=== PATIENT | female | born 1965 | race Caucasian/White ===

== ENCOUNTER 2018-02-01 21:09 | Emergency (ER) | payer MEDICAID, SELFPAY ==
[2018-02-01 21:10] VITALS: BP 123/77; PULSE 100; RESP 20; TEMP 36.6; O2SAT 97; BMI 29.5
--- NOTE | 2018-02-01 23:21 | RAD_ITS ---
STUDY: X-RAY CHEST REASON FOR EXAM: Female, 52 years old. Congestion. Dyspnea TECHNIQUE: Frontal and lateral views of the chest. COMPARISON: None. FINDINGS: The lungs are clear and expanded. There is no demonstrated pleural abnormality. Normal size heart. Normal mediastinum and madonna. Normal visualized pulmonary arteries. Normal visualized aortic arch and descending thoracic aorta. Normal visualized thoracic spine. There is degenerative osteoarthritis of the bilateral shoulders. There is no demonstrated abnormality of the visualized soft tissue structures of the upper abdomen. RAD/Chest PA and Lateral IMPRESSION: Degenerative changes, as described above. No demonstrated acute cardiopulmonary process. Electronically Signed: Charlie Casarez MD at 0:11 EDT Tel , Service support ,
[2018-02-02] MEDS: Ketorolac 30 MG/ML Syringe IM (00:05)
[2018-02-02 00:06] VITALS: BP 143/82; PULSE 95; RESP 17; O2SAT 100
--- NOTE | 2018-02-02 00:10 | ED.DCSUM_ITS ---
- ER Visit Summary Date of Service: 02/02/18 Chief Complaint: Upper respiratory infection History of Present Illness: The patient is a 52 F presenting for evaluation secondary to upper respiratory complaints. Patient states that she has an underlying history of rheumatoid arthritis. Patient reports over the course the last 4 days she has had a gradual onset of sore throat cough and earache. Patient states that she has been having some subjective sweats associated with this. She reports that the cough is nonproductive. She denies any nausea vomiting diarrhea or shortness of breath associated with this. Patient reports that the illness has caused her rheumatoid arthritis to flare and she has some generalized myalgias associated with this. Review of systems otherwise negative. Physical Examination: Vital signs notable for heart rate of 100 with normal pulse ox. Well-nourished female no acute distress. Head normocephalic. PRL. Right ear is normal, left TM is retracted with no evidence of otitis media. Nose is normal to inspection. Throat shows mild erythema with no exudates tonsillar swelling or posterior fullness. Neck was supple no lymphadenopathy. Heart was minimally tachycardic and regular. Lung sounds showed evidence of poor air movement but no respiratory distress or retractions or abnormal sounds. Abdomen was soft nontender. There is +1 bilaterally symmetric lower extremity edema. Patient has diffuse joint swelling consistent with rheumatoid arthritis. Remainder physical otherwise unremarkable. Test Results: PA and lateral chest x-ray was found to be unremarkable. Emergency Department Course and Treatment: Patient presented for evaluation secondary to upper respiratory complaints. She was mildly tachycardic so I did check the patient for the possibility of pneumonia PA lateral chest x-ray was found to be negative by my personal and radiologic interpretation. Patient was given Toradol in the emergency department. At this point I do believe that she likely has a respiratory infection, but does not require antibiotics. However given the fact that is also causing a flare of her rheumatoid I believe that a short burst of prednisone will likely help both her respiratory illness as well as her rheumatoid arthritis. She will be given a short burst, and she will follow-up with her primary care doctor Disposition: Discharge Impression: 1. Upper respiratory infection 2. Rheumatoid arthritis flare This note was generated with [employer] software. It may contain incorrect words, spelling, and punctuation that were not noted in review of the chart prior to signing ED Disposition - Plan for ED Patient: Disposition: Home or Assisted Living Chief Complaint: General Illness Diagnosis: URI (upper respiratory infection) Instructions: ED Upper Resp Infec No Abx Tx Prescriptions: Prednisone [Deltasone] 60 mg PO DAILY #15 tab Referrals: Cat Vasquez MD [Primary Care Provider] - 1 Week
[2018-02-02 00:20] VITALS: BP 143/82; PULSE 94; RESP 19; O2SAT 98
[2018-02-02] MEDS: predniSONE 20 MG Tablet 60 MG PO (00:22)
== END 2018-02-02 00:27 | disposition home or self-care (01) ==
PROVIDERS: Emergency Provider Emergency Medicine; Family Provider Internal Medicine; PCP Internal Medicine
DX: J06.9 Acute upper respiratory infection, unspecified (principal); M06.9 Rheumatoid arthritis, unspecified; Z79.899 Other long term (current) drug therapy; Z72.0 Tobacco use; H92.09 Otalgia, unspecified ear
CPT/HCPCS: 71046; 96372; 99282

== ENCOUNTER 2019-11-11 18:45 | Observation (INO) | payer MEDICAID, SELFPAY ==
[2019-11-11] VITALS (9 sets, daily range): BP systolic 103–137; BP diastolic 61–95; PULSE 98–129; RESP 16–20; TEMP 36.9; O2SAT 94–97; BMI 38.0; BMI 37.9
--- NOTE | 2019-11-11 19:07 | EKG12_ITS ---
Test Reason : SOB Blood Pressure : / mmHG Vent. Rate : 108 BPM Atrial Rate : 108 BPM P-R Int : 136 ms QRS Dur : 080 ms QT Int : 344 ms P-R-T Axes : 073 028 059 degrees QTc Int : 460 ms Sinus tachycardia Otherwise normal ECG Confirmed by CHRISTY DIETZ, RICHAR ([id number]), web editor INES COX ([id number]) on 11/14/2019 9:05:13 AM Referred By: Conchis Porter Confirmed By:RICHAR HARRISON MD
[2019-11-11] MEDS: predniSONE 20 MG Tablet 40 MG PO (19:37)
--- NOTE | 2019-11-11 19:38 | RAD_ITS ---
STUDY: X-RAY CHEST REASON FOR EXAM: Female, 54 years old. Cough and shortness of breath TECHNIQUE: Single AP portable view of the chest. COMPARISON: 02/01/2018. FINDINGS: The lungs are clear and expanded. There is no demonstrated pleural abnormality. Normal size heart. Normal mediastinum and madonna. Normal visualized pulmonary arteries. Normal visualized aortic arch and descending thoracic aorta. Normal visualized thoracic spine. Normal visualized ribs, clavicles, and shoulders. There is no demonstrated abnormality of the visualized soft tissue structures of the upper abdomen. RAD/Chest 1 View (Portable) IMPRESSION: Normal x-ray examination of the chest. Electronically Signed: Roman Tellez MD at 20:00 EDT , Service support ,
[2019-11-11 20:21] LABS: Absolute Neutrophil Count 5.2 X10^3/uL (2.0-7.7); Eosinophil# 0.39 X10^3/uL; Eosinophils% 3.9 % (0-5); Hematocrit 41.6 % (37-47); Hemoglobin 13.2 g/dL (12.0-15.0); Lymphocyte % 31.4 % (19-41); Mean Corp Hgb Conc 31.7 g/dL (32-36); Mean Corpuscular Hgb 28.5 pg (27.0-32.0); Mean Corpuscular Volume 89.8 fL (81-99); Mean Platelet Vol. 10.8 fl (6.2-12.0); Monocyte# 1.07 X10^3/uL; Monocyte% 10.8 % (0-10); NRBC Flagged by Analyzer 0 % (0-5); Neutrophil # 5.18 X10^3/uL (2.7-7.7); Neutrophil % 52.5 % (47-70); Platelet Count 398 K/mm3 (150-450); RBC Distribution Width CV 16.9 % (11.6-14.6); RBC Distribution Width SD 55.4 fl (35.1-43.9); Red Blood Count 4.63 M/mm3 (4.2-5.4); White Blood Count 9.9 K/mm3 (4.4-11.0)
[2019-11-11 20:34] LABS: Anion Gap 5 (5-15); BUN 15 mg/dL (7-18); Calcium,Total 8.6 mg/dL (8.5-10.1); Chloride 105 mmol/L (98-107); Creatinine, Serum 0.65 mg/dL (0.55-1.02); EST Glomerular Filtration Rate 101 mL/min (>60); Est Glom Filt Rate - Afr Amer 122 mL/min (>60); Glucose 111 mg/dL (74-106); Potassium 3.4 mmol/L (3.5-5.1); Sodium Level 138 mmol/L (136-145)
[2019-11-11] MEDS: 0.9% Normal Saline 1,000 ML 150 ML IV (20:38)
[2019-11-11 20:54] LABS: D-Dimer Quantitative (DVT/PE) 7.66 FEU/ug/m (0.27-0.49)
[2019-11-11 21:00] LABS: Probe Check PASS; Specimen Processing Control PASS
--- NOTE | 2019-11-11 21:45 | ED.DCSUM_ITS ---
- ER Visit Summary Date of Service: 11/11/19 Chief Complaint: [Shortness of breath] History of Present Illness: The patient is a 54 F [presents to the emergency department complaint of cough and shortness of breath for last 10 days. Patient states that she has been wheezing at night and has been coughing up yellow mucus. She complains of body aches. Patient states that she chronically has some body aches because she has history of rheumatoid arthritis. Patient tells me that she was tested for COVID in August and was negative. She denies any fevers. She denies recent travel or surgery. Patient has history of prior DVT 6 years ago but is currently not anticoagulated. She denies any chest pain.] Physical Examination: [HEENT-PERRLA, EOMI. Cranial nerves II through XII grossly intact. TMs clear. Mucous membranes moist. No adenopathy. Cardiovascular-regular and tachycardic on arrival. Her heart rate was 129. No murmurs auscultated. Lungs-aeration bilaterally. Patient has some faint expiratory wheezes bilaterally. No excessive muscle use or retractions. Abdomen-normoactive bowel sounds, soft, nontender, no rebound or rigidity, no peritoneal signs. Extremities-intact ?4, normal range of motion, normal pulses, atraumatic] Test Results: [EKG obtained on arrival showed a sinus tachycardia with a ventricular rate of 108 bpm with no acute segment changes. CBC with differential showed a white count of 9.9, hemoglobin 13, hematocrit 42, platelets 398. Chemistries unremarkable. D-dimer was elevated at 7.66. COVID- 19 test was negative. Troponin was less than 0.015. Chest x-ray showed nothing acute.] Emergency Department Course and Treatment: [On arrival patient was given albuterol MDI. We were only able to establish a small 24-gauge IV in her hand. We are unable to perform CTA of the chest through this. Multiple attempts were made at IV access unsuccessfully.] Received a dose of Lovenox 1 mg/kg subcu. Treatment Plan: [Admit] Disposition: [Admit] Impression: [Dyspnea-rule out PE URI] This note was generated with [employer] dictation software. It may contain incorrect words, spelling, and punctuation that were not noted in review of the chart prior to signing ED Disposition - Plan for ED Patient: Referrals: Cat Vasquez MD [Primary Care Provider] -
--- NOTE | 2019-11-11 21:53 | HP.PCM_ITS ---
Problem List (1) Acute bronchitis Status: Acute Qualifiers: Bronchitis organism: unspecified organism Qualified Code(s): J20.9 - Acute bronchitis, unspecified (2) Elevated d-dimer Status: Acute (3) Anxiety and depression Status: Chronic (4) GERD (gastroesophageal reflux disease) Status: Chronic Qualifiers: Esophagitis presence: esophagitis presence not specified Qualified Code(s): K21.9 - Gastro-esophageal reflux disease without esophagitis (5) Perimenopause Status: Chronic (6) Nicotine dependence Status: Chronic Qualifiers: Nicotine product type: cigarettes Substance use status: unspecified nicotine-induced disorder Qualified Code(s): F17.219 - Nicotine dependence, cigarettes, with unspecified nicotine-induced disorders (7) History of rheumatoid arthritis Status: Chronic (8) Constipation Status: Chronic Qualifiers: Constipation type: unspecified constipation type Qualified Code(s): K59.00 - Constipation, unspecified History of Present Illness Date of Admission: 11/11/19 Chief Complaint: Dyspnea The patient is a 54 y/o F w/ PMHx: Hx remote DVT, Anxiety and Depression, Obesity, Tobacco use, GERD, Rheumatoid arthritis who presents to the [facility] ED on 11/11/19 with history of dyspnea, worse with exertion with mildly productive cough with congestion and occasional headaches with no fever, chills, nausea, emesis, abdominal pain, chest pain, diarrhea, alteration to sense of taste or smell x 2 weeks with negative 08/2019 COVID testing, unchanged myalgia/arthralgia but not improving prompting eventual ED presentation. Patient reports that she has been wheezing and was initially noted to be wheezing in the ED however upon repeat evaluation no wheezing identified. Work-up in the ED included T 98.4, heart rate 129, BP 137/90, respiratory rate 16, 97% on room air, CBC with WBC 9.9, hemoglobin 13.2, platelets 398 without any evidence of left shift, d-dimer 7.66, BMP with potassium 3.4, glucose 111, negative COVID testing, chest x-ray with no acute cardiopulmonary findings, EKG with sinus tachycardia with no acute evidence of ischemia, troponin less than 0.015. Significant efforts in the ED to place IV access to obtain CTPA; however, unable and patient declined central line in addition to the fact that specific central line needed for the imaging. Discussed with radiology and nursing staff and planned PICC line which was confirmed amenable for CTPA which will be performed in AM. Past Medical History Past Medical History (Chronic Problems): Chronic Problems Anxiety and depression (Chronic) GERD (gastroesophageal reflux disease) (Chronic) Perimenopause (Chronic) Nicotine dependence (Chronic) History of rheumatoid arthritis (Chronic) Constipation (Chronic) History of immunosuppression therapy (Chronic) Allergies meloxicam Adverse Reaction (Verified 11/11/19 18:46) Upset Stomach Home Medications: Ambulatory Orders Medication Instructions Recorded Ibuprofen [Ibu] 1 tab PO TID PRN 02/01/18 Cholecalciferol (Vitamin D3) 2,500 unit PO DAILY 11/11/19 [Vitamin D3] Duloxetine Hcl [Cymbalta] 30 mg PO DAILY 11/11/19 Ferrous Sulfate 325 mg PO DAILY 11/11/19 Omeprazole [Prilosec] 20 mg PO DAILY 11/11/19 traZODone [Desyrel] 100 mg PO QHS 11/11/19 Surgical History: - - Left knee arthroscopic surgery. 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 Lives: Alone Smoking Status: Current every day smoker - Patient with ongoing three-quarter pack per day cigarette tobacco usage. Tobacco Use: Cigarettes Alcohol: None Drugs: None - *Family History Maternal History Items: Cancer - Mother with a history of breast and stomach cancer., Diabetes, Heart Disease - Her mother has had a 3 vessel CABG., - - There is a family history of rheumatoid arthritis in her maternal aunts. Paternal History Items: - - Father with osteoporosis and unclear type of bowel disease. Sibling History Items: No pertinent history Offspring History Items: - - Thyroid disease Review of Systems Constitutional: Reports: Malaise, Weakness, Fatigue. Denies: Chills, Fever, Weight Change HEENT: Reports: Head Aches, Nasal Congestion, Post Nasal Drip, Sinus Congestion, Sinus Drainage Cardiovascular: Denies: Chest Pain, Chest Pressure, Chest Tightness, Light Headedness, Orthopnea, Palpitations, Syncope Respiratory: Reports: Cough, Shortness of Breath, Shortness of breath at rest, Shortness of breath upon exertion, Sputum production, Wheezing. Denies: Hemoptysis, Pleuritic Pain Gastrointestinal: Denies: Abdominal Pain, Nausea, Vomiting Genitourinary: Denies: Dysuria Musculoskeletal: Reports: Back Pain, Joint Pain, Muscle pain. Denies: Joint Tenderness Skin: Denies: Rash, Wounds Neurological: Denies: Numbness, Tingling, Focal weakness Psychiatric: Reports: Anxiety, Depression. Denies: Homicidal Ideations, Suicidal Ideations Hematologic/ Lymphatic: Denies: Easy Bruising, Easy Bleeding VTE Information - Inpt Only VTE Present on Admission: No - Possible, elevated d-dimer, awaiting CTPA VTE Mechan Device Prophylaxis: SCD's VTE Pharm Prophylaxis ordered?: Yes Patient Problems: Active and Suspected Problems Acute bronchitis (Acute) Elevated d-dimer (Acute) Subjective: Patient seated upright in ED bed, fatigued appearing, occasional mildly productive cough, congested. Objective: Physical Examination: General: awake, alert, oriented x 3 and cooperative, seated upright in the ED bed in no apparent distress, fatigued, tearful is recent serial attempts for IV access unsuccessful. Skin: normal color, turgor, no icterus, cyanosis. HEENT: AT/NC, EOMI, PERRLA, some discomfort with palpation of the facial sinus regions, congested appearance, OP erythema with postnasal drip evident, dry MM, no carotid bruits or JVD noted. Lungs: Diminished breath sounds, greater bases, moderate effort, occasional expiratory wheeze, not severe, no obvious rales or rhonchi. Heart: Regular rate and rhythm; no gallop, rub audible. Abdomen: soft, obese, NTTP, ND, normal BS, no HSM. Extremities: no cyanosis, clubbing, or edema. Neurological: patient awake, alert, oriented as noted; cognitive function intact; pupils equally reactive to light and accomodation; cranial nerves II-XII grossly normal, moving all 4 extremities, no focal deficits, strength moderately decreased in Ankit to acute presentation. Psychiatric: affect appears fatigued, tearful given recent serial IV attempts, no acute evidence of depressive or anxiety feelings. - Physical Exam Vitals/I&O's: Vital Signs Temp Pulse Resp BP Pulse Ox 98.4 F 105 H 18 131/86 H 94 11/11/19 18:47 11/11/19 21:04 11/11/19 21:04 11/11/19 21:04 11/11/19 21:04 Oxygen Delivery Method Room Air Weight: 201 lb 8.04 oz Body Mass Index (BMI) 38.0 Laboratory Results 11/11/19 19:30: COVID-19 (KARIN) Negative 11/11/19 20:12: WBC 9.9, RBC 4.63, Hgb 13.2, Hct 41.6, MCV 89.8, MCH 28.5, MCHC 31.7 L, RDW Std Deviation 55.4 H, RDW Coeff of Abhay 16.9 H, Plt Count 398, MPV 10.8, Immature Gran % (Auto) 0.400, Neut % (Auto) 52.5, Lymph % (Auto) 31.4, M tasha % (Auto) 10.8 H, Eos % (Auto) 3.9, Baso % (Auto) 1.0, Absolute Neuts (auto) 5.2, Absolute Lymphs (auto) 3.10, Nucleated RBC % 0 11/11/19 20:12: D-Dimer Quant (PE/DVT) 7.66 H* 11/11/19 20:12: Sodium 138, Potassium 3.4 L, Chloride 105, Carbon Dioxide 28.0, Anion Gap 5, BUN 15, Creatinine 0.65, Estim Creat Clear Calc 76.40, Est GFR ( RD) Af Amer 122, Est GFR (MDRD) Non-Af 101, BUN/Creatinine Ratio 23.0 H, Glucose 111 H, Calcium 8.6 Current Medications Sodium Chloride () 1,000 mls @ 150 mls/hr IV .[id number] ONE Stop: 11/12/19 01:46 Last Admin: 11/11/19 20:38 Dose: 150 mls/hr Documented by: Assessment/Plan All Active Problems Acute bronchitis (Acute) Elevated d-dimer (Acute) Ileus (Acute) Dehydration with hyponatremia (Acute) Nausea and vomiting in adult (Acute) Abdominal pain (Acute) The patient is a 54 y/o F w/ PMHx: Hx remote DVT, Anxiety and Depression, Obesity, Tobacco use, GERD, Rheumatoid arthritis who presents to the [facility] ED on 11/11/19 with history of dyspnea, worse with exertion with mildly productive cough with congestion and occasional headaches with no fever, chills, nausea, emesis, abdominal pain, chest pain, diarrhea, alteration to sense of taste or smell x 2 weeks with negative 08/2019 COVID testing, unchanged myalgia/arthralgia but not improving prompting eventual ED presentation. 1. Dyspnea with mildly productive cough, unclear specific etiology, possibly Acute bronchitis with possible underlying COPD, undiagnosed with prolonged tobacco use history however elevated d-dimer of unclear etiology, possible pulmonary emboli: We will admit to the PCU, COVID negative again, will obtain respiratory viral panel, request sputum Cx, maintain on telemetry monitoring, will cycle cardiac enzymes, repeat EKGs, obtain echocardiogram to be cautious, given ongoing wheezing noted in the ED upon initial presentation we will continue Solu-Medrol, ATC DuoNebs, PRN albuterol, defer any antibiotic therapy as no WC elevation or left shift nor any fever noted, PRN cough agents, continue therapeutic Lovenox pending CTPA following PICC line placement in a.m., PRN oral/IV pain regimen, PRN antiemetic therapy. Upon discharge patient will need formal pulmonary function testing. 2. Hypokalemia: Admission K+ 3.4, supplementation given, repeat level in AM. 3. Anxiety and depression: We will continue patient home Lexapro regimen. 4. Rheumatoid arthritis: Given usage of IV Solu-Medrol will temporarily hold patient oral home prednisone therapy. 5. GERD: We will maintain on famotidine. 6. Tobacco Abuse: Encouraged cessation, inpatient consultation per RT, NR if desired. 7. DVT prophylaxis: SCDs, therapeutic Lovenox. OBSV E&M: [id number] Initial observation care L3
[2019-11-11] MEDS: Enoxaparin 100 MG/ML Syringe 90 MG SC (22:38)
--- NOTE | 2019-11-11 22:57 | ECHOD_ITS ---
Reason For Study: Arrhythmia Procedure This was a 2D Doppler, Color Flow transthoracic echocardiogram. Exam performed portable in patient room. Left Ventricle Normal LV size. Left ventricular systolic function is normal. The estimated ejection fraction is 60 %. Stage 1 diastolic dysfunction. No regional wall motion abnormalities noted. Right Ventricle Normal RV size. Normal systolic function. Atria Normal left atrium. Normal right atrium. Mitral Valve Normal mitral valve. Tricuspid Valve Normal tricuspid valve. Unable to estimate RV systolic pressure due to insufficient tricuspid regurgitant envelope. Aortic Valve Normal aortic valve. Trisinus/trileaflet aortic valve. Pulmonic Valve Normal pulmonic valve. Great Vessels Normal aortic root. The pulmonary artery is normal size. Normal inferior vena cava. Pericardium/Pleural No pericardial effusion. MMode/2D Measurements & Calculations LVIDd: 4.0 cm IVSd: 1.1 cm Ao root diam: 3.1 cm LVIDs: 2.4 cm LVPWd: 0.91 cm LA dimension: 3.5 cm RVDd: 3.2 cm FS: 40.5 % LAV(MOD-bp): 38.2 ml LA A4 area: 14.4 cm2 RA A4 area: 14.0 cm2 LAV(MOD-bp) Indexed: 20.2 ml/m2 LAV(MOD-sp2): 38.6 ml LAV(MOD-sp4): 37.4 ml Time Measurements MV dec time: 0.18 sec Doppler Measurements & Calculations MV E max graham: 100.8 cm/sec Lat Peak E' Graham: 11.5 cm/sec Med Peak E' Graham: 11.2 cm/sec MV A max graham: 137.5 cm/sec E/E' lat: 8.8 E/E' med: 9.0 MV E/A: 0.73 Ao V2 max: 165.6 cm/sec LV V1 max: 137.5 cm/sec PA V2 max: 107.9 cm/sec Ao max P.0 mmHg LV V1 max P.6 mmHg Interpretation Summary Normal LV size. Left ventricular systolic function is normal. The estimated ejection fraction is 60 %. Stage 1 diastolic dysfunction. Structurally normal valves. Ordering Physician: Conchis Porter Referring Physician: Conchis Porter Performed By: Sotero Gamino RCS
--- NOTE | 2019-11-11 22:57 | EKG12_ITS ---
Test Reason : DYSPNEA Blood Pressure : / mmHG Vent. Rate : 098 BPM Atrial Rate : 098 BPM P-R Int : 154 ms QRS Dur : 076 ms QT Int : 358 ms P-R-T Axes : 068 009 039 degrees QTc Int : 457 ms Normal sinus rhythm Normal ECG Confirmed by BRODIE DIETZ, АННА ([id number]), manuscript editor INES COX ([id number]) on 11/14/2019 8:54:24 AM Referred By: Conchis Porter Confirmed By:АННА CALLOWAY MD
[2019-11-11 23:27] LABS: Partial Thromboplast Time 33.6 Seconds (24.1-36.2)
[2019-11-11] MEDS: 0.9% Normal Saline 1,000 ML 100 ML IV (23:33)
[2019-11-11] MEDS: Aspirin 81 MG TAB.CHEW 324 MG PO (23:47)
[2019-11-12] VITALS (11 sets, daily range): BP systolic 123–153; BP diastolic 63–90; PULSE 74–116; RESP 15–20; TEMP 36.7–36.9; O2SAT 94–95
[2019-11-12] MEDS: Ipratropium/Albuterol Sulfate 3 ML AMPUL.NEB INHALATION ×4 (00:14→19:35)
[2019-11-12 02:36] LABS: Absolute Lymphocyte Count 0.91 X10^3/uL (0.83-4.51); Absolute Neutrophil Count 6.3 X10^3/uL (2.0-7.7); Basophil# 0.04 X10^3/uL; Basophil% 0.5 % (0-1); Eosinophil# 0.01 X10^3/uL; Eosinophils% 0.1 % (0-5); Hematocrit 38.4 % (37-47); Hemoglobin 12.1 g/dL (12.0-15.0); Lymphocyte # 0.91 X10^3/ul (4.0); Lymphocyte % 12.4 % (19-41); Mean Corp Hgb Conc 31.5 g/dL (32-36); Mean Corpuscular Hgb 28.1 pg (27.0-32.0); Mean Corpuscular Volume 89.1 fL (81-99); Mean Platelet Vol. 11.3 fl (6.2-12.0); Monocyte# 0.07 X10^3/uL; NRBC Flagged by Analyzer 0 % (0-5); Neutrophil # 6.29 X10^3/uL (2.7-7.7); Neutrophil % 85.6 % (47-70); Platelet Count 342 K/mm3 (150-450); RBC Distribution Width CV 16.4 % (11.6-14.6); Red Blood Count 4.31 M/mm3 (4.2-5.4); White Blood Count 7.4 K/mm3 (4.4-11.0)
[2019-11-12 03:30] LABS: ALB/GLOB Ratio 0.5 RATIO (0.9-2.4); AST(SGOT) 13 U/L (15-37); Alanine Aminotransfer ALT/SGPT 29 U/L (13-56); Albumin, Serum 2.3 g/dL (3.2-5.0); Alkaline Phosphatase 73 U/L (45-117); Anion Gap 5 (5-15); BUN 14 mg/dL (7-18); BUN/Creat Ratio 18.8 RATIO (10-20); Calcium,Total 8.2 mg/dL (8.5-10.1); Chloride 109 mmol/L (98-107); Cholesterol 115 mg/dL (200); Creatinine, Serum 0.74 mg/dL (0.55-1.02); EST Glomerular Filtration Rate 87 mL/min (>60); Est Glom Filt Rate - Afr Amer 105 mL/min (>60); Estimated Creatinine Clearance 67.11 ml/min; Globulin 4.3 g/dL (2.2-4.2); Glucose 178 mg/dL (74-106); High Density Lipoprotein 33 mg/dL; Protein, Total 6.6 g/dL (6.4-8.2); Sodium Level 138 mmol/L (136-145); Triglycerides 58 mg/dL; Very Low Density Lipoprotein 12 mg/dL (5-40)
[2019-11-12] MEDS: guaiFENesin 10 ML UDC (200MG/10ML) 20 ML PO (04:33)
[2019-11-12] MEDS: Mag Hydrox/Al Hydrox/Simeth 30 ML UDC PO (04:40)
[2019-11-12] MEDS: Enoxaparin 100 MG/ML Syringe 90 MG SC (05:40)
--- NOTE | 2019-11-12 08:00 | CT_ITS ---
STUDY: CTA CHEST REASON FOR EXAM: Female, 54 years old. PT STATED COUGH, SHORT OF BREATH X 10 DAYS, POSITIVE INFLUENZA, HX DVT RADIATION DOSAGE (If Supplied By Facility): CTDIvol = ( 12.02 ) mGy, DLP = ( 521.27 ) mGycm TECHNIQUE: The examination was performed with the intravenous administration of 100ML ISOVUE 370. Post-processing of the angiographic images was performed, with multiplanar reformation and 3D reconstruction. Individualized dose optimization techniques were used for this CT. COMPARISON: Previous plain films FINDINGS: Normal enhancement of the main pulmonary artery and right and left pulmonary arteries. Normal enhancement of the bilateral peripheral pulmonary arteries. There is no demonstrated pulmonary embolism. Normal thoracic aorta and visualized great vessels. There is no demonstrated aortic dissection. Normal heart and pericardium. Normal mediastinum. Normal hilar regions. Normal visualized trachea and bronchi. The lungs are well expanded. Normal pulmonary parenchyma. Normal pleura. Normal chest wall structures. There are degenerative changes of thoracic spine. Normal visualized upper abdomen. CT/CTA Chest W/WO Contrast IMPRESSION: No demonstrated PE, or thoracic aortic aneurysm or dissection No superimposed acute pulmonary process Degenerative bony changes Electronically Signed: Irving Cavanaugh MD at 11:54 EDT , Service support ,
[2019-11-12] MEDS: Acetaminophen 325 MG Tablet 650 MG PO (09:23)
[2019-11-12] MEDS: Ferrous Sulfate 325 MG Tablet PO (09:23)
[2019-11-12] MEDS: Famotidine 20 MG Tablet PO ×2 (09:23→21:10)
[2019-11-12] MEDS: Pantoprazole Sodium 20 MG Tablet PO (09:23)
[2019-11-12] MEDS: oxyCODONE 5 MG Tablet PO ×3 (09:23→20:28)
[2019-11-12] MEDS: 0.9% Normal Saline 1,000 ML 100 ML IV (09:24)
[2019-11-12] MEDS: Aspirin 81 MG TAB.CHEW PO (09:38)
[2019-11-12] MEDS: DULoxetine Hcl 30 MG Capsule PO (12:44)
--- NOTE | 2019-11-12 13:17 | NURSING ---
Copious amount of red drainage noted. Drsg changed. 2x2 guaze with tegaderm applied.
--- NOTE | 2019-11-12 14:08 | PN_ITS ---
<Dory Mauricio - Last Filed: 11/12/19 14:14> Patient Problems: Active and Suspected Problems Acute bronchitis (Acute) Elevated d-dimer (Acute) Subjective: Patient seen and examined. Reports intermittent coughing spells where she becomes shortness of breath. Overall shortness of breath improved. Denies fever, chills. - Physical Exam Vitals/I&O's: Vital Signs Temp Pulse Resp BP Pulse Ox 98.1 F 97 16 144/90 H 94 11/12/19 09:30 11/12/19 09:30 11/12/19 09:30 11/12/19 09:30 11/12/19 09:30 Oxygen Flow Rate (L/min) 2 Oxygen Delivery Method Room Air Weight: 200 lb 13.458 oz Body Mass Index (BMI) 37.9 Intake and Output for Last 24 Hours 11/10/19 11/11/19 11/12/19 23:59 23:59 23:59 Intake Total 663.33 / 663.33 1631.67 / 1631.67 Balance 663.33 / 663.33 1631.67 / 1631.67 General: Alert, Oriented x3, Cooperative HEENT: Atraumatic, PERRLA, EOMI, Normocephalic Neck: Supple, No JVD, Negative Carotid Bruits Lungs: Clear to auscultation, Diminished Cardiovascular: Regular rate, No murmurs Abdomen: Bowel Sounds Present, Soft, Non Tender, Non-Distended Extremities: No clubbing, No cyanosis, No edema, Capillary Refill Less than 3 Seconds Skin: No rashes, No breakdown Musculoskeletal: No Tenderness to Palpation of Joints or Extremities Neurological: Cranial nerves II-XII grossly intact, Neuro grossly intact Psych/Mental Status: Normal Affect, Appropriate Microbiology Past 72 Hours 11/12/19 00:25 Sputum, Expectorated/Coughed Gram Stain - Final 11/11/19 00:10 Mucosa - Nose Respiratory Panel (PCR) - Final Influenzae B Laboratory Results 11/11/19 19:30: COVID-19 (KARIN) Negative 11/11/19 20:12: WBC 9.9, RBC 4.63, Hgb 13.2, Hct 41.6, MCV 89.8, MCH 28.5, MCHC 31.7 L, RDW Std Deviation 55.4 H, RDW Coeff of Abhay 16.9 H, Plt Count 398, MPV 10.8, Immature Gran % (Auto) 0.400, Neut % (Auto) 52.5, Lymph % (Auto) 31.4, Archer % (Auto) 10.8 H, Eos % (Auto) 3.9, Baso % (Auto) 1.0, Absolute Neuts (auto) 5.2, Absolute Lymphs (auto) 3.10, Nucleated RBC % 0 11/11/19 20:12: D-Dimer Quant (PE/DVT) 7.66 H* 11/11/19 20:12: Sodium 138, Potassium 3.4 L, Chloride 105, Carbon Dioxide 28.0, Anion Gap 5, BUN 15, Creatinine 0.65, Estim Creat Clear Calc 76.40, Est GFR (MDRD) Af Amer 122, Est GFR (MDRD) Non-Af 101, BUN/Creatinine Ratio 23.0 H, Glucose 111 H, Calcium 8.6 11/11/19 20:12: Troponin I < 0.015 11/11/19 20:12: PT 13.0, INR 1.0, APTT 33.6 11/11/19 23:58: Troponin I < 0.015 11/12/19 02:26: WBC 7.4, RBC 4.31, Hgb 12.1, Hct 38.4, MCV 89.1, MCH 28.1, MCHC 31.5 L, RDW Std Deviation 54.0 H, RDW Coeff of Abhay 16.4 H, Plt Count 342, MPV 11.3, Immature Gran % (Auto) 0.400, Neut % (Auto) 85.6 H, Lymph % (Auto) 12.4 L, Archer % (Auto) 1.0, Eos % (Auto) 0.1, Baso % (Auto) 0.5, Absolute Neuts (auto) 6.3, Absolute Lymphs (auto) 0.91, Nucleated RBC % 0 11/12/19 02:26: Sodium 138, Potassium 4.0, Chloride 109 H, Carbon Dioxide 24.0, Anion Gap 5, BUN 14, Creatinine 0.74, Estim Creat Clear Calc 67.11, Est GFR (MDRD) Af Amer 105, Est GFR (MDRD) Non-Af 87, BUN/Creatinine Ratio 18.8, Glucose 178 H, Calcium 8.2 L, Total Bilirubin 0.10 L, AST 13 L, ALT 29, Alkaline Tony sphatase 73, Total Protein 6.6, Albumin 2.3 L, Globulin 4.3 H, Albumin/Globulin Ratio 0.5 L, Triglycerides 58, Cholesterol 115, LDL Cholesterol 70, VLDL Cholesterol 12, HDL Cholesterol 33 L 11/12/19 02:26: Troponin I < 0.015 Current Medications Acetaminophen (Tylenol) 650 mg PO Q6H PRN PRN PRN Reason: Pain Score 1-10/Temp > 100.7 F Last Admin: 11/12/19 09:23 Dose: 650 mg Documented by: Al Hydroxide/Mg Hydroxide (Mylanta Ii) 30 ml PO Q6H PRN PRN PRN Reason: Gastric Burning Last Admin: 11/12/19 04:40 Dose: 30 ml Documented by: Albuterol Sulfate (Ventolin Aerosols) 2.5 mg INHALATION Q2H PRN PRN PRN Reason: Dyspnea, wheezing Albuterol/Ipratropium (Duoneb) 3 ml INHALATION Q4HWA.RT [facility] Last Admin: 11/12/19 10:50 Dose: Not Given Documented by: Aspirin (Aspirin, Baby) 81 mg PO DAILY@0800 [facility] Last Admin: 11/12/19 09:38 Dose: 81 mg Documented by: Dextrose (D50w Syringe) 0 gm IV X1 PRN; Protocol PRN Reason: Hypoglycemia Duloxetine HCl (Cymbalta) 30 mg PO DAILY [facility] Last Admin: 11/12/19 12:44 Dose: 30 mg Documented by: Famotidine (Pepcid) 20 mg PO BID [facility] Last Admin: 11/12/19 09:23 Dose: 20 mg Documented by: Ferrous Sulfate (Ferrous Sulfate) 325 mg PO DAILYCM [facility] Last Admin: 11/12/19 09:23 Dose: 325 mg Documented by: Glucagon () 1 mg IM .X1 PRN PRN Reason: Hypoglycemia Guaifenesin (Robitussin) 20 ml PO Q4H PRN PRN PRN Reason: COUGH Last Admin: 11/12/19 04:33 Dose: 20 ml Documented by: Hydralazine HCl (Apresoline Iv) 10 mg IV Q4H PRN PRN PRN Reason: SBP > 160 Sodium Chloride () 1,000 mls @ 100 mls/hr IV .Q10H [facility] Last Infusion: 11/12/19 12:46 Dose: 100 mls/hr Documented by: Sodium Chloride () 250 mls @ 15 mls/hr IV .[id number] PRN PRN Reason: Saline Flush Sodium Chloride () 250 mls @ 15 mls/hr IV .[id number] PRN PRN Reason: Additional IVPB Infusion Magnesium Hydroxide (Milk Of Magnesia) 30 ml PO DAILY PRN PRN PRN Reason: Constipation Methylprednisolone (Solu-Medrol) 40 mg IV Q8 [facility] Last Admin: 11/12/19 05:40 Dose: 40 mg Documented by: Morphine Sulfate () 2 mg IV Q3H PRN PRN PRN Reason: Pain Score 6-10/10 Nicotine (Nicoderm Cq (Pbkc)) 14 mg TRANSDERM. DAILY [facility] Last Admin: 11/12/19 09:24 Dose: 14 mg Documented by: Nitroglycerin (Nitrostat) 0.4 mg SUBLINGUAL Q5M PRN PRN Reason: CARDIAC/CHEST PAIN Ondansetron HCl (Zofran) 4 mg IV Q8H PRN PRN PRN Reason: NAUSEA/VOMITING Oxycodone HCl (Oxyir) 5 mg PO Q4H PRN PRN PRN Reason: Pain Score 4-5/10 Last Admin: 11/12/19 09:23 Dose: 5 mg Documented by: Pantoprazole Sodium (Protonix) 20 mg PO DAILY [facility] Last Admin: 11/12/19 09:23 Dose: 20 mg Documented by: Prochlorperazine Edisylate (Compazine Iv) 5 mg IV Q4H PRN PRN PRN Reason: Breakthrough Nausea/Vomiting Psyllium Hydrophilic Mucilloid (Metamucil) 1 packet PO DAILY PRN PRN PRN Reason: Constipation Senna/Docusate Sodium (Senokot-S, Charo-Colace) 2 tablet PO BID PRN PRN PRN Reason: Constipation Sodium Chloride () 10 - 40 ml IV UD PRN PRN Reason: SALINE FLUSH Throat Lozenges (Cepacol Sore Throat Lozenge) 1 lozenge MUCOUS MEM Q2H PRN PRN PRN Reason: SORE THROAT Trazodone HCl (Desyrel) 100 mg PO QHS [facility] Medical Necessity - Tobacco Use Smoking Status: Current every day smoker Tobacco Use: Cigarettes Assessment/Plan All Active Problems Acute bronchitis (Acute) Elevated d-dimer (Acute) Ileus (Acute) Dehydration with hyponatremia (Acute) Nausea and vomiting in adult (Acute) Abdominal pain (Acute) 1. Acute bronchitis secondary to acute influenza B-suspect underlying COPD. COVID negative. Respiratory panel positive for influenza B. Sputum culture pending. Continue IV Solu-Medrol. Albuterol and DuoNeb aerosols. Oxygen stable on room air. Walking pulse ox prior to discharge. PRN regimen for cough. Incentive spirometer. Recommend outpatient follow-up with pulmonary medicine for pulmonary function testing given long-term smoking history. CTA negative for PE. Echocardiogram demonstrates an EF of 60%, stage I diastolic dysfunction. 2. Hypokalemia-replace per protocol. Resolved. 3. Rheumatoid arthritis-on prednisone. 4. GERD-continue PPI. 5. Tobacco dependence-encouraged cessation. Nicotine replacement patch. 6. Anxiety/depression-continue duloxetine, trazodone regimen. DVT prophylaxis-Lovenox sc This patient was seen by ALEJANDRO Cisneros under the supervision of Dr. Coppola. <Jemima Coppola - Last Filed: 11/12/19 14:23> - Physical Exam Vitals/I&O's: Vital Signs Temp Pulse Resp BP Pulse Ox 98.1 F 97 16 144/90 H 94 11/12/19 09:30 11/12/19 09:30 11/12/19 09:30 11/12/19 09:30 11/12/19 09:30 Oxygen Flow Rate (L/min) 2 Oxygen Delivery Method Room Air Weight: 91.1 kg Body Mass Index (BMI) 37.9 Intake and Output for Last 24 Hours 11/10/19 11/11/19 11/12/19 23:59 23:59 23:59 Intake Total 663.33 / 663.33 1631.67 / 1631.67 Balance 663.33 / 663.33 1631.67 / 1631.67 Microbiology Past 72 Hours 11/12/19 00:25 Sputum, Expectorated/Coughed Gram Stain - Final 11/11/19 00:10 Mucosa - Nose Respiratory Panel (PCR) - Final Influenzae B Laboratory Results 11/11/19 19:30: COVID-19 (KARIN) Negative 11/11/19 20:12: WBC 9.9, RBC 4.63, Hgb 13.2, Hct 41.6, MCV 89.8, MCH 28.5, MCHC 31.7 L, RDW Std Deviation 55.4 H, RDW Coeff of Abhay 16.9 H, Plt Count 398, MPV 10.8, Immature Gran % (Auto) 0.400, Neut % (Auto) 52.5, Lymph % (Auto) 31.4, Archer % (Auto) 10.8 H, Eos % (Auto) 3.9, Baso % (Auto) 1.0, Absolute Neuts (auto) 5.2, Absolute Lymphs (auto) 3.10, Nucleated RBC % 0 11/11/19 20:12: D-Dimer Quant (PE/DVT) 7.66 H* 11/11/19 20:12: Sodium 138, Potassium 3.4 L, Chloride 105, Carbon Dioxide 28.0, Anion Gap 5, BUN 15, Creatinine 0.65, Estim Creat Clear Calc 76.40, Est GFR (MDRD) Af Amer 122, Est GFR (MDRD) Non-Af 101, BUN/Creatinine Ratio 23.0 H, Glucose 111 H, Calcium 8.6 11/11/19 20:12: Troponin I < 0.015 11/11/19 20:12: PT 13.0, INR 1.0, APTT 33.6 11/11/19 23:58: Troponin I < 0.015 11/12/19 02:26: WBC 7.4, RBC 4.31, Hgb 12.1, Hct 38.4, MCV 89.1, MCH 28.1, MCHC 31.5 L, RDW Std Deviation 54.0 H, RDW Coeff of Abhay 16.4 H, Plt Count 342, MPV 11.3, Immature Gran % (Auto) 0.400, Neut % (Auto) 85.6 H, Lymph % (Auto) 12.4 L, Archer % (Auto) 1.0, Eos % (Auto) 0.1, Baso % (Auto) 0.5, Absolute Neuts (auto) 6.3, Absolute Lymphs (auto) 0.91, Nucleated RBC % 0 11/12/19 02:26: Sodium 138, Potassium 4.0, Chloride 109 H, Carbon Dioxide 24.0, Anion Gap 5, BUN 14, Creatinine 0.74, Estim Creat Clear Calc 67.11, Est GFR (MDRD) Af Amer 105, Est GFR (MDRD) Non-Af 87, BUN/Creatinine Ratio 18.8, Glucose 178 H, Calcium 8.2 L, Total Bilirubin 0.10 L, AST 13 L, ALT 29, Alkaline Phosphatase 73, Total Protein 6.6, Albumin 2.3 L, Globulin 4.3 H, Albumin/Globulin Ratio 0.5 L, Triglycerides 58, Cholesterol 115, LDL Cholesterol 70, VLDL Cholesterol 12, HDL Cholesterol 33 L 11/12/19 02:26: Troponin I < 0.015 Current Medications Acetaminophen (Tylenol) 650 mg PO Q6H PRN PRN PRN Reason: Pain Score 1-10/Temp > 100.7 F Last Admin: 11/12/19 09:23 Dose: 650 mg Documented by: Al Hydroxide/Mg Hydroxide (Mylanta Ii) 30 ml PO Q6H PRN PRN PRN Reason: Gastric Burning Last Admin: 11/12/19 04:40 Dose: 30 ml Documented by: Albuterol Sulfate (Ventolin Aerosols) 2.5 mg INHALATION Q2H PRN PRN PRN Reason: Dyspnea, wheezing Albuterol/Ipratropium (Duoneb) 3 ml INHALATION Q4HWA.RT [facility] Last Admin: 11/12/19 10:50 Dose: Not Given Documented by: Aspirin (Aspirin, Baby) 81 mg PO DAILY@0800 [facility] Last Admin: 11/12/19 09:38 Dose: 81 mg Documented by: Benzonatate (Tessalon Perle) 100 mg PO TID PRN PRN PRN Reason: COUGH Dextrose (D50w Syringe) 0 gm IV X1 PRN; Protocol PRN Reason: Hypoglycemia Duloxetine HCl (Cymbalta) 30 mg PO DAILY [facility] Last Admin: 11/12/19 12:44 Dose: 30 mg Documented by: Famotidine (Pepcid) 20 mg PO BID [facility] Last Admin: 11/12/19 09:23 Dose: 20 mg Documented by: Ferrous Sulfate (Ferrous Sulfate) 325 mg PO DAILYCM [facility] Last Admin: 11/12/19 09:23 Dose: 325 mg Documented by: Glucagon () 1 mg IM .X1 PRN PRN Reason: Hypoglycemia Guaifenesin (Robitussin) 20 ml PO Q4H PRN PRN PRN Reason: COUGH Last Admin: 11/12/19 04:33 Dose: 20 ml Documented by: Hydralazine HCl (Apresoline Iv) 10 mg IV Q4H PRN PRN PRN Reason: SBP > 160 Sodium Chloride () 1,000 mls @ 100 mls/hr IV .Q10H [facility] Last Infusion: 11/12/19 12:46 Dose: 100 mls/hr Documented by: Sodium Chloride () 250 mls @ 15 mls/hr IV .[id number] PRN PRN Reason: Saline Flush Sodium Chloride () 250 mls @ 15 mls/hr IV .[id number] PRN PRN Reason: Additional IVPB Infusion Magnesium Hydroxide (Milk Of Magnesia) 30 ml PO DAILY PRN PRN PRN Reason: Constipation Methylprednisolone (Solu-Medrol) 40 mg IV Q8 [facility] Last Admin: 11/12/19 05:40 Dose: 40 mg Documented by: Morphine Sulfate () 2 mg IV Q3H PRN PRN PRN Reason: Pain Score 6-10/10 Nicotine (Nicoderm Cq (Pbkc)) 14 mg TRANSDERM. DAILY [facility] Last Admin: 11/12/19 09:24 Dose: 14 mg Documented by: Nitroglycerin (Nitrostat) 0.4 mg SUBLINGUAL Q5M PRN PRN Reason: CARDIAC/CHEST PAIN Ondansetron HCl (Zofran) 4 mg IV Q8H PRN PRN PRN Reason: NAUSEA/VOMITING Oxycodone HCl (Oxyir) 5 mg PO Q4H PRN PRN PRN Reason: Pain Score 4-5/10 Last Admin: 11/12/19 09:23 Dose: 5 mg Documented by: Pantoprazole Sodium (Protonix) 20 mg PO DAILY [facility] Last Admin: 11/12/19 09:23 Dose: 20 mg Documented by: Prochlorperazine Edisylate (Compazine Iv) 5 mg IV Q4H PRN PRN PRN Reason: Breakthrough Nausea/Vomiting Psyllium Hydrophilic Mucilloid (Metamucil) 1 packet PO DAILY PRN PRN PRN Reason: Constipation Senna/Docusate Sodium (Senokot-S, Charo-Colace) 2 tablet PO BID PRN PRN PRN Reason: Constipation Sodium Chloride () 10 - 40 ml IV UD PRN PRN Reason: SALINE FLUSH Throat Lozenges (Cepacol Sore Throat Lozenge) 1 lozenge MUCOUS MEM Q2H PRN PRN PRN Reason: SORE THROAT Trazodone HCl (Desyrel) 100 mg PO QHS [facility] Assessment/Plan This patient was seen in conjunction with Dory Mauricio LAMINATOR. I have independently interviewed and examined the patient and reviewed pertinent historical, laboratory, and other data. Please refer to her note for patient's presentation, findings, and recommendations. Patient was seen and examined. She complains of feeling achy all over. Denied any fever or chills. She is on room air. COVID-19 testing is negative. Respiratory panel is positive for acute influenza B. She had a midline placed today. CTA is negative for acute PE. Vitals were reviewed -stable Physical Exam: Gen: Looks in some discomfort, not pale, not jaundiced, alert oriented x3 CVS:HS I +II, regular, no murmurs RESP: Diminished at lung bases, no wheezes heard GI: BS present and normal, nontender, no palpable organs EXT:No edema Labs reviewed: ASSESSMENT: 1. Acute bronchitis second to acute influenza B 2. Hypokalemia 3. Rheumatoid arthritis 4. GERD 5. Nicotine dependence 6. Anxiety/depression Meds reviewed Plan: We will discontinue Lovenox Continue with scheduled breathing treatments, IV Solu-Medrol OBSV E&M: [id number] Subsequent observation care L3
[2019-11-12] MEDS: Benzonatate 100 MG Capsule PO ×2 (14:55→20:28)
[2019-11-12] MEDS: traZODone 100 MG Tablet PO (21:08)
[2019-11-12] MEDS: 0.9% Saline Lock 10 ML Syringe IV (21:11)
[2019-11-13] VITALS (11 sets, daily range): BP systolic 120–151; BP diastolic 63–84; PULSE 66–98; RESP 15–20; TEMP 36.4–36.8; O2SAT 92–95
[2019-11-13] MEDS: guaiFENesin 10 ML UDC (200MG/10ML) 20 ML PO (00:18)
[2019-11-13] MEDS: oxyCODONE 5 MG Tablet PO ×5 (00:22→22:11)
[2019-11-13] MEDS: 0.9% Saline Lock 10 ML Syringe IV ×2 (05:15→14:39)
[2019-11-13 05:46] LABS: Anion Gap 2 (5-15); BUN 13 mg/dL (7-18); BUN/Creat Ratio 22.3 RATIO (10-20); Calcium,Total 8.7 mg/dL (8.5-10.1); Chloride 107 mmol/L (98-107); Creatinine, Serum 0.58 mg/dL (0.55-1.02); EST Glomerular Filtration Rate 115 mL/min (>60); Est Glom Filt Rate - Afr Amer 140 mL/min (>60); Estimated Creatinine Clearance 85.62 ml/min; Glucose 150 mg/dL (74-106); Potassium 4.7 mmol/L (3.5-5.1); Sodium Level 140 mmol/L (136-145)
[2019-11-13] MEDS: Ipratropium/Albuterol Sulfate 3 ML AMPUL.NEB INHALATION ×3 (06:48→19:09)
[2019-11-13] MEDS: DULoxetine Hcl 30 MG Capsule PO (10:57)
[2019-11-13] MEDS: Ferrous Sulfate 325 MG Tablet PO (10:57)
[2019-11-13] MEDS: Aspirin 81 MG TAB.CHEW PO (10:57)
[2019-11-13] MEDS: Famotidine 20 MG Tablet PO ×2 (10:58→21:23)
[2019-11-13] MEDS: guaiFENesin 1,200 MG Tablet 1200 MG PO ×2 (10:58→21:23)
[2019-11-13] MEDS: Pantoprazole Sodium 20 MG Tablet PO (10:58)
[2019-11-13] MEDS: Acetaminophen 325 MG Tablet 650 MG PO (10:59)
--- NOTE | 2019-11-13 11:28 | PCM.PROGNOTE ---
<Dory Mauricio - Last Filed: 11/13/19 11:32> Patient Problems: Active and Suspected Problems Acute bronchitis (Acute) Elevated d-dimer (Acute) Subjective: Patient seen and examined. Reports continued coughing spells with associated shortness of breath. Patient states cough is nonproductive however she feels like she has something in her chest that she needs to get out. Patient reports overnight she became diaphoretic and had to change her bedding 3 times. No fever was noted per temperature however patient felt she was febrile during that time. - Physical Exam Vitals/I&O's: Vital Signs Temp Pulse Resp BP Pulse Ox 98.2 F 93 15 151/77 H 95 11/13/19 10:34 11/13/19 10:34 11/13/19 10:34 11/13/19 10:34 11/13/19 10:34 Oxygen Flow Rate (L/min) 2 Oxygen Delivery Method Room Air Weight: 200 lb 13.458 oz Body Mass Index (BMI) 37.9 Intake and Output for Last 24 Hours 11/11/19 11/12/19 11/13/19 23:59 23:59 23:59 Intake Total 663.33 / 663.33 2258.34 / 2258.34 Balance 663.33 / 663.33 2258.34 / 2258.34 General: Alert, Oriented x3, Cooperative HEENT: Atraumatic, PERRLA, EOMI, Normocephalic Oral: Dry Mucosa Neck: Supple, No JVD, Negative Carotid Bruits Lungs: Clear to auscultation, No rales Cardiovascular: Regular rate, No murmurs Abdomen: Bowel Sounds Present, Soft, Non Tender, Non-Distended Extremities: No clubbing, No cyanosis, No edema, Capillary Refill Less than 3 Seconds Skin: No rashes, No breakdown Musculoskeletal: No Tenderness to Palpation of Joints or Extremities Neurological: Cranial nerves II-XII grossly intact, Neuro grossly intact Psych/Mental Status: Normal Affect, Appropriate Microbiology Past 72 Hours 11/12/19 00:25 Sputum, Expectorated/Coughed Gram Stain - Final 11/12/19 00:25 Sputum, Expectorated/Coughed Respiratory Culture - Preliminary Appears to be normal respiratory luke. Further studies to follow. 11/11/19 00:10 Mucosa - Nose Respiratory Panel (PCR) - Final Influenzae B Laboratory Results 11/13/19 05:15: Sodium 140, Potassium 4.7, Chloride 107, Carbon Dioxide 31.0, Anion Gap 2 L, BUN 13, Creatinine 0.58, Estim Creat Clear Calc 85.62, Est GFR (MDRD) Af Amer 140, Est GFR (MDRD) Non-Af 115, BUN/Creatinine Ratio 22.3 H, Glucose 150 H, Calcium 8.7 Current Medications Acetaminophen (Tylenol) 650 mg PO Q6H PRN PRN PRN Reason: Pain Score 1-10/Temp > 100.7 F Last Admin: 11/13/19 10:59 Dose: 650 mg Documented by: Al Hydroxide/Mg Hydroxide (Mylanta Ii) 30 ml PO Q6H PRN PRN PRN Reason: Gastric Burning Last Admin: 11/12/19 04:40 Dose: 30 ml Documented by: Albuterol Sulfate (Ventolin Aerosols) 2.5 mg INHALATION Q2H PRN PRN PRN Reason: Dyspnea, wheezing Albuterol/Ipratropium (Duoneb) 3 ml INHALATION Q4HWA.RT [facility] Last Admin: 11/13/19 11:06 Dose: 3 ml Documented by: Aspirin (Aspirin, Baby) 81 mg PO DAILY@0800 [facility] Last Admin: 11/13/19 10:57 Dose: 81 mg Documented by: Benzonatate (Tessalon Perle) 100 mg PO TID PRN PRN PRN Reason: COUGH Last Admin: 11/12/19 20:28 Dose: 100 mg Documented by: Dextrose (D50w Syringe) 0 gm IV X1 PRN; Protocol PRN Reason: Hypoglycemia Duloxetine HCl (Cymbalta) 30 mg PO DAILY [facility] Last Admin: 11/13/19 10:57 Dose: 30 mg Documented by: Famotidine (Pepcid) 20 mg PO BID [facility] Last Admin: 11/13/19 10:58 Dose: 20 mg Documented by: [facility]ous S[facility] ([facility] S[facility]ate) [facility] Last Admin: 11/13/19 10:57 Dose: 325 mg Documented by: Glucagon () 1 mg IM .X1 PRN PRN Reason: Hypoglycemia Guaifenesin (Mucinex) 1,200 mg PO BID [facility] Last Admin: 11/13/19 10:58 Dose: 1,200 mg Documented by: Hydralazine HCl (Apresoline Iv) 10 mg IV Q4H PRN PRN PRN Reason: SBP > 160 Sodium Chloride () 250 mls @ 15 mls/hr IV .[id number] PRN PRN Reason: Saline Flush Sodium Chloride () 250 mls @ 15 mls/hr IV .[id number] PRN PRN Reason: Additional IVPB Infusion Magnesium Hydroxide (Milk Of Magnesia) 30 ml PO DAILY PRN PRN PRN Reason: Constipation Methylprednisolone (Solu-Medrol) 40 mg IV Q8 [facility] Last Admin: 11/13/19 05:14 Dose: 40 mg Documented by: Nicotine (Nicoderm Cq (Pbkc)) 14 mg TRANSDERM. DAILY [facility] Last Admin: 11/13/19 10:58 Dose: 14 mg Documented by: Nitroglycerin (Nitrostat) 0.4 mg SUBLINGUAL Q5M PRN PRN Reason: CARDIAC/CHEST PAIN Ondansetron HCl (Zofran) 4 mg IV Q8H PRN PRN PRN Reason: NAUSEA/VOMITING Oxycodone HCl (Oxyir) 5 mg PO Q4H PRN PRN PRN Reason: Pain Score 4-5/10 Last Admin: 11/13/19 05:25 Dose: 5 mg Documented by: Pantoprazole Sodium (Protonix) 20 mg PO DAILY [facility] Last Admin: 11/13/19 10:58 Dose: 20 mg Documented by: Psyllium Hydrophilic Mucilloid (Metamucil) 1 packet PO DAILY PRN PRN PRN Reason: Constipation Senna/Docusate Sodium (Senokot-S, Charo-Colace) 2 tablet PO BID PRN PRN PRN Reason: Constipation Sodium Chloride () 10 - 40 ml IV UD PRN PRN Reason: SALINE FLUSH Last Admin: 11/13/19 05:15 Dose: 30 ml Documented by: Throat Lozenges (Cepacol Sore Throat Lozenge) 1 lozenge MUCOUS MEM Q2H PRN PRN PRN Reason: SORE THROAT Trazodone HCl (Desyrel) 100 mg PO QHS [facility] Last Admin: 11/12/19 21:08 Dose: 100 mg Documented by: Medical Necessity - Tobacco Use Smoking Status: Current every day smoker Tobacco Use: Cigarettes Assessment/Plan All Active Problems Acute bronchitis (Acute) Elevated d-dimer (Acute) Ileus (Acute) Dehydration with hyponatremia (Acute) Nausea and vomiting in adult (Acute) Abdominal pain (Acute) 1. Acute bronchitis secondary to acute influenza B-suspect underlying COPD. COVID negative. Respiratory panel positive for influenza B. Sputum culture shows normal respiratory luke. Continue IV Solu-Medrol. Albuterol and DuoNeb aerosols. Oxygen stable on room air. Walking pulse ox prior to discharge. PRN regimen for cough. Incentive spirometer. Recommend outpatient follow-up with pulmonary medicine for pulmonary function testing given long-term smoking history. CTA negative for PE. Echocardiogram demonstrates an EF of 60%, stage I diastolic dysfunction. 2. Hypokalemia-replace per protocol. Resolved. 3. Rheumatoid arthritis-on prednisone. 4. GERD-continue PPI. 5. Tobacco dependence-encouraged cessation. Nicotine replacement patch. 6. Anxiety/depression-continue duloxetine, trazodone regimen. DVT prophylaxis-Lovenox sc This patient was seen by ALEJANDRO Cisneros under the supervision of Dr. Coppola. <Jemima Coppola - Last Filed: 11/13/19 14:37> - Physical Exam Vitals/I&O's: Vital Signs Temp Pulse Resp BP Pulse Ox 98.2 F 98 15 151/77 H 95 11/13/19 10:34 11/13/19 11:55 11/13/19 10:34 11/13/19 10:34 11/13/19 10:34 Oxygen Flow Rate (L/min) 2 Oxygen Delivery Method Room Air Weight: 91.1 kg Body Mass Index (BMI) 37.9 Intake and Output for Last 24 Hours 11/11/19 11/12/19 11/13/19 23:59 23:59 23:59 Intake Total 663.33 / 663.33 2258.34 / 2258.34 Balance 663.33 / 663.33 2258.34 / 2258.34 Microbiology Past 72 Hours 11/12/19 00:25 Sputum, Expectorated/Coughed Gram Stain - Final 11/12/19 00:25 Sputum, Expectorated/Coughed Respiratory Culture - Preliminary Appears to be normal respiratory luke. Further studies to follow. 11/11/19 00:10 Mucosa - Nose Respiratory Panel (PCR) - Final Influenzae B Laboratory Results 11/13/19 05:15: Sodium 140, Potassium 4.7, Chloride 107, Carbon Dioxide 31.0, Anion Gap 2 L, BUN 13, Creatinine 0.58, Estim Creat Clear Calc 85.62, Est GFR (MDRD) Af Amer 140, Est GFR (MDRD) Non-Af 115, BUN/Creatinine Ratio 22.3 H, Glucose 150 H, Calcium 8.7 Current Medications Acetaminophen (Tylenol) 650 mg PO Q6H PRN PRN PRN Reason: Pain Score 1-10/Temp > 100.7 F Last Admin: 11/13/19 10:59 Dose: 650 mg Documented by: Al Hydroxide/Mg Hydroxide (Mylanta Ii) 30 ml PO Q6H PRN PRN PRN Reason: Gastric Burning Last Admin: 11/12/19 04:40 Dose: 30 ml Documented by: Albuterol Sulfate (Ventolin Aerosols) 2.5 mg INHALATION Q2H PRN PRN PRN Reason: Dyspnea, wheezing Albuterol/Ipratropium (Duoneb) 3 ml INHALATION Q4HWA.RT [facility] Last Admin: 11/13/19 11:06 Dose: 3 ml Documented by: Aspirin (Aspirin, Baby) 81 mg PO DAILY@0800 [facility] Last Admin: 11/13/19 10:57 Dose: 81 mg Documented by: Benzonatate (Tessalon Perle) 100 mg PO TID PRN PRN PRN Reason: COUGH Last Admin: 11/12/19 20:28 Dose: 100 mg Documented by: Dextrose (D50w Syringe) 0 gm IV X1 PRN; Protocol PRN Reason: Hypoglycemia Duloxetine HCl (Cymbalta) 30 mg PO DAILY [facility] Last Admin: 11/13/19 10:57 Dose: 30 mg Documented by: Enoxaparin Sodium (Lovenox) 40 mg SC DAILY [facility] Famotidine (Pepcid) 20 mg PO BID [facility] Last Admin: 11/13/19 10:58 Dose: 20 mg Documented by: Ferrous Sulfate (Ferrous Sulfate) [facility] Last Admin: 11/13/19 10:57 Dose: 325 mg Documented by: Glucagon () 1 mg IM .X1 PRN PRN Reason: Hypoglycemia Guaifenesin (Mucinex) 1,200 mg PO BID [facility] Last Admin: 11/13/19 10:58 Dose: 1,200 mg Documented by: Hydralazine HCl (Apresoline Iv) 10 mg IV Q4H PRN PRN PRN Reason: SBP > 160 Sodium Chloride () 250 mls @ 15 mls/hr IV .[id number] PRN PRN Reason: Saline Flush Sodium Chloride () 250 mls @ 15 mls/hr IV .[id number] PRN PRN Reason: Additional IVPB Infusion Magnesium Hydroxide (Milk Of Magnesia) 30 ml PO DAILY PRN PRN PRN Reason: Constipation Methylprednisolone (Solu-Medrol) 40 mg IV Q8 [facility] Last Admin: 11/13/19 05:14 Dose: 40 mg Documented by: Nicotine (Nicoderm Cq (Pbkc)) 14 mg TRANSDERM. DAILY [facility] Last Admin: 11/13/19 10:58 Dose: 14 mg Documented by: Nitroglycerin (Nitrostat) 0.4 mg SUBLINGUAL Q5M PRN PRN Reason: CARDIAC/CHEST PAIN Ondansetron HCl (Zofran) 4 mg IV Q8H PRN PRN PRN Reason: NAUSEA/VOMITING Oxycodone HCl (Oxyir) 5 mg PO Q4H PRN PRN PRN Reason: Pain Score 4-5/10 Last Admin: 11/13/19 05:25 Dose: 5 mg Documented by: Pantoprazole Sodium (Protonix) 20 mg PO DAILY [facility] Last Admin: 11/13/19 10:58 Dose: 20 mg Documented by: Psyllium Hydrophilic Mucilloid (Metamucil) 1 packet PO DAILY PRN PRN PRN Reason: Constipation Senna/Docusate Sodium (Senokot-S, Charo-Colace) 2 tablet PO BID PRN PRN PRN Reason: Constipation Sodium Chloride () 10 - 40 ml IV UD PRN PRN Reason: SALINE FLUSH Last Admin: 11/13/19 05:15 Dose: 30 ml Documented by: Throat Lozenges (Cepacol Sore Throat Lozenge) 1 lozenge MUCOUS MEM Q2H PRN PRN PRN Reason: SORE THROAT Trazodone HCl (Desyrel) 100 mg PO QHS [facility] Last Admin: 11/12/19 21:08 Dose: 100 mg Documented by: Assessment/Plan This patient was seen in conjunction with Dory Mauricio NP. I have independently interviewed and examined the patient and reviewed pertinent historical, laboratory, and other data. Please refer to her note for patient's presentation, findings, and recommendations. Patient was seen and examined. She complains of very fatigued. Had episodes of night sweats yesterday without fever. Denies any chest pain or dizziness Vitals were reviewed -stable Physical Exam: Gen: Looks in some discomfort, ill-looking, not pale, not jaundiced, alert oriented x3 CVS:HS I +II, regular, no murmurs RESP: Diminished at lung bases, no wheezes heard GI: BS present and normal, nontender, no palpable organs EXT:No edema Labs reviewed: ASSESSMENT: 1. Acute bronchitis second to acute influenza B 2. Hypokalemia, resolved 3. Rheumatoid arthritis 4. GERD 5. Nicotine dependence 6. Anxiety/depression Meds reviewed Plan: Continue with scheduled breathing treatments, IV Solu-Medrol Possible discharge home on a short prednisone dose tomorrow Inpatient E&M: [id number] Subs Hosp L2
[2019-11-13] MEDS: Ondansetron 4 MG/2 ML Vial IV (17:55)
[2019-11-13] MEDS: Benzonatate 100 MG Capsule PO (19:30)
[2019-11-13] MEDS: traZODone 100 MG Tablet PO (21:23)
[2019-11-14] VITALS (7 sets, daily range): BP systolic 151–159; BP diastolic 70–95; PULSE 78–95; RESP 16–18; TEMP 36.8; O2SAT 90–96
[2019-11-14] MEDS: oxyCODONE 5 MG Tablet PO ×2 (06:03→10:42)
[2019-11-14] MEDS: Ipratropium/Albuterol Sulfate 3 ML AMPUL.NEB INHALATION (06:57)
[2019-11-14] MEDS: guaiFENesin 1,200 MG Tablet 1200 MG PO (09:44)
[2019-11-14] MEDS: Ferrous Sulfate 325 MG Tablet PO (09:44)
[2019-11-14] MEDS: Famotidine 20 MG Tablet PO (09:44)
[2019-11-14] MEDS: Aspirin 81 MG TAB.CHEW PO (09:45)
[2019-11-14] MEDS: Pantoprazole Sodium 20 MG Tablet PO (09:46)
[2019-11-14] MEDS: DULoxetine Hcl 30 MG Capsule PO (09:55)
--- NOTE | 2019-11-14 10:25 | PCM.DC ---
- Discharge Diagnoses Current Active Problems: Current Active and Chronic Problems Acute bronchitis (Acute) Influenza B You will use the following diet at home:: No restrictions Discharge Activity: Return to Normal Activity Call your doctor if you observe: Shortness of breath, Dizziness, Fainting spells, Chest pain Allergies/Adverse Reactions: Allergies meloxicam Adverse Reaction (Verified 11/11/19 18:46) Upset Stomach Medications to take at Discharge Ibuprofen [Ibu] 1 tab PO TID PRN 02/01/18 Cholecalciferol (Vitamin D3) [Vitamin D3] 2,500 unit PO DAILY 11/11/19 Duloxetine Hcl [Cymbalta] 30 mg PO DAILY 11/11/19 Ferrous Sulfate 325 mg PO DAILY 11/11/19 Omeprazole [Prilosec] 20 mg PO DAILY 11/11/19 traZODone [Desyrel] 100 mg PO QHS 11/11/19 Albuterol Inhaler [Ventolin Hfa] 1 - 2 puff INHALATION Q4H PRN PRN #1 inhaler 11/14/19 Benzonatate [Tessalon Perle] 100 mg PO TID PRN PRN #20 cap 11/14/19 Guaifenesin [Mucinex] 1,200 mg PO BID #14 tab 11/14/19 Prednisone See Taper PO DAILY #30 tab 11/14/19 The following prescriptions were given: Guaifenesin [Mucinex] 1,200 mg PO BID #14 tab Transmission Status: Sent to [facility] ([place]) IT #30 Prednisone See Taper PO DAILY #30 tab Transmission Status: Pending to [facility] ([place] Benzonatate [Tessalon Perle] 100 mg PO TID PRN PRN #20 cap PRN Reason: COUGH Transmission Status: Pending to [facility] ([place] Albuterol Inhaler [Ventolin Hfa] 1 - 2 puff INHALATION Q4H PRN PRN #1 inhaler PRN Reason: Shortness Of Breath Transmission Status: Pending to [facility] ([place]30 Primary Care Physician: Cat Vasquez MD [Primary Care Provider] - Please follow up with your Primary Care Physician in: 1 Week Test Results: Test results from this visit will be discussed in further detail at your follow-up appointment, if applicable. Please Follow Up With: Baron Abdalla MD - Pulmonary medicine When: 1 Week Proposed Discharge Date: 11/14/19
--- NOTE | 2019-11-14 10:29 | PCM.DC.SUM ---
<Dory Mauricio - Last Filed: 11/14/19 10:38> Discharge Date and Diagnosis Date of Admission: 11/11/19 Date of Discharge: 11/14/19 - Primary Discharge Diagnosis Acute Problems: Active Problems 1. Acute bronchitis secondary to acute influenza B 2. Hypokalemia 3. Rheumatoid arthritis 4. GERD 5. Tobacco dependence 6. Anxiety/depression - Secondary Discharge Diagnosis Chronic Problems: Chronic Problems Anxiety and depression (Chronic) GERD (gastroesophageal reflux disease) (Chronic) Perimenopause (Chronic) Nicotine dependence (Chronic) History of rheumatoid arthritis (Chronic) Constipation (Chronic) History of immunosuppression therapy (Chronic) Hospital Course and Treatment Imaging Results: Diagnostic Data Chest X-Ray 11/11/19 19:38 IMPRESSION: Normal x-ray examination of the chest. Electronically Signed: Roman Tellez MD at 20:00 EDT , Service support , Chest CTA 11/12/19 08:00 IMPRESSION: No demonstrated PE, or thoracic aortic aneurysm or dissection No superimposed acute pulmonary process Degenerative bony changes Electronically Signed: Irving Cavanaugh MD at 11:54 EDT , Service support , Operations: None Procedures: 2-D Echocardiogram Summary of Care Provided: The patient is a 54 year old F admitted 11/11/2019 due to dyspnea. 1. Acute bronchitis secondary to acute influenza B-suspect underlying COPD. COVID negative. Respiratory panel positive for influenza B. Sputum culture shows normal respiratory luke. IV Solu-Medrol during admission. Oxygen stable on room air. Walking pulse ox completed and patient did not require supplemental oxygen with ambulation. Incentive spirometer. Recommend outpatient follow-up with pulmonary medicine for pulmonary function testing given long-term smoking history. CTA negative for PE. Echocardiogram demonstrates an EF of 60%, stage I diastolic dysfunction. Referred to Dr. Abdalla for pulmonary follow-up. Discharged on prednisone taper, as needed albuterol inhaler. 2. Hypokalemia-replace per protocol. Resolved. 3. Rheumatoid arthritis-on prednisone. Resume home prednisone regimen following completion of prednisone taper. 4. GERD-continue PPI. 5. Tobacco dependence-encouraged cessation. 6. Anxiety/depression-continue duloxetine, trazodone regimen. General: Alert, Oriented x3, Cooperative HEENT: Atraumatic, PERRLA, EOMI, Normocephalic Oral: Dry Mucosa Neck: Supple, No JVD, Negative Carotid Bruits Lungs: Clear to auscultation, No rales Cardiovascular: Regular rate, No murmurs Abdomen: Bowel Sounds Present, Soft, Non Tender, Non-Distended Extremities: No clubbing, No cyanosis, No edema, Capillary Refill Less than 3 Seconds Skin: No rashes, No breakdown Musculoskeletal: No Tenderness to Palpation of Joints or Extremities Neurological: Cranial nerves II-XII grossly intact, Neuro grossly intact Psych/Mental Status: Normal Affect, Appropriate Patient seen and examined prior to discharge. Physical assessment as noted above. Patient is stable for discharge with follow up recommendations as noted above. This patient was seen by ALEJANDRO Cisneros under the supervision of Dr. Coppola. - Physical Exam Vitals/I&O's: Vital Signs Temp Pulse Resp BP Pulse Ox 98.3 F 95 16 151/95 H 94 11/14/19 09:21 11/14/19 09:21 11/14/19 09:21 11/14/19 09:21 11/14/19 09:51 Oxygen Flow Rate (L/min) 2 Oxygen Delivery Method Room Air Weight: 200 lb 13.458 oz Body Mass Index (BMI) 37.9 Intake and Output for Last 24 Hours 11/12/19 11/13/19 11/14/19 23:59 23:59 23:59 Intake Total 2258.34 / 2258.34 480 / 780 650 / 650 Balance 2258.34 / 2258.34 480 / 780 650 / 650 Microbiology Past 72 Hours 11/12/19 00:25 Sputum, Expectorated/Coughed Gram Stain - Final 11/12/19 00:25 Sputum, Expectorated/Coughed Respiratory Culture - Preliminary Streptococcus pneumoniae 11/11/19 00:10 Mucosa - Nose Respiratory Panel (PCR) - Final Influenzae B Current Medications Acetaminophen (Tylenol) 650 mg PO Q6H PRN PRN PRN Reason: Pain Score 1-10/Temp > 100.7 F Last Admin: 11/13/19 10:59 Dose: 650 mg Documented by: Al Hydroxide/Mg Hydroxide (Mylanta Ii) 30 ml PO Q6H PRN PRN PRN Reason: Gastric Burning Last Admin: 11/12/19 04:40 Dose: 30 ml Documented by: Albuterol Sulfate (Ventolin Aerosols) 2.5 mg INHALATION Q2H PRN PRN PRN Reason: Dyspnea, wheezing Albuterol/Ipratropium (Duoneb) 3 ml INHALATION Q4HWA.RT [facility] Last Admin: 11/14/19 06:57 Dose: 3 ml Documented by: Aspirin (Aspirin, Baby) 81 mg PO DAILY@0800 [facility] Last Admin: 11/14/19 09:45 Dose: 81 mg Documented by: Benzonatate (Tessalon Perle) 100 mg PO TID PRN PRN PRN Reason: COUGH Last Admin: 11/13/19 19:30 Dose: 100 mg Documented by: Dextrose (D50w Syringe) 0 gm IV X1 PRN; Protocol PRN Reason: Hypoglycemia Duloxetine HCl (Cymbalta) 30 mg PO DAILY [facility] Last Admin: 11/14/19 09:55 Dose: 30 mg Documented by: Enoxaparin Sodium (Lovenox) 40 mg SC DAILY [facility] Last Admin: 11/14/19 09:34 Dose: Not Given Documented by: Famotidine (Pepcid) 20 mg PO BID [facility] Last Admin: 11/14/19 09:44 Dose: 20 mg Documented by: [facility]ous Sulf[facility] Sulfate) [facility] Last Admin: 11/14/19 09:44 Dose: 325 mg Documented by: Glucagon () 1 mg IM .X1 PRN PRN Reason: Hypoglycemia Guaifenesin (Mucinex) 1,200 mg PO BID [facility] Last Admin: 11/14/19 09:44 Dose: 1,200 mg Documented by: Hydralazine HCl (Apresoline Iv) 10 mg IV Q4H PRN PRN PRN Reason: SBP > 160 Sodium Chloride () 250 mls @ 15 mls/hr IV .[id number] PRN PRN Reason: Saline Flush Sodium Chloride () 250 mls @ 15 mls/hr IV .[id number] PRN PRN Reason: Additional IVPB Infusion Magnesium Hydroxide (Milk Of Magnesia) 30 ml PO DAILY PRN PRN PRN Reason: Constipation Methylprednisolone (Solu-Medrol) 40 mg IV Q8 [facility] Last Admin: 11/14/19 06:06 Dose: 40 mg Documented by: Nicotine (Nicoderm Cq (Pbkc)) 14 mg TRANSDERM. DAILY [facility] Last Admin: 11/14/19 09:45 Dose: 14 mg Documented by: Nitroglycerin (Nitrostat) 0.4 mg SUBLINGUAL Q5M PRN PRN Reason: CARDIAC/CHEST PAIN Ondansetron HCl (Zofran) 4 mg IV Q8H PRN PRN PRN Reason: NAUSEA/VOMITING Last Admin: 11/13/19 17:55 Dose: 4 mg Documented by: Oxycodone HCl (Oxyir) 5 mg PO Q4H PRN PRN PRN Reason: Pain Score 4-5/10 Last Admin: 11/14/19 06:03 Dose: 5 mg Documented by: Pantoprazole Sodium (Protonix) 20 mg PO DAILY [facility] Last Admin: 11/14/19 09:46 Dose: 20 mg Documented by: Psyllium Hydrophilic Mucilloid (Metamucil) 1 packet PO DAILY PRN PRN PRN Reason: Constipation Senna/Docusate Sodium (Senokot-S, Charo-Colace) 2 tablet PO BID PRN PRN PRN Reason: Constipation Sodium Chloride () 10 - 40 ml IV UD PRN PRN Reason: SALINE FLUSH Last Admin: 11/13/19 14:39 Dose: 10 ml Documented by: Throat Lozenges (Cepacol Sore Throat Lozenge) 1 lozenge MUCOUS MEM Q2H PRN PRN PRN Reason: SORE THROAT Trazodone HCl (Desyrel) 100 mg PO QHS [facility] Last Admin: 11/13/19 21:23 Dose: 100 mg Documented by: Discharge Diet: No Restrictions Discharge Activity: Return to Normal Activity Call your doctor if you observe: Shortness of breath, Dizziness, Fainting spells, Chest pain Home Medications: Medications to take at Discharge Ibuprofen [Ibu] 800 mg PO TID PRN 02/01/18 Cholecalciferol (Vitamin D3) [Vitamin D3] 2,500 unit PO DAILY 11/11/19 Duloxetine Hcl [Cymbalta] 30 mg PO DAILY 11/11/19 Ferrous Sulfate 325 mg PO DAILY 11/11/19 Omeprazole [Prilosec] 20 mg PO DAILY 11/11/19 traZODone [Desyrel] 100 mg PO QHS 11/11/19 Albuterol Inhaler [Ventolin Hfa] 1 - 2 puff INHALATION Q4H PRN PRN #1 inhaler 11/14/19 Benzonatate [Tessalon Perle] 100 mg PO TID PRN PRN #20 cap 11/14/19 Guaifenesin [Mucinex] 1,200 mg PO BID #14 tab 11/14/19 Prednisone See Taper PO DAILY #30 tab 11/14/19 Following Prescrptions Were Given to Patient: Guaifenesin [Mucinex] 1,200 mg PO BID #14 tab Transmission Status: Received by [facility] Prednisone See Taper PO DAILY #30 tab Transmission Status: Received by [facility] Benzonatate [Tessalon Perle] 100 mg PO TID PRN PRN #20 cap PRN Reason: COUGH Transmission Status: Received by [facility] Albuterol Inhaler [Ventolin Hfa] 1 - 2 puff INHALATION Q4H PRN PRN #1 inhaler PRN Reason: Shortness Of Breath Transmission Status: Received by [facility] Primary Care Physician: Cat Vasquez MD [Primary Care Provider] - Please follow up with your Primary Care Physician in: 1 Week Please Follow Up With: Baron Abdalla MD - Pulmonary medicine When: 1 Week Disposition: Home Minutes spent on discharge:: 35 Patient Condition:: Stable Medical Necessity - Tobacco Use Smoking Status: Current every day smoker Tobacco Use: Cigarettes Meaningful Use Info Meaningful Use Diagnoses (Choose all that apply): None applicable <Paintsil,Channing - Last Filed: 11/14/19 14:19> Discharge Date and Diagnosis - Secondary Discharge Diagnosis Chronic Problems: Chronic Problems Anxiety and depression (Chronic) GERD (gastroesophageal reflux disease) (Chronic) Perimenopause (Chronic) Nicotine dependence (Chronic) History of rheumatoid arthritis (Chronic) Constipation (Chronic) History of immunosuppression therapy (Chronic) Hospital Course and Treatment Summary of Care Provided: This patient was seen in conjunction with Dory Mauricio NP. I have independently interviewed and examined the patient and reviewed pertinent historical, laboratory, and other data. Please refer to her note for patient's presentation, findings, and recommendations. 54-year-old female with past medical history of anxiety/depression, obesity, nicotine dependence, rheumatoid arthritis, GERD who presented with shortness of breath with mild productive cough, congestion. Dyspnea was described as worse with exertion. Denied any fever or chills or chest pain abdominal pain. Patient had COVID-19 testing that was negative. Patient also had a d-dimer that was elevated at 7.66. Her potassium was low at 3.4 that was replaced. Patient underwent PICC placement as she could not get IV contrast through her IV access to rule out pulmonary embolism. A PICC line was successfully placed and CT of the chest was negative for acute PE. Patient's work-up also showed acute influenza B. Patient was kept on IV Solu-Medrol, gentle IV fluids and breathing treatment. She continued to improve and was not discharged on 11/13/19 glucose she complains of extreme fatigue and myalgias. Patient was kept overnight. On the day of discharge, patient was seen and examined. She appeared reluctant to be discharged stating persistent fatigue. Her oxygen saturation have been Stable. She is not on oxygen. She was ambulated; did not qualify for home oxygen. No fevers seen here. Vitals have been stable. I reassured her to continue with rest at home. Patient was very tearful that she does not have enough support. She declined PT and OT evaluation for discharge to [facility] facility. Discuss further with social work, recommended home health care or community care network assistance. This was discussed in detail the patient, refused any of those. Physical Exam: Gen: Looks in some discomfort, ill-looking, not pale, not jaundiced, alert oriented x3 CVS:HS I +II, regular, no murmurs RESP: Diminished at lung bases, no wheezes heard GI: BS present and normal, nontender, no palpable organs EXT:No edema - Physical Exam Vitals/I&O's: Vital Signs Temp Pulse Resp BP Pulse Ox 98.3 F 95 16 151/95 H 94 11/14/19 09:21 11/14/19 09:21 11/14/19 09:21 11/14/19 09:11/14/19 09:51 Oxygen Flow Rate (L/min) 2 Oxygen Delivery Method Room Air Weight: 91.1 kg Body Mass Index (BMI) 37.9 Intake and Output for Last 24 Hours 11/12/19 11/13/19 11/14/19 23:59 23:59 23:59 Intake Total 2258.34 / 2258.34 480 / 780 890 / 890 Output Total 300 / 300 Balance 2258.34 / 2258.34 480 / 780 590 / 590 Microbiology Past 72 Hours 11/12/19 00:25 Sputum, Expectorated/Coughed Gram Stain - Final 11/12/19 00:25 Sputum, Expectorated/Coughed Respiratory Culture - Preliminary Streptococcus pneumoniae 11/11/19 00:10 Mucosa - Nose Respiratory Panel (PCR) - Final Influenzae B Current Medications Acetaminophen (Tylenol) 650 mg PO Q6H PRN PRN PRN Reason: Pain Score 1-10/Temp > 100.7 F Last Admin: 11/14/19 10:42 Dose: 650 mg Documented by: Al Hydroxide/Mg Hydroxide (Mylanta Ii) 30 ml PO Q6H PRN PRN PRN Reason: Gastric Burning Last Admin: 11/12/19 04:40 Dose: 30 ml Documented by: Albuterol Sulfate (Ventolin Aerosols) 2.5 mg INHALATION Q2H PRN PRN PRN Reason: Dyspnea, wheezing Albuterol/Ipratropium (Duoneb) 3 ml INHALATION Q4HWA.RT [facility] Last Admin: 11/14/19 11:25 Dose: Not Given Documented by: Aspirin (Aspirin, Baby) 81 mg PO DAILY@0800 [facility] Last Admin: 11/14/19 09:45 Dose: 81 mg Documented by: Benzonatate (Tessalon Perle) 100 mg PO TID PRN PRN PRN Reason: COUGH Last Admin: 11/13/19 19:30 Dose: 100 mg Documented by: Dextrose (D50w Syringe) 0 gm IV X1 PRN; Protocol PRN Reason: Hypoglycemia Duloxetine HCl (Cymbalta) 30 mg PO DAILY [facility] Last Admin: 11/14/19 09:55 Dose: 30 mg Documented by: Enoxaparin Sodium (Lovenox) 40 mg SC DAILY [facility] Last Admin: 11/14/19 09:34 Dose: Not Given Documented by: Famotidine (Pepcid) 20 mg PO BID [facility] Last Admin: 11/14/19 09:44 Dose: 20 mg Documented by: Ferrous Sulfate (Ferrous Sulfate) 325 mg PO DAILYCM [facility] Last Admin: 11/14/19 09:44 Dose: 325 mg Documented by: Glucagon () 1 mg IM .X1 PRN PRN Reason: Hypoglycemia Guaifenesin (Mucinex) 1,200 mg PO BID [facility] Last Admin: 11/14/19 09:44 Dose: 1,200 mg Documented by: Hydralazine HCl (Apresoline Iv) 10 mg IV Q4H PRN PRN PRN Reason: SBP > 160 Sodium Chloride () 250 mls @ 15 mls/hr IV .[id number] PRN PRN Reason: Saline Flush Sodium Chloride () 250 mls @ 15 mls/hr IV .[id number] PRN PRN Reason: Additional IVPB Infusion Magnesium Hydroxide (Milk Of Magnesia) 30 ml PO DAILY PRN PRN PRN Reason: Constipation Methylprednisolone (Solu-Medrol) 40 mg IV Q8 [facility] Last Admin: 11/14/19 06:06 Dose: 40 mg Documented by: Nicotine (Nicoderm Cq (Pbkc)) 14 mg TRANSDERM. DAILY [facility] Last Admin: 11/14/19 09:45 Dose: 14 mg Documented by: Nitroglycerin (Nitrostat) 0.4 mg SUBLINGUAL Q5M PRN PRN Reason: CARDIAC/CHEST PAIN Ondansetron HCl (Zofran) 4 mg IV Q8H PRN PRN PRN Reason: NAUSEA/VOMITING Last Admin: 11/13/19 17:55 Dose: 4 mg Documented by: Oxycodone HCl (Oxyir) 5 mg PO Q4H PRN PRN PRN Reason: Pain Score 4-5/10 Last Admin: 11/14/19 10:42 Dose: 5 mg Documented by: Pantoprazole Sodium (Protonix) 20 mg PO DAILY [facility] Last Admin: 11/14/19 09:46 Dose: 20 mg Documented by: Psyllium Hydrophilic Mucilloid (Metamucil) 1 packet PO DAILY PRN PRN PRN Reason: Constipation Senna/Docusate Sodium (Senokot-S, Charo-Colace) 2 tablet PO BID PRN PRN PRN Reason: Constipation Sodium Chloride () 10 - 40 ml IV UD PRN PRN Reason: SALINE FLUSH Last Admin: 11/13/19 14:39 Dose: 10 ml Documented by: Throat Lozenges (Cepacol Sore Throat Lozenge) 1 lozenge MUCOUS MEM Q2H PRN PRN PRN Reason: SORE THROAT Trazodone HCl (Desyrel) 100 mg PO QHS [facility] Last Admin: 11/13/19 21:23 Dose: 100 mg Documented by: OBSV E&M: [id number] Observation care discharge
[2019-11-14] MEDS: Acetaminophen 325 MG Tablet 650 MG PO (10:42)
--- NOTE | 2019-11-14 11:04 | PHA.DC.MC ---
Pharmacy Service has performed discharge medication reconciliation and counseling for this patient. 1. ALBUTEROL INHALER 1-2 PUFF Q4H PRN SOB 2. BENZONATATE 100MG PO TID PRN COUGH 3. GUAIFENESIN 1200MG PO BID X 7 DAYS 4. PREDNISONE 40MG PO DAILY X 3 DAYS, 30MG PO DAILY X 3 DAYS, 20MG PO DAILY X 3 DAYS, THEN 10MG PO DAILY X 3 DAYS The patient's discharge medication list was reviewed for discrepancies and discrepancies were resolved. Home Medications Ibuprofen [Ibu] 800 mg PO TID PRN 02/01/18 Cholecalciferol (Vitamin D3) [Vitamin D3] 2,500 unit PO DAILY 11/11/19 Duloxetine Hcl [Cymbalta] 30 mg PO DAILY 11/11/19 Ferrous Sulfate 325 mg PO DAILY 11/11/19 Omeprazole [Prilosec] 20 mg PO DAILY 11/11/19 traZODone [Desyrel] 100 mg PO QHS 11/11/19 Albuterol Inhaler [Ventolin Hfa] 1 - 2 puff INHALATION Q4H PRN PRN #1 inhaler 11/14/19 Benzonatate [Tessalon Perle] 100 mg PO TID PRN PRN #20 cap 11/14/19 Guaifenesin [Mucinex] 1,200 mg PO BID #14 tab 11/14/19 Prednisone See Taper PO DAILY #30 tab 11/14/19 The patient was counseled on the following discharge medications and changes in medications for homegoing were reviewed. The Reason for Use, instructions for use, and potential side effects were reviewed for all new medications. The patient's questions regarding all of their medications were answered. The patient was able to verbally demonstrate an understanding of their discharge medications. Patient was counseled via telephone due to isolation.
--- NOTE | 2019-11-14 11:44 | CASEMGMT ---
SW spoke with patient as physician said she is tearful about going home. SW spoke with patient, introduced self and role at [facility]. SW explained physician wanted SW to check on her to see if there was anything SW could do. She said she feels like she is being pushed out because of her insurance. SW assured her that if the physician did not feel she was medically ready to go she would keep her regardless of her insurance. SW offered home health and patient declined. She was tearful. She said she is just tired, weak, and not feeling well so she is emotional. She said she will be fine. SW notified physician. Dee CHIU MSW
== END 2019-11-14 10:26 | disposition home or self-care (01) ==
LOC: ED 19:56 → PCU 22:59
PROVIDERS: Nurse Practitioner Family; Admitting Provider Family Medicine; Emergency Provider Emergency Medicine; PCP Internal Medicine; Referring Provider Family Medicine; Visit Provider Internal Medicine
DX: J10.1 Influenza due to other identified influenza virus with other respiratory manifestations (principal); J20.9 Acute bronchitis, unspecified; E87.6 Hypokalemia; M06.9 Rheumatoid arthritis, unspecified; F41.9 Anxiety disorder, unspecified; F32.9 Major depressive disorder, single episode, unspecified; E66.9 Obesity, unspecified; R00.0 Tachycardia, unspecified; F17.210 Nicotine dependence, cigarettes, uncomplicated; K21.9 Gastro-esophageal reflux disease without esophagitis; Z86.718 Personal history of other venous thrombosis and embolism; Z79.899 Other long term (current) drug therapy; Z68.38 Body mass index [BMI] 38.0-38.9, adult
CPT/HCPCS: 36415; 36569; 71045; 71275; 80048; 80053; 80061; 84484; 85025; 85379; 85610; 85730; 87070; 87077; 87186; 87205; 87633; 87635; 93005; 93306; 94640; 96361; 96372; 96374; 96375; 96376; 97802; 99218; 99251; 99285; 99406; G2023; J7030; Q9957; Q9967; A4216; G0378; G0463; J2405; U0003

== ENCOUNTER 2019-11-28 15:23 | Emergency (ER) | payer MEDICAID, SELFPAY ==
[2019-11-11 22:58] VITALS: BMI 37.9
[2019-11-28 15:25] VITALS: BP 152/92; PULSE 112; RESP 18; TEMP 35.9; O2SAT 95; BMI 41.7
[2019-11-28 15:28] VITALS: BP 152/92; PULSE 112; RESP 18; TEMP 35.9; O2SAT 93
--- NOTE | 2019-11-28 15:52 | VDLE_ITS ---
Reason For Study: Swelling RIGHT GSV is normal. CFV is compressible, spontaneous, phasic, competent and demonstrates normal augmentation. FV was visualized with color only, ot unable to tolerate compression. Normal venous flow noted. Nonvascularized structure noted in the right poplitesl fossa measuring approximently 2.47 x 1.36 cm. POP V is compressible, spontaneous, phasic, competent and demonstrates normal augmentation. T/P Trunk is compressible. PTV is compressible. RT PerV is compressible. Procedure Exam performed portable in ED. Calf veins only visualized at distal calf due to edema and body habitus. A preliminary report was called and/or faxed to [facility]. Interpretation Summary There is no evidence of right lower extremity deep vein thrombosis. Right great saphenous vein appears patent and compressible segmentally. Technically limited study as noted in description secondary to patient's inability to tolerate compression Right popliteal space 2.47 x 1.36 cm cystic structure consistent with a Powell's cyst. Clinical correlation would be appropriate. Ordering Physician: Ezekiel Engel Referring Physician: Cat Vasquez Performed By: Luana Malcolm RVT
[2019-11-28 17:04] LABS: Absolute Lymphocyte Count 1.48 X10^3/uL (0.83-4.51); Absolute Neutrophil Count 10.3 X10^3/uL (2.0-7.7); Basophil# 0.06 X10^3/uL; Basophil% 0.5 % (0-1); Eosinophil# 0.09 X10^3/uL; Eosinophils% 0.7 % (0-5); Hematocrit 38.9 % (37-47); Hemoglobin 12.1 g/dL (12.0-15.0); Lymphocyte # 1.48 X10^3/ul (4.0); Lymphocyte % 11.9 % (19-41); Mean Corp Hgb Conc 31.1 g/dL (32-36); Mean Corpuscular Hgb 27.8 pg (27.0-32.0); Mean Corpuscular Volume 89.4 fL (81-99); Mean Platelet Vol. 10.4 fl (6.2-12.0); Monocyte# 0.45 X10^3/uL; Monocyte% 3.6 % (0-10); NRBC Flagged by Analyzer 0 % (0-5); Neutrophil # 10.26 X10^3/uL (2.7-7.7); Neutrophil % 82.5 % (47-70); Platelet Count 252 K/mm3 (150-450); RBC Distribution Width CV 18.1 % (11.6-14.6); RBC Distribution Width SD 57.6 fl (35.1-43.9); Red Blood Count 4.35 M/mm3 (4.2-5.4); White Blood Count 12.4 K/mm3 (4.4-11.0)
[2019-11-28 17:11] LABS: Anion Gap 3 (5-15); BUN 22 mg/dL (7-18); Calcium,Total 8.4 mg/dL (8.5-10.1); Chloride 108 mmol/L (98-107); Creatinine, Serum 0.56 mg/dL (0.55-1.02); EST Glomerular Filtration Rate 120 mL/min (>60); Est Glom Filt Rate - Afr Amer 145 mL/min (>60); Estimated Creatinine Clearance 88.68 ml/min; Glucose 116 mg/dL (74-106); Potassium 4.2 mmol/L (3.5-5.1); Sodium Level 140 mmol/L (136-145)
[2019-11-28 17:24] VITALS: BP 150/81; PULSE 87; RESP 20; O2SAT 95
[2019-11-28 17:38] LABS: D-Dimer Quantitative (DVT/PE) 4.26 FEU/ug/m (0.27-0.49)
[2019-11-28] MEDS: HYDROcodone Bitartrate/Apap 5/325 Tablet PO (17:58)
[2019-11-28 19:00] LABS: Bedside Glucose 117 mg/dL (70-110)
--- NOTE | 2019-11-28 19:37 | ED.VIS.GEN ---
History of Present Illness Chief Complaint: Edema Informant: Patient Onset: Days Context: Sudden Onset Timing: Continuous Quality: Swelling right and left lower extremity Location: Greater on the right Current Severity: Moderate Maximum Severity: Severe Worsened by: Nothing Relieved by: Nothing Associated Symptoms: Shortness of breath Narrative: Patient is a 54-year-old morbidly obese white female presents because of swelling right lower extremity. She has history of DVT to that extremity. She denies fever, chills night sweats. She does report shortness of breath. She denies cough. Denies runny nose, congestion, postnasal drainage. Denies change in smell or taste. She denies sore throat. She denies chest discomfort of any type including pleuritic. She denies nausea, vomiting diarrhea. She denies dysuria, frequency, urgency or hematuria. She denies paresthesia, anesthesia medics. She denies problems with balance. She denies fall or trauma. At the time of discharge she informed me that she had similar presentation and was admitted. She at that time had a CTA which was negative. Prior similar symptoms: Yes Recent Illness/Hospitalization: Yes - Past Medical History (1) Anxiety and depression Status: Chronic (2) GERD (gastroesophageal reflux disease) Status: Chronic (3) History of immunosuppression therapy Status: Chronic (4) History of rheumatoid arthritis Status: Chronic (5) Nicotine dependence Status: Chronic (6) Perimenopause Status: Chronic Past Medical History - Allergies and Home Meds Allergies/Adverse Reactions: Allergies meloxicam Adverse Reaction (Verified 11/11/19 18:46) Upset Stomach Primary Care Physician: Cat Vasquez MD [Primary Care Provider] - Prior records reviewed: Yes Surgical History: - - Left knee arthroscopic surgery. Lives: Alone Smoking Status: Current every day smoker Alcohol: None Drugs: None - Family History Maternal Family History: Reports: Cancer - Mother with a history of breast and stomach cancer., Diabetes, Heart Disease - Her mother has had a 3 vessel CABG., - - There is a family history of rheumatoid arthritis in her maternal aunts. Paternal Family History: Reports: - - Father with osteoporosis and unclear type of bowel disease. Sibling Family History: Reports: No pertinent history Offspring Family History: Reports: - - Thyroid disease Review of Systems General: Denies: Chills, Fever, Malaise Eyes: Denies: Visual changes - bilaterally, Blurred Vision - bilaterally ENT: Denies: Bilateral ear pain, Rhinorrhea, Sore throat Cardiovascular: Denies: Chest pain, Palpitations Respiratory: Denies: Dyspnea, Cough, Dyspnea on exertion Gastrointestinal: Denies: Abdominal pain, Nausea, Vomiting, Diarrhea, Melena, Hematochezia Genitourinary: Denies: Dysuria, Hematuria, Frequency Musculoskeletal: Reports: Swelling, Extremity Pain. Denies: Myalgias, Arthralgias, Neck pain, Back pain, -, - Skin: Denies: Rash, Abrasions, Wounds Neurological: Denies: Headache, Weakness, Parasthesia, Numbness Psych: Reports: Depression Hematologic: Denies: Easy bruising, Easy bleeding Allergy: Denies: Uticaria, Swelling of the mouth Physical Exam Vital Signs/Narrative: Vital Signs Pulse Resp BP Pulse Ox 11/28/19 17:24 87 20 H 150/81 H 95 Inital Vital Signs reviewed: Yes General: Well nourished, Well developed, Obese, No Acute Distress Head: Normocephalic, Atraumatic Eyes: Perrl, EOMI ENT: Moist mucous membranes, No rhinorrhea Neck: Supple, Nontender Cardiovascular: Regular rate, Regular rhythm, No murmurs Respiratory: No distress, CTA bilaterally, Chest nontender Abdomen: Soft, Nontender, Nondistended, Normal bowel sounds Back: Nontender, Normal Inspection Extremities: Tenderness, Edema, - - The right lower extremity is greater in size than the left. There is tenderness along the distribution of the deep venous system. There is no popliteal angle lymphadenopathy. Skin: Normal color, No rash Neurological: Alert, Oriented x3, Cranial nerves II-XII grossly intact, Normal Strength, Normal Sensation Psychological: Normal affect, Normal Mood Diagnostic/Tx/Re-eval 11/28/19 17:40 CTA Chest W/WO Contrast [CT] Stat Laboratory Results 11/28/19 11/28/19 11/28/19 16:50 16:50 16:50 WBC 12.4 H RBC 4.35 Hgb 12.1 Hct 38.9 MCV 89.4 MCH 27.8 MCHC 31.1 L RDW Std Deviation 57.6 H RDW Coeff of Abhay 18.1 H Plt Count 252 MPV 10.4 Immature Gran % (Auto) 0.800 Neut % (Auto) 82.5 H Lymph % (Auto) 11.9 L [place] % (Auto) 3.6 Eos % (Auto) 0.7 Baso % (Auto) 0.5 Absolute Neuts (auto) 10.3 H Absolute Lymphs (auto) 1.48 Nucleated RBC % 0 D-Dimer Quant (PE/DVT) 4.26 H* Sodium 140 Potassium 4.2 Chloride 108 H Carbon Dioxide 29.0 Anion Gap 3 L BUN 22 H Creatinine 0.56 Estim Creat Clear Calc 88.68 Est GFR (MDRD) Af Amer 145 Est GFR (MDRD) Non-Af 120 BUN/Creatinine Ratio 39.0 H Glucose 116 H Calcium 8.4 L POC Glucose 11/28/19 18:55 WBC RBC Hgb Hct MCV MCH MCHC RDW Std Deviation RDW Coeff of Abhay Plt Count MPV Immature Gran % (Auto) Neut % (Auto) Lymph % (Auto) [place] % (Auto) Eos % (Auto) Baso % (Auto) Absolute Neuts (auto) Absolute Lymphs (auto) Nucleated RBC % D-Dimer Quant (PE/DVT) Sodium Potassium Chloride Carbon Dioxide Anion Gap BUN Creatinine Estim Creat Clear Calc Est GFR (MDRD) Af Amer Est GFR (MDRD) Non-Af BUN/Creatinine Ratio Glucose Calcium POC Glucose 117 H - Medical Decision Making Appropriate blood work was obtained as well as d-dimer. Differential diagnosis includes dependent lymphedema, DVT and need to consider possibility of pulmonary medicine she is tachycardic and complaint of shortness of breath. Nurses were unable to establish anything greater than 22-gauge peripheral line. When I discussed risk benefits of central line she informed that she was admitted last week and had a PICC line placed. In light of this review prior records and she had a CTA for similar presentation and there was no evidence of pulmonary embolus. Based on patient's history suspect the swelling is due to lymphedema. Therefore will cancel CTA of the chest to evaluate for pulmonary embolus. ED Disposition - Plan for ED Patient: Disposition: Home or Assisted Living Diagnosis: Lymphedema in adult patient, Sinus tachycardia by electrocardiogram, Chronic dyspnea Instructions: ED Peripheral Edema, Bilateral, ED Lymphedema Referrals: Cat Vasquez MD [Primary Care Provider] - 3-5 Days
== END 2019-11-28 20:11 | disposition home or self-care (01) ==
PROVIDERS: Emergency Provider Emergency Medicine; PCP Internal Medicine
DX: I89.0 Lymphedema, not elsewhere classified (principal); R00.0 Tachycardia, unspecified; R06.00 Dyspnea, unspecified; F17.200 Nicotine dependence, unspecified, uncomplicated; E66.01 Morbid (severe) obesity due to excess calories; K21.9 Gastro-esophageal reflux disease without esophagitis; F32.9 Major depressive disorder, single episode, unspecified; M06.9 Rheumatoid arthritis, unspecified; Z86.718 Personal history of other venous thrombosis and embolism
CPT/HCPCS: 80048; 82962; 85025; 85379; 93971; 99284; A4216

== ENCOUNTER → 2019-12-12 | Outpatient (CLI) | payer MEDICAID, SELFPAY ==
[2019-11-28 15:25] VITALS: BMI 41.7
[2019-12-12 17:25] LABS: Absolute Neutrophil Count 5.7 X10^3/uL (2.0-7.7); Basophil# 0.06 X10^3/uL; Basophil% 0.6 % (0-1); Eosinophil# 0.68 X10^3/uL; Eosinophils% 7.2 % (0-5); Hematocrit 40.7 % (37-47); Hemoglobin 12.6 g/dL (12.0-15.0); Lymphocyte % 22.2 % (19-41); Mean Corpuscular Hgb 28.1 pg (27.0-32.0); Mean Corpuscular Volume 90.8 fL (81-99); Mean Platelet Vol. 10.4 fl (6.2-12.0); Monocyte# 0.88 X10^3/uL; Monocyte% 9.3 % (0-10); NRBC Flagged by Analyzer 0 % (0-5); Neutrophil # 5.73 X10^3/uL (2.7-7.7); Neutrophil % 60.4 % (47-70); Platelet Count 328 K/mm3 (150-450); RBC Distribution Width CV 17.1 % (11.6-14.6); RBC Distribution Width SD 56.9 fl (35.1-43.9); Red Blood Count 4.48 M/mm3 (4.2-5.4); White Blood Count 9.5 K/mm3 (4.4-11.0)
[2019-12-12 17:47] LABS: ALB/GLOB Ratio 0.7 RATIO (0.9-2.4); AST(SGOT) 41 U/L (15-37); Alanine Aminotransfer ALT/SGPT 51 U/L (13-56); Alkaline Phosphatase 119 U/L (45-117); Anion Gap 6 (5-15); BUN 7 mg/dL (7-18); BUN/Creat Ratio 10.3 RATIO (10-20); Chloride 107 mmol/L (98-107); Creatinine, Serum 0.68 mg/dL (0.55-1.02); EST Glomerular Filtration Rate 97 mL/min (>60); Est Glom Filt Rate - Afr Amer 117 mL/min (>60); Globulin 4.4 g/dL (2.2-4.2); Glucose 90 mg/dL (74-106); Potassium 3.7 mmol/L (3.5-5.1); Protein, Total 7.4 g/dL (6.4-8.2); Sodium Level 140 mmol/L (136-145); Thyroid Stim Hormone (TSH) 1.92 uIU/mL (0.358-3.74)
[2019-12-12 18:09] LABS: BNP,B-Type NATRIURETIC PEPTIDE 10.5 pg/mL (0-100)
== END | disposition home or self-care (01) ==
PROVIDERS: PCP Internal Medicine; Referring Provider Nurse Practitioner; Visit Provider Nurse Practitioner
DX: R60.0 Localized edema (principal); R06.02 Shortness of breath
CPT/HCPCS: 80053; 83880; 84443; 85025

== ENCOUNTER 2020-09-11 10:31 | Observation (INO) | payer MEDICAID, SELFPAY ==
[2020-09-11 10:31] VITALS: BP 133/82; PULSE 102; RESP 18; TEMP 36.6; O2SAT 95; BMI 33.5
[2020-09-11 10:33] VITALS: BP 133/82; PULSE 98; RESP 18; TEMP 36.6; O2SAT 94
--- NOTE | 2020-09-11 10:46 | EX.ED.SAOD ---
HPI History of Present Illness Chief Complaint: Substance Abuse Narrative Narrative: Patient uses heroin daily, she got addicted to pain medications due to her arthritis, she progressed to IV heroin although recently over the past year or 2 she has only been nasally ingesting heroin. She last used yesterday she is presenting with nausea anxiety and a feeling ill. She is requesting detox but she also wants to go to rehab [facility] Medical History (Updated 09/11/20 @ 12:[address] Errol Mcgarry MD) Acute rheumatoid arthritis Home Medications ibuprofen [IBU] 800 mg PO TID PRN 02/01/18 [History Last Taken 11/11/19 08:00] cholecalciferol (vitamin D3) 2,500 unit PO DAILY 11/11/19 [History Last Taken 11/10/19 08:00] duloxetine 30 mg PO DAILY 11/11/19 [History Last Taken 11/11/19 08:00] omeprazole 20 mg PO DAILY 11/11/19 [History Last Taken 11/09/19] trazodone 100 mg PO QHS 11/11/19 [History Last Taken 11/07/19] Allergy/AdvReac Type Severity Reaction Status Date / Time meloxicam AdvReac Upset Verified 09/11/20 10:31 Stomach Social History Smoking Status: Current every day smoker ROS ROS ED ROS Narrative Past medical history: Reviewed Medications: Reviewed Social history: As in HPI, she is unemployed secondary to her chronic pain. Review of systems: All systems negative except as indicated General: No fever, she does feel ill Eyes: No visual changes ENT: No upper airway congestion, normal voice Neck: No neck pain Cardiovascular: No chest pain Respiratory: No shortness of breath or cough Gastrointestinal: No abdominal pain. She has nausea vomiting and loose stools Genitourinary: No dysuria Musculoskeletal: Denies myalgias no difficulty with ambulation Skin: No rash Neurological: No memory loss, confusion or any focal weakness Psych: Positive for anxiety EXAM Physical Exam Narrative Exam Narrative: Physical exam General: Patient appears anxious, she is tearful. Head: Normocephalic, Atraumatic Eyes: Conjunctiva not pale ENT: Moist mucous membranes Neck: Supple, Nontender, No lymphadenopathy Cardiovascular: Regular rhythm, slightly tachycardic initially right around 100. Respiratory: No distress, CTA bilaterally Abdomen: Soft, Nontender, Nondistended Back: Nontender, Normal Inspection. Negative for: CVA tenderness Extremities: Nontender, No edema. I do not appreciate any piloerection Skin: Normal color, No rash Neurological: Alert, Normal Strength, Normal Sensation Psychological: Normal affect Const Vital Signs: 09/11/20 10:31 09/11/20 10:33 Temperature 97.8 F 97.8 F Temperature Source Temporal Temporal Pulse Rate 102 H 98 Respiratory Rate 18 18 Blood Pressure 133/82 H 133/82 H Blood Pressure Mean 99 99 Pulse Ox 95 94 Oxygen Delivery Method Room Air Room Air MDM MDM MDM Narrative Medical decision making narrative: Patient received antiemetics and clonidine. I will admit her for detox. Lab Data Labs: Laboratory Results - last 24 hr 09/11/20 09/11/20 09/11/20 11:10 11:30 11:30 WBC 10.0 RBC 4.81 Hgb 13.1 Hct 41.0 MCV 85.2 MCH 27.2 MCHC 32.0 RDW Std Deviation 49.3 H RDW Coeff of Abhay 15.9 H Plt Count 339 MPV 10.6 Immature Gran % (Auto) 0.300 Neut % (Auto) 55.7 Lymph % (Auto) 28.3 Hardin % (Auto) 9.2 Eos % (Auto) 5.5 H Baso % (Auto) 1.0 Absolute Neuts (auto) 5.6 Absolute Lymphs (auto) 2.84 Nucleated RBC % 0 Sodium 140 Potassium 3.6 Chloride 106 Carbon Dioxide 26.0 Anion Gap 8 BUN 15 Creatinine 0.68 Estim Creat Clear Calc 76.54 Est GFR (MDRD) Af Amer 116 Est GFR (MDRD) Non-Af 95 BUN/Creatinine Ratio 21.9 H Glucose 96 Calcium 8.8 Total Bilirubin 0.30 AST 14 L ALT 17 Alkaline Phosphatase 96 Total Protein 7.5 Albumin 3.1 L Globulin 4.4 H Albumin/Globulin Ratio 0.7 L Urine Opiates Screen NEGATIVE Urine Methadone Screen NEGATIVE Ur Barbiturates Screen NEGATIVE Ur Phencyclidine Scrn NEGATIVE Ur Amphetamines Screen NEGATIVE U Methamphetamin-MDMA NEGATIVE U Benzodiazepines Scrn NEGATIVE Urine Cocaine Screen NEGATIVE U Cannabinoids Screen NEGATIVE Ur Drug Screen Comment Ethyl Alcohol 09/11/20 11:30 WBC RBC Hgb Hct MCV MCH MCHC RDW Std Deviation RDW Coeff of Abhay Plt Count MPV Immature Gran % (Auto) Neut % (Auto) Lymph % (Auto) [place] % (Auto) Eos % (Auto) Baso % (Auto) Absolute Neuts (auto) Absolute Lymphs (auto) Nucleated RBC % Sodium Potassium Chloride Carbon Dioxide Anion Gap BUN Creatinine Estim Creat Clear Calc Est GFR (MDRD) Af Amer Est GFR (MDRD) Non-Af BUN/Creatinine Ratio Glucose Calcium Total Bilirubin AST ALT Alkaline Phosphatase Total Protein Albumin Globulin Albumin/Globulin Ratio Urine Opiates Screen Urine Methadone Screen Ur Barbiturates Screen Ur Phencyclidine Scrn Ur Amphetamines Screen U Methamphetamin-MDMA U Benzodiazepines Scrn Urine Cocaine Screen U Cannabinoids Screen Ur Drug Screen Comment Ethyl Alcohol 7.0 Discharge Plan Triage Chief Complaint: Substance Abuse ED Provider: Errol Mcgarry Dx/Rx/DC Orders Clinical Impression: Opiate addiction Prescriptions: No Action ibuprofen [IBU] 800 MG tablet 800 mg PO TID PRN (Reason: Pain) RF: 0 trazodone 100 MG tablet 100 mg PO QHS RF: 0 omeprazole 20 MG capsule 20 mg PO DAILY RF: 0 duloxetine 30 MG capsule 30 mg PO DAILY RF: 0 cholecalciferol (vitamin D3) 2,000 UNIT capsule 2,500 unit PO DAILY RF: 0 Primary Care Provider: Cat Vasquez Referrals: Cat Vasquez MD [Primary Care Provider] - Disposition Disposition: Acute Care [facility]
--- NOTE | 2020-09-11 11:15 | CM.ED ---
SOCIAL WORK Referral Source: Self-referral Reason for Consult: Substance Abuse-requesting detox from heroin Met with patient in room. Introduced role and reason for referral. Patient has completed RAMP agreement with nursing. Education provided on RAMP. Patient tearful. Patient states has been snorting heroin. Last use was yesterday. Emotional support and encouragement provided. Patient denies any questions or concerns at this time. Will update [facility] upon admission. Plan: Admit to RAMP Fawad Saravia MSW, FIELD ARTILLERY OFFICER
[2020-09-11 11:35] LABS: Amphetamine Urine VISTA NEGATIVE (<1000 ng/mL); Barbiturate Urine VISTA NEGATIVE (< 200 ng/mL); Benzodiazepine Urine VISTA NEGATIVE (< 200 ng/mL); Cocaine Urine VISTA NEGATIVE (< 300 ng/mL); Ecstacy Urine VISTA NEGATIVE (< 500 ng/mL); Methadone Urine VISTA NEGATIVE (< 300 ng/mL); PCP Urine VISTA NEGATIVE (< 25 ng/mL); THC Urine VISTA NEGATIVE (< 50 ng/mL); Vista UDS pH Range 5
[2020-09-11 11:44] LABS: Absolute Lymphocyte Count 2.84 X10^3/uL (0.83-4.51); Absolute Neutrophil Count 5.6 X10^3/uL (2.0-7.7); Eosinophil# 0.55 X10^3/uL; Eosinophils% 5.5 % (0-5); Hemoglobin 13.1 g/dL (12.0-15.0); Lymphocyte # 2.84 X10^3/ul (0.83-4.51); Lymphocyte % 28.3 % (19-41); Mean Corpuscular Hgb 27.2 pg (27.0-32.0); Mean Corpuscular Volume 85.2 fL (81-99); Mean Platelet Vol. 10.6 fl (6.2-12.0); Monocyte# 0.92 X10^3/uL; Monocyte% 9.2 % (0-10); NRBC Flagged by Analyzer 0 % (0-5); Neutrophil % 55.7 % (47-70); Platelet Count 339 K/mm3 (150-450); RBC Distribution Width CV 15.9 % (11.6-14.6); RBC Distribution Width SD 49.3 fl (35.1-43.9); Red Blood Count 4.81 M/mm3 (4.2-5.4)
[2020-09-11 11:55] LABS: ALB/GLOB Ratio 0.7 RATIO (0.9-2.4); AST(SGOT) 14 U/L (15-37); Alanine Aminotransfer ALT/SGPT 17 U/L (13-56); Albumin, Serum 3.1 g/dL (3.2-5.0); Alkaline Phosphatase 96 U/L (45-117); Anion Gap 8 (5-15); BUN 15 mg/dL (7-18); BUN/Creat Ratio 21.9 RATIO (10-20); Calcium,Total 8.8 mg/dL (8.5-10.1); Chloride 106 mmol/L (98-107); Creatinine, Serum 0.68 mg/dL (0.55-1.02); EST Glomerular Filtration Rate 95 mL/min (>60); Est Glom Filt Rate - Afr Amer 116 mL/min (>60); Estimated Creatinine Clearance 76.54 ml/min; Globulin 4.4 g/dL (2.2-4.2); Glucose 96 mg/dL (74-106); Potassium 3.6 mmol/L (3.5-5.1); Protein, Total 7.5 g/dL (6.4-8.2); Sodium Level 140 mmol/L (136-145)
[2020-09-11] MEDS: proMETHazine 25 MG Tablet 12.5 MG PO (11:56)
[2020-09-11] MEDS: cloNIDine HCl 0.2 MG Patch TD (11:59)
--- NOTE | 2020-09-11 12:50 | NURSING ---
[facility] OPIATE ADDICTION
[2020-09-11 13:02] VITALS: BP 130/78; PULSE 98; RESP 18; TEMP 36.6; O2SAT 96
--- NOTE | 2020-09-11 13:02 | CM.ED ---
SOCIAL WORK Call to [facility] Treatment Navigator, Vj to update on patient's admission to [facility]. Vj to be in tomorrow to complete assessment. Fawad Saravia, EXTRUDER OPERATOR, SAMPLE CUTTER
[2020-09-11 13:05] VITALS: BP 132/102; PULSE 75; RESP 16; TEMP 36.7; O2SAT 97
[2020-09-11 13:32] VITALS: BMI 35.3
--- NOTE | 2020-09-11 14:34 | NURSING ---
During Assessment, this nurse noticed a patch on her Rt shoulder. It was Clonidine 0.2mg pt stated it was given in ED for restlessness. This nurse asked Dr. Lozada if it should be taken off or stay on. Dr. Lozada wants this nurse to take patch off.
[2020-09-11] MEDS: DULoxetine Hcl 30 MG Capsule PO (14:53)
[2020-09-11] MEDS: Methocarbamol 750 MG Tablet 1500 MG PO ×2 (14:54→21:12)
[2020-09-11] MEDS: Pantoprazole Sodium 20 MG Tablet PO (14:54)
[2020-09-11] MEDS: Dicyclomine 10 MG Capsule 20 MG PO ×2 (14:54→21:11)
[2020-09-11] MEDS: hydrOXYzine PAM 25 MG Capsule 50 MG PO ×2 (14:55→21:11)
--- NOTE | 2020-09-11 14:55 | NURSING ---
Clodidine patch is off per orders.
[2020-09-11] MEDS: Buprenorphine HCl 2 MG TAB.SUBL SL ×2 (14:56→22:37)
[2020-09-11 17:25] VITALS: BP 136/72; PULSE 86; RESP 18; TEMP 36.7; O2SAT 96
[2020-09-11] MEDS: cloNIDine HCl 0.1 MG Tablet PO (17:27)
[2020-09-11] MEDS: Ibuprofen 400 MG Tablet 800 MG PO (17:28)
--- NOTE | 2020-09-11 17:43 | HP.PCM.HOS_ITS ---
[facility] - General General Date of Admission: 09/11/20 Chief Complaint: Requesting services for detox from opiates HPI Narrative JANEY RODRIGUEZ, is a 54 F who presents to the emergency room at [facility] requesting services for detox from opiates, patient snorts heroin and is done so for the past several years, she denies recently injecting any narcotics-she states she hasn't done any injections for years. Patient denies other drug abuse such as amphetamines or alcohol. Patient is having symptoms of tremor and restlessness, she also complains of chills and nausea. Her last use of heroin was yesterday. [facility] Medical History (Updated 09/11/20 @ 14:02 by Jaylin Looney) Acute rheumatoid arthritis Anxiety Chronic pain Depression DVT (deep venous thrombosis) Hepatitis Restless legs Rheumatoid arthritis Smoker Substance abuse Home Medications ibuprofen [IBU] 800 mg PO TID PRN 02/01/18 [History Last Taken 11/11/19 08:00] cholecalciferol (vitamin D3) 2,500 unit PO DAILY 11/11/19 [History Last Taken 11/10/19 08:00] duloxetine 30 mg PO DAILY 11/11/19 [History Last Taken 11/11/19 08:00] omeprazole 20 mg PO DAILY 11/11/19 [History Last Taken 11/09/19] trazodone 100 mg PO QHS 11/11/19 [History Last Taken 11/07/19] Allergy/AdvReac Type Severity Reaction Status Date / Time meloxicam AdvReac Upset Verified 09/11/20 13:49 Stomach Family History (Updated 09/11/20 @ 17:[address] Robin Lozada DO) Mother Diabetes Cancer Mother No problems noted. Father Hypertension other (Father: Hypertension; Mother: Diabetes, cancer of the stomach) no surgical history Social History (Updated 09/11/20 @ 18:[address] Robin Lozada DO) household members: family Smoking Status: Current every day smoker details: Nondrinker substance use type: heroin ROS Constitutional Constitutional: Denies anorexia, change in weight, fever(s), night sweats or weakness Eyes Eyes: Denies blurry vision, change in vision, discharge from eye(s) or eye pain Cardiovascular Cardiovascular: Denies chest pain, claudication, edema or palpitations Respiratory/Chest Respiratory/Chest: Denies cough, hemoptysis, shortness of breath at rest or shortness of breath with exertion Gastrointestinal Gastrointestinal: Denies abdominal pain, constipation, diarrhea, hematemesis, hematochezia, melena, nausea or vomiting Genitourinary Genitourinary: Denies dysuria, hematuria, urinary frequency, urinary hesitancy, urinary incontinence or urinary urgency Musculoskeletal Musculoskeletal: Denies back pain, joint pain, joint stiffness, joint swelling, myalgias or neck pain Neurologic Neurologic: Reports tremor(s); Denies abnormal gait, abnormal speech, dizziness, focal weakness, headache(s), loss of vision, numbness, other visual disturbances, paresthesias, syncope or tingling Psychiatric Psychiatric: Reports depression, irritability and other; Denies anxiety, cognitive impairment, homicidal ideation, mood swings or suicidal ideation Endocrine Endocrinology: Denies change in body appearance, cold intolerance, excessive sweating, heat intolerance, polydipsia or polyuria Hematologic/Lymphatic Hematologic/Lymphatic: Denies anemia, easy bleeding, easy bruising or lymphadenopathy Allergic/Immunologic Allergic/Immunologic: Denies rhinitis, hives, urticaria, eczemia or asthma Vital Signs Vital Signs Vital Signs: 09/11/20 10:31 09/11/20 10:33 09/11/20 13:02 Temperature 97.8 F 97.8 F 98 F Temperature Source Temporal Temporal Temporal Pulse Rate 102 H 98 98 Respiratory Rate 18 18 18 Respiratory Effort Respiratory Depth Respiratory Pattern Blood Pressure 133/82 H 133/82 H 130/78 H Blood Pressure [BP] Blood Pressure Mean 99 99 95 Blood Pressure Mean [BP] Blood Pressure Source Blood Pressure Source [BP] Blood Pressure Position Blood Pressure Position [BP] Blood Pressure Location Blood Pressure Location [BP] Pulse Ox 95 94 96 Oxygen Delivery Method Room Air Room Air Room Air 09/11/20 13:05 09/11/20 13:15 09/11/20 17:25 Temperature 98.0 F 98.0 F Temperature Source Oral Oral Pulse Rate 75 86 Respiratory Rate 16 18 Respiratory Effort Normal Respiratory Depth Normal Respiratory Pattern Normal Blood Pressure 136/72 H Blood Pressure [BP] 132/102 H Blood Pressure Mean 93 Blood Pressure Mean [BP] 112 Blood Pressure Source Monitor Blood Pressure Source [BP] Monitor Blood Pressure Position Right Lateral Blood Pressure Position [BP] Semi-Fowlers Blood Pressure Location Left Arm Blood Pressure Location [BP] Right Arm Pulse Ox 97 96 Oxygen Delivery Method Room Air Room Air Room Air Physical Exam Const alert, oriented x3 and well nourished Constitutional Narrative: Is mildly nervous at the time of my examination General Appearance: cooperative HEENT normocephalic, head/scalp atraumatic, hearing grossly normal bilaterally and moist oral mucous membranes Eyes PERRL, EOMs intact bilaterally and conjunctivae normal Neck no lymphadenopathy, supple, no JVD and no carotid bruits Resp normal respiratory effort, no retractions, no use of accessory muscles and clear to auscultation bilaterally Cardio regular rate, regular rhythm, S1 normal heart sound, S2 normal heart sound, no murmurs and no rub GI normal to inspection, nondistended, normoactive bowel sounds, soft to palpation, non-tender and non-distended Extremity normal to inspection, full ROM and no clubbing, cyanosis or edema Skin no rashes or lesions noted, no wounds, skin turgor normal, no jaundice, no petechiae and no mottling Neuro oriented x3, CN's II-XII intact bilaterally and no focal motor deficits Sensorium / Orientation: awake and alert Motor Exam: strength 5/5 throughout Psych Psych Narrative: Patient exhibits some mild anxiety, restlessness Lab / Micro Data Result Diagrams: 09/11/20 11:30 09/11/20 11:30 Labs: Laboratory Results - last 24 hr 09/11/20 09/11/20 09/11/20 11:10 11:30 11:30 WBC 10.0 RBC 4.81 Hgb 13.1 Hct 41.0 MCV 85.2 MCH 27.2 MCHC 32.0 RDW Std Deviation 49.3 H RDW Coeff of Abhay 15.9 H Plt Count 339 MPV 10.6 Immature Gran % (Auto) 0.300 Neut % (Auto) 55.7 Lymph % (Auto) 28.3 [place]enson % (Auto) 9.2 Eos % (Auto) 5.5 H Baso % (Auto) 1.0 Absolute Neuts (auto) 5.6 Absolute Lymphs (auto) 2.84 Nucleated RBC % 0 Sodium 140 Potassium 3.6 Chloride 106 Carbon Dioxide 26.0 Anion Gap 8 BUN 15 Creatinine 0.68 Estim Creat Clear Calc 76.54 Est GFR (MDRD) Af Amer 116 Est GFR (MDRD) Non-Af 95 BUN/Creatinine Ratio 21.9 H Glucose 96 Calcium 8.8 Total Bilirubin 0.30 AST 14 L ALT 17 Alkaline Phosphatase 96 Total Protein 7.5 Albumin 3.1 L Globulin 4.4 H Albumin/Globulin Ratio 0.7 L Urine Opiates Screen NEGATIVE Urine Methadone Screen NEGATIVE Ur Barbiturates Screen NEGATIVE Ur Phencyclidine Scrn NEGATIVE Ur Amphetamines Screen NEGATIVE U Methamphetamin-MDMA NEGATIVE U Benzodiazepines Scrn NEGATIVE Urine Cocaine Screen NEGATIVE U Cannabinoids Screen NEGATIVE Ur Drug Screen Comment Ethyl Alcohol 09/11/20 11:30 WBC RBC Hgb Hct MCV MCH MCHC RDW Std Deviation RDW Coeff of Abhay Plt Count MPV Immature Gran % (Auto) Neut % (Auto) Lymph % (Auto) [place] % (Auto) Eos % (Auto) Baso % (Auto) Absolute Neuts (auto) Absolute Lymphs (auto) Nucleated RBC % Sodium Potassium Chloride Carbon Dioxide Anion Gap BUN Creatinine Estim Creat Clear Calc Est GFR (MDRD) Af Amer Est GFR (MDRD) Non-Af BUN/Creatinine Ratio Glucose Calcium Total Bilirubin AST ALT Alkaline Phosphatase Total Protein Albumin Globulin Albumin/Globulin Ratio Urine Opiates Screen Urine Methadone Screen Ur Barbiturates Screen Ur Phencyclidine Scrn Ur Amphetamines Screen U Methamphetamin-MDMA U Benzodiazepines Scrn Urine Cocaine Screen U Cannabinoids Screen Ur Drug Screen Comment Ethyl Alcohol 7.0 Assessment & Plan Assessment/Plan (1) Opiate addiction: PLAN: 1. Acute heroin withdrawal-patient will be admitted to [facility] 3 using the opiate detox order set #2 chronic heroin addiction-patient will be seen by 180 to arrange follow-up treatment #3 chronic depression #4 rheumatoid arthritis Visit Charges Inpatient E&M: 27088 Init Hosp L3
[2020-09-11 20:13] VITALS: BP 155/78; PULSE 95; RESP 18; TEMP 36.7; O2SAT 94
[2020-09-11] MEDS: Acetaminophen 325 MG Tablet 650 MG PO (20:23)
[2020-09-11] MEDS: traZODone 100 MG Tablet PO (21:12)
[2020-09-12 01:27] VITALS: BP 121/82; PULSE 61; RESP 18; TEMP 36.4; O2SAT 94
[2020-09-12] MEDS: cloNIDine HCl 0.1 MG Tablet PO ×3 (01:31→22:14)
[2020-09-12 05:50] VITALS: BP 143/78; PULSE 61; RESP 18; TEMP 36.6; O2SAT 97
[2020-09-12] MEDS: Buprenorphine HCl 2 MG TAB.SUBL SL ×3 (06:13→22:14)
[2020-09-12] MEDS: Cholecalciferol (VIT D3) 25 MCG TABLET (1,000 UNITS) 75 MCG PO (11:02)
[2020-09-12] MEDS: DULoxetine Hcl 30 MG Capsule PO (11:03)
[2020-09-12] MEDS: Pantoprazole Sodium 20 MG Tablet PO (11:03)
--- NOTE | 2020-09-12 11:05 | PCM.PN.HOSP ---
Subjective Subjective Patient was seen and examined today, she has very little symptoms of opiate withdrawal at this time. Objective Data Objective Data Vital Signs: Vital Signs Temp Pulse Resp BP Pulse Ox 97.8 F 61 18 143/78 H 97 09/12/20 05:50 09/12/20 05:50 09/12/20 05:50 09/12/20 05:50 09/12/20 05:50 Oxygen Delivery Method Room Air Weight: 87.657 kg Body Mass Index (BMI) 35.3 Intake & Output: Intake and Output for Last 24 Hours 09/10/20 09/11/20 09/12/20 23:59 23:59 23:59 Intake Total 240 / 240 500 / 500 Balance 240 / 240 500 / 500 Lab / Micro Data Result Diagrams: 09/11/20 11:30 09/11/20 11:30 Labs: Laboratory Results - last 24 hr 09/11/20 09/11/20 09/11/20 11:10 11:30 11:30 WBC 10.0 RBC 4.81 Hgb 13.1 Hct 41.0 MCV 85.2 MCH 27.2 MCHC 32.0 RDW Std Deviation 49.3 H RDW Coeff of Abhay 15.9 H Plt Count 339 MPV 10.6 Immature Gran % (Auto) 0.300 Neut % (Auto) 55.7 Lymph % (Auto) 28.3 [place] % (Auto) 9.2 Eos % (Auto) 5.5 H Baso % (Auto) 1.0 Absolute Neuts (auto) 5.6 Absolute Lymphs (auto) 2.84 Nucleated RBC % 0 Sodium 140 Potassium 3.6 Chloride 106 Carbon Dioxide 26.0 Anion Gap 8 BUN 15 Creatinine 0.68 Estim Creat Clear Calc 76.54 Est GFR (MDRD) Af Amer 116 Est GFR (MDRD) Non-Af 95 BUN/Creatinine Ratio 21.9 H Glucose 96 Calcium 8.8 Total Bilirubin 0.30 AST 14 L ALT 17 Alkaline Phosphatase 96 Total Protein 7.5 Albumin 3.1 L Globulin 4.4 H Albumin/Globulin Ratio 0.7 L Urine Opiates Screen NEGATIVE Urine Methadone Screen NEGATIVE Ur Barbiturates Screen NEGATIVE Ur Phencyclidine Scrn NEGATIVE Ur Amphetamines Screen NEGATIVE U Methamphetamin-MDMA NEGATIVE U Benzodiazepines Scrn NEGATIVE Urine Cocaine Screen NEGATIVE U Cannabinoids Screen NEGATIVE Ur Drug Screen Comment Ethyl Alcohol 09/11/20 11:30 WBC RBC Hgb Hct MCV MCH MCHC RDW Std Deviation RDW Coeff of Abhay Plt Count MPV Immature Gran % (Auto) Neut % (Auto) Lymph % (Auto) [place] % (Auto) Eos % (Auto) Baso % (Auto) Absolute Neuts (auto) Absolute Lymphs (auto) Nucleated RBC % Sodium Potassium Chloride Carbon Dioxide Anion Gap BUN Creatinine Estim Creat Clear Calc Est GFR (MDRD) Af Amer Est GFR (MDRD) Non-Af BUN/Creatinine Ratio Glucose Calcium Total Bilirubin AST ALT Alkaline Phosphatase Total Protein Albumin Globulin Albumin/Globulin Ratio Urine Opiates Screen Urine Methadone Screen Ur Barbiturates Screen Ur Phencyclidine Scrn Ur Amphetamines Screen U Methamphetamin-MDMA U Benzodiazepines Scrn Urine Cocaine Screen U Cannabinoids Screen Ur Drug Screen Comment Ethyl Alcohol 7.0 Physical Exam Const alert, oriented x3, no apparent distress and healthy appearing General Appearance: cooperative, well kempt and well developed Orientation / Consciousness: awake, oriented to person, oriented to place and oriented to time HEENT normocephalic and moist oral mucous membranes Eyes PERRL, EOMs intact bilaterally and conjunctivae normal Neck nuchal rigidity, supple, no JVD, thyroid normal and no carotid bruits General: trachea midline Resp normal respiratory effort and clear to auscultation bilaterally Auscultation: Negative for rales, rhonchi or wheezes Cardio regular rate, regular rhythm, no murmurs, no rub and no gallops GI normal to inspection, nondistended, normoactive bowel sounds, soft to palpation, non-tender and non-distended Extremity no clubbing, cyanosis or edema Skin no rashes or lesions noted General Skin Exam: no breakdown Neuro oriented x3, CN's II-XII intact bilaterally, no focal motor deficits and no sensory deficits noted Sensorium / Orientation: awake and alert Speech: speech normal Psych thought process normal and affect normal Assessment & Plan Assessment/Plan (1) Opiate addiction: PLAN: 1. Acute heroin withdrawal-continue present medications #2 chronic heroin addiction-patient will be seen by [facility] to arrange follow-up treatment #3 chronic depression #4 rheumatoid arthritis
[2020-09-12 11:06] VITALS: BP 128/62; PULSE 73; RESP 18; TEMP 36.6; O2SAT 97
[2020-09-12] MEDS: hydrOXYzine PAM 25 MG Capsule 50 MG PO ×2 (11:11→17:28)
[2020-09-12] MEDS: Methocarbamol 750 MG Tablet 1500 MG PO ×2 (11:12→17:27)
[2020-09-12] MEDS: Ibuprofen 400 MG Tablet 800 MG PO (11:12)
[2020-09-12] MEDS: Dicyclomine 10 MG Capsule 20 MG PO ×2 (11:12→17:28)
[2020-09-12 14:53] VITALS: BP 112/55; PULSE 66; RESP 18; TEMP 36.7; O2SAT 96
[2020-09-12] MEDS: Acetaminophen 325 MG Tablet 650 MG PO (17:28)
[2020-09-12 19:56] VITALS: BP 92/55; PULSE 71; RESP 18; TEMP 36.6; O2SAT 94
[2020-09-12 22:11] VITALS: BP 105/53; PULSE 64
[2020-09-12] MEDS: traZODone 100 MG Tablet PO (22:14)
[2020-09-13] MEDS: Ibuprofen 400 MG Tablet 800 MG PO ×2 (01:11→11:22)
[2020-09-13 02:17] VITALS: BP 92/51; PULSE 67; RESP 18; TEMP 36.6; O2SAT 94
[2020-09-13] MEDS: hydrOXYzine PAM 25 MG Capsule 50 MG PO ×3 (02:27→19:35)
[2020-09-13] MEDS: Buprenorphine HCl 2 MG TAB.SUBL SL ×2 (06:19→14:56)
[2020-09-13 09:00] VITALS: BP 98/61; PULSE 80; RESP 16; TEMP 36.7; O2SAT 95
[2020-09-13] MEDS: DULoxetine Hcl 30 MG Capsule PO (10:15)
[2020-09-13] MEDS: Pantoprazole Sodium 20 MG Tablet PO (10:15)
[2020-09-13] MEDS: Cholecalciferol (VIT D3) 25 MCG TABLET (1,000 UNITS) 75 MCG PO (10:16)
[2020-09-13] MEDS: cloNIDine HCl 0.1 MG Tablet PO ×2 (11:17→21:05)
--- NOTE | 2020-09-13 12:17 | PN.HOSP_ITS ---
Subjective Subjective Patient was seen and examined today, she complains she is having trouble sleeping, she does not complain of increased nervousness or tremor. Objective Data Objective Data Vital Signs: Vital Signs Temp Pulse Resp BP Pulse Ox 98.0 F 80 16 98/61 95 09/13/20 09:00 09/13/20 09:00 09/13/20 09:00 09/13/20 09:00 09/13/20 09:00 Oxygen Delivery Method Room Air Weight: 87.657 kg Body Mass Index (BMI) 35.3 Intake & Output: Intake and Output for Last 24 Hours 09/11/20 09/12/20 09/13/20 23:59 23:59 23:59 Intake Total 240 / 240 1000 / 1000 800 / 800 Balance 240 / 240 1000 / 1000 800 / 800 Lab / Micro Data Result Diagrams: 09/11/20 11:30 09/11/20 11:30 Physical Exam Const alert, oriented x3, no apparent distress and healthy appearing General Appearance: cooperative, well kempt and well developed Orientation / Consciousness: awake, oriented to person, oriented to place and oriented to time HEENT normocephalic and moist oral mucous membranes Eyes PERRL, EOMs intact bilaterally and conjunctivae normal Neck nuchal rigidity, supple, no JVD, thyroid normal and no carotid bruits General: trachea midline Resp normal respiratory effort and clear to auscultation bilaterally Auscultation: Negative for rales, rhonchi or wheezes Cardio regular rate, regular rhythm, no murmurs, no rub and no gallops GI normal to inspection, nondistended, normoactive bowel sounds, soft to palpation, non-tender and non-distended Extremity no clubbing, cyanosis or edema Skin no rashes or lesions noted General Skin Exam: no breakdown Neuro oriented x3, CN's II-XII intact bilaterally, no focal motor deficits and no sensory deficits noted Sensorium / Orientation: awake and alert Speech: speech normal Psych thought process normal and affect normal Assessment & Plan Assessment/Plan (1) Opiate addiction: PLAN: 1. Acute heroin withdrawal-continue present medications #2 chronic heroin addiction-patient was seen by [facility] yesterday regarding follow- up detox services #3 chronic depression #4 rheumatoid arthritis
[2020-09-13] MEDS: Acetaminophen 325 MG Tablet 650 MG PO (14:57)
[2020-09-13] MEDS: Methocarbamol 750 MG Tablet 1500 MG PO ×2 (14:57→21:05)
[2020-09-13 15:00] VITALS: BP 120/71; PULSE 72; RESP 18; TEMP 36.7; O2SAT 95
[2020-09-13 21:00] VITALS: BP 125/86; PULSE 88; RESP 16; TEMP 36.6; O2SAT 95
[2020-09-13] MEDS: traZODone 100 MG Tablet PO (21:05)
[2020-09-14] MEDS: Buprenorphine HCl 2 MG TAB.SUBL SL ×2 (02:53→12:46)
[2020-09-14 02:55] VITALS: BP 128/73; PULSE 70; RESP 16; TEMP 36.6; O2SAT 98
[2020-09-14] MEDS: Cholecalciferol (VIT D3) 25 MCG TABLET (1,000 UNITS) 75 MCG PO (07:52)
[2020-09-14] MEDS: Pantoprazole Sodium 20 MG Tablet PO (07:52)
[2020-09-14] MEDS: DULoxetine Hcl 30 MG Capsule PO (07:53)
[2020-09-14] MEDS: cloNIDine HCl 0.1 MG Tablet PO (07:53)
[2020-09-14] MEDS: Ibuprofen 400 MG Tablet 800 MG PO (07:53)
[2020-09-14 08:00] VITALS: BP 134/82; PULSE 81; RESP 18; TEMP 36.9; O2SAT 93
--- NOTE | 2020-09-14 09:00 | PCM.DC ---
Discharge Instructions Diet Discharge Diet: No restrictions Activity Discharge Activity: Return to Normal Activity Weight Bearing Status: Full weight bearing Follow Up Care Test Results: Test results from this visit will be discussed in further detail at your follow-up appointment, if applicable. Discharge Plan Admission Admit Date/Time: 09/11/20 12:40 Primary Reason for Your Visit: opiate detox Attending Provider: Robin Lozada Primary Care Provider: Cat Vasquez Instructions Additional Instructions / Restrictions: Follow-up with [facility] on 09/15/2020 Discharge Orders/Prescriptions Prescriptions: New hydroxyzine pamoate 25 mg Capsule 50 mg PO Q6H PRN PRN (Reason: mild anxiety) Qty: 16 RF: 0 Continued ibuprofen [IBU] 800 MG tablet 800 mg PO TID PRN (Reason: Pain) RF: 0 trazodone 100 MG tablet 100 mg PO QHS RF: 0 omeprazole 20 MG capsule 20 mg PO DAILY RF: 0 duloxetine 30 MG capsule 30 mg PO DAILY RF: 0 cholecalciferol (vitamin D3) 2,000 UNIT capsule 2,500 unit PO DAILY RF: 0 Referrals / Follow Up: Cat Vasquez MD [Primary Care Provider] - Within 2 Weeks Disposition Disposition (needs filled in before D/C Order can be placed): Home, self care
[2020-09-14 12:00] VITALS: BP 125/72; PULSE 79; RESP 18; TEMP 36.7; O2SAT 95
--- NOTE | 2020-09-14 15:35 | PCM.DC.SUM ---
Providers Date of Admission: 09/11/20 Date of Discharge: 09/14/20 Primary Care Physician: Dr. Cat Vasquez MD Reason For Visit: OPIATE DETOX Diagnosis Discharge Diagnosis (1) Opiate addiction: Status: Acute Code(s): F11.20 - Opioid dependence, uncomplicated Plan: 1. Acute opioid withdrawal #2 chronic opioid addiction (heroin) #3 rheumatoid arthritis #4 chronic depression Medications at Discharge Home Medications ibuprofen [IBU] 800 mg PO TID PRN 02/01/18 cholecalciferol (vitamin D3) 2,500 unit PO DAILY 11/11/19 duloxetine 30 mg PO DAILY 11/11/19 omeprazole 20 mg PO DAILY 11/11/19 trazodone 100 mg PO QHS 11/11/19 hydroxyzine pamoate 50 mg PO Q6H PRN PRN #16 cap 09/14/20 Hospital Course Operations None Procedures None Summary of Care Provided Minutes Spent on Discharge: 32 Hospital Course: This 54-year-old white female was seen in the emergency room at [facility] [place] requesting services for detox from heroin. Labs obtained in the emergency room included a CBC which was unremarkable, chemistry profile was unremarkable, tox screen was negative. Patient was admitted to [place] [id number], orders were entered using the detox order set for opiate withdrawal, patient had no major complications during her hospitalization, she was seen in consultation by addiction social science research assistant and she agreed to follow-up as an outpatient with [facility]. On 09/14/2020, patient was seen and examined: On examination she appeared in good health and spirits, she does not appear to be in any distress. Vital signs as documented. Skin warm and dry and without overt rashes. Neck without JVD, thyroid appears normal, trachea is midline, neck is supple. Lungs clear, normal air movement was noted. Heart exam notable for regular rhythm, normal sounds and absence of murmurs, rubs or gallops. Abdomen unremarkable and without evidence of organomegaly, masses, or abdominal aortic enlargement, bowel sounds are present in all 4 quadrants, no abdominal tenderness was noted. Extremities nonedematous, no cyanosis was noted, no clubbing was noted. Neuro: Cranial nerves II through XII are grossly intact, no focal motor deficits were noted, sensation to light touch and pinprick is intact, motor exam 5/5 throughout. Psych: Patient is alert and oriented x3, she does not appear anxious or depressed, she does not appear agitated. On 09/14/2020, patient appears stable for discharge home. ABG / Lab / Microbiology Data Result Diagrams: 09/11/20 11:30 09/11/20 11:30 D/C Instructions Discharge Diet: No restrictions Discharge Activity: Return to Normal Activity Weight Bearing Status: Full weight bearing Meaningful Use Info Meaningful Use Diagnoses (Choose all that apply): None applicable Discharge Plan Admission Admit Date/Time: 09/11/20 12:40 Primary Reason for Your Visit: opiate detox Attending Provider: Robin Lozada Primary Care Provider: Cat Vasquez Instructions Additional Instructions / Restrictions: Follow-up with [facility] on 09/15/2020 Discharge Orders/Prescriptions Prescriptions: New hydroxyzine pamoate 25 mg Capsule 50 mg PO Q6H PRN PRN (Reason: mild anxiety) Qty: 16 RF: 0 Continued ibuprofen [IBU] 800 MG tablet 800 mg PO TID PRN (Reason: Pain) RF: 0 trazodone 100 MG tablet 100 mg PO QHS RF: 0 omeprazole 20 MG capsule 20 mg PO DAILY RF: 0 duloxetine 30 MG capsule 30 mg PO DAILY RF: 0 cholecalciferol (vitamin D3) 2,000 UNIT capsule 2,500 unit PO DAILY RF: 0 Referrals / Follow Up: Cat Vasquez MD [Primary Care Provider] - Within 2 Weeks Disposition Disposition (needs filled in before D/C Order can be placed): Home, self care Visit Charges Inpatient E&M: 99679 Disch Hosp
== END 2020-09-14 13:35 | disposition home or self-care (01) ==
LOC: ED 12:37 → MS3 09-12 05:34
PROVIDERS: Admitting Provider Internal Medicine; Emergency Provider Emergency Medicine; PCP Internal Medicine; Visit Provider Internal Medicine
DX: F11.23 Opioid dependence with withdrawal (principal); M06.9 Rheumatoid arthritis, unspecified; F32.9 Major depressive disorder, single episode, unspecified; Z79.899 Other long term (current) drug therapy; F17.200 Nicotine dependence, unspecified, uncomplicated; G89.29 Other chronic pain; F41.9 Anxiety disorder, unspecified; G25.81 Restless legs syndrome; Z86.718 Personal history of other venous thrombosis and embolism; Z86.19 Personal history of other infectious and parasitic diseases
CPT/HCPCS: 80053; 80307; 82077; 85025; 99283; H0012

== ENCOUNTER 2020-10-07 08:55 | Observation (INO) | payer MEDICAID, SELFPAY ==
[2020-10-07] VITALS (9 sets, daily range): BP systolic 105–158; BP diastolic 58–99; PULSE 74–117; RESP 16; TEMP 36.1–37.1; O2SAT 93–99; BMI 32.9; BMI 34.0
--- NOTE | 2020-10-07 09:16 | EDS_ITS ---
HPI History of Present Illness Chief Complaint: Substance Abuse Informant: patient Onset/Context/Timing Onset: Yesterday Context: Gradual Onset Timing: Continuous Associated Symptoms Associated Symptoms: Positive for vomiting* and tremor; Negative for diarrhea*, fever*, rash*, seizure, palpatations, change in mental status, suicidal ideation and homicidal ideation Narrative Narrative: Patient is presents requesting detox from heroin. Patient states she uses approximately 1 g/day. Patient states her last use was yesterday. Patient admits to some nausea and vomiting this morning. Patient admits to some tremors in her lower extremities today as well. Patient denies any fevers but admits to some subjective chills and sweats. Patient admits to a cough but denies any sputum production. Patient denies any diarrhea. Patient states she has been trying to get into [facility] and she called them today. Patient states she was told to come to the emergency department and be admitted for detox. Patient states that she will then follow-up with [facility] after she has detox. [facility] Medical History Acute rheumatoid arthritis Anxiety Chronic pain Depression DVT (deep venous thrombosis) Hepatitis Restless legs Rheumatoid arthritis Smoker Substance abuse Home Medications ibuprofen [IBU] 800 mg PO TID PRN 02/01/18 [History Last Taken 11/11/19 08:00] cholecalciferol (vitamin D3) 2,500 unit PO DAILY 11/11/19 [History Last Taken 11/10/19 08:00] duloxetine 30 mg PO DAILY 11/11/19 [History Last Taken 11/11/19 08:00] omeprazole 20 mg PO DAILY 11/11/19 [History Last Taken 11/09/19] trazodone 100 mg PO QHS 11/11/19 [History Last Taken 11/07/19] hydroxyzine pamoate 50 mg PO Q6H PRN PRN #16 cap 09/14/20 [Rx Last Taken Unknown] Allergy/AdvReac Type Severity Reaction Status Date / Time meloxicam AdvReac Upset Verified 10/07/20 08:58 Stomach Family History (Updated 09/11/20 @ 17:[address] Robin Lozada DO) Mother Diabetes Cancer Mother No problems noted. Father Hypertension no surgical history Social History household members: family Smoking Status: Current every day smoker tobacco type: cigarettes details: Nondrinker substance use type: heroin ROS ROS ED Constitutional Constitutional ED: Reports chills, subjective and sweats; Denies fever(s) Eyes Eyes: Denies blurry vision or change in vision ENT ENT ED: Denies rhinorrhea or sore throat Cardiovascular Cardiovascular: Denies chest pain or palpitations Respiratory/Chest Respiratory/Chest: Reports cough; Denies dyspnea or sputum Gastrointestinal Gastrointestinal: Reports nausea and vomiting Genitourinary Genitourinary ED: Denies dysuria or hematuria Musculoskeletal Musculoskeletal: Denies back pain or neck pain Integumentary Denies abscess or rash Neurologic Neurologic: Denies headache(s) or weakness Allergic/Immunologic Allergic/Immunologic ED: Denies mouth swelling or urticaria EXAM Physical Exam Const Vital Signs: 10/07/20 08:56 Temperature 98.0 F Temperature Source Oral Pulse Rate 117 H Respiratory Rate 16 Blood Pressure 145/92 H Blood Pressure Mean 109 Pulse Ox 95 Oxygen Delivery Method Room Air Positive well nourished, well developed and obese General Appearance ED: well developed Nutritional Appearance: obese HEENT Reports moist mucous membranes Neck supple and no JVD Resp normal respiratory effort and clear to auscultation bilaterally Cardio regular rate, regular rhythm and no murmurs GI normal to inspection, nondistended, normoactive bowel sounds, soft to palpation, non-tender and non-distended Palpation: soft Extremity normal to inspection General Extremety ED: Negative for edema or tenderness General Extremity: Negative for edema Neuro oriented x3, CN's II-XII intact bilaterally and no sensory deficits noted Sensorium / Orientation: alert Motor Exam: strength 5/5 throughout Psych mental status grossly normal Skin no rashes or lesions noted MDM MDM MDM Narrative Medical decision making narrative: CBC and comprehensive metabolic profile were obtained and were essentially within normal limits. Serum alcohol level was normal. Urine tox screen was ordered and is pending. Case was discussed with the hospitalist. She will admit the patient to her service. Patient understands and is agreeable with the plan. All questions were answered. Lab Data Attestation: I reviewed the patient's lab results. Labs: Laboratory Results - last 24 hr 10/07/20 10/07/20 10/07/20 09:30 09:30 09:30 WBC 9.1 RBC 4.62 Hgb 12.7 Hct 39.6 MCV 85.7 MCH 27.5 MCHC 32.1 RDW Std Deviation 50.2 H RDW Coeff of Abhay 16.2 H Plt Count 297 MPV 10.3 Immature Gran % (Auto) 0.300 Neut % (Auto) 61.2 Lymph % (Auto) 24.6 [place] % (Auto) 7.6 Eos % (Auto) 5.4 H Baso % (Auto) 0.9 Absolute Neuts (auto) 5.5 Absolute Lymphs (auto) 2.23 Nucleated RBC % 0 Sodium 142 Potassium 3.4 L Chloride 109 H Carbon Dioxide 25.0 Anion Gap 8 BUN 20 H Creatinine 0.70 Estim Creat Clear Calc 74.35 Est GFR (MDRD) Af Amer 112 Est GFR (MDRD) Non-Af 92 BUN/Creatinine Ratio 28.4 H Glucose 98 Calcium 8.4 L Total Bilirubin 0.20 AST 16 ALT 23 Alkaline Phosphatase 102 Total Protein 6.8 Albumin 2.9 L Globulin 3.9 Albumin/Globulin Ratio 0.7 L Ethyl Alcohol < 3.0 Treatment and Re-Evaluation Vital Sign Attestation:: Vital signs were reviewed prior to admission. They are stable. Discharge Plan Dx/Rx/DC Orders Clinical Impression: Opiate withdrawal Disposition Disposition: Acute Care Hospital [facility]
[2020-10-07 09:36] LABS: Absolute Lymphocyte Count 2.23 X10^3/uL (0.83-4.51); Absolute Neutrophil Count 5.5 X10^3/uL (2.0-7.7); Basophil# 0.08 X10^3/uL; Basophil% 0.9 % (0-1); Eosinophil# 0.49 X10^3/uL; Eosinophils% 5.4 % (0-5); Hematocrit 39.6 % (37-47); Hemoglobin 12.7 g/dL (12.0-15.0); Lymphocyte # 2.23 X10^3/ul (0.83-4.51); Lymphocyte % 24.6 % (19-41); Mean Corp Hgb Conc 32.1 g/dL (32-36); Mean Corpuscular Hgb 27.5 pg (27.0-32.0); Mean Corpuscular Volume 85.7 fL (81-99); Mean Platelet Vol. 10.3 fl (6.2-12.0); Monocyte# 0.69 X10^3/uL; Monocyte% 7.6 % (0-10); NRBC Flagged by Analyzer 0 % (0-5); Neutrophil # 5.53 X10^3/uL (2.7-7.7); Neutrophil % 61.2 % (47-70); Platelet Count 297 K/mm3 (150-450); RBC Distribution Width CV 16.2 % (11.6-14.6); RBC Distribution Width SD 50.2 fl (35.1-43.9); Red Blood Count 4.62 M/mm3 (4.2-5.4); White Blood Count 9.1 K/mm3 (4.4-11.0)
[2020-10-07 09:51] LABS: ALB/GLOB Ratio 0.7 RATIO (0.9-2.4); AST(SGOT) 16 U/L (15-37); Alanine Aminotransfer ALT/SGPT 23 U/L (13-56); Albumin, Serum 2.9 g/dL (3.2-5.0); Alkaline Phosphatase 102 U/L (45-117); Anion Gap 8 (5-15); BUN 20 mg/dL (7-18); BUN/Creat Ratio 28.4 RATIO (10-20); Calcium,Total 8.4 mg/dL (8.5-10.1); Chloride 109 mmol/L (98-107); EST Glomerular Filtration Rate 92 mL/min (>60); Est Glom Filt Rate - Afr Amer 112 mL/min (>60); Estimated Creatinine Clearance 74.35 ml/min; Globulin 3.9 g/dL (2.2-4.2); Glucose 98 mg/dL (74-106); Potassium 3.4 mmol/L (3.5-5.1); Protein, Total 6.8 g/dL (6.4-8.2); Sodium Level 142 mmol/L (136-145)
[2020-10-07 10:09] LABS: Alcohol, Blood (Medical)-Serum < 3.0 mg/dL
--- NOTE | 2020-10-07 10:13 | PCM.HP.STD ---
HPI - General HPI Narrative JANEY RODRIGUEZ, is a 54 F with a PMH as outlined who was admitted via the ED on 10/07/2020 for heroin detox. She uses one gram of heroin daily, and says she last used yesterday. She complained of nausea adn vomiting on the morning of admission, with associated subjective chills and sweats. She had been trying to get into [facility], but says she was told to come to the ED for detox. In the ED, vitals showed temperature of 98 Fahrenheit with pulse rate of 117 respiratory rate of 16 as well as BP of 145/92. She was saturating well on room air. CBC and BMP were essentially unremarkable and urine tox was pending at time of admission. She has been admitted to manage for acute heroin withdrawal. [facility] Medical History Acute rheumatoid arthritis Anxiety Chronic pain Depression DVT (deep venous thrombosis) Hepatitis Restless legs Rheumatoid arthritis Smoker Substance abuse Home Medications ibuprofen [IBU] 800 mg PO TID PRN 02/01/18 [History Last Taken 11/11/19 08:00] cholecalciferol (vitamin D3) 2,500 unit PO DAILY 11/11/19 [History Last Taken 11/10/19 08:00] duloxetine 30 mg PO DAILY 11/11/19 [History Last Taken 11/11/19 08:00] omeprazole 20 mg PO DAILY 11/11/19 [History Last Taken 11/09/19] trazodone 100 mg PO QHS 11/11/19 [History Last Taken 11/07/19] hydroxyzine pamoate 50 mg PO Q6H PRN PRN #16 cap 09/14/20 [Rx Last Taken Unknown] Allergy/AdvReac Type Severity Reaction Status Date / Time meloxicam AdvReac Upset Verified 10/07/20 08:58 Stomach Family History (Updated 09/11/20 @ 17:[address] Robin Lozada DO) Mother Diabetes Cancer Mother No problems noted. Father Hypertension Social History household members: family Smoking Status: Current every day smoker tobacco type: cigarettes details: Nondrinker substance use type: heroin ROS Constitutional Constitutional: Reports chills and malaise; Denies anorexia, fatigue, fever(s), night sweats or weakness Eyes Eyes: Denies blurry vision or discharge from eye(s) ENT HEENT: Denies dysphagia, headache(s), loss taste/smell or nasal discharge Cardiovascular Cardiovascular: Denies chest pain, edema, orthopnea, palpitations or paroxysmal nocturnal dyspnea Respiratory/Chest Respiratory/Chest: Denies cough, shortness of breath at rest or shortness of breath with exertion Gastrointestinal Gastrointestinal: Denies abdominal pain, diarrhea, nausea or vomiting Genitourinary Genitourinary: Denies dysuria, urinary frequency or urinary hesitancy Musculoskeletal Musculoskeletal: Denies back pain, extremity pain, joint pain or joint swelling Neurologic Neurologic: Denies dizziness or focal weakness Psychiatric Psychiatric: Denies anxiety or depression Endocrine Endocrinology: Denies change in body appearance Vital Signs Vital Signs Vital Signs: 10/07/20 08:56 Temperature 98.0 F Temperature Source Oral Pulse Rate 117 H Respiratory Rate 16 Blood Pressure 145/92 H Blood Pressure Mean 109 Pulse Ox 95 Oxygen Delivery Method Room Air Weight Weight: 180 lb Body Mass Index (BMI) 32.9 Physical Exam Const alert, oriented x3 and no apparent distress General Appearance: cooperative HEENT normocephalic and head/scalp atraumatic Eyes PERRL and EOMs intact bilaterally Neck supple and no JVD Lymph Lymphatic: no lymphadenopathy noted Resp normal respiratory effort, normal air movement and clear to auscultation bilaterally Cardio regular rate, regular rhythm, S1 normal heart sound, S2 normal heart sound and no murmurs GI normal to inspection, nondistended, normoactive bowel sounds, soft to palpation and non-tender Extremity normal capillary refill and no clubbing, cyanosis or edema Skin General Skin Exam: turgor normal Lesions: no lesions Rashes: no rashes Neuro CN's II-XII intact bilaterally and deep tendon reflexes 2+ bilaterally Motor Exam: strength 5/5 throughout Psych affect normal Results Lab / Micro Data Result Diagrams: 10/07/20 09:30 10/07/20 09:30 Labs: Laboratory Results - last 24 hr 10/07/20 10/07/20 10/07/20 09:30 09:30 09:30 WBC 9.1 RBC 4.62 Hgb 12.7 Hct 39.6 MCV 85.7 MCH 27.5 MCHC 32.1 RDW Std Deviation 50.2 H RDW Coeff of Abhay 16.2 H Plt Count 297 MPV 10.3 Immature Gran % (Auto) 0.300 Neut % (Auto) 61.2 Lymph % (Auto) 24.6 [place] % (Auto) 7.6 Eos % (Auto) 5.4 H Baso % (Auto) 0.9 Absolute Neuts (auto) 5.5 Absolute Lymphs (auto) 2.23 Nucleated RBC % 0 Sodium 142 Potassium 3.4 L Chloride 109 H Carbon Dioxide 25.0 Anion Gap 8 BUN 20 H Creatinine 0.70 Estim Creat Clear Calc 74.35 Est GFR (MDRD) Af Amer 112 Est GFR (MDRD) Non-Af 92 BUN/Creatinine Ratio 28.4 H Glucose 98 Calcium 8.4 L Total Bilirubin 0.20 AST 16 ALT 23 Alkaline Phosphatase 102 Total Protein 6.8 Albumin 2.9 L Globulin 3.9 Albumin/Globulin Ratio 0.7 L Ethyl Alcohol < 3.0 Assessment & Plan Assessment/Plan (1) Opiate withdrawal: PLAN: #Acute opioid withdrawal admit to med surg start on opiate withdrawal protocol with buprenorphine monitor CINA score adjunctive meds for symptomatic relief as per opiate withdrawal protocol #GERD: On PPI #Depression and anxiety: On duloxetine and trazodone DVT prophylaxis: Low risk. Encouraged to ambulate. Charges/Coding Visit Charges Inpatient E&M: 52395 Init Hosp L3
--- NOTE | 2020-10-07 10:14 | NURSING ---
DR NUR FOR DR ALBARRAN
--- NOTE | 2020-10-07 10:26 | NURSING ---
MED SURG [facility] ACUTE OPIATE WITHDRAWAL
--- NOTE | 2020-10-07 10:50 | CM.ED ---
SOCIAL WORK Referral Source: Self-referral Reason for Consult: Substance Abuse-requesting detox Met with patient in room. Introduced role and reason for referral. Patient stating last use of heroin was yesterday. Patient states has been in contact with [facility]. Call to [facility] Treatment Navigator to update on admission. Plan: Admit to [facility], [facility]
[2020-10-07] MEDS: Buprenorphine HCl 2 MG TAB.SUBL SL ×2 (13:22→20:40)
[2020-10-07] MEDS: hydrOXYzine PAM 25 MG Capsule 50 MG PO (14:26)
[2020-10-07] MEDS: Gabapentin 300 MG Capsule PO ×2 (14:26→22:23)
[2020-10-07] MEDS: cloNIDine HCl 0.1 MG Tablet PO (16:04)
[2020-10-07 20:44] LABS: Bacteria 0 SEEN /hpf (None Seen); Red Blood Cells-Urine 0 SEEN /hpf (0-5)
[2020-10-07 20:54] LABS: Color, Urine Yellow (Yellow); Glucose, Dipstick Normal (Normal); Ketone-Dipstick 5 mg/dl (Negative); Leukocyte Esterase-Dipstick 500 /ul (Negative); Nitrite-Dipstick Negative (Negative); Occult Blood-Urine Negative /ul (Negative); Protein-Dipstick 30 mg/dl (Negative); Urine Bilirubin Dipstick Negative (Negative); Urine Clarity Clear (Clear); Urine Urobilinogen Normal (Normal)
[2020-10-07 21:07] LABS: Amphetamine Urine VISTA NEGATIVE (<1000 ng/mL); Barbiturate Urine VISTA NEGATIVE (< 200 ng/mL); Benzodiazepine Urine VISTA NEGATIVE (< 200 ng/mL); Cocaine Urine VISTA NEGATIVE (< 300 ng/mL); Ecstacy Urine VISTA POSITIVE (< 500 ng/mL); Methadone Urine VISTA NEGATIVE (< 300 ng/mL); PCP Urine VISTA NEGATIVE (< 25 ng/mL); THC Urine VISTA NEGATIVE (< 50 ng/mL); Vista UDS pH Range 6
[2020-10-07 21:14] LABS: Mucous, Urine 2+ /hpf (<or=2+); Squamous Epithelial Cells - UA 0-5 SEEN /hpf (5-10); White Blood Cells 5-10 SEEN /hpf (0-5)
[2020-10-07] MEDS: traZODone 100 MG Tablet PO (21:32)
[2020-10-07] MEDS: Methocarbamol 750 MG Tablet 1500 MG PO (21:59)
[2020-10-07] MEDS: Ondansetron 8 MG Tablet PO (22:23)
--- NOTE | 2020-10-07 22:37 | NURSING ---
Due to pt history of seizures, attempted to put seizure pads on pt's bed. Pt adamantly refused stating she does not need those that she has not had any furthur seizures. Informed charge nurse of refusal.
[2020-10-08] VITALS (11 sets, daily range): BP systolic 103–131; BP diastolic 60–75; PULSE 69–85; RESP 16–18; TEMP 36.3–36.9; O2SAT 94–98
[2020-10-08] MEDS: hydrOXYzine PAM 25 MG Capsule 50 MG PO ×4 (00:40→23:18)
[2020-10-08] MEDS: cloNIDine HCl 0.1 MG Tablet PO ×3 (00:40→17:01)
[2020-10-08] MEDS: Mag Hydrox/Al Hydrox/Simeth 30 ML UDC PO (02:18)
[2020-10-08] MEDS: Buprenorphine HCl 2 MG TAB.SUBL SL ×3 (04:49→20:25)
--- NOTE | 2020-10-08 07:57 | PN.HOSP_ITS ---
Subjective Subjective Patient seen and examined. She has no complaints this morning. REview of systems otherwise negative. SHe has remained hemodynamically stable. Objective Data Objective Data Vital Signs: Vital Signs Temp Pulse Resp BP Pulse Ox 98.0 F 76 16 115/71 94 10/08/20 04:48 10/08/20 07:00 10/08/20 04:48 10/08/20 04:48 10/08/20 04:48 Oxygen Delivery Method Room Air Weight: 185 lb 13.595 oz Body Mass Index (BMI) 34.0 Intake & Output: Intake and Output for Last 24 Hours 10/06/20 10/07/20 10/08/20 23:59 23:59 23:59 Intake Total 350 / 650 600 / 600 Balance 350 / 650 600 / 600 Lab / Micro Data Result Diagrams: 10/07/20 09:30 10/07/20 09:30 Labs: Laboratory Results - last 24 hr 10/07/20 10/07/20 10/07/20 09:30 09:30 09:30 WBC 9.1 RBC 4.62 Hgb 12.7 Hct 39.6 MCV 85.7 MCH 27.5 MCHC 32.1 RDW Std Deviation 50.2 H RDW Coeff of Abhay 16.2 H Plt Count 297 MPV 10.3 Immature Gran % (Auto) 0.300 Neut % (Auto) 61.2 Lymph % (Auto) 24.6 [place] % (Auto) 7.6 Eos % (Auto) 5.4 H Baso % (Auto) 0.9 Absolute Neuts (auto) 5.5 Absolute Lymphs (auto) 2.23 Nucleated RBC % 0 Sodium 142 Potassium 3.4 L Chloride 109 H Carbon Dioxide 25.0 Anion Gap 8 BUN 20 H Creatinine 0.70 Estim Creat Clear Calc 74.35 Est GFR (MDRD) Af Amer 112 Est GFR (MDRD) Non-Af 92 BUN/Creatinine Ratio 28.4 H Glucose 98 Calcium 8.4 L Total Bilirubin 0.20 AST 16 ALT 23 Alkaline Phosphatase 102 Total Protein 6.8 Albumin 2.9 L Globulin 3.9 Albumin/Globulin Ratio 0.7 L Urine Color Urine Clarity Urine pH Ur Specific [place] Urine Protein Urine Glucose (UA) Urine Ketones Urine Occult Blood Urine Nitrite Urine Bilirubin Urine Urobilinogen Ur Leukocyte Esterase Urine RBC Urine WBC Ur Squamous Epith Cells Urine Bacteria Urine Mucus Urine Opiates Screen Urine Methadone Screen Ur Barbiturates Screen Ur Phencyclidine Scrn Ur Amphetamines Screen U Methamphetamin-MDMA U Benzodiazepines Scrn Urine Cocaine Screen U Cannabinoids Screen Ur Drug Screen Comment Ethyl Alcohol < 3.0 10/07/20 10/07/20 20:35 20:35 WBC RBC Hgb Hct MCV MCH MCHC RDW Std Deviation RDW Coeff of Abhay Plt Count MPV Immature Gran % (Auto) Neut % (Auto) Lymph % (Auto) [place] % (Auto) Eos % (Auto) Baso % (Auto) Absolute Neuts (auto) Absolute Lymphs (auto) Nucleated RBC % Sodium Potassium Chloride Carbon Dioxide Anion Gap BUN Creatinine Estim Creat Clear Calc Est GFR (MDRD) Af Amer Est GFR (MDRD) Non-Af BUN/Creatinine Ratio Glucose Calcium Total Bilirubin AST ALT Alkaline Phosphatase Total Protein Albumin Globulin Albumin/Globulin Ratio Urine Color Yellow Urine Clarity Clear Urine pH 6.0 Ur Specific [place] 1.020 Urine Protein 30 H Urine Glucose (UA) Normal Urine Ketones 5 H Urine Occult Blood Negative Urine Nitrite Negative Urine Bilirubin Negative Urine Urobilinogen Normal Ur Leukocyte Esterase 500 H Urine RBC 0 SEEN Urine WBC 5-10 SEEN Ur Squamous Epith Cells 0-5 SEEN Urine Bacteria 0 SEEN Urine Mucus 2+ Urine Opiates Screen NEGATIVE Urine Methadone Screen NEGATIVE Ur Barbiturates Screen NEGATIVE Ur Phencyclidine Scrn NEGATIVE Ur Amphetamines Screen NEGATIVE U Methamphetamin-MDMA POSITIVE H U Benzodiazepines Scrn NEGATIVE Urine Cocaine Screen NEGATIVE U Cannabinoids Screen NEGATIVE Ur Drug Screen Comment Ethyl Alcohol Physical Exam Const alert, oriented x3 and no apparent distress General Appearance: cooperative Exam Limitations: no limitations HEENT normocephalic and head/scalp atraumatic Head and Scalp: normocephalic Eyes PERRL and EOMs intact bilaterally Neck supple and no JVD Lymph Lymphatic: no lymphadenopathy noted Resp normal respiratory effort, normal air movement and clear to auscultation bilaterally Cardio regular rate, regular rhythm, S1 normal heart sound, S2 normal heart sound and no murmurs GI normal to inspection, nondistended, normoactive bowel sounds, soft to palpation and non-tender Extremity normal capillary refill and no clubbing, cyanosis or edema Peripheral Pulses: Yes pulses 2+ throughout Skin no rashes or lesions noted General Skin Exam: turgor normal Lesions: no lesions Rashes: no rashes Neuro oriented x3, CN's II-XII intact bilaterally and deep tendon reflexes 2+ bilaterally Sensorium / Orientation: awake and alert Motor Exam: strength 5/5 throughout Psych affect normal Assessment & Plan Assessment/Plan (1) Opiate withdrawal: PLAN: #Acute opioid withdrawal * on opioid withdrawal protocol with buprenorphine * monitor CINA score * adjunctive meds for symptomatic relief as per opiate withdrawal protocol * #GERD: On PPI #Depression and anxiety: On duloxetine and trazodone DVT prophylaxis: Low risk. Encouraged to ambulate. Charges/Coding Visit Charges Inpatient E&M: 51223 Subs Hosp L2
[2020-10-08] MEDS: Cholecalciferol (VIT D3) 25 MCG TABLET (1,000 UNITS) 62.5 MCG PO (08:58)
[2020-10-08] MEDS: Pantoprazole Sodium 20 MG Tablet PO (08:58)
[2020-10-08] MEDS: Methocarbamol 750 MG Tablet 1500 MG PO ×2 (08:59→17:01)
[2020-10-08] MEDS: DULoxetine Hcl 30 MG Capsule PO (08:59)
--- NOTE | 2020-10-08 10:37 | ADDICTION ---
This service writer met with PT to conduct ASAM, MSE, DUDIT assessments and to plan for d/c. PT A+Ox4 and participated appropriately. All assessments completed, placed in PT's chart and faxed to [facility]. PT plans to f/u with [facility] for assessment and was given walk-in assessment times. PT amiable to d/c plan.
[2020-10-08] MEDS: Ibuprofen 400 MG Tablet 800 MG PO (12:27)
[2020-10-08] MEDS: Dicyclomine 10 MG Capsule 20 MG PO ×2 (12:27→20:25)
[2020-10-08] MEDS: traZODone 100 MG Tablet PO (21:29)
[2020-10-08] MEDS: Gabapentin 300 MG Capsule PO (23:18)
[2020-10-09] VITALS (9 sets, daily range): BP systolic 109–122; BP diastolic 56–72; PULSE 68–76; RESP 16–20; TEMP 36.4–36.8; O2SAT 95–96
[2020-10-09] MEDS: Buprenorphine HCl 2 MG TAB.SUBL SL ×3 (04:20→23:38)
--- NOTE | 2020-10-09 07:27 | PN.HOSP_ITS ---
Subjective Subjective Patient seen and examined. She has no complaints today. REivew of systems otherwise negative. SHe has remained hemodynamically stable. Objective Data Objective Data Vital Signs: Vital Signs Temp Pulse Resp BP Pulse Ox 97.5 F L 71 16 122/56 H 96 10/09/20 03:27 10/09/20 06:36 10/09/20 03:27 10/09/20 03:27 10/09/20 03:27 Oxygen Delivery Method Room Air Weight: 185 lb 13.595 oz Body Mass Index (BMI) 34.0 Intake & Output: Intake and Output for Last 24 Hours 10/07/20 10/08/20 10/09/20 23:59 23:59 23:59 Intake Total 350 / 650 2300 / 2300 300 / 300 Balance 350 / 650 2300 / 2300 300 / 300 Lab / Micro Data Result Diagrams: 10/07/20 09:30 10/07/20 09:30 Physical Exam Const alert, oriented x3 and no apparent distress General Appearance: cooperative Exam Limitations: no limitations HEENT normocephalic and head/scalp atraumatic Head and Scalp: normocephalic Eyes PERRL and EOMs intact bilaterally Neck supple and no JVD Lymph Lymphatic: no lymphadenopathy noted Resp normal respiratory effort, normal air movement and clear to auscultation bilaterally Cardio regular rate, regular rhythm, S1 normal heart sound, S2 normal heart sound and no murmurs GI normal to inspection, nondistended, normoactive bowel sounds, soft to palpation and non-tender Extremity normal capillary refill and no clubbing, cyanosis or edema Peripheral Pulses: Yes pulses 2+ throughout Skin no rashes or lesions noted General Skin Exam: turgor normal Lesions: no lesions Rashes: no rashes Neuro oriented x3, CN's II-XII intact bilaterally and deep tendon reflexes 2+ bilaterally Sensorium / Orientation: awake and alert Motor Exam: strength 5/5 throughout Psych affect normal Assessment & Plan Assessment/Plan (1) Opiate withdrawal: PLAN: #Acute opioid withdrawal * on opioid withdrawal protocol with buprenorphine * monitor CINA score * adjunctive meds for symptomatic relief as per opiate withdrawal protocol * #GERD: On PPI #Depression and anxiety: On duloxetine and trazodone DVT prophylaxis: Low risk. Encouraged to ambulate. Charges/Coding Visit Charges Inpatient E&M: 15640 Subs Hosp L2
[2020-10-09] MEDS: Gabapentin 300 MG Capsule PO (07:30)
[2020-10-09] MEDS: hydrOXYzine PAM 25 MG Capsule 50 MG PO ×2 (07:37→21:55)
[2020-10-09] MEDS: DULoxetine Hcl 30 MG Capsule PO (08:47)
[2020-10-09] MEDS: Pantoprazole Sodium 20 MG Tablet PO (08:47)
[2020-10-09] MEDS: Cholecalciferol (VIT D3) 25 MCG TABLET (1,000 UNITS) 62.5 MCG PO (08:47)
[2020-10-09] MEDS: Ibuprofen 400 MG Tablet 800 MG PO ×2 (08:48→15:38)
[2020-10-09] MEDS: Senna Tablet 1 TABLET PO ×2 (11:21→22:01)
[2020-10-09] MEDS: Methocarbamol 750 MG Tablet 1500 MG PO ×2 (15:38→21:55)
[2020-10-09] MEDS: cloNIDine HCl 0.1 MG Tablet PO ×2 (15:38→23:38)
[2020-10-09] MEDS: traZODone 100 MG Tablet PO (21:55)
[2020-10-10 01:59] VITALS: PULSE 65
[2020-10-10 02:48] VITALS: BP 115/63; PULSE 65; RESP 18; TEMP 36.3; O2SAT 96
[2020-10-10] MEDS: Gabapentin 300 MG Capsule PO ×2 (02:52→11:19)
[2020-10-10 06:00] VITALS: PULSE 69
[2020-10-10 08:07] VITALS: BP 134/71; PULSE 74; RESP 18; TEMP 36.6; O2SAT 95
[2020-10-10] MEDS: DULoxetine Hcl 30 MG Capsule PO (08:19)
[2020-10-10] MEDS: Cholecalciferol (VIT D3) 25 MCG TABLET (1,000 UNITS) 62.5 MCG PO (08:20)
[2020-10-10] MEDS: Pantoprazole Sodium 20 MG Tablet PO (08:20)
--- NOTE | 2020-10-10 10:19 | PCM.DC.SUM ---
Providers Date of Admission: 10/07/20 Primary Care Physician: Dr. Cat Vasquez MD Reason For Visit: ACUTE OPOID WITHDRAWAL Diagnosis Discharge Diagnosis (1) Opiate withdrawal: Status: Acute Code(s): F11.23 - Opioid dependence with withdrawal Medications at Discharge Home Medications ibuprofen [IBU] 800 mg PO TID PRN 02/01/18 cholecalciferol (vitamin D3) 2,500 unit PO DAILY 11/11/19 duloxetine 30 mg PO DAILY 11/11/19 omeprazole 20 mg PO DAILY 11/11/19 trazodone 100 mg PO QHS 11/11/19 hydroxyzine pamoate 50 mg PO Q6H PRN PRN #16 cap 09/14/20 Hospital Course Operations None Procedures None Summary of Care Provided Minutes Spent on Discharge: 40 Hospital Course: Patient is a 54-year-old female with a past medical history as outlined was admitted via the ED on 10/07/2020 for acute opiate withdrawal. Patient uses 1 g of heroin daily exercise usually started. He complained of nausea and vomiting as well as subjective chills and sweats. Patient had been trying to get into [facility] but was told that she needed to come to the ED for detox. She was admitted and managed for acute opiate withdrawal. She was started on buprenorphine withdrawal protocol. She tolerated a 3-day detox process and remained stable. She was discharged home on 10/10/2020 is to follow-up with [facility] facility on outpatient basis. Patient seen and examined prior to discharge. She felt well and had no complaints. Review of systems otherwise negative. Labs and vitals reviewed. Home medication regimen reconciled. Physical Exam Const alert, oriented x3 and no apparent distress General Appearance: cooperative, comfortable and well kempt Exam Limitations: no limitations HEENT normocephalic and head/scalp atraumatic Eyes PERRL and EOMs intact bilaterally Neck no lymphadenopathy, supple and no JVD Lymph Lymphatic: no lymphadenopathy noted Resp normal respiratory effort, normal air movement, no retractions, no use of accessory muscles and clear to auscultation bilaterally Cardio regular rate, regular rhythm, S1 normal heart sound, S2 normal heart sound and no murmurs GI normal to inspection, nondistended, normoactive bowel sounds, soft to palpation and non-tender Extremity normal to inspection, full ROM, normal capillary refill and no clubbing, cyanosis or edema Skin no rashes or lesions noted General Skin Exam: turgor normal Lesions: no lesions Rashes: no rashes Neuro oriented x3, CN's II-XII intact bilaterally and deep tendon reflexes 2+ bilaterally Sensorium / Orientation: awake and alert Motor Exam: strength 5/5 throughout Psych affect normal Weight / BMI Weight Weight: 185 lb 13.595 oz Body Mass Index (BMI) 34.0 ABG / Lab / Microbiology Data Result Diagrams: 10/07/20 09:30 10/07/20 09:30 D/C Instructions Discharge Diet: No restrictions Discharge Activity: Return to Normal Activity Weight Bearing Status: Weight bearing as tolerated Call your doctor if you observe: Fever of 101 or Higher, Shortness of breath, Swelling in the ankles and Chest pain Meaningful Use Info Meaningful Use Diagnoses (Choose all that apply): None applicable Discharge Plan Admission Admit Date/Time: 10/07/20 10:23 Primary Reason for Your Visit: acute opioid withdrawal Attending Provider: Yamileth Shook Primary Care Provider: Cat Vasquez Instructions Patient Instructions: ED Opiate Abuse, ED Opioid Withdrawal, ED Pain Management: Chronic, ED Abuse Drug Narcotic Sedative Rx Additional Instructions / Restrictions: follow up with [facility] as scheduled on outpatient basis. Discharge Orders/Prescriptions Prescriptions: Continued ibuprofen [IBU] 800 MG tablet 800 mg PO TID PRN (Reason: Pain) RF: 0 trazodone 100 MG tablet 100 mg PO QHS RF: 0 omeprazole 20 MG capsule 20 mg PO DAILY RF: 0 duloxetine 30 MG capsule 30 mg PO DAILY RF: 0 cholecalciferol (vitamin D3) 2,000 UNIT capsule 2,500 unit PO DAILY RF: 0 hydroxyzine pamoate 25 mg Capsule 50 mg PO Q6H PRN PRN (Reason: mild anxiety) Qty: 16 RF: 0 Referrals / Follow Up: Cat Vasquez MD [Primary Care Provider] - Within 2 Weeks Disposition Disposition (needs filled in before D/C Order can be placed): Home, self care Charges/Coding Visit Charges Inpatient E&M: 46764 Disch Hosp
[2020-10-10 10:51] VITALS: BP 124/75; PULSE 84; RESP 18; TEMP 36.7; O2SAT 97
[2020-10-10 11:01] VITALS: PULSE 83
[2020-10-10] MEDS: Ibuprofen 400 MG Tablet 800 MG PO (11:14)
--- NOTE | 2020-10-10 11:15 | PHA.DC.MR ---
Pharmacy Service has performed discharge medication reconciliation for this patient. No new medications issued at time of discharge. Medications reviewed are from preciously reported home medications. Home Medications ibuprofen [IBU] 800 mg PO TID PRN 02/01/18 cholecalciferol (vitamin D3) 2,500 unit PO DAILY 11/11/19 duloxetine 30 mg PO DAILY 11/11/19 omeprazole 20 mg PO DAILY 11/11/19 trazodone 100 mg PO QHS 11/11/19 hydroxyzine pamoate 50 mg PO Q6H PRN PRN #16 cap 09/14/20 The patient's discharge medication list was reviewed for discrepancies and discrepancies were resolved.
== END 2020-10-10 11:57 | disposition home or self-care (01) | DRG 773 ==
LOC: ED 10:28 → PCU 10-08 07:45
PROVIDERS: Admitting Provider Student in an Organized Health Care Education/Training Program; Emergency Provider Emergency Medicine; PCP Internal Medicine; Visit Provider Student in an Organized Health Care Education/Training Program
DX: F11.23 Opioid dependence with withdrawal (principal); M06.9 Rheumatoid arthritis, unspecified; G89.29 Other chronic pain; K21.9 Gastro-esophageal reflux disease without esophagitis; F32.9 Major depressive disorder, single episode, unspecified; F41.9 Anxiety disorder, unspecified; F17.210 Nicotine dependence, cigarettes, uncomplicated; E66.9 Obesity, unspecified; Z68.34 Body mass index [BMI] 34.0-34.9, adult; Z79.899 Other long term (current) drug therapy; Z86.718 Personal history of other venous thrombosis and embolism
CPT/HCPCS: 80053; 80307; 81001; 82077; 85025; 99284; 99406; H0012

== ENCOUNTER 2021-05-09 13:00 | Inpatient (IN) | payer MEDICARE, SELFPAY ==
[2021-05-09 13:01] VITALS: BP 179/106; PULSE 115; RESP 16; TEMP 37.2; O2SAT 95; BMI 34.1
[2021-05-09 13:51] LABS: Absolute Lymphocyte Count 2.57 X10^3/uL (0.83-4.51); Absolute Neutrophil Count 6.9 X10^3/uL (2.0-7.7); Basophil% 0.9 % (0-1); Eosinophil# 0.35 X10^3/uL; Eosinophils% 3.3 % (0-5); Hematocrit 42.7 % (37-47); Hemoglobin 14.3 g/dL (12.0-15.0); Lymphocyte # 2.57 X10^3/ul (0.83-4.51); Lymphocyte % 24.3 % (19-41); Mean Corp Hgb Conc 33.5 g/dL (32-36); Mean Corpuscular Hgb 26.7 pg (27.0-32.0); Mean Corpuscular Volume 79.7 fL (81-99); Mean Platelet Vol. 10.5 fl (6.2-12.0); Monocyte# 0.64 X10^3/uL; NRBC Flagged by Analyzer 0 % (0-5); Neutrophil # 6.89 X10^3/uL (2.7-7.7); Neutrophil % 65.2 % (47-70); Platelet Count 383 K/mm3 (150-450); RBC Distribution Width CV 15.2 % (11.6-14.6); RBC Distribution Width SD 43.8 fl (35.1-43.9); Red Blood Count 5.36 M/mm3 (4.2-5.4); White Blood Count 10.6 K/mm3 (4.4-11.0)
[2021-05-09 14:00] LABS: Anion Gap 5 (5-15); BUN 18 mg/dL (7-18); Calcium,Total 9.5 mg/dL (8.5-10.1); Chloride 108 mmol/L (98-107); Creatinine, Serum 0.69 mg/dL (0.55-1.02); EST Glomerular Filtration Rate 94 mL/min (>60); Est Glom Filt Rate - Afr Amer 114 mL/min (>60); Estimated Creatinine Clearance 67.73 ml/min; Glucose 105 mg/dL (74-106); Potassium 3.8 mmol/L (3.5-5.1); Sodium Level 137 mmol/L (136-145)
[2021-05-09 14:05] LABS: Internal QC Validated? YES +Cl - CLEAR BKGD; Pregnancy, Serum, hCG Quali. NEGATIVE Negative
[2021-05-09 14:07] LABS: Amphetamine Urine VISTA NEGATIVE (<1000 ng/mL); Barbiturate Urine VISTA NEGATIVE (< 200 ng/mL); Benzodiazepine Urine VISTA NEGATIVE (< 200 ng/mL); Cocaine Urine VISTA NEGATIVE (< 300 ng/mL); Ecstacy Urine VISTA NEGATIVE (< 500 ng/mL); Methadone Urine VISTA NEGATIVE (< 300 ng/mL); PCP Urine VISTA NEGATIVE (< 25 ng/mL); THC Urine VISTA NEGATIVE (< 50 ng/mL); Vista UDS pH Range 5
[2021-05-09 14:08] LABS: Alcohol, Blood (Medical)-Serum < 3.0 mg/dL
[2021-05-09] MEDS: Dicyclomine 10 MG Capsule 20 MG PO (14:48)
[2021-05-09 14:54] VITALS: BP 121/96; PULSE 107; RESP 14; O2SAT 97
[2021-05-09] MEDS: Ondansetron 8 MG Tablet 4 MG PO (14:56)
[2021-05-09 15:24] VITALS: BP 121/96; PULSE 107; RESP 14; TEMP 37.2; O2SAT 97
--- NOTE | 2021-05-09 15:24 | EX.ED.SAOD ---
HPI History of Present Illness Chief Complaint: Substance Abuse Narrative Narrative: 55-year-old female presenting for heroin detox. She states she that she used to be addicted to pain pills and when she could not get them anymore she started doing heroin. She states that she does about a half a gram to a gram per day. She admits to snorting this. Patient denies IV drug use. Patient states she does not do any other drugs. She does not drink alcohol. Patient states her last use was yesterday. She has had some mild abdominal cramping and some nausea. PFSH PFSH Medical History Acute rheumatoid arthritis Anxiety Chronic pain Depression DVT (deep venous thrombosis) Hepatitis Restless legs Rheumatoid arthritis Smoker Substance abuse Home Medications ibuprofen [IBU] 800 mg PO TID PRN 02/01/18 [History Last Taken 11/11/19 08:00] cholecalciferol (vitamin D3) 2,500 unit PO DAILY 11/11/19 [History Last Taken 11/10/19 08:00] duloxetine 30 mg PO DAILY 11/11/19 [History Last Taken 11/11/19 08:00] omeprazole 20 mg PO DAILY 11/11/19 [History Last Taken 11/09/19] trazodone 100 mg PO QHS 11/11/19 [History Last Taken 11/07/19] hydroxyzine pamoate 50 mg PO Q6H PRN PRN #16 cap 09/14/20 [Rx Last Taken Unknown] Allergy/AdvReac Type Severity Reaction Status Date / Time meloxicam AdvReac Upset Verified 05/09/21 13:01 Stomach Family History Mother Diabetes Cancer Mother No problems noted. Father Hypertension Social History household members: family Smoking Status: Current every day smoker tobacco type: cigarettes details: Nondrinker substance use type: heroin ROS ROS ED Constitutional Constitutional ED: Denies chills, fever(s) or sweats Eyes Eyes: Denies blurry vision or diplopia ENT ENT ED: Denies rhinorrhea or sore throat Cardiovascular Cardiovascular: Denies chest pain or palpitations Respiratory/Chest Respiratory/Chest: Denies cough or dyspnea Gastrointestinal Gastrointestinal: Reports abdominal pain and nausea; Denies constipation, diarrhea or vomiting Genitourinary Genitourinary ED: Denies dysuria or urinary frequency Musculoskeletal Musculoskeletal: Reports myalgias; Denies arthralgias or neck pain Integumentary Denies abscess or rash Neurologic Neurologic: Denies headache(s), paresthesias or weakness EXAM Physical Exam Const Vital Signs: 05/09/21 13:01 05/09/21 14:54 Temperature 98.9 F Temperature Source Temporal Pulse Rate 115 H 107 H Respiratory Rate 16 14 Blood Pressure 179/106 H 121/96 H Blood Pressure Mean 130 104 Pulse Ox 95 97 Oxygen Delivery Method Room Air Room Air General Appearance ED: NAD; Negative for pallor HEENT Reports moist mucous membranes atraumatic Eyes PERRL and EOMs intact bilaterally Resp normal respiratory effort and clear to auscultation bilaterally Cardio regular rhythm Rate: tachycardic GI soft to palpation and non-tender Neuro oriented x3 and CN's II-XII intact bilaterally Sensorium / Orientation: alert Psych mental status grossly normal and thought process normal Skin General Skin Exam: Negative for jaundice or pallor MDM MDM MDM Narrative Medical decision making narrative: Patient presenting for heroin detox. She admits last use yesterday and she is having some mild symptoms. She is given Zofran and Bentyl. Blood work is obtained which is unremarkable. EtOH negative. Urine drug screen positive for opioids. hCG negative. Patient will be discussed with hospitalist for admission for detox. Impression: 1. Opioid detox Lab Data Labs: Laboratory Results - last 24 hr 05/09/21 05/09/21 05/09/21 13:40 13:40 13:40 WBC 10.6 RBC 5.36 Hgb 14.3 Hct 42.7 MCV 79.7 L MCH 26.7 L MCHC 33.5 RDW Std Deviation 43.8 RDW Coeff of Abhay 15.2 H Plt Count 383 MPV 10.5 Immature Gran % (Auto) 0.300 Neut % (Auto) 65.2 Lymph % (Auto) 24.3 [place] % (Auto) 6.0 Eos % (Auto) 3.3 Baso % (Auto) 0.9 Absolute Neuts (auto) 6.9 Absolute Lymphs (auto) 2.57 Nucleated RBC % 0 Sodium 137 Potassium 3.8 Chloride 108 H Carbon Dioxide 24.0 Anion Gap 5 BUN 18 Creatinine 0.69 Estim Creat Clear Calc 67.73 Est GFR (MDRD) Af Amer 114 Est GFR (MDRD) Non-Af 94 BUN/Creatinine Ratio 26.0 H Glucose 105 Calcium 9.5 Serum , Qual Urine Opiates Screen Urine Methadone Screen Ur Barbiturates Screen Ur Phencyclidine Scrn Ur Amphetamines Screen U Methamphetamin-MDMA U Benzodiazepines Scrn Urine Cocaine Screen U Cannabinoids Screen Ur Drug Screen Comment Ethyl Alcohol < 3.0 05/09/21 05/09/21 13:40 13:40 WBC RBC Hgb Hct MCV MCH MCHC RDW Std Deviation RDW Coeff of Abhay Plt Count MPV Immature Gran % (Auto) Neut % (Auto) Lymph % (Auto) [place] % (Auto) Eos % (Auto) Baso % (Auto) Absolute Neuts (auto) Absolute Lymphs (auto) Nucleated RBC % Sodium Potassium Chloride Carbon Dioxide Anion Gap BUN Creatinine Estim Creat Clear Calc Est GFR (MDRD) Af Amer Est GFR (MDRD) Non-Af BUN/Creatinine Ratio Glucose Calcium Serum , Qual NEGATIVE Urine Opiates Screen POSITIVE H Urine Methadone Screen NEGATIVE Ur Barbiturates Screen NEGATIVE Ur Phencyclidine Scrn NEGATIVE Ur Amphetamines Screen NEGATIVE U Methamphetamin-MDMA NEGATIVE U Benzodiazepines Scrn NEGATIVE Urine Cocaine Screen NEGATIVE U Cannabinoids Screen NEGATIVE Ur Drug Screen Comment Ethyl Alcohol Discharge Plan Triage Chief Complaint: Substance Abuse ED Provider: Ronnie Martinez Dx/Rx/DC Orders Prescriptions: No Action ibuprofen [IBU] 800 MG tablet 800 mg PO TID PRN (Reason: Pain) RF: 0 trazodone 100 MG tablet 100 mg PO QHS RF: 0 omeprazole 20 MG capsule 20 mg PO DAILY RF: 0 duloxetine 30 MG capsule 30 mg PO DAILY RF: 0 cholecalciferol (vitamin D3) 2,000 UNIT capsule 2,500 unit PO DAILY RF: 0 hydroxyzine pamoate 25 mg Capsule 50 mg PO Q6H PRN PRN (Reason: mild anxiety) Qty: 16 RF: 0 Primary Care Provider: Cat Vasquez
[2021-05-09 16:40] VITALS: BMI 33.5
[2021-05-09 16:45] VITALS: BP 119/84; PULSE 84; RESP 16; TEMP 36.8; O2SAT 99
[2021-05-09] MEDS: cloNIDine HCl 0.1 MG Tablet PO (16:56)
[2021-05-09] MEDS: Methocarbamol 750 MG Tablet 1500 MG PO (16:56)
[2021-05-09] MEDS: Buprenorphine HCl 2 MG TAB.SUBL SL (17:25)
--- NOTE | 2021-05-09 17:45 | HP.PCM.HOS_ITS ---
HPI - General General Date of Admission: 05/09/21 HPI Narrative JANEY RODRIGUEZ, is a 55 F who presents for heroin detox. She has had a significant addiction for at least 2 years and does take heroin/fentanyl daily via snorting. She used to shoot up but she does not use any IV drugs at this time. Denies methamphetamine use. She smokes about 1 pack/day but does not drink any alcohol. Patient states that her last opiate use was yesterday and she is feeling mild abdominal cramping with very restless legs. She denies headache. She states that her issues with drug abuse began after she was prescribed long-term opiates for rheumatoid arthritis. Patient has not been in detox recently. Last was seen here for detox at [facility] in September 2020 however she went immediately back to drug use when she was discharged. She regrets not following up with the outpatient program. [facility] Medical History Acute rheumatoid arthritis Anxiety Chronic pain Depression DVT (deep venous thrombosis) Hepatitis Restless legs Rheumatoid arthritis Smoker Substance abuse Home Medications ibuprofen [IBU] 800 mg PO TID PRN 02/01/18 [History Last Taken 11/11/19 08:00] duloxetine 30 mg PO DAILY 11/11/19 [History Last Taken 05/08/21] omeprazole 20 mg PO DAILY 11/11/19 [History Last Taken 05/08/21] trazodone 100 mg PO QHS 11/11/19 [History Last Taken 05/08/21] Allergy/AdvReac Type Severity Reaction Status Date / Time meloxicam AdvReac Upset Verified 05/09/21 13:01 Stomach Family History Mother Diabetes Cancer Mother No problems noted. Father Hypertension Social History household members: family Smoking Status: Current every day smoker tobacco type: cigarettes details: Nondrinker substance use type: heroin ROS ROS Narrative No fevers chills chest pain, does feel chest palpitations and abdominal pain due to her withdrawals. No vomiting no constipation, positive diarrhea No headaches or syncope, no trouble seeing hearing swallowing Rest of review of system 10 point is negative Vital Signs Vital Signs Vital Signs: 05/09/21 13:01 05/09/21 14:54 05/09/21 15:24 Temperature 98.9 F 98.9 F Temperature Source Temporal Temporal Pulse Rate 115 H 107 H 107 H Respiratory Rate 16 14 14 Respiratory Effort Respiratory Depth Respiratory Pattern Blood Pressure 179/106 H 121/96 H 121/96 H Blood Pressure Mean 130 104 104 Blood Pressure Source Blood Pressure Position Blood Pressure Location Pulse Ox 95 97 97 Oxygen Delivery Method Room Air Room Air Room Air 05/09/21 16:45 05/09/21 16:47 Temperature 98.2 F Temperature Source Oral Pulse Rate 84 Respiratory Rate 16 Respiratory Effort Normal Respiratory Depth Normal Respiratory Pattern Normal Blood Pressure 119/84 H Blood Pressure Mean 95 Blood Pressure Source Monitor Blood Pressure Position Semi-Fowlers Blood Pressure Location Left Arm Pulse Ox 99 Oxygen Delivery Method Room Air Room Air Weight Weight: 183 lb Body Mass Index (BMI) 33.5 Physical Exam Const alert and well nourished HEENT normocephalic and head/scalp atraumatic Neck no lymphadenopathy Resp normal respiratory effort Cardio regular rate, regular rhythm, S1 normal heart sound and S2 normal heart sound GI normal to inspection, nondistended, normoactive bowel sounds GI Narrative: tender to mid abd palpation Extremity no clubbing, cyanosis or edema Skin no rashes or lesions noted Neuro Sensorium / Orientation: alert Psych Psych Narrative: She is tearful. Mood & Affect: depressed Results Lab / Micro Data Result Diagrams: 05/09/21 13:40 05/09/21 13:40 Labs: Laboratory Results - last 24 hr 05/09/21 13:40: WBC 10.6, RBC 5.36, Hgb 14.3, Hct 42.7, MCV 79.7 L, MCH 26.7 L, MCHC 33.5, RDW Std Deviation 43.8, RDW Coeff of Abhay 15.2 H, Plt Count 383, MPV 10.5, Immature Gran % (Auto) 0.300, Neut % (Auto) 65.2, Lymph % (Auto) 24.3, [place] % (Auto) 6.0, Eos % (Auto) 3.3, Baso % (Auto) 0.9, Absolute Neuts (auto) 6.9, Absolute Lymphs (auto) 2.57, Nucleated RBC % 0 05/09/21 13:40: Sodium 137, Potassium 3.8, Chloride 108 H, Carbon Dioxide 24.0, Anion Gap 5, BUN 18, Creatinine 0.69, Estim Creat Clear Calc 67.73, Est GFR (MDRD) Af Amer 114, Est GFR (MDRD) Non-Af 94, BUN/Creatinine Ratio 26.0 H, Glucose 105, Calcium 9.5 05/09/21 13:40: Ethyl Alcohol < 3.0 05/09/21 13:40: Urine Opiates Screen POSITIVE H, Urine Methadone Screen NEGATI VE, Ur Barbiturates Screen NEGATIVE, Ur Phencyclidine Scrn NEGATIVE, Ur Amphetamines Screen NEGATIVE, U Methamphetamin-MDMA NEGATIVE, U Benzodiazepines Scrn NEGATIVE, Urine Cocaine Screen NEGATIVE, U Cannabinoids Screen NEGATIVE, Ur Drug Screen Comment 05/09/21 13:40: Serum , Qual NEGATIVE Assessment & Plan Assessment/Plan (1) Nicotine dependence: QUALIFIERS: Nicotine product type: cigarettes Substance use status: unspecified nicotine-induced disorder Qualified Code(s): F17.219 - Nicotine dependence, cigarettes, with unspecified nicotine-induced disorders (2) Opiate withdrawal: (3) Abdominal pain: PLAN: Opioid dependence and withdrawal Urine toxicology was positive for opiates. Vitals reassuring. Patient be started on Subutex and other adjunctive medications: dicyclomine as needed; Vistaril as needed; methocarbamol as needed; clonidine as needed; Imodium as needed; trazodone as needed and Zofran as needed. Monitor COWS and CINA score abdominal pains should improve with withdrawal treatment regular diet case management Tobacco abuse Smokes about 1 pack per day. Dvt prophylaxis with Lovenox Full code Clinton Mahajan MD Charges/Coding Visit Charges Inpatient E&M: 32287 Init Hosp L2
--- NOTE | 2021-05-09 17:45 | CM.ED ---
SW Note [place] called Overhead Cleaner Maintainer, Mona, and advised of patient admission to [place]. Provided Mona with and patients drug history. Mona will be in on 05/10/21 to see patient. Plan: [facility] program [place]
[2021-05-09 20:00] VITALS: BP 111/70; PULSE 95; RESP 18; TEMP 36.8; O2SAT 95
[2021-05-09] MEDS: traZODone 100 MG Tablet PO (20:22)
[2021-05-10] MEDS: Dicyclomine 10 MG Capsule 20 MG PO ×3 (00:38→14:57)
[2021-05-10] MEDS: hydrOXYzine PAM 25 MG Capsule 50 MG PO ×3 (00:38→14:57)
[2021-05-10 01:09] VITALS: BP 123/75; PULSE 82; RESP 16; TEMP 36.6; O2SAT 95
[2021-05-10] MEDS: cloNIDine HCl 0.1 MG Tablet PO ×2 (01:10→20:56)
[2021-05-10] MEDS: Buprenorphine HCl 2 MG TAB.SUBL SL ×3 (01:10→17:41)
[2021-05-10] MEDS: Methocarbamol 750 MG Tablet 1500 MG PO ×2 (06:46→14:57)
--- NOTE | 2021-05-10 07:29 | PCM.PN.HOSP ---
Subjective Subjective Patient is a 55-year-old lady with history of opioid dependence admitted with acute opioid withdrawal Objective Data Objective Data Vital Signs: Vital Signs Temp Pulse Resp BP Pulse Ox 97.8 F 82 16 123/75 H 95 05/10/21 01:09 05/10/21 01:09 05/10/21 01:09 05/10/21 01:09 05/10/21 01:09 Oxygen Delivery Method Room Air Weight: 83 kg Body Mass Index (BMI) 33.5 Intake & Output: Intake and Output for Last 24 Hours 05/08/21 05/09/21 05/10/21 23:59 23:59 23:59 Intake Total 100 / 100 Balance 100 / 100 Lab / Micro Data Result Diagrams: 05/09/21 13:40 05/09/21 13:40 Labs: Laboratory Results - last 24 hr 05/09/21 13:40: WBC 10.6, RBC 5.36, Hgb 14.3, Hct 42.7, MCV 79.7 L, MCH 26.7 L, MCHC 33.5, RDW Std Deviation 43.8, RDW Coeff of Abhay 15.2 H, Plt Count 383, MPV 10.5, Immature Gran % (Auto) 0.300, Neut % (Auto) 65.2, Lymph % (Auto) 24.3, Appling % (Auto) 6.0, Eos % (Auto) 3.3, Baso % (Auto) 0.9, Absolute Neuts (auto) 6.9, Absolute Lymphs (auto) 2.57, Nucleated RBC % 0 05/09/21 13:40: Sodium 137, Potassium 3.8, Chloride 108 H, Carbon Dioxide 24.0, Anion Gap 5, BUN 18, Creatinine 0.69, Estim Creat Clear Calc 67.73, Est GFR (MDRD) Af Amer 114, Est GFR (MDRD) Non-Af 94, BUN/Creatinine Ratio 26.0 H, Glucose 105, Calcium 9.5 05/09/21 13:40: Ethyl Alcohol < 3.0 05/09/21 13:40: Urine Opiates Screen POSITIVE H, Urine Methadone Screen NEGATIVE, Ur Barbiturates Screen NEGATIVE, Ur Phencyclidine Scrn NEGATIVE, Ur Amphetamines Screen NEGATIVE, U Methamphetamin-MDMA NEGATIVE, U Benzodiazepines Scrn NEGATIVE, Urine Cocaine Screen NEGATIVE, U Cannabinoids Screen NEGATIVE, Ur Drug Screen Comment 05/09/21 13:40: Serum , Qual NEGATIVE Physical Exam Narrative GENERAL: cooperative HEENT: Atraumatic; EYES; Anicteric, Normal Conjunctiva NECK; supple, normal thyroid, RESPIRATORY: Diminished to auscultation CARDIOVASCULAR: Regular S1 S2, GI: soft, normoactive bowel sounds, : No Renal angle tenderness; EXTREMITIES: No edema, no clubbing, MUSCULOSKELETAL: no muscle waisting NEURO: Awake; no lateralizing signs. SKIN: No Rash PSYCH; Flat affect Assessment & Plan Assessment/Plan (1) Opiate withdrawal: PLAN: 1. Acute opiate withdrawal ? Patient has been admitted to the regular nursing floor currently undergoing medical stabilization using Subutex taper 2. Tobacco dependence - Counseled on cessation, offered nicotine patch for tobacco cravings 3. GERD ? On PPI did continue 4. Depression with anxiety ? Patient is on duloxetine did continue 5. Rheumatoid arthritis ? Per history 6. DVT prophylaxis low risk ? Did encourage early ambulation Charges/Coding Visit Charges Inpatient E&M: 82838 Subs Hosp L2
[2021-05-10 08:50] VITALS: BP 98/64; PULSE 76; RESP 16; TEMP 36.8; O2SAT 97
--- NOTE | 2021-05-10 08:50 | PCS.PANDOC ---
PANDEMIC DOCUMENTATION INITIATED: Date: 12/08/2020 Time: 190
[2021-05-10] MEDS: Ibuprofen 600 MG Tablet PO ×2 (11:39→20:56)
[2021-05-10 11:45] VITALS: BP 122/75; PULSE 89; RESP 16; TEMP 36.6; O2SAT 97
[2021-05-10 15:04] VITALS: BP 118/79; PULSE 86; RESP 16; TEMP 36.8; O2SAT 97
[2021-05-10 20:53] VITALS: BP 108/65; PULSE 83; RESP 16; TEMP 36.8; O2SAT 96
[2021-05-10] MEDS: traZODone 100 MG Tablet PO (20:56)
[2021-05-11] MEDS: Ondansetron 8 MG Tablet PO (01:08)
[2021-05-11] MEDS: Mag Hydrox/Al Hydrox/Simeth 30 ML UDC PO (01:11)
[2021-05-11] MEDS: Methocarbamol 750 MG Tablet 1500 MG PO ×2 (02:18→09:33)
[2021-05-11] MEDS: Buprenorphine HCl 2 MG TAB.SUBL SL ×3 (02:18→17:53)
[2021-05-11 05:00] VITALS: BP 108/67; PULSE 85; RESP 16; TEMP 36.8; O2SAT 95
[2021-05-11] MEDS: hydrOXYzine PAM 25 MG Capsule 50 MG PO ×3 (05:03→17:52)
[2021-05-11] MEDS: cloNIDine HCl 0.1 MG Tablet PO ×2 (05:03→16:39)
[2021-05-11] MEDS: Ibuprofen 600 MG Tablet PO ×2 (08:12→20:31)
[2021-05-11] MEDS: Dicyclomine 10 MG Capsule 20 MG PO ×2 (08:12→18:31)
[2021-05-11 08:14] VITALS: BP 91/63; PULSE 94; RESP 16; TEMP 36.7; O2SAT 96
--- NOTE | 2021-05-11 10:06 | PCM.PN.HOSP ---
Documented by User: ALEJANDRO oRjas 05/11/21 10:15 Subjective Subjective Patient seen and examined. Patient states that she has continued to have abdominal cramping, restlessness, anxiety. Patient states that she has been receiving as needed's per nursing. Objective Data Objective Data Vital Signs: Vital Signs Temp Pulse Resp BP Pulse Ox 98.1 F 94 16 91/63 96 05/11/21 08:14 05/11/21 08:14 05/11/21 08:14 05/11/21 08:14 05/11/21 08:14 Oxygen Delivery Method Room Air Weight: 182 lb 15.739 oz Body Mass Index (BMI) 33.5 Intake & Output: Intake and Output for Last 24 Hours 05/09/21 05/10/21 05/11/21 23:59 23:59 23:59 Intake Total 100 / 100 450 / 450 Balance 100 / 100 450 / 450 Lab / Micro Data Result Diagrams: 05/09/21 13:40 05/09/21 13:40 Physical Exam Const alert, oriented x3 and no apparent distress HEENT head/scalp atraumatic Head and Scalp: normocephalic Eyes conjunctivae normal and no scleral icterus Neck full ROM and supple General: trachea midline Resp normal respiratory effort, normal air movement and clear to auscultation bilaterally Effort and Inspection: able to speak in complete sentences and symmetric chest movement Cardio regular rate, regular rhythm, S1 normal heart sound and S2 normal heart sound GI normal to inspection, nondistended, normoactive bowel sounds, soft to palpation and non-tender Extremity normal to inspection, full ROM and no clubbing, cyanosis or edema Peripheral Pulses: Yes pulses 2+ throughout Skin no rashes or lesions noted, no wounds and skin turgor normal Neuro moves all extremities, no focal motor deficits and no sensory deficits noted Sensorium / Orientation: awake and alert Speech: speech normal Psych mental status grossly normal and cooperative Mood & Affect: anxious Assessment & Plan Assessment/Plan (1) Opiate withdrawal: (2) History of immunosuppression therapy: (3) History of rheumatoid arthritis: PLAN: 1. Opiate withdrawal -Continue buprenorphine taper along with as needed medications for symptom management -Managed medically consulted for coordination with 184 follow-up services upon discharge. 2. Tobacco dependence -Inpatient smoking cessation ordered -Nicotine patch provided 3. Anxiety and depression -Continue duloxetine and trazodone DVT prophylaxis-encourage ambulation This patient was seen by Blank Peters NP-C under the supervision of Dr. Moura. 8 minutes spent in clinical coordination of patient's plan of care. Documented by User: Dr. Jemima Moura MD 05/11/21 16:59 Objective Data Lab / Micro Data Result Diagrams: 05/09/21 13:40 05/09/21 13:40 Charges/Coding Addendum Addendum: This patient was seen in conjunction with Peter Peters NP. I have independently interviewed and examined the patient and reviewed pertinent historical, laboratory, and other data. I have reviewed her note and concur with her documentation 55-year-old female with past medical history of polysubstance use, who regularly uses heroin comes in for medical stabilization against opioids withdrawal. Patient was seen and examined today. She complains of abdominal cramping and right upper quadrant pain. This pain seems to radiate across her abdomen and is worse with meals. Denies any fever or chills. Temp Pulse Resp BP Pulse Ox 98.1 F 94 16 91/63 96 Physical Exam: Gen: Comfortable, not pale, not jaundiced CVS:HS I +II, regular, no murmurs RESP: Diminished at lung bases GI: BS present and normal, soft, mild tenderness in the right upper quadrant, Grewal sign negative, no palpable organs EXT:No edema Labs: WBC count is 10.6, hemoglobin 14.2, platelet 383, sodium 137, potassium 3.8, BUN 18, creatinine 0.69 ASSESSMENT: 1. Acute right upper quadrant pain, possible acute cholelithiasis 2. Acute opioid withdrawal 3. Nicotine dependence 4. Anxiety/depression Plan: USG of gallbladder Continue on Subutex withdrawal protocol Nicotine replacement Time spent coordinating patient's care, discussing with subspecialty and nursin minutes Visit Charges Inpatient E&M: 80559 Subs Hosp L2
[2021-05-11] MEDS: Pantoprazole Sodium 40 MG Tablet PO ×2 (11:28→20:32)
[2021-05-11] MEDS: Polyethylene Glycol 3350 17 GM PACKET PO (11:28)
[2021-05-11] MEDS: Senna Tablet 2 TABLET PO (11:28)
--- NOTE | 2021-05-11 11:37 | US_ITS ---
STUDY: ABDOMINAL ULTRASOUND - RIGHT UPPER QUADRANT REASON FOR VISIT: Female, 55 years old right upper quadrant pain TECHNIQUE: Ultrasound evaluation of the right upper quadrant was performed with real-time and static quiros-scale imaging. TECHNICAL QUALITY: Adequate. COMPARISON: None. FINDINGS: Liver: The liver measures 16.7 cm. There is mildly increased echogenicity of the liver. The bile ducts are within normal limits. There is hepatic color flow. The direction of portal flow is hepatopetal. There is no demonstrated mass lesion. Gallbladder: Wall echo shadow complex. The gallbladder wall measures 13 mm. There is a positive sonographic Grewal''s sign. There is slight pericholecystic fluid. There are multiple echogenic structures within the gallbladder, consistent with multiple gallstones. Common Bile Duct (C.B.D.): The common bile duct measures 2.7 mm. Pancreas: There is no demonstrated pancreatic mass or cyst. Right Kidney: Normal size of the right kidney. There is no demonstrated renal mass or cyst. There is no right hydronephrosis. US/Gallbladder IMPRESSION: Wall echo shadow complex with gallstone filled gallbladder, gallbladder wall thickening, pericholecystic fluid and positive sonographic Grewal''s sign suspicious for acute cholecystitis. Electronically Signed: Conner Hicks MD (Brooks) at 16:10 EST , Service support ,
[2021-05-11 16:34] VITALS: BP 106/68; PULSE 83; RESP 16; TEMP 36.7; O2SAT 96
[2021-05-11 20:10] VITALS: PULSE 95; RESP 18; O2SAT 95
[2021-05-11] MEDS: traZODone 100 MG Tablet PO (20:37)
[2021-05-12] MEDS: Dicyclomine 10 MG Capsule 20 MG PO ×4 (00:33→20:17)
[2021-05-12] MEDS: cloNIDine HCl 0.1 MG Tablet PO ×3 (00:33→21:01)
[2021-05-12 02:54] VITALS: PULSE 94; RESP 16; O2SAT 93
[2021-05-12] MEDS: Buprenorphine HCl 2 MG TAB.SUBL SL (06:07)
[2021-05-12] MEDS: Pantoprazole Sodium 40 MG Tablet PO ×2 (08:36→20:17)
[2021-05-12 10:00] VITALS: BP 101/61; PULSE 99; RESP 16; TEMP 36.6; O2SAT 96
[2021-05-12] MEDS: hydrOXYzine PAM 25 MG Capsule 50 MG PO (10:41)
[2021-05-12] MEDS: Methocarbamol 750 MG Tablet 1500 MG PO ×2 (10:41→20:17)
--- NOTE | 2021-05-12 12:56 | PN.HOSP_ITS ---
Documented by User: ALEJANDRO Rojas 05/12/21 13:01 Subjective Subjective Patient seen and examined. Patient sitting in bed no distress noted. Sorter/Assay Tech from 180 at bedside for evaluation. Patient continues to complain of right upper quadrant pain. Patient informed of ultrasound findings of mild cholelithiasis. Objective Data Objective Data Vital Signs: Vital Signs Temp Pulse Resp BP Pulse Ox 97.8 F 99 16 101/61 96 05/12/21 10:00 05/12/21 10:00 05/12/21 10:00 05/12/21 10:00 05/12/21 10:00 Oxygen Delivery Method Room Air Weight: 182 lb 15.739 oz Body Mass Index (BMI) 33.5 Intake & Output: Intake and Output for Last 24 Hours 05/10/21 05/11/21 05/12/21 23:59 23:59 23:59 Intake Total 450 / 450 180 / 180 Balance 450 / 450 180 / 180 Lab / Micro Data Result Diagrams: 05/09/21 13:40 05/09/21 13:40 Radiography Diagnostic Testing: Radiology Impression Gallbladder Ultrasound 05/11/21 11:37 IMPRESSION: Wall echo shadow complex with gallstone filled gallbladder, gallbladder wall thickening, pericholecystic fluid and positive sonographic Grewal''s sign suspicious for acute cholecystitis. Electronically Signed: Conner Hicks MD ([place]) at 16:10 EST , Service support , Physical Exam Const alert, oriented x3, no apparent distress and well nourished HEENT normocephalic and head/scalp atraumatic Eyes conjunctivae normal and no scleral icterus Neck full ROM, no lymphadenopathy and supple General: trachea midline Resp normal respiratory effort, normal air movement and clear to auscultation bilaterally Effort and Inspection: able to speak in complete sentences and symmetric chest movement Cardio regular rate, regular rhythm, S1 normal heart sound and S2 normal heart sound GI normal to inspection, nondistended, normoactive bowel sounds, soft to palpation and non-tender Extremity normal to inspection, full ROM and no clubbing, cyanosis or edema Skin no rashes or lesions noted, no wounds and skin turgor normal Neuro moves all extremities, no focal motor deficits and no sensory deficits noted Sensorium / Orientation: awake and alert Speech: speech normal Psych mental status grossly normal and cooperative Mood & Affect: depressed and anxious Assessment & Plan Assessment/Plan (1) Opiate withdrawal: (2) History of immunosuppression therapy: (3) History of rheumatoid arthritis: PLAN: 1. Opiate withdrawal -Continue buprenorphine taper along with as needed medications for symptom management as patient continues to be symptomatic -Managed medically consulted for coordination with 180 for follow-up services upon discharge. 2. Tobacco dependence -Inpatient smoking cessation ordered -Nicotine patch provided 3. Anxiety and depression -Continue duloxetine and trazodone 4. Right upper quadrant pain -Gallbladder ultrasound demonstrates mild cholelithiasis -Patient initiated on ursodiol DVT prophylaxis-encourage ambulation This patient was seen by Blank Peters NP-C under the supervision of Dr. Moura. 9 minutes spent in clinical coordination of patient's plan of care. Documented by User: Dr. Jemima Moura MD 05/12/21 13:37 Objective Data Lab / Micro Data Result Diagrams: 05/09/21 13:40 05/09/21 13:40 Charges/Coding Addendum Addendum: This patient was seen in conjunction with Peter Peters NP. I have independently interviewed and examined the patient and reviewed pertinent historical, laboratory, and other data. I have reviewed her note and concur with her documentation Temp Pulse Resp BP Pulse Ox 97.8 F 99 16 101/61 96 Physical Exam: Gen: Comfortable, not pale, not jaundiced CVS:HS I +II, regular, no murmurs RESP: Diminished at lung bases GI: BS present and normal, soft, mild tenderness in the right upper quadrant, no palpable organs EXT:No edema ASSESSMENT: 1. Acute cholecystitis 2. Acute opioid withdrawal 3. Nicotine dependence 4. Anxiety/depression Plan: General surgery consult Continue on Subutex withdrawal protocol Nicotine replacement Time spent coordinating patient's care, discussing with subspecialty and nursin minutes Visit Charges Inpatient E&M: 49025 Subs Hosp L2
--- NOTE | 2021-05-12 13:27 | PCM.DC ---
Discharge Instructions Diet Discharge Diet: Low fat / Low cholesterol Activity Discharge Activity: Return to Normal Activity Dressing / Incision Call your doctor if you observe: Fever of 101 or Higher and Inability to have a bowel movement Follow Up Care Test Results: Test results from this visit will be discussed in further detail at your follow-up appointment, if applicable. Discharge Plan Admission Admit Date/Time: 05/09/21 15:14 Attending Provider: Jemima Moura Primary Care Provider: Cat Vasquez Discharge Orders/Prescriptions Prescriptions: No Action ibuprofen [IBU] 800 MG tablet 800 mg PO TID PRN (Reason: Pain) RF: 0 trazodone 100 MG tablet 100 mg PO QHS RF: 0 omeprazole 20 MG capsule 20 mg PO DAILY RF: 0 duloxetine 30 MG capsule 30 mg PO DAILY RF: 0 Referrals / Follow Up: Cat Vasquez MD [Primary Care Provider] -
[2021-05-12 14:00] VITALS: RESP 16
[2021-05-12 14:56] LABS: Absolute Lymphocyte Count 1.69 X10^3/uL (0.83-4.51); Absolute Neutrophil Count 4.7 X10^3/uL (2.0-7.7); Basophil# 0.07 X10^3/uL; Basophil% 0.9 % (0-1); Eosinophil# 0.37 X10^3/uL; Eosinophils% 4.9 % (0-5); Hematocrit 37.5 % (37-47); Lymphocyte # 1.69 X10^3/ul (0.83-4.51); Lymphocyte % 22.5 % (19-41); Mean Corpuscular Hgb 26.7 pg (27.0-32.0); Mean Corpuscular Volume 83.5 fL (81-99); Mean Platelet Vol. 11.4 fl (6.2-12.0); Monocyte# 0.69 X10^3/uL; Monocyte% 9.2 % (0-10); NRBC Flagged by Analyzer 0 % (0-5); Neutrophil # 4.68 X10^3/uL (2.7-7.7); Neutrophil % 62.2 % (47-70); Platelet Count 257 K/mm3 (150-450); RBC Distribution Width CV 15.4 % (11.6-14.6); RBC Distribution Width SD 46.2 fl (35.1-43.9); Red Blood Count 4.49 M/mm3 (4.2-5.4); White Blood Count 7.5 K/mm3 (4.4-11.0)
[2021-05-12 15:12] LABS: ALB/GLOB Ratio 0.6 RATIO (0.9-2.4); AST(SGOT) 118 U/L (15-37); Alanine Aminotransfer ALT/SGPT 97 U/L (13-56); Albumin, Serum 2.6 g/dL (3.2-5.0); Alkaline Phosphatase 125 U/L (45-117); Anion Gap 4 (5-15); BUN 17 mg/dL (7-18); BUN/Creat Ratio 25.8 RATIO (10-20); Calcium,Total 8.6 mg/dL (8.5-10.1); Chloride 108 mmol/L (98-107); Creatinine, Serum 0.66 mg/dL (0.55-1.02); EST Glomerular Filtration Rate 99 mL/min (>60); Est Glom Filt Rate - Afr Amer 120 mL/min (>60); Estimated Creatinine Clearance 77.96 ml/min; Globulin 4.1 g/dL (2.2-4.2); Glucose 96 mg/dL (74-106); Potassium 4.6 mmol/L (3.5-5.1); Protein, Total 6.7 g/dL (6.4-8.2); Sodium Level 138 mmol/L (136-145)
--- NOTE | 2021-05-12 16:12 | EX.PCM.CON.S ---
Assessment & Plan Assessment/Plan (1) Cholecystitis with cholelithiasis: QUALIFIERS: Cholelithiasis location: gallbladder Cholecystitis acuity: unspecified acuity PLAN: Patient with history of abdominal pain and nausea that is acutely worse. This could represent an acute exacerbation of chronic cholecystitis. Patient has a number of sonographic abnormalities to suggest some chronicity to her problem, but laboratories are concerning for possible choledocholithiasis as well. Based on the patient's exam and these findings, I have recommended proceeding for laparoscopic cholecystectomy with intraoperative cholangiogram. Patient accepts this recommendation and we will plan to proceed to the operating room tomorrow. Patient should be held n.p.o. past midnight with IV fluids starting at that time. Antibiotics have already been initiated by the patient's primary team. I have discussed with the patient that our postoperative expectation would be to proceed without narcotic pain medication so as not to provide a stumbling block and her recovery pathway from this heroin withdrawal. Patient is accepting of this plan. HPI Consult Data Date of Consult: 05/12/21 HPI Narrative HPI Narrative: JANEY RODRIGUEZ, is a 55 F who presented to [facility] on 05/09/2021 with symptoms of heroin withdrawal. She is a longtime opiate user and has had prior admissions to our facility for this issue. She states during her time here, she is experienced severe right upper quadrant pain?particularly after eating. This has been a longstanding issue that has become acutely worse. She states the pain complaints go back at least 3 years. She experiences intermittent nausea, but the pain becomes so severe that it will doubled her over. When the pain began this time, she thought it was related to her heroin withdrawal and associated nausea/vomiting. However, patient's provider team ordered a right upper quadrant ultrasound that demonstrated gallbladder wall thickening, pericholecystic fluid, and the cardiovascular disease specialist noted a positive sonographic Grewal sign. Surgery was consulted following these results. On my arrival to the room, patient confirms the above history and states that her pain is persistent in the right upper quadrant. She also confirms a history of hepatitis C (acquired through drug use) that has not yet undergone treatment. She states she is trying to get her life back on track, first getting clean from the drugs, and then plans to seek treatment for her hepatitis. [facility] Medical History Acute rheumatoid arthritis Anxiety Chronic pain Depression DVT (deep venous thrombosis) Hepatitis Restless legs Rheumatoid arthritis Smoker Substance abuse Home Medications ibuprofen [IBU] 800 mg PO TID PRN 02/01/18 [History Last Taken 11/11/19 08:00] duloxetine 30 mg PO DAILY 11/11/19 [History Last Taken 05/08/21] omeprazole 20 mg PO DAILY 11/11/19 [History Last Taken 05/08/21] trazodone 100 mg PO QHS 11/11/19 [History Last Taken 05/08/21] Allergy/AdvReac Type Severity Reaction Status Date / Time meloxicam AdvReac Upset Verified 05/09/21 13:01 Stomach Family History Mother Diabetes Cancer Mother No problems noted. Father Hypertension Social History household members: family Smoking Status: Current every day smoker tobacco type: cigarettes details: Nondrinker substance use type: heroin Physical Exam Const alert and oriented x3 Constitutional Narrative: Mild distress from abdominal discomfort General Appearance: cooperative Resp normal respiratory effort GI GI Narrative: Obese, no scars, nondistended, soft, tender to palpation in the right upper quadrant with positive Grewal sign Lab / Micro Data Result Diagrams: 05/12/21 14:50 05/12/21 14:50 Labs: Laboratory Results - last 24 hr 05/12/21 14:50: Sodium 138, Potassium 4.6, Chloride 108 H, Carbon Dioxide 26.0, Anion Gap 4 L, BUN 17, Creatinine 0.66, Estim Creat Clear Calc 77.96, Est GFR (MDRD) Af Amer 120, Est GFR (MDRD) Non-Af 99, BUN/Creatinine Ratio 25.8 H, Glucose 96, Calcium 8.6, Total Bilirubin 0.60, AST 118 H, ALT 97 H, Alkaline Phosphatase 125 H, Total Protein 6.7, Albumin 2.6 L, Globulin 4.1, Albumin/Globulin Ratio 0.6 L 05/12/21 14:50: WBC 7.5, RBC 4.49, Hgb 12.0, Hct 37.5, MCV 83.5, MCH 26.7 L, MCHC 32.0, RDW Std Deviation 46.2 H, RDW Coeff of Abhay 15.4 H, Plt Count 257, MPV 11.4, Immature Gran % (Auto) 0.300, Neut % (Auto) 62.2, Lymph % (Auto) 22.5, Catron % (Auto) 9.2, Eos % (Auto) 4.9, Baso % (Auto) 0.9, Absolute Neuts (auto) 4.7, Absolute Lymphs (auto) 1.69, Nucleated RBC % 0 Charges/Coding Visit Charges Inpatient E&M: 37946 Init Hosp L2
[2021-05-12] MEDS: Lactated Ringers 1,000 ML 100 ML IV (17:33)
[2021-05-12] MEDS: Ursodiol 250 MG Tablet PO (17:36)
[2021-05-12 17:41] VITALS: BP 115/84; PULSE 93; RESP 16; TEMP 36.6; O2SAT 97
[2021-05-12 20:01] VITALS: BP 120/60; PULSE 84; RESP 18; TEMP 36.9; O2SAT 98
[2021-05-12] MEDS: Ibuprofen 600 MG Tablet PO (20:17)
[2021-05-12] MEDS: traZODone 100 MG Tablet PO (20:17)
[2021-05-13] VITALS (11 sets, daily range): BP systolic 129–179; BP diastolic 56–92; PULSE 79–89; RESP 16–18; TEMP 36.3–37.1; O2SAT 96–100; BMI 33.5
--- NOTE | 2021-05-13 | GALL_PTH ---
PATIENT: JANEY RODRIGUEZ LOC: MS3 U#:[id number] AGE/SX: 55/F ROOM: ID317 RE05/09/[address]: Dr. Jemima Moura MD : 1965 BED: 1 DIS: 05/15/2021 SPEC #: [id number] RECD: 05/13/21 15:54 STATUS: BRIANNA REVinicio #: [id number] LOU: 05/13/21 00:[address]: Rodrigo Rae DEPT: SURGICAL PATHOLOGY RECD BY: Markus Busby ENTERED: 05/14/21 12:20 SP TYPE: GALLBLADDE OTHR DR: MD Dr. Cat Wolf MD Dr. Michael Bortz, MD Dr. Ryan Burkholder, MD Tissues: Gallbladder, NOS Procedures: Surgery Specimen Level III Comments: @ Ordering doctor for SUIII edited from to @ by KIRTI at 05/14/21 1543 @ Submitting doctor edited from to @ by RGOOD at 05/14/21 1543 HEADER OPERATION: Laparoscopic cholecystectomy with IOC PRE-OP DIAGNOSIS: Cholecystitis with cholelithiasis TISSUE SUBMITTED: Gallbladder MICROSCOPIC DIAGNOSIS Gallbladder, cholecystectomy: Chronic cholecystitis and cholelithiasis. A minute benign pericystic lymph node. BRIGITTE:hernesto 05/15/2021 MICROSCOPIC DESCRIPTION Slides are reviewed. GROSS DESCRIPTION Received is one container labeled with the patient's name and designated gallbladder. The specimen consists of a gallbladder measuring 7.5 cm in length and up to 3 cm in diameter. The external surface is pink-tucker, smooth and glistening for the most part. Focally it is granular, hemorrhagic and contains cautery artifact. The gallbladder contains green-yellow mucoid bile and multiple multifaceted greenish-brown stones measuring in aggregate 3.5 x 3 x 0.8 cm and 0.2 to 0.7 cm in greatest dimension. The mucosa is bile-stained and without any mass lesions. The gallbladder wall measures up to 0.7 cm in thickness. Increased amount of subserosal fat is noted. Also present close to the cystic duct is a small, tucker nodule, suggestive of lymph node, measuring 0.3 cm in greatest dimension. [employer] sections from the gallbladder and the cystic duct and including entire nodule are submitted in one cassette. / BRIGITTE:hernesto 05/14/2021 TC:3 CPT: 29238
[2021-05-13] MEDS: hydrOXYzine PAM 25 MG Capsule 50 MG PO ×3 (00:14→19:44)
[2021-05-13] MEDS: Dicyclomine 10 MG Capsule 20 MG PO ×2 (03:13→21:31)
[2021-05-13] MEDS: Lactated Ringers 1,000 ML 100 ML IV (03:13)
[2021-05-13] MEDS: Methocarbamol 750 MG Tablet 1500 MG PO ×2 (03:14→19:44)
--- NOTE | 2021-05-13 06:00 | EKG12_ITS ---
Test Reason : PRE-OP Blood Pressure : / mmHG Vent. Rate : 071 BPM Atrial Rate : 071 BPM P-R Int : 178 ms QRS Dur : 072 ms QT Int : 418 ms P-R-T Axes : 048 026 034 degrees QTc Int : 454 ms Normal sinus rhythm Normal ECG When compared with ECG of 12-NOV-2019 00:01, No significant change was found Confirmed by CHRISTY DIETZ, RICHAR ([id number]), department editor INES COX ([id number]) on 05/13/2021 1:31:18 PM Referred By: CARLA Confirmed By:RICHAR HARRISON MD
[2021-05-13] MEDS: cloNIDine HCl 0.1 MG Tablet PO ×2 (06:11→17:42)
--- NOTE | 2021-05-13 07:58 | PN.SURG_ITS ---
Subjective Subjective Patient seen and examined during AM rounds. She reports ongoing right upper quadrant discomfort. She has some apprehension undergoing surgery, but would like to find and into her discomfort. Objective Data Objective Data Vital Signs: Vital Signs Temp Pulse Resp BP Pulse Ox 98.3 F 79 18 136/69 H 97 05/13/21 03:08 05/13/21 03:08 05/13/21 03:08 05/13/21 03:08 05/13/21 03:08 Oxygen Delivery Method Room Air Weight: 182 lb 15.739 oz Body Mass Index (BMI) 33.5 Intake & Output: Intake and Output for Last 24 Hours 05/11/21 05/12/21 05/13/21 23:59 23:59 23:59 Intake Total 792 / 792 1409.00 / 1409.00 Balance 792 / 792 1409.00 / 1409.00 Lab / Micro Data Result Diagrams: 05/12/21 14:50 05/12/21 14:50 Labs: Laboratory Results - last 24 hr 05/12/21 14:50: Sodium 138, Potassium 4.6, Chloride 108 H, Carbon Dioxide 26.0, Anion Gap 4 L, BUN 17, Creatinine 0.66, Estim Creat Clear Calc 77.96, Est GFR (MDRD) Af Amer 120, Est GFR (MDRD) Non-Af 99, BUN/Creatinine Ratio 25.8 H, Glucose 96, Calcium 8.6, Total Bilirubin 0.60, AST 118 H, ALT 97 H, Alkaline Phosphatase 125 H, Total Protein 6.7, Albumin 2.6 L, Globulin 4.1, Albumin/Globulin Ratio 0.6 L 05/12/21 14:50: WBC 7.5, RBC 4.49, Hgb 12.0, Hct 37.5, MCV 83.5, MCH 26.7 L, MCHC 32.0, RDW Std Deviation 46.2 H, RDW Coeff of Abhay 15.4 H, Plt Count 257, MPV 11.4, Immature Gran % (Auto) 0.300, Neut % (Auto) 62.2, Lymph % (Auto) 22.5, Charles % (Auto) 9.2, Eos % (Auto) 4.9, Baso % (Auto) 0.9, Absolute Neuts (auto) 4.7, Absolute Lymphs (auto) 1.69, Nucleated RBC % 0 Physical Exam GI GI Narrative: Tenderness with palpation in the right upper quadrant Assessment & Plan Assessment/Plan (1) Cholecystitis with cholelithiasis: QUALIFIERS: Cholelithiasis location: gallbladder Cholecystitis acuity: unspecified acuity PLAN: Patient clinically with cholecystitis?possible acute on chronic. Given slight enzyme elevations on complete metabolic panel yesterday, will plan for intraoperative cholangiography with cholecystectomy today. Patient has been held n.p.o. since midnight. Details of the operation were reviewed and patient is ready for surgery. We are obtaining a rapid COVID test as per OR policy, but otherwise we will plan to proceed for this procedure later this morning. Charges/Coding Visit Charges Inpatient E&M: 98992 Subs Hosp L2
--- NOTE | 2021-05-13 10:05 | NURSING ---
pt to or VIA bed w/ unasyn hanging/not running-report called to bharti @ [id number] and updated
--- NOTE | 2021-05-13 11:19 | PN.HOSP_ITS ---
Documented by User: ALEJANDRO Rojas 05/13/21 11:22 Subjective Subjective Patient seen and examined. Patient going later this morning for cholecystectomy with Dr. Rae. Objective Data Objective Data Vital Signs: Vital Signs Temp Pulse Resp BP Pulse Ox 97.8 F 80 18 136/67 H 96 05/13/21 08:34 05/13/21 08:34 05/13/21 08:34 05/13/21 08:34 05/13/21 08:34 Oxygen Delivery Method Room Air Weight: 182 lb 15.739 oz Body Mass Index (BMI) 33.5 Intake & Output: Intake and Output for Last 24 Hours 05/11/21 05/12/21 05/13/21 23:59 23:59 23:59 Intake Total 792 / 792 1409.00 / 1409.00 Balance 792 / 792 1409.00 / 1409.00 Lab / Micro Data Result Diagrams: 05/12/21 14:50 05/12/21 14:50 Labs: Laboratory Results - last 24 hr 05/12/21 14:50: Sodium 138, Potassium 4.6, Chloride 108 H, Carbon Dioxide 26.0, Anion Gap 4 L, BUN 17, Creatinine 0.66, Estim Creat Clear Calc 77.96, Est GFR (MDRD) Af Amer 120, Est GFR (MDRD) Non-Af 99, BUN/Creatinine Ratio 25.8 H, Glucose 96, Calcium 8.6, Total Bilirubin 0.60, AST 118 H, ALT 97 H, Alkaline Phosphatase 125 H, Total Protein 6.7, Albumin 2.6 L, Globulin 4.1, Albumin/Globulin Ratio 0.6 L 05/12/21 14:50: WBC 7.5, RBC 4.49, Hgb 12.0, Hct 37.5, MCV 83.5, MCH 26.7 L, MCHC 32.0, RDW Std Deviation 46.2 H, RDW Coeff of Abhay 15.4 H, Plt Count 257, MPV 11.4, Immature Gran % (Auto) 0.300, Neut % (Auto) 62.2, Lymph % (Auto) 22.5, [place] % (Auto) 9.2, Eos % (Auto) 4.9, Baso % (Auto) 0.9, Absolute Neuts (auto) 4.7, Absolute Lymphs (auto) 1.69, Nucleated RBC % 0 Micro: Microbiology 05/13/21 07:35 Nasal Secretion SARS-CoV-2 Antigen (Rapid) - Final Physical Exam Const alert, oriented x3, no apparent distress and well nourished HEENT normocephalic and head/scalp atraumatic Eyes conjunctivae normal and no scleral icterus Neck full ROM, no lymphadenopathy and supple General: trachea midline Resp normal respiratory effort, normal air movement and clear to auscultation bilaterally Effort and Inspection: able to speak in complete sentences and symmetric chest movement Cardio regular rate, regular rhythm, S1 normal heart sound and S2 normal heart sound GI normal to inspection, nondistended, normoactive bowel sounds, soft to palpation and non-tender Extremity normal to inspection, full ROM and no clubbing, cyanosis or edema Skin no rashes or lesions noted, no wounds and skin turgor normal Neuro moves all extremities, no focal motor deficits and no sensory deficits noted Sensorium / Orientation: awake and alert Speech: speech normal Psych mental status grossly normal and cooperative Mood & Affect: depressed and anxious Assessment & Plan Assessment/Plan (1) Opiate withdrawal: (2) History of immunosuppression therapy: (3) History of rheumatoid arthritis: PLAN: 1. Opiate withdrawal -Buprenorphine taper complete, as needed medications continued -Managed medically consulted for coordination with 180 for follow-up services upon discharge. 2. Tobacco dependence -Inpatient smoking cessation ordered -Nicotine patch provided 3. Anxiety and depression -Continue duloxetine and trazodone 4. Right upper quadrant pain -Gallbladder ultrasound demonstrates mild cholelithiasis -Patient initiated on ursodiol -Dr. Rae consulted, case discussed 05/12/2021 patient going for surgery 05/13/2021. DVT prophylaxis-encourage ambulation This patient was seen by Blank Peters NP-C under the supervision of Dr. Moura. 9 minutes spent in clinical coordination of patient's plan of care. Documented by User: Dr. Jemima Moura MD 05/13/21 17:41 Objective Data Lab / Micro Data Result Diagrams: 05/12/21 14:50 05/12/21 14:50 Charges/Coding Addendum Addendum: This patient was seen in conjunction with Peter Peters NP. I have independently interviewed and examined the patient and reviewed pertinent historical, laboratory, and other data. I have reviewed her note and concur with her documentation Temp Pulse Resp BP Pulse Ox 97.8 F 80 18 136/67 H 96 Physical Exam: Gen: Comfortable, not pale, not jaundiced CVS:HS I +II, regular, no murmurs RESP: Diminished at lung bases GI: BS present and normal, soft, mild tenderness in the right upper quadrant, no palpable organs EXT:No edema ASSESSMENT: 1. POD#0 s/p lap cholecystectomy, positive cholangiogram, ERCP planned 2. Acute opioid withdrawal 3. Nicotine dependence 4. Anxiety/depression Plan: General surgery following Continue with NSAIDS for pain control Continue on Subutex withdrawal protocol Nicotine replacement Time spent coordinating patient's care, discussing with subspecialty and nursin minutes Visit Charges Inpatient E&M: 73379 Subs Hosp L2
[2021-05-13] MEDS: Lactated Ringers 1,000 ML 15 ML IV ×2 (11:53→17:25)
--- NOTE | 2021-05-13 13:30 | RAD_ITS ---
[employer]Scriptor Unformatted Report Format: Options: n 2f 2i act cap dr wilkes wm wcta sl lj Gender: Female : 1965 Exam: [place] Cholangiogram and/or Pancreatography OR Comparison: History: PAIN Contrast: Contrast injected into the cystic duct at the time of cholecystectomy demonstrates a small filling defect within intrahepatic branch of the bile duct which appears to be within hepatic segment 4 suggestive of a stone. Several injections of the cystic duct fail to visualize the ampulla and duodenum. Contrast extravasates around the cannula extending into the subhepatic space. A subsequent injection appears to demonstrate the distal portion of the duct and ampulla where there appears to be kinking of the distal common bile duct. RAD/Cholangiogram/ O R,Initial IMPRESSION: Intrahepatic biliary duct filling defect consistent with a stone. Extravasated contrast extending along the subhepatic space which may represent leakage around the cannula. Kinking of the distal common bile duct which may represent an area of stricture or injury. Correlate findings with surgical report. at 1647 Reported and signed by: Santo Mcdonald MD Electronically Signed: Santo Mcdonald MD at 16:46 EST Tel , Service support ,
[2021-05-13] MEDS: Bupivacaine Mpf 0.5% 30 ML VIAL (13:41)
--- NOTE | 2021-05-13 15:04 | OP.PCM_ITS ---
Report of Operation Date of Procedure: 05/13/21 Pre-Operative Diagnosis: 1. Cholecystitis 2. Mild transaminitis with cholestatic pattern Post-Operative Diagnosis: 1. Cholecystitis 2. Choledocholithiasis with distal common duct obstruction Surgery/Procedure Performed:: Laparoscopic cholecystectomy with intraoperative cholangiogram Description of Surgical Findings:: ? Thick, edematous rind to gallbladder ? Cystic artery causing deformation of the gallbladder such that the cystic duct approached the gallbladder infundibulum at a right angle ? Normal biliary anatomy with absence of antegrade filling of the duodenum and meniscus sign indicating a distal obstruction at the ampulla Surgeon: Rodrigo Rae clinical nurse manager: Colton Kim Type of Anesthesia: General/Supplemental Anesthesiologist: Fausto Navarro Specimen's removed: Gallbladder Drains: None Estimated Blood Loss (mL): 50 Description of Procedure: After proper identification in the preoperative holding area the patient was brought to the operating room where she was positioned supine on the operating room table. Preoperative DVT prophylaxis and antibiotics were administered. General anesthesia was then induced. Patient's abdomen was prepped and draped in usual sterile fashion. A formal timeout was conducted to confirm both patient and the procedure. Procedure was begun with a supraumbilical incision which was extended deeply down to the level of the fascia. The fascia was elevated and incised, as well as the peritoneum. A finger sweep was performed to ensure there were no underlying adhesions and a 12 mm balloon trocar was inserted. Pneumoperitoneum was established at 15 mmHg. 3 additional trochars were placed in the epigastrium (12 mm) and in the right upper quadrant (2 x 5 mm). Inspection of the peritoneum revealed no inadvertent injury to the viscera below. The gallbladder was visualized with evidence of chronic inflammation. The gallbladder fundus was then grasped and elevated cephalad. Then, using careful dissection the peritoneum was opened and the structures of the hepatocystic triangle were delineated. It was not immediately clear what the orientation of the duct to the artery was given that the cystic artery contorted the gallbladder so that the gallbladder infundibulum and the body of the gallbladder were at right angles. Once the critical view of safety was obtained, a cholangiocatheter was fed into the proximal segment of the cystic duct and clipped into place. A cholangiogram was then obtained showing a normal spiral cystic duct flowing into a common bile duct but there was no antegrade flow of contrast into the duodenum. There was also retrograde flow through the common hepatic duct into the right and left hepatic ducts. Therefore anesthesia was asked to administer 1 mg of glucagon and wait 5 minutes before retrying the cholangiogram. This procedure was undertaken, but, again, there was an absence of contrast flow into the duodenum. Therefore this procedure was aborted and we proceeded with the rest of the cholecystectomy. The cystic duct was triply clipped and sharply divided. The same process was used for the cystic artery. The gallbladder was then removed from the gallbladder fossa with the use of electrocautery. The gallbladder was placed in an Endo Catch bag and removed from the peritoneum. Morison's pouch was irrigated and the effluent was suctioned free of the peritoneum. Hemostasis was again confirmed in the gallbladder fossa. Pneumoperitoneum was evacuated and the fascia of the 12 mm port sites was closed with #1 Vicryl in a [id number] fashion. A total of 30 mL of anesthetic was injected at the port sites for postoperative pain control. The skin of each port site was then closed in subcuticular fashion using 4-0 Monocryl. Steri-Strips and bandages were applied as dressings. Patient tolerated the procedure well without any apparent complications. On emergence from their anesthetic the patient was taken to PACU for ongoing recovery. Patient will be kept n.p.o. with antibiotics until she is able to undergo ERCP and duct clearance. Complications None Admit VTE Documentation VTE Mechan Device Prophylaxis: SCD's Procedures Digestive [id number]-49xxx: 51868 Laparo cholecystectomy/graph
[2021-05-13] MEDS: Ursodiol 250 MG Tablet PO (17:24)
[2021-05-13] MEDS: Pantoprazole Sodium 40 MG Tablet PO (17:25)
[2021-05-13] MEDS: Ketorolac 30 MG/ML Syringe IV ×2 (17:42→23:56)
--- NOTE | 2021-05-13 19:17 | CON.PCM.GI_ITS ---
HPI Consult Data Date of Consult: 05/13/21 HPI Narrative HPI Narrative: JANEY RODRIGUEZ, is a 55 F who presented to [facility] with worsening abdominal pain. Patient also has a history of heroin addiction with contraction of ch hepatitis C. she was admitted to the hospital for help with withdrawal from heroin. She had also complained of worsening abdominal pain in her right upper quadrant. Biochemical work-up had showed mildly elevated liver function tests. Ultrasound imaging had shown a thickened gallbladder with pericholecystic fluid and a positive sonographic Grewal sign. She underwent cholecystectomy today. However the intraoperative cholangiogram did not show any filling into the small bowel. The radiology report from the intraoperative cholangiogram was interpreted as a intrahepatic biliary duct filling defect consistent with a stone. Also noted was some extravasated contrast extending along the subhepatic space which may resent leaking around the catheter injected into the cystic duct. Also a possible kink of the distal common bile duct was noted which could represent a stricture or injury. At this time she complains of abdominal pain and is having some anxiety. [facility] Medical History (Updated 05/13/21 @ 19:[address] Misael Macias DO) Acute rheumatoid arthritis Anxiety Chronic pain Depression DVT (deep venous thrombosis) Hepatitis Restless legs Rheumatoid arthritis Smoker Substance abuse Home Medications ibuprofen [IBU] 800 mg PO TID PRN 02/01/18 [History Last Taken 11/11/19 08:00] duloxetine 30 mg PO DAILY 11/11/19 [History Last Taken 05/08/21] omeprazole 20 mg PO DAILY 11/11/19 [History Last Taken 05/08/21] trazodone 100 mg PO QHS 11/11/19 [History Last Taken 05/08/21] Allergy/AdvReac Type Severity Reaction Status Date / Time meloxicam AdvReac Upset Verified 05/09/21 13:01 Stomach Family History Mother Diabetes Cancer Mother No problems noted. Father Hypertension Surgical History (Updated 05/12/21 @ 20:57 by Avinash Burris) S/P knee surgery Social History household members: family Smoking Status: Current every day smoker tobacco type: cigarettes details: Nondrinker substance use type: heroin ROS Gastrointestinal Gastrointestinal: Reports cramping and nausea Physical Exam Const alert General Appearance: cooperative Orientation / Consciousness: oriented to person HEENT hearing grossly normal bilaterally Head and Scalp: normal to inspection Face and Sinus: face symmetric Nose: external nose normal Mouth: oral and palatal mucosa normal Eyes conjunctivae normal General Eye: normal appearance of both eyes Neck full ROM General: normal visual inspection Lymph Lymphatic: no lymphadenopathy noted Chest inspection of chest normal and palpation of chest normal Chest: symmetrical chest wall rise Resp normal respiratory effort Effort and Inspection: able to speak in complete sentences Cardio regular rate GI non-distended Percussion: normal to percussion Rectal Exam: deferred Neuro Speech: speech normal Gait (Neuro): normal gait Lab / Micro Data Result Diagrams: 05/12/21 14:50 05/12/21 14:50 Micro: Microbiology 05/13/21 07:35 Nasal Secretion SARS-CoV-2 Antigen (Rapid) - Final Radiology Impression Cholangiogram 05/13/21 13:30 IMPRESSION: Intrahepatic biliary duct filling defect consistent with a stone. Extravasated contrast extending along the subhepatic space which may represent leakage around the cannula. Kinking of the distal common bile duct which may represent an area of stricture or injury. Correlate findings with surgical report. at 1647 Reported and signed by: Santo Mcdonald MD Electronically Signed: Santo Mcdonald MD at 16:46 EST Tel , Service support , Assessment & Plan Assessment/Plan (1) Biliary stricture: PLAN: Patient will need to undergo ERCP to see if she has any ampullary mass or stricture at the distal common bile duct not permitting passage of contrast into the small bowel. (2) Choledocholithiasis: PLAN: She will also need to undergo ERCP for stone removal as seen on Intra-Op cholangiogram. She was explained alternatives, risk, benefits including outstanding bleeding, infection, sepsis, perforation, and post ERCP pancreatitis she will have an ASA of 3. Charges/Coding Visit Charges Inpatient E&M: 26837 Init Hosp L3
--- NOTE | 2021-05-13 19:24 | NURSING ---
This RN spoke with patients father Santo per patients permission. All questions answered.
[2021-05-13] MEDS: Acetaminophen 500 MG Tablet PO (19:44)
[2021-05-13] MEDS: Ondansetron 8 MG Tablet PO (21:31)
[2021-05-13] MEDS: traZODone 100 MG Tablet PO (21:35)
--- NOTE | 2021-05-13 21:39 | NURSING ---
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
[2021-05-13] MEDS: 0.9% Saline Lock 10 ML Syringe IV (23:57)
[2021-05-14] VITALS (12 sets, daily range): BP systolic 119–155; BP diastolic 59–79; PULSE 71–89; RESP 16–18; TEMP 35.8–37.2; O2SAT 94–97; BMI 33.5
[2021-05-14] MEDS: Methocarbamol 750 MG Tablet 1500 MG PO ×2 (02:05→20:41)
[2021-05-14] MEDS: hydrOXYzine PAM 25 MG Capsule 50 MG PO ×3 (02:05→22:19)
[2021-05-14] MEDS: Acetaminophen 500 MG Tablet PO ×2 (02:05→20:40)
[2021-05-14] MEDS: Dicyclomine 10 MG Capsule 20 MG PO (04:43)
[2021-05-14] MEDS: Ketorolac 30 MG/ML Syringe IV ×3 (06:04→22:19)
[2021-05-14] MEDS: cloNIDine HCl 0.1 MG Tablet PO ×2 (06:04→15:41)
[2021-05-14 06:41] LABS: Absolute Lymphocyte Count 1.93 X10^3/uL (0.83-4.51); Absolute Neutrophil Count 5.4 X10^3/uL (2.0-7.7); Basophil# 0.06 X10^3/uL; Basophil% 0.7 % (0-1); Eosinophil# 0.09 X10^3/uL; Eosinophils% 1.1 % (0-5); Hematocrit 35.6 % (37-47); Hemoglobin 12.2 g/dL (12.0-15.0); Lymphocyte # 1.93 X10^3/ul (0.83-4.51); Mean Corp Hgb Conc 34.3 g/dL (32-36); Mean Corpuscular Hgb 27.2 pg (27.0-32.0); Mean Corpuscular Volume 79.3 fL (81-99); Mean Platelet Vol. 11.8 fl (6.2-12.0); Monocyte# 0.55 X10^3/uL; Monocyte% 6.8 % (0-10); NRBC Flagged by Analyzer 0 % (0-5); Neutrophil # 5.38 X10^3/uL (2.7-7.7); POSITIVE COUNT YES; Platelet Count 196 K/mm3 (150-450); RBC Distribution Width CV 15.3 % (11.6-14.6); RBC Distribution Width SD 44.1 fl (35.1-43.9); Red Blood Count 4.49 M/mm3 (4.2-5.4)
[2021-05-14 06:46] LABS: Differential Indicated SCAN CRITERIA MET
[2021-05-14 07:09] LABS: ALB/GLOB Ratio 0.5 RATIO (0.9-2.4); AST(SGOT) 125 U/L (15-37); Alanine Aminotransfer ALT/SGPT 147 U/L (13-56); Albumin, Serum 2.1 g/dL (3.2-5.0); Alkaline Phosphatase 204 U/L (45-117); Anion Gap 6 (5-15); BUN 7 mg/dL (7-18); BUN/Creat Ratio 14.3 RATIO (10-20); Calcium,Total 8.7 mg/dL (8.5-10.1); Chloride 108 mmol/L (98-107); Creatinine, Serum 0.49 mg/dL (0.55-1.02); EST Glomerular Filtration Rate 140 mL/min (>60); Est Glom Filt Rate - Afr Amer 170 mL/min (>60); Estimated Creatinine Clearance 105.01 ml/min; Globulin 4.3 g/dL (2.2-4.2); Glucose 101 mg/dL (74-106); Protein, Total 6.4 g/dL (6.4-8.2); Sodium Level 136 mmol/L (136-145)
[2021-05-14 07:16] LABS: Differential Comment SCANNED; Platelet Estimate ADEQUATE (ADEQ)
[2021-05-14] MEDS: Lactated Ringers 1,000 ML 100 ML IV ×2 (08:45→15:08)
--- NOTE | 2021-05-14 08:49 | PN.SURG_ITS ---
Subjective Subjective Patient seen and examined during AM rounds. She is apologetic over how she woke up out of anesthesia. She states that she is a still experiencing abdominal pain but this is exclusively incisional and denies feeling the pain that she went to the operating room for. She is eager to know when her ERCP procedure is scheduled. Objective Data Objective Data Vital Signs: Vital Signs Temp Pulse Resp BP Pulse Ox 98.6 F 89 18 155/59 H 95 05/14/21 06:26 05/14/21 06:26 05/14/21 06:26 05/14/21 06:26 05/14/21 06:26 Oxygen Delivery Method Room Air Weight: 182 lb 15.739 oz Body Mass Index (BMI) 33.5 Intake & Output: Intake and Output for Last 24 Hours 05/12/21 05/13/21 05/14/21 23:59 23:59 23:59 Intake Total 792 / 792 1659.00 / 1659.00 1169 / 1169 Output Total 250 / 250 Balance 792 / 792 1409.00 / 1409.00 1169 / 1169 Lab / Micro Data Result Diagrams: 05/14/21 06:17 05/14/21 06:08 Labs: Laboratory Results - last 24 hr 05/14/21 06:08: Sodium 136, Potassium 4.0, Chloride 108 H, Carbon Dioxide 22.0, Anion Gap 6, BUN 7, Creatinine 0.49 L, Estim Creat Clear Calc 105.01, Est GFR (M DRD) Af Amer 170, Est GFR (MDRD) Non-Af 140, BUN/Creatinine Ratio 14.3, Glucose 101, Calcium 8.7, Total Bilirubin 1.90 H, AST 125 H, ALT 147 H, Alkaline Phosphatase 204 H, Total Protein 6.4, Albumin 2.1 L, Globulin 4.3 H, Albumin/Globulin Ratio 0.5 L 05/14/21 06:17: WBC 8.0, RBC 4.49, Hgb 12.2, Hct 35.6 L, MCV 79.3 L D, MCH 27.2, MCHC 34.3 D, RDW Std Deviation 44.1 H, RDW Coeff of Abhay 15.3 H, Plt Count 196, MPV 11.8, Immature Gran % (Auto) 0.400, Neut % (Auto) 67.0, Lymph % (Auto) 24.0, [place] % (Auto) 6.8, Eos % (Auto) 1.1, Baso % (Auto) 0.7, Absolute Neuts (auto) 5.4, Absolute Lymphs (auto) 1.93, Nucleated RBC % 0, Differential Comment SCANNED, Platelet Estimate ADEQUATE Micro: Microbiology 05/13/21 07:35 Nasal Secretion SARS-CoV-2 Antigen (Rapid) - Final Radiography Diagnostic Testing: Radiology Impression Cholangiogram 05/13/21 13:30 IMPRESSION: Intrahepatic biliary duct filling defect consistent with a stone. Extravasated contrast extending along the subhepatic space which may represent leakage around the cannula. Kinking of the distal common bile duct which may represent an area of stricture or injury. Correlate findings with surgical report. at 1647 Reported and signed by: Santo Mcdonald MD Electronically Signed: Santo Mcdonald MD at 16:46 EST Tel , Service support , Physical Exam Const oriented x3 Resp normal respiratory effort GI GI Narrative: Nondistended, operative dressings are in place with mild ecchymosis around the subxiphoid port site. Otherwise the bandages are clean and dry. The abdomen is soft and appropriately tender about port sites with palpation Assessment & Plan Assessment/Plan (1) Cholecystitis with cholelithiasis: QUALIFIERS: Cholelithiasis location: gallbladder Cholecystitis acuity: unspecified acuity PLAN: Postoperative day 1 from laparoscopic cholecystectomy with intraoperative cholangiogram. Cholangiography revealed obstruction of antegrade flow into the duodenum consistent with a stone lodged near the ampulla. Therefore GI has been consulted to relieve this biliary obstruction to ERCP later today. Otherwise, patient's abdomen appears appropriate. (2) Choledocholithiasis: PLAN: ERCP, as above, for relief of biliary obstruction. Recommend keepi ng patient n.p.o. with IV fluids and IV antibiotics until procedure is complete. Charges/Coding Visit Charges Inpatient E&M: 98239 Subs Hosp L2
--- NOTE | 2021-05-14 12:36 | PN.HOSP_ITS ---
Documented by User: Fausto FLEMING 05/14/21 12:46 Subjective Subjective Patient is a 55-year-old female comfortably resting in bed, alert and orient x3. Patient reports abdominal pain, but she reports that it is currently controlled on her current pain regimen. Denies development of any new symptoms overnight. Does not appear in acute distress. Objective Data Objective Data Vital Signs: Vital Signs Temp Pulse Resp BP Pulse Ox 97.8 F 89 18 128/76 H 95 05/14/21 11:13 05/14/21 11:13 05/14/21 11:13 05/14/21 11:13 05/14/21 11:13 Oxygen Delivery Method Room Air Weight: 182 lb 15.739 oz Body Mass Index (BMI) 33.5 Intake & Output: Intake and Output for Last 24 Hours 05/12/21 05/13/21 05/14/21 23:59 23:59 23:59 Intake Total 792 / 792 1659.00 / 1659.00 1169 / 1169 Output Total 250 / 250 Balance 792 / 792 1409.00 / 1409.00 1169 / 1169 Lab / Micro Data Result Diagrams: 05/14/21 06:17 05/14/21 06:08 Labs: Laboratory Results - last 24 hr 05/14/21 06:08: Sodium 136, Potassium 4.0, Chloride 108 H, Carbon Dioxide 22.0, Anion Gap 6, BUN 7, Creatinine 0.49 L, Estim Creat Clear Calc 105.01, Est GFR (MDRD) Af Amer 170, Est GFR (MDRD) Non-Af 140, BUN/Creatinine Ratio 14.3, Glucose 101, Calcium 8.7, Total Bilirubin 1.90 H, AST 125 H, ALT 147 H, Alkaline Phosphatase 204 H, Total Protein 6.4, Albumin 2.1 L, Globulin 4.3 H, Albumin/Globulin Ratio 0.5 L 05/14/21 06:17: WBC 8.0, RBC 4.49, Hgb 12.2, Hct 35.6 L, MCV 79.3 L D, MCH 27.2, MCHC 34.3 D, RDW Std Deviation 44.1 H, RDW Coeff of Abhay 15.3 H, Plt Count 196, MPV 11.8, Immature Gran % (Auto) 0.400, Neut % (Auto) 67.0, Lymph % (Auto) 24.0, [place] % (Auto) 6.8, Eos % (Auto) 1.1, Baso % (Auto) 0.7, Absolute Neuts (auto) 5.4, Absolute Lymphs (auto) 1.93, Nucleated RBC % 0, Differential Comment SCANNED, Platelet Estimate ADEQUATE Micro: Microbiology 05/13/21 07:35 Nasal Secretion SARS-CoV-2 Antigen (Rapid) - Final Radiography Diagnostic Testing: Radiology Impression Cholangiogram 05/13/21 13:30 IMPRESSION: Intrahepatic biliary duct filling defect consistent with a stone. Extravasated contrast extending along the subhepatic space which may represent leakage around the cannula. Kinking of the distal common bile duct which may represent an area of stricture or injury. Correlate findings with surgical report. at 1647 Reported and signed by: Santo Mcdonald MD Electronically Signed: Santo Mcdonald MD at 16:46 EST Tel , Service support , Physical Exam Const alert, oriented x3 and no apparent distress HEENT head/scalp atraumatic and moist oral mucous membranes Head and Scalp: normocephalic Eyes PERRL, EOMs intact bilaterally and conjunctivae normal Neck no lymphadenopathy, supple and no JVD Resp normal respiratory effort, no retractions, no use of accessory muscles and clear to auscultation bilaterally Cardio regular rate, regular rhythm, no murmurs and no JVD GI normal to inspection, nondistended, normoactive bowel sounds Palpation: tender Extremity normal to inspection, full ROM and no clubbing, cyanosis or edema Skin no rashes or lesions noted, no wounds and skin turgor normal Neuro CN's II-XII intact bilaterally Psych affect normal Assessment & Plan Assessment/Plan (1) Opiate withdrawal: (2) Opiate addiction: (3) Cholecystitis with cholelithiasis: QUALIFIERS: Cholecystitis acuity: unspecified acuity Cholelithiasis location: gallbladder PLAN: Day 5 Discharge planning: To be determined. 1) opiate withdrawal Currently on buprenorphine taper, as needed medications ordered. Patient reports that withdrawal symptoms are currently controlled on current medication regimen. 2) cholecystitis POD 1 status post laparoscopic cholecystectomy with intraoperative cholangiogram. General surgery following. 3) choledocholithiasis Intraoperative cholangiogram for #2 revealed obstruction due to stone near the ampulla. GI consulted for ERCP for removal of stone on 05/14/2021. 4) anxiety/depression Continue duloxetine and trazodone. 5) tobacco abuse Cessation advised, nicotine patch ordered. DVT prophylaxis - SCDs Patient seen by Fausto Ferreira PA-C, under the supervision of Dr. Moura. Time spent on patient care: 8 minutes. Documented by User: Dr. Jemima Moura MD 05/15/21 07:54 Objective Data Lab / Micro Data Result Diagrams: 05/14/21 06:17 05/14/21 06:08 Charges/Coding Addendum Addendum: This patient was seen in conjunction with LONNIE Ludwig. I have independently interviewed and examined the patient and reviewed pertinent historical, laboratory, and other data. I have reviewed her note and concur with her documentation Patient was examined. She underwent ERCP today. She has not received any narcotic. She is on Toradol. Temp Pulse Resp BP Pulse Ox 97.8 F 89 18 128/76 H 95 Physical Exam: Gen: Comfortable, not pale, not jaundiced CVS:HS I +II, regular, no murmurs RESP: Diminished at lung bases GI: BS present and normal, soft, mild tenderness in the right upper quadrant, no palpable organs EXT:No edema ASSESSMENT: 1. POD#1 s/p lap cholecystectomy, positive cholangiogram, ERCP today 2. Acute opioid withdrawal 3. Nicotine dependence 4. Anxiety/depression Plan: General surgery following Continue with NSAIDS for pain control Continue on Subutex withdrawal protocol Nicotine replacement Time spent coordinating patient's care, discussing with subspecialty and nursin minutes
--- NOTE | 2021-05-14 13:10 | RAD_ITS ---
PROCEDURE: ERCP. DATE OF EXAMINATION: 05/14/2021. INDICATION: Female, 55 years old. Stent placement. FLUOROSCOPY TIME (if supplied): (94.5 seconds) minutes/seconds. 9 images were obtained. An ERCP was performed by the incinerator plant general supervisor. A filling defect is seen in the proximal intrahepatic biliary duct. This stone was removed. A stent was placed. RAD/ERCP Biliary Only IMPRESSION: Status post retrieval of a stone. Stent placement. Electronically Signed: Brian Mendez MD at 14:39 EST , Service support ,
--- NOTE | 2021-05-14 14:08 | OP.ERCP_ITS ---
Patient Name: Lauren Hung Procedure Date: 05/14/2021 12:28 PM Date of : 1965 Age: 55 Procedure: ERCP Indications: Bile duct stone(s) Providers: Misael Macias DO Medicines: See the Anesthesia note for documentation of the administered medications Patient Profile: This is a 55 year old female. Refer to note in patient chart for documentation of history and physical. Patient has symptoms of acute jaundice. She is status post laparoscopic cholecystectomy recently. Complications: No immediate complications. Procedure: Pre-Anesthesia Assessment: - Prior to the procedure, a History and Physical was performed, and patient medications and allergies were reviewed. The patient is competent. The risks and benefits of the procedure and the sedation options and risks were discussed with the patient. All questions were answered and informed consent was obtained. Patient identification and proposed procedure were verified by the physician in the pre-procedure area. Mental Status Examination: alert and oriented. Airway Examination: normal oropharyngeal airway and neck mobility. Respiratory Examination: clear to auscultation. CV Examination: normal. Prophylactic Antibiotics: The patient does not require prophylactic antibiotics. Prior Anticoagulants: The patient has taken no previous anticoagulant or antiplatelet agents. ASA Grade Assessment: III - A patient with severe systemic disease. After reviewing the risks and benefits, the patient was deemed in satisfactory condition to undergo the procedure. The anesthesia plan was to use moderate sedation / analgesia (conscious sedation). Immediately prior to administration of medications, the patient was re-assessed for adequacy to receive sedatives. The heart rate, respiratory rate, oxygen saturations, blood pressure, adequacy of pulmonary ventilation, and response to care were monitored throughout the procedure. The physical status of the patient was re-assessed after the procedure. After obtaining informed consent, the scope was passed under direct vision. Throughout the procedure, the patient's blood pressure, pulse, and oxygen saturations were monitored continuously. The duodenoscope was introduced through the mouth, and advanced to the duodenum and used to inject contrast into the bile duct. The ERCP was accomplished without difficulty. The patient tolerated the procedure well. Moderate Sedation: Moderate (conscious) sedation was personally administered by an anesthesia professional. The following parameters were monitored: oxygen saturation, heart rate, blood pressure, and response to care. Total physician intraservice time was 15 minutes. Scope In: 1:10:44 PM Scope Out: 1:49:04 PM Total Procedure Duration Time 0 hours 38 minutes 20 seconds Findings: The hospitality job titles film was normal. The esophagus was successfully intubated under direct vision. The scope was advanced to a normal major papilla in the descending duodenum without detailed examination of the pharynx, larynx and associated structures, and upper GI tract. The upper GI tract was grossly normal. The bile duct was deeply cannulated with the short-nosed traction sphincterotome. Contrast was injected. I personally interpreted the bile duct images. There was brisk flow of contrast through the ducts. Opacification of the main bile duct was successful. The maximum diameter of the ducts was 9 mm. The lower third of the main bile duct contained two stones, the largest of which was 5 mm in diameter. The main bile duct was diffusely dilated, with a stone causing an obstruction. The largest diameter was 10 mm. A cholecystectomy had been performed. A long 0.035 inch Soft Jagwire was passed into the biliary tree. A 5 mm biliary sphincterotomy was made with a braided traction (standard) sphincterotome using ERBE electrocautery. The sphincterotomy oozed blood. The biliary tree was swept with a 12 mm balloon starting at the bifurcation. Sludge was swept from the duct. Two stones were removed. No stones remained. One 10 Fr by 5 cm temporary stent with a single external flap and two internal flaps was placed 5 cm into the common bile duct. Bile flowed through the stent. The stent was in good position. Impression: - The entire main bile duct was dilated, with a stone causing an obstruction. - The patient has had a cholecystectomy. - Choledocholithiasis was found. Complete removal was accomplished by biliary sphincterotomy and balloon extraction. - A biliary sphincterotomy was performed. - The biliary tree was swept. - One temporary stent was placed into the common bile duct. Procedure Code(s): --- Professional --- 84547, Endoscopic retrograde cholangiopancreatography (ERCP); with placement of endoscopic stent into biliary or pancreatic duct, including pre- and post-dilation and guide wire passage, when performed, including sphincterotomy, when performed, each stent [id number], Endoscopic retrograde cholangiopancreatography (ERCP); with removal of calculi/debris from biliary/pancreatic duct(s) 17188, Endoscopic catheterization of the biliary ductal system, radiological supervision and interpretation CPT copyright 2017 [employer]. All rights reserved. The codes documented in this report are preliminary and upon medical biller/coder review may be revised to meet current compliance requirements. Misael Macias DO 05/14/2021 2:07:32 PM This report has been signed electronically. Number of Addenda: 0 Note Initiated On: 05/14/2021 12:28 PM
--- NOTE | 2021-05-14 14:08 | OP.CCLET_ITS ---
05/14/2021 Cat Vasquez [address] [place] [address] Re : ERCP procedure for Lauren Hung Dear Dr. Vasquez This procedure was performed on April. My impressions and recommendations are as follows: Impressions : - The entire main bile duct was dilated, with a stone causing an obstruction. - The patient has had a cholecystectomy. - Choledocholithiasis was found. Complete removal was accomplished by biliary sphincterotomy and balloon extraction. - A biliary sphincterotomy was performed. - The biliary tree was swept. - One temporary stent was placed into the common bile duct. Recommendations : My findings are described in the full procedure note, which is enclosed. If I can be of further assistance, please feel free to contact me at . Sincerely, Misael Macias, 05/14/2021 2:07:32 PM This report has been signed electronically.
[2021-05-14] MEDS: Ursodiol 250 MG Tablet PO (15:42)
[2021-05-14] MEDS: Pantoprazole Sodium 40 MG Tablet PO ×2 (15:43→20:41)
[2021-05-14] MEDS: traZODone 100 MG Tablet PO (22:19)
[2021-05-14] MEDS: 0.9% Saline Lock 10 ML Syringe IV (22:19)
[2021-05-15] MEDS: Lactated Ringers 1,000 ML 100 ML IV (00:52)
[2021-05-15 03:27] VITALS: BP 133/72; PULSE 67; RESP 18; TEMP 36.6; O2SAT 98
[2021-05-15] MEDS: Acetaminophen 500 MG Tablet PO ×2 (03:32→12:19)
[2021-05-15] MEDS: Methocarbamol 750 MG Tablet 1500 MG PO ×2 (03:32→09:52)
[2021-05-15] MEDS: cloNIDine HCl 0.1 MG Tablet PO ×2 (03:38→12:19)
[2021-05-15] MEDS: Ketorolac 30 MG/ML Syringe IV (05:22)
[2021-05-15] MEDS: Ursodiol 250 MG Tablet PO (08:08)
[2021-05-15 08:09] VITALS: BP 117/63; PULSE 73; RESP 18; TEMP 36.9; O2SAT 95
--- NOTE | 2021-05-15 08:10 | PCM.PN.SRG ---
Subjective Subjective Patient seen and examined during AM rounds. She reports soreness of her abdominal wall and even her shoulders. She also has some tenderness about her incision sites, but states that she feels better than when she came in. Objective Data Objective Data Vital Signs: Vital Signs Temp Pulse Resp BP Pulse Ox 98 F 67 18 133/72 H 98 05/15/21 03:27 05/15/21 03:27 05/15/21 03:27 05/15/21 03:27 05/15/21 03:27 Oxygen Delivery Method Room Air Weight: 182 lb 15.739 oz Body Mass Index (BMI) 33.5 Intake & Output: Intake and Output for Last 24 Hours 05/13/21 05/14/21 05/15/21 23:59 23:59 23:59 Intake Total 1659.00 / 1659.00 2831.33 / 2831.33 530 / 530 Output Total 250 / 250 Balance 1409.00 / 1409.00 2831.33 / 2831.33 530 / 530 Lab / Micro Data Result Diagrams: 05/14/21 06:17 05/14/21 06:08 Micro: Microbiology 05/13/21 07:35 Nasal Secretion SARS-CoV-2 Antigen (Rapid) - Final Radiography Diagnostic Testing: Radiology Impression ERCP X-Ray 05/14/21 13:10 IMPRESSION: Status post retrieval of a stone. Stent placement. Electronically Signed: Brian Mendez MD at 14:39 EST , Service support , Physical Exam Const no apparent distress GI GI Narrative: Patient's abdomen is nondistended, port sites are initially covered with operative dressings with minimal dried blood drainage to the bandages. When these are removed the Steri-Strips remain intact and there is no surrounding erythema or underlying fluctuance. There is a small amount of ecchymosis to the patient's subxiphoid port site. The bandage over the patient's supraumbilical port site is left in place given that it falls along the waistband of her pants and would be at risk for rubbing. Patient's abdomen is otherwise soft and appropriately tender to palpation about these port sites. Assessment & Plan Assessment/Plan (1) Cholecystitis with cholelithiasis: QUALIFIERS: Cholelithiasis location: gallbladder Cholecystitis acuity: unspecified acuity PLAN: Postoperative day 2 from laparoscopic cholecystectomy with intraoperative cholangiogram. Cholangiography revealed obstruction of antegrade flow into the duodenum consistent with a stone lodged near the ampulla. Therefore GI was consulted and performed ERCP with stone extraction yesterday. Patient currently feeling better than earlier in her admission. Awaiting a.m. labs to assess changes in CMP. From a surgical standpoint, if these are downtrending, patient could be released to rehab. I would like to see the patient back in follow-up within about 7 days to assess healing. She does not require any dietary restrictions but should be encouraged to limit any lifting to less than 15 pounds for 2 weeks following the operation. (2) Choledocholithiasis: PLAN: ERCP, as above, for relief of biliary obstruction. Follow-up a.m. labs Charges/Coding Visit Charges Inpatient E&M: 89395 Subs Hosp L2
[2021-05-15 08:45] LABS: Absolute Lymphocyte Count 1.55 X10^3/uL (0.83-4.51); Absolute Neutrophil Count 3.4 X10^3/uL (2.0-7.7); Basophil# 0.07 X10^3/uL; Basophil% 1.2 % (0-1); Eosinophil# 0.36 X10^3/uL; Eosinophils% 6.1 % (0-5); Hematocrit 33.8 % (37-47); Hemoglobin 10.8 g/dL (12.0-15.0); Lymphocyte # 1.55 X10^3/ul (0.83-4.51); Lymphocyte % 26.3 % (19-41); Mean Corpuscular Hgb 27.2 pg (27.0-32.0); Mean Corpuscular Volume 85.1 fL (81-99); Mean Platelet Vol. 11.4 fl (6.2-12.0); Monocyte# 0.51 X10^3/uL; Monocyte% 8.7 % (0-10); NRBC Flagged by Analyzer 0 % (0-5); Neutrophil # 3.39 X10^3/uL (2.7-7.7); Neutrophil % 57.5 % (47-70); Platelet Count 210 K/mm3 (150-450); RBC Distribution Width CV 15.9 % (11.6-14.6); RBC Distribution Width SD 49.9 fl (35.1-43.9); Red Blood Count 3.97 M/mm3 (4.2-5.4); White Blood Count 5.9 K/mm3 (4.4-11.0)
[2021-05-15 09:11] LABS: ALB/GLOB Ratio 0.6 RATIO (0.9-2.4); AST(SGOT) 103 U/L (15-37); Alanine Aminotransfer ALT/SGPT 145 U/L (13-56); Albumin, Serum 2.2 g/dL (3.2-5.0); Alkaline Phosphatase 192 U/L (45-117); Anion Gap 4 (5-15); BUN 7 mg/dL (7-18); BUN/Creat Ratio 9.9 RATIO (10-20); Calcium,Total 8.2 mg/dL (8.5-10.1); Chloride 109 mmol/L (98-107); Creatinine, Serum 0.71 mg/dL (0.55-1.02); EST Glomerular Filtration Rate 92 mL/min (>60); Est Glom Filt Rate - Afr Amer 111 mL/min (>60); Estimated Creatinine Clearance 72.47 ml/min; Globulin 3.7 g/dL (2.2-4.2); Glucose 119 mg/dL (74-106); Potassium 3.8 mmol/L (3.5-5.1); Protein, Total 5.9 g/dL (6.4-8.2); Sodium Level 140 mmol/L (136-145)
[2021-05-15] MEDS: Pantoprazole Sodium 40 MG Tablet PO (09:52)
[2021-05-15] MEDS: hydrOXYzine PAM 25 MG Capsule 50 MG PO (09:53)
[2021-05-15] MEDS: Dicyclomine 10 MG Capsule 20 MG PO (10:00)
--- NOTE | 2021-05-15 10:44 | PCM.DC ---
Discharge Instructions Diet Discharge Diet: No restrictions Activity Discharge Activity: Return to Normal Activity Weight Bearing Status: Weight bearing as tolerated Dressing / Incision Call your doctor if you observe: Fever of 101 or Higher, Numbness or Tingling, Shortness of breath, Dizziness, Chest pain, Increased palpitations (irregular heartbeat) and Calf discomfort Follow Up Care Please Follow Up With: Primary care provider When: Within the next two weeks. Test Results: Test results from this visit will be discussed in further detail at your follow-up appointment, if applicable. Discharge Plan Admission Admit Date/Time: 05/09/21 15:14 Primary Reason for Your Visit: Opiate withdrawal + Abdominal pain Attending Provider: Jemima Moura Primary Care Provider: Cat Vasquez Consulting Providers: Rodrigo Rae Discharge Orders/Prescriptions Prescriptions: New acetaminophen 500 mg Tablet 650 mg PO Q6H PRN (Reason: Pain, Severe) Qty: 120 RF: 0 ibuprofen 400 mg tablet 400 mg PO Q4H PRN (Reason: fever or pain) Qty: 180 RF: 0 Continued trazodone 100 MG tablet 100 mg PO QHS RF: 0 omeprazole 20 MG capsule 20 mg PO DAILY RF: 0 duloxetine 30 MG capsule 30 mg PO DAILY RF: 0 Held ibuprofen [IBU] 800 MG tablet 800 mg PO TID PRN (Reason: Pain) RF: 0 Hold Instructions: Resume on 06/13/21. Referrals / Follow Up: Cat Vasquez MD [Primary Care Provider] - Within 2 Weeks Rodrigo Rae MD [STAFF PHYSICIAN] - Within 2 Weeks (Follow up in 2-4 weeks. ) Misael Macias DO [STAFF PHYSICIAN] - Within 2 Weeks (Follow up in 2-3 weeks. ) Disposition Disposition (needs filled in before D/C Order can be placed): Home, Self Care
[2021-05-15 12:23] VITALS: BP 117/63; PULSE 73; RESP 18; TEMP 36.9; O2SAT 95
--- NOTE | 2021-05-15 13:31 | PCM.DC.SUM ---
Documented by User: Fausto FLEMING 05/15/21 13:39 Providers Date of Admission: 05/09/21 Date of Discharge: 05/15/21 Primary Care Physician: Dr. Cat Vasquez MD Consultations 05/12/21 13:31 Consult: General Surgery Routine Consulting Provider: Rodrigo Rae Reason for Consult: Cholecystitis EMERGENT Consult: No Notified: Yes Date Notified: 05/12/21 Time Notified: 13:32 Method of Notification: Provider Initiated 05/13/21 16:37 Consult: Gastroenterology Routine Consulting Provider: [facility] Reason for Consult: choledocholithiasis EMERGENT Consult: No Notified: Yes Date Notified: 05/13/21 Time Notified: 16:37 Method of Notification: Provider Initiated Reason For Visit: OPIATE WITHDRAWAL Diagnosis Discharge Diagnosis (1) Cholecystitis with cholelithiasis: Status: Acute Code(s): K80.10 - Calculus of gallbladder with chronic cholecystitis without obstruction Qualifiers: Cholecystitis acuity: unspecified acuity Cholelithiasis location: gallbladder (2) Choledocholithiasis: Status: Acute Code(s): K80.50 - Calculus of bile duct without cholangitis or cholecystitis without obstruction Medications at Discharge Home Medications ibuprofen [IBU] 800 mg PO TID PRN 02/01/18 duloxetine 30 mg PO DAILY 11/11/19 omeprazole 20 mg PO DAILY 11/11/19 trazodone 100 mg PO QHS 11/11/19 acetaminophen 650 mg PO Q6H PRN #120 tab 05/15/21 ibuprofen 400 mg PO Q4H PRN #180 tab 05/15/21 Hospital Course Summary of Care Provided Minutes Spent on Discharge: 15 Hospital Course: Patient is a 55-year-old female who was admitted to [facility] on 05/09/2021 for evaluation and management of heroin abuse/impending withdrawal, on admission patient was noted to have significant abdominal pain which was subsequently found to be cholecystitis secondary to cholelithiasis. Management and course as below. 1) opiate withdrawal Patient was placed on buprenorphine taper and adjunctive medications throughout admission, no complications noted. Outpatient care to be coordinated through [facility]. 2) cholecystitis POD 2 status post laparoscopic cholecystectomy with intraoperative cholangiogram. Patient was also treated with Unasyn while admitted. Patient provided Tylenol and ibuprofen on discharge for pain management, to follow-up with Dr. Rae within the next 2 to 3 weeks. 3) choledocholithiasis Intraoperative cholangiogram for #2 revealed obstruction due to stone near the ampulla of Vater. Successful stone removal via ERCP conducted on 05/14/2021. Pain medications as above, patient to follow-up with Dr. Macias within the next 2 to 3 weeks. 4) anxiety/depression Continue duloxetine and trazodone. 5) tobacco abuse Cessation advised, nicotine patch ordered throughout admission. Patient seen by Fausto Ferreira PA-C, under the supervision of Dr. Moura. Time spent on patient care: 15 minutes Physical Exam Narrative Patient is a 55-year-old female comfortably lying in bed, alert and oriented x3. Patient reports mild abdominal pain throughout the abdomen, but reports this is controlled with pain medications. Denies development of any new symptoms overnight. Does not appear in acute distress. Const alert, oriented x3 and no apparent distress HEENT normocephalic, head/scalp atraumatic and hearing grossly normal bilaterally Eyes PERRL, EOMs intact bilaterally and conjunctivae normal Neck no lymphadenopathy, supple and no JVD Resp normal respiratory effort, no retractions, no use of accessory muscles and clear to auscultation bilaterally Cardio regular rate, regular rhythm and no JVD GI normal to inspection, nondistended, normoactive bowel sounds and soft to palpation Palpation: tender Extremity normal to inspection, full ROM and no clubbing, cyanosis or edema Skin no rashes or lesions noted, no wounds and skin turgor normal Neuro CN's II-XII intact bilaterally Psych affect normal Weight / BMI Weight Weight: 182 lb 15.739 oz Body Mass Index (BMI) 33.5 ABG / Lab / Microbiology Data Result Diagrams: 05/15/21 08:33 05/15/21 08:33 Laboratory: Laboratory Results - last 24 hr 05/15/21 08:33: WBC 5.9, RBC 3.97 L, Hgb 10.8 L, Hct 33.8 L, MCV 85.1 D, MCH 27.2, MCHC 32.0 D, RDW Std Deviation 49.9 H, RDW Coeff of Abhay 15.9 H, Plt Count 210, MPV 11.4, Immature Gran % (Auto) 0.200, Neut % (Auto) 57.5, Lymph % (Auto) 26.3, Borden % (Auto) 8.7, Eos % (Auto) 6.1 H, Baso % (Auto) 1.2 H, Absolute Neuts (auto) 3.4, Absolute Lymphs (auto) 1.55, Nucleated RBC % 0 05/15/21 08:33: Sodium 140, Potassium 3.8, Chloride 109 H, Carbon Dioxide 27.0, Anion Gap 4 L, BUN 7, Creatinine 0.71, Estim Creat Clear Calc 72.47, Est GFR (MDRD) Af Amer 111, Est GFR (MDRD) Non-Af 92, BUN/Creatinine Ratio 9.9 L, Glucose 119 H, Calcium 8.2 L, Total Bilirubin 1.20 H, AST 103 H, ALT 145 H, Alkaline Phosphatase 192 H, Total Protein 5.9 L, Albumin 2.2 L, Globulin 3.7, Albumin/Globulin Ratio 0.6 L Microbiology: Microbiology 05/13/21 07:35 Nasal Secretion SARS-CoV-2 Antigen (Rapid) - Final Radiography Diagnostic Testing: Radiology Impression ERCP X-Ray 05/14/21 13:10 IMPRESSION: Status post retrieval of a stone. Stent placement. Electronically Signed: Brian Mendez MD at 14:39 EST , Service support , D/C Instructions Discharge Diet: No restrictions Weight Bearing Status: Weight bearing as tolerated Call your doctor if you observe: Fever of 101 or Higher, Numbness or Tingling, Shortness of breath, Dizziness, Chest pain, Increased palpitations (irregular heartbeat) and Calf discomfort Please Follow Up With: Primary care provider When: Within the next two weeks. Meaningful Use Info Meaningful Use Diagnoses (Choose all that apply): None applicable Discharge Plan Admission Admit Date/Time: 05/09/21 15:14 Primary Reason for Your Visit: Opiate withdrawal + Abdominal pain Attending Provider: Jemima Moura Primary Care Provider: Cat Vasquez Consulting Providers: Rodrigo Rae Discharge Orders/Prescriptions Prescriptions: New acetaminophen 500 mg Tablet 650 mg PO Q6H PRN (Reason: Pain, Severe) Qty: 120 RF: 0 ibuprofen 400 mg tablet 400 mg PO Q4H PRN (Reason: fever or pain) Qty: 180 RF: 0 Continued trazodone 100 MG tablet 100 mg PO QHS RF: 0 omeprazole 20 MG capsule 20 mg PO DAILY RF: 0 duloxetine 30 MG capsule 30 mg PO DAILY RF: 0 Held ibuprofen [IBU] 800 MG tablet 800 mg PO TID PRN (Reason: Pain) RF: 0 Hold Instructions: Resume on 06/13/21. Referrals / Follow Up: Cat Vasquez MD [Primary Care Provider] - Within 2 Weeks Rodrigo Rae MD [STAFF PHYSICIAN] - Within 2 Weeks (Follow up in 2-4 weeks. ) Misael Macias DO [STAFF PHYSICIAN] - Within 2 Weeks (Follow up in 2-3 weeks. ) Disposition Disposition (needs filled in before D/C Order can be placed): Home, Self Care Documented by User: Dr. Jemima Moura MD 05/15/21 14:59 Providers Date of Admission: 05/09/21 Reason For Visit: OPIATE WITHDRAWAL Medications at Discharge Home Medications ibuprofen [IBU] 800 mg PO TID PRN 02/01/18 duloxetine 30 mg PO DAILY 11/11/19 omeprazole 20 mg PO DAILY 11/11/19 trazodone 100 mg PO QHS 11/11/19 acetaminophen 650 mg PO Q6H PRN #120 tab 05/15/21 ibuprofen 400 mg PO Q4H PRN #180 tab 05/15/21 ABG / Lab / Microbiology Data Result Diagrams: 05/15/21 08:33 05/15/21 08:33 Discharge Plan Admission Admit Date/Time: 05/09/21 15:14 Primary Reason for Your Visit: Opiate withdrawal + Abdominal pain Attending Provider: Jemima Moura Primary Care Provider: Cat Vasquez Consulting Providers: Rodrigo Rae Discharge Orders/Prescriptions Prescriptions: New acetaminophen 500 mg Tablet 650 mg PO Q6H PRN (Reason: Pain, Severe) Qty: 120 RF: 0 ibuprofen 400 mg tablet 400 mg PO Q4H PRN (Reason: fever or pain) Qty: 180 RF: 0 Continued trazodone 100 MG tablet 100 mg PO QHS RF: 0 omeprazole 20 MG capsule 20 mg PO DAILY RF: 0 duloxetine 30 MG capsule 30 mg PO DAILY RF: 0 Held ibuprofen [IBU] 800 MG tablet 800 mg PO TID PRN (Reason: Pain) RF: 0 Hold Instructions: Resume on 06/13/21. Referrals / Follow Up: Cat Vasquez MD [Primary Care Provider] - Within 2 Weeks Rodrigo Rae MD [STAFF PHYSICIAN] - Within 2 Weeks (Follow up in 2-4 weeks. ) Misael Macias DO [STAFF PHYSICIAN] - Within 2 Weeks (Follow up in 2-3 weeks. ) Disposition Disposition (needs filled in before D/C Order can be placed): Home, Self Care Charges/Coding Addendum Addendum: This patient was seen in conjunction with LONNIE Ludwig. I have independently interviewed and examined the patient and reviewed pertinent historical, laboratory, and other data. I have reviewed her note and concur with her documentation 55-year-old female with past medical history of opioid dependence who comes in for medical stabilization from opioid withdrawal. She was admitted to the [facility] floor and managed on the Subutex withdrawal protocol. During the course of the hospital stay, patient complained of abdominal crampiness but more in the right upper quadrant, worse with food. Ultrasound of the right upper quadrant showed acute cholecystitis. General surgery was consulted. Patient was started on IV antibiotics. Patient underwent laparoscopic cholecystectomy on 05/13/21. Intraoperative, cholangiograms were positive. Patient was managed on NSAIDs with improvement GI was consulted. Patient underwent ERCP on 04/2021. Choledocholithiasis was found. Complete removal was accomplished by biliary sphincterectomy and balloon extraction. The biliary tree was swept, temporary stent placed into the common bile duct. She was discharged to inpatient drug rehab to follow-up with [facility]. On the day of discharge, patient was seen and examined. Denied any new complaints. Her LFTs were improving. Physical Exam: Gen: Comfortable, not pale, not jaundiced CVS:HS I +II, regular, no murmurs RESP: Diminished at lung bases GI: BS present and normal, soft, laparoscopic dressings in place, mild tenderness in the right upper quadrant, no palpable organs EXT:No edema Time spent coordinating patient's care, discussing with general surgery, gastroenterology and nursin minutes Visit Charges Inpatient E&M: 05124 Subs Hosp L2
== END 2021-05-15 12:42 | disposition home or self-care (01) | DRG 988 ==
LOC: ED 15:19 → MS3 15:50
PROVIDERS: Internal Medicine Gastroenterology; Nurse Practitioner Family; Surgery; Admitting Provider Hospitalist; Emergency Provider Student in an Organized Health Care Education/Training Program; PCP Internal Medicine; Visit Provider Internal Medicine
PROC: 0FT44ZZ Resection of Gallbladder, Percutaneous Endoscopic Approach (ICD-10-PCS; CPT 47610; principal; 2021-05-13 10:50)
PROC: 0FHB8DZ Insertion of Intraluminal Device into Hepatobiliary Duct, Via Natural or Artificial Opening Endoscopic (ICD-10-PCS; CPT 43260; principal; 2021-05-14 12:00)
DX: F11.23 Opioid dependence with withdrawal (principal); K80.66 Calculus of gallbladder and bile duct with acute and chronic cholecystitis without obstruction; B18.2 Chronic viral hepatitis C; M06.9 Rheumatoid arthritis, unspecified; F17.210 Nicotine dependence, cigarettes, uncomplicated; K21.9 Gastro-esophageal reflux disease without esophagitis; F41.8 Other specified anxiety disorders; G89.29 Other chronic pain; Z79.899 Other long term (current) drug therapy; Z86.718 Personal history of other venous thrombosis and embolism; Z20.822 Contact with and (suspected) exposure to COVID-19
CPT/HCPCS: 36415; 74300; 74328; 76000; 76705; 80048; 80053; 80307; 82077; 84703; 85025; 87426; 88304; 93005; 97802; 99283; 99406; J7120; A4216; C1769; J0295; J0330; J1610; J2405

== ENCOUNTER 2021-10-13 19:01 | Inpatient (IN) | payer MEDICARE, SELFPAY ==
[2021-10-13 19:02] VITALS: BP 147/94; PULSE 116; RESP 18; TEMP 36.7; O2SAT 97; BMI 32.9
[2021-10-13 20:05] LABS: Absolute Lymphocyte Count 3.64 X10^3/uL (0.83-4.51); Absolute Neutrophil Count 6.6 X10^3/uL (2.0-7.7); Basophil# 0.12 X10^3/uL; Eosinophil# 0.62 X10^3/uL; Eosinophils% 5.1 % (0-5); Hematocrit 46.8 % (37-47); Hemoglobin 15.1 g/dL (12.0-15.0); Lymphocyte # 3.64 X10^3/ul (0.83-4.51); Lymphocyte % 29.9 % (19-41); Mean Corp Hgb Conc 32.3 g/dL (32-36); Mean Corpuscular Hgb 27.2 pg (27.0-32.0); Mean Corpuscular Volume 84.3 fL (81-99); Mean Platelet Vol. 10.8 fl (6.2-12.0); Monocyte# 1.16 X10^3/uL; Monocyte% 9.5 % (0-10); NRBC Flagged by Analyzer 0 % (0-5); Neutrophil # 6.59 X10^3/uL (2.7-7.7); Neutrophil % 54.3 % (47-70); Platelet Count 389 K/mm3 (150-450); RBC Distribution Width CV 17.3 % (11.6-14.6); RBC Distribution Width SD 53.1 fl (35.1-43.9); Red Blood Count 5.55 M/mm3 (4.2-5.4); White Blood Count 12.2 K/mm3 (4.4-11.0)
[2021-10-13 20:19] LABS: Anion Gap 7 (5-15); BUN 15 mg/dL (7-18); BUN/Creat Ratio 24.6 RATIO (10-20); Calcium,Total 9.1 mg/dL (8.5-10.1); Chloride 106 mmol/L (98-107); Creatinine, Serum 0.61 mg/dL (0.55-1.02); EST Glomerular Filtration Rate 109 mL/min (>60); Est Glom Filt Rate - Afr Amer 132 mL/min (>60); Estimated Creatinine Clearance 84.36 ml/min; Glucose 109 mg/dL (74-106); Potassium 4.3 mmol/L (3.5-5.1); Sodium Level 136 mmol/L (136-145)
--- NOTE | 2021-10-13 20:27 | EDS_ITS ---
HPI History of Present Illness Chief Complaint: Substance Abuse Detail of Chief Complaint: Heroin abuse both IV and snorting it. Informant: patient Onset/Context/Timing Onset: Month(s) Timing: Continuous Current Severity: Mild Maximum Severity: Mild Narrative Narrative: 55-year-old female history of rheumatoid arthritis. States when he took her pain medications away she started using both IV heroin. She has stopped using IV and states she now snorts it. She is looking for detox. She thinks she was detoxed about 5 months ago. She denies any recent illness. Prior similar symptoms: Yes Recent Illness/Hospitalization: No PFSH PFS Medical History Acute rheumatoid arthritis Anxiety Choledocholithiasis Chronic pain Depression DVT (deep venous thrombosis) Hepatitis History of immunosuppression therapy History of rheumatoid arthritis Nicotine dependence Opiate addiction Opiate withdrawal Restless legs Rheumatoid arthritis Smoker Substance abuse Home Medications ibuprofen 800 mg tablet (IBU) 800 mg PO TID PRN Pain 02/01/18 [History Last Taken 11/11/19 08:00] duloxetine 30 mg capsule,delayed release 30 mg PO DAILY mental health 11/11/19 [History Last Taken 05/08/21] omeprazole 20 mg capsule,delayed release 20 mg PO DAILY reflux 11/11/19 [History Last Taken 05/08/21] trazodone 100 mg tablet 100 mg PO QHS sleep 11/11/19 [History Last Taken 05/08/21] acetaminophen 500 mg tablet 650 mg PO Q6H PRN Pain, Severe #120 tabs 05/15/21 [Rx Last Taken Unknown] ibuprofen 400 mg tablet 400 mg PO Q4H PRN fever or pain #180 tabs 05/15/21 [Rx Last Taken Unknown] Allergy/AdvReac Type Severity Reaction Status Date / Time meloxicam AdvReac Upset Verified 10/13/21 19:04 Stomach Family History Mother Diabetes Cancer Mother No problems noted. Father Hypertension Surgical History S/P knee surgery Social History household members: family Smoking Status: Current every day smoker tobacco type: cigarettes details: Nondrinker substance use type: heroin ROS ROS ED ROS Narrative Nausea. Review of Systems ROS Unobtainable: Denies due to encephalopathy Constitutional Constitutional ED: Denies chills or fever(s) Eyes Eyes: Denies blurry vision ENT ENT ED: Denies ear pain or rhinorrhea Cardiovascular Cardiovascular: Denies chest pain Respiratory/Chest Respiratory/Chest: Denies cough or dyspnea Gastrointestinal Gastrointestinal: Reports nausea; Denies abdominal pain, constipation, diarrhea or melena Genitourinary Genitourinary ED: Denies dysuria Musculoskeletal Musculoskeletal: Denies arthralgias Integumentary Denies abscess Neurologic Neurologic: Denies headache(s) Psychiatric Psychiatric: Denies anxiety Endocrine Endocrinology: Denies cold intolerance Hematologic/Lymphatic Hematologic/Lymphatic: Denies easy bleeding Allergic/Immunologic Allergic/Immunologic ED: Denies mouth swelling EXAM Physical Exam Narrative Exam Narrative: 45-year-old female no acute distress vital signs stable afebrile. H EENT exam unremarkable. Neck nontender. Lungs are clear. Heart regular rhythm. Abdomen soft nontender. Moving all 4 extremities. Neurovascular intact. Nontender no edema. Old track palmer left arm. No abscess. No cellulitis. Back nontender. Neurological she is awake alert with no focal motor deficits. Const Vital Signs: 10/13/21 19:02 Temperature 98.1 F Temperature Source Temporal Pulse Rate 116 H Respiratory Rate 18 Blood Pressure 147/94 H Blood Pressure Mean 111 Pulse Ox 97 Oxygen Delivery Method Room Air Positive well nourished, well developed and obese; Negative for cachectic, contractures or unkempt General Appearance ED: well developed; Negative for unkempt, cachectic or contractures Nutritional Appearance: obese; Negative for cachectic HEENT Reports moist mucous membranes; Denies dry mucous membranes atraumatic; Negative for trauma or tenderness Mouth ED: No dry mucous membranes Mouth: No dry mucous membranes Eyes PERRL and EOMs intact bilaterally General Eye ED: Negative for pale conjunctiva Neck no lymphadenopathy, supple and no JVD Thyroid: Negative for tender Lymph Lymphatic: no lymphadenopathy noted; Negative for lymphadenopathy Chest Wall inspection of chest normal and palpation of chest normal Resp normal respiratory effort and clear to auscultation bilaterally Effort and Inspection: Negative for retractions Auscultation: Negative for rales, rhonchi or wheezes Cardio regular rate, regular rhythm, S1 normal heart sound, S2 normal heart sound and no murmurs Rate: Negative for bradycardia Bruits: Negative for other GI soft to palpation, non-tender, non-distended and no masses Inspection: Negative for abdominal distention Auscultation: Negative for hyperactive bowel sounds Palpation: Negative for tender or guarding Back/Spine no CVA tenderness General Back: Negative for CVA tenderness Cervical Spine: Negative for cervical spine tenderness Thoracic Spine / Upper Back: Negative for thoracic spinal tenderness Lumbar Spine / Lower Back: Negative for lumbar spinal tenderness Extremity Extremity Narrative: Nontender. No edema. No rashes. Old track darren left antecubital area. No cellulitis. General Extremety ED: Negative for edema or tenderness General Extremity: Negative for edema Neuro oriented x3 Sensorium / Orientation: alert, oriented to person, oriented to place and oriented to time; Negative for confused, lethargic or stuporous Speech: speech normal Motor Exam: strength 5/5 throughout; Negative for general weakness Psych mental status grossly normal Appearance: Negative for unkempt Attitude: No belligerent, No agitated, No aggressive and No hostile Mood & Affect: Negative for depressed or anxious Skin Skin Narrative: Unremarkable. No rashes. Lesions: no lesions Rashes: no rashes Trauma: Negative for abrasion MDM MDM MDM Narrative Medical decision making narrative: 55-year-old with history of heroin abuse. Requesting detox. Exam benign. I have the hospitalist on page for admission. Lab Data Attestation: I reviewed the patient's lab results. Lab results narrative: CBC shows white count 12.2. H&H of 15 and 46. Electrolytes unremarkable gap of 7. Normal BUN of 15 creatinine 0.6. Glucose 109. Labs: Laboratory Results - last 24 hr 10/13/21 10/13/21 10/13/21 19:49 20:00 20:00 WBC 12.2 H RBC 5.55 H Hgb 15.1 H Hct 46.8 MCV 84.3 MCH 27.2 MCHC 32.3 RDW Std Deviation 53.1 H RDW Coeff of Abhay 17.3 H Plt Count 389 MPV 10.8 Immature Gran % (Auto) 0.200 Neut % (Auto) 54.3 Lymph % (Auto) 29.9 [place] % (Auto) 9.5 Eos % (Auto) 5.1 H Baso % (Auto) 1.0 Absolute Neuts (auto) 6.6 Absolute Lymphs (auto) 3.64 Nucleated RBC % 0 Sodium 136 Potassium 4.3 Chloride 106 Carbon Dioxide 23.0 Anion Gap 7 BUN 15 Creatinine 0.61 Estim Creat Clear Calc 84.36 Est GFR (MDRD) Af Amer 132 Est GFR (MDRD) Non-Af 109 BUN/Creatinine Ratio 24.6 H Glucose 109 H Calcium 9.1 Ur Drug Screen Comment Discharge Plan Triage Chief Complaint: Substance Abuse ED Provider: Arnoldo Lopez Dx/Rx/DC Orders Clinical Impression: History of heroin abuse, Desire for detoxification, History of rheumatoid arthritis Prescriptions: No Action ibuprofen [IBU] 800 MG tablet 800 mg PO TID PRN (Reason: Pain) Hold Instructions: Resume on 06/13/21. Label Comments: Take 1 tablet by mouth every 8 hours as needed for Pain. Take with food. trazodone 100 MG tablet 100 mg PO QHS omeprazole 20 MG capsule 20 mg PO DAILY duloxetine 30 MG capsule 30 mg PO DAILY acetaminophen 500 mg Tablet 650 mg PO Q6H PRN (Reason: Pain, Severe) Qty: 120 0RF ibuprofen 400 mg tablet 400 mg PO Q4H PRN (Reason: fever or pain) Qty: 180 0RF Primary Care Provider: Cat Vasquez Referrals: Cat Vasquez MD [Primary Care Provider] -
[2021-10-13 20:33] LABS: Amphetamine Urine VISTA NEGATIVE (<1000 ng/mL); Barbiturate Urine VISTA NEGATIVE (< 200 ng/mL); Benzodiazepine Urine VISTA NEGATIVE (< 200 ng/mL); Cocaine Urine VISTA NEGATIVE (< 300 ng/mL); Ecstacy Urine VISTA NEGATIVE (< 500 ng/mL); Methadone Urine VISTA NEGATIVE (< 300 ng/mL); PCP Urine VISTA NEGATIVE (< 25 ng/mL); THC Urine VISTA NEGATIVE (< 50 ng/mL); Vista UDS pH Range 5
[2021-10-13 20:41] LABS: Alcohol, Blood (Medical)-Serum < 3.0 mg/dL
--- NOTE | 2021-10-13 21:00 | PCM.HP.STD ---
HPI - General General Date of Admission: 10/13/21 Date of Service: 10/13/21 Chief Complaint: opiate withdrawal HPI Narrative JANEY RODRIGUEZ, is a 55 F who presents for treatment for opiate withdrawal. Patient uses around 11 PM yesterday. Patient snorts heroin. She is feeling slightly tired at present denies any current GI issues and does not have restless leg at this point. Patient was in the hospital in April for similar and was seen 180 but then she had to get her gallbladder taken out and then she contracted COVID and is just lost to follow-up and then has been resuming heroin since then. [facility] Medical History Acute rheumatoid arthritis Anxiety Choledocholithiasis Chronic pain Depression DVT (deep venous thrombosis) Hepatitis History of immunosuppression therapy History of rheumatoid arthritis Nicotine dependence Opiate addiction Opiate withdrawal Restless legs Rheumatoid arthritis Smoker Substance abuse Home Medications ibuprofen 800 mg tablet (IBU) 800 mg PO TID PRN Pain 02/01/18 [History Last Taken 11/11/19 08:00] duloxetine 30 mg capsule,delayed release 30 mg PO DAILY mental health 11/11/19 [History Last Taken 05/08/21] omeprazole 20 mg capsule,delayed release 20 mg PO DAILY reflux 11/11/19 [History Last Taken 05/08/21] trazodone 100 mg tablet 100 mg PO QHS sleep 11/11/19 [History Last Taken 05/08/21] acetaminophen 500 mg tablet 650 mg PO Q6H PRN Pain, Severe #120 tabs 05/15/21 [Rx Last Taken Unknown] ibuprofen 400 mg tablet 400 mg PO Q4H PRN fever or pain #180 tabs 05/15/21 [Rx Last Taken Unknown] Allergy/AdvReac Type Severity Reaction Status Date / Time meloxicam AdvReac Upset Verified 10/13/21 19:04 Stomach Family History Mother Diabetes Cancer Mother No problems noted. Father Hypertension Surgical History S/P knee surgery Social History household members: family Smoking Status: Current every day smoker tobacco type: cigarettes details: Nondrinker substance use type: heroin ROS ROS Narrative All review of systems were negative except as mentioned above in the history of present illness and the other review of systems. Vital Signs Vital Signs Vital Signs: 10/13/21 19:02 Temperature 36.7 C Temperature Source Temporal Pulse Rate 116 H Respiratory Rate 18 Blood Pressure 147/94 H Blood Pressure Mean 111 Pulse Ox 97 Oxygen Delivery Method Room Air Weight Weight: 81.647 kg Body Mass Index (BMI) 32.9 Physical Exam Const alert and no apparent distress HEENT normocephalic Resp normal respiratory effort, no retractions, no use of accessory muscles and clear to auscultation bilaterally Cardio regular rate, regular rhythm, S1 normal heart sound and S2 normal heart sound GI normal to inspection, nondistended, normoactive bowel sounds, soft to palpation, non-tender and non-distended Extremity normal to inspection Results Lab / Micro Data Result Diagrams: 10/13/21 20:00 10/13/21 20:00 Labs: Laboratory Results - last 24 hr 10/13/21 19:49: Urine Opiates Screen NEGATIVE, Urine Methadone Screen NEGATIVE, Ur Barbiturates Screen NEGATIVE, Ur Phencyclidine Scrn NEGATIVE, Ur Amphetamines Screen NEGATIVE, MDMA (Ecstasy) Screen NEGATIVE, U Benzodiazepines Scrn NEGATIVE, Urine Cocaine Screen NEGATIVE, U Cannabinoids Screen NEGATIVE, Ur Drug Screen Comment 10/13/21 20:00: WBC 12.2 H, RBC 5.55 H, Hgb 15.1 H, Hct 46.8, MCV 84.3, MCH 27.2, MCHC 32.3, RDW Std Deviation 53.1 H, RDW Coeff of Abhay 17.3 H, Plt Count 389, MPV 10.8, Immature Gran % (Auto) 0.200, Neut % (Auto) 54.3, Lymph % (Auto) 29.9, [place] % (Auto) 9.5, Eos % (Auto) 5.1 H, Baso % (Auto) 1.0, Absolute Neuts (auto) 6.6, Absolute Lymphs (auto) 3.64, Nucleated RBC % 0 10/13/21 20:00: Sodium 136, Potassium 4.3, Chloride 106, Carbon Dioxide 23.0, Anion Gap 7, BUN 15, Creatinine 0.61, Estim Creat Clear Calc 84.36, Est GFR (MDRD) Af Amer 132, Est GFR (MDRD) Non-Af 109, BUN/Creatinine Ratio 24.6 H, Glucose 109 H, Calcium 9.1 10/13/21 20:10: Ethyl Alcohol < 3.0 Assessment & Plan Assessment/Plan (1) Opiate withdrawal: PLAN: Plan 1. Acute opiate withdrawal Uncomplicated Patient snorts heroin Plan: Buprenorphine taper Additional medications to help with somatic complaints associated with her withdrawal Addiction medicine to see and to facilitate outpatient program 2. Hepatitis C Patient not undergoing treatment at this time. Patient states that she will be following up gastroenterology to potentially initiate treatment in future. 3. Rheumatoid arthritis Per history. I did asked the patient what medications she was taking for rheumatoid arthritis and she was listing pain medications. Not sure if patient does have rheumatoid arthritis but patient can follow-up with rheumatology as outpatient 4. VTE prophylaxis: Low risk. Charges/Coding Visit Charges Inpatient E&M: 16184 Init Hosp L2
[2021-10-13 21:10] VITALS: BP 114/76; PULSE 84; RESP 18; TEMP 36.7; O2SAT 98
[2021-10-13 22:40] VITALS: BMI 31.4
[2021-10-13 22:42] VITALS: BP 127/69; PULSE 87; RESP 18; TEMP 36.7; O2SAT 94
[2021-10-13 23:18] VITALS: BP 129/90; PULSE 96; RESP 18; TEMP 36.7; O2SAT 93
[2021-10-13] MEDS: traZODone 100 MG Tablet PO (23:20)
[2021-10-13] MEDS: Ondansetron 8 MG Tablet PO (23:48)
[2021-10-13] MEDS: Gabapentin 300 MG Capsule PO (23:48)
[2021-10-13] MEDS: Dicyclomine 10 MG Capsule 20 MG PO (23:48)
[2021-10-13] MEDS: Buprenorphine HCl 2 MG TAB.SUBL SL (23:48)
[2021-10-14] MEDS: cloNIDine HCl 0.1 MG Tablet PO ×2 (02:10→11:52)
[2021-10-14] MEDS: Methocarbamol 750 MG Tablet 1500 MG PO ×3 (02:10→21:37)
[2021-10-14] MEDS: hydrOXYzine PAM 25 MG Capsule 50 MG PO ×3 (02:10→21:37)
[2021-10-14 06:16] VITALS: BP 129/89; PULSE 98; RESP 18; TEMP 36.6; O2SAT 96
[2021-10-14] MEDS: Buprenorphine HCl 2 MG TAB.SUBL SL ×2 (06:26→18:00)
[2021-10-14] MEDS: Gabapentin 300 MG Capsule PO (08:25)
[2021-10-14 11:47] VITALS: BP 140/81; PULSE 96; RESP 18; TEMP 36.3; O2SAT 97
[2021-10-14] MEDS: Pantoprazole Sodium 20 MG Tablet PO (11:52)
--- NOTE | 2021-10-14 11:56 | ADDICTION ---
This process description writer met with PT to conduct ASAM, MSE, AUDIT, DUDIT assessments and to plan for d/c. PT A+Ox4 and participated actively. All assessments completed and placed in PT's chart. PT plans to f/u with follow-up treatment services, however she wanted to sleep on it. This worker offered resources based on her listed wants and needs. Pt was to follow up with [facility] post dc last time in detox but did not. This worker will talk with pt more tomorrow.
[2021-10-14 15:38] VITALS: BP 147/78; PULSE 71; RESP 18; TEMP 36.6; O2SAT 97
--- NOTE | 2021-10-14 17:56 | PCM.PN.HOSP ---
Subjective Subjective Patient was seen and examined today, she appears to be resting quietly, she does not complain of any anxiety or nervousness. Patient states she is not decided whether to do an inpatient detox program Objective Data Objective Data Vital Signs: Vital Signs Temp Pulse Resp BP Pulse Ox 97.9 F 71 18 147/78 H 97 10/14/21 15:38 10/14/21 15:38 10/14/21 15:38 10/14/21 15:38 10/14/21 15:38 Oxygen Delivery Method Room Air Weight: 78 kg Body Mass Index (BMI) 31.4 Intake & Output: Intake and Output for Last 24 Hours 10/12/21 10/13/21 10/14/21 23:59 23:59 23:59 Intake Total 480 / 480 Balance 480 / 480 Lab / Micro Data Result Diagrams: 10/13/21 20:00 10/13/21 20:00 Labs: Laboratory Results - last 24 hr 10/13/21 19:49: Urine Opiates Screen NEGATIVE, Urine Methadone Screen NEGATIVE, Ur Barbiturates Screen NEGATIVE, Ur Phencyclidine Scrn NEGATIVE, Ur Amphetamines Screen NEGATIVE, MDMA (Ecstasy) Screen NEGATIVE, U Benzodiazepines Scrn NEGATIVE, Urine Cocaine Screen NEGATIVE, U Cannabinoids Screen NEGATIVE, Ur Drug Screen Comment 10/13/21 20:00: WBC 12.2 H, RBC 5.55 H, Hgb 15.1 H, Hct 46.8, MCV 84.3, MCH 27.2, MCHC 32.3, RDW Std Deviation 53.1 H, RDW Coeff of Abhay 17.3 H, Plt Count 389, MPV 10.8, Immature Gran % (Auto) 0.200, Neut % (Auto) 54.3, Lymph % (Auto) 29.9, [place] % (Auto) 9.5, Eos % (Auto) 5.1 H, Baso % (Auto) 1.0, Absolute Neuts (auto) 6.6, Absolute Lymphs (auto) 3.64, Nucleated RBC % 0 10/13/21 20:00: Sodium 136, Potassium 4.3, Chloride 106, Carbon Dioxide 23.0, Anion Gap 7, BUN 15, Creatinine 0.61, Estim Creat Clear Calc 84.36, Est GFR (MDRD) Af Amer 132, Est GFR (MDRD) Non-Af 109, BUN/Creatinine Ratio 24.6 H, Glucose 109 H, Calcium 9.1 10/13/21 20:10: Ethyl Alcohol < 3.0 Physical Exam Const alert, oriented x3, no apparent distress and healthy appearing General Appearance: cooperative, well kempt and well developed Orientation / Consciousness: awake, oriented to person, oriented to place and oriented to time HEENT normocephalic and moist oral mucous membranes Eyes PERRL, EOMs intact bilaterally and conjunctivae normal Neck nuchal rigidity, supple, no JVD, thyroid normal and no carotid bruits General: trachea midline Resp normal respiratory effort and clear to auscultation bilaterally Auscultation: Negative for rales, rhonchi or wheezes Cardio regular rate, regular rhythm, no murmurs, no rub and no gallops GI normal to inspection, nondistended, normoactive bowel sounds, soft to palpation, non-tender and non-distended Extremity no clubbing, cyanosis or edema Skin no rashes or lesions noted General Skin Exam: no breakdown Neuro oriented x3, CN's II-XII intact bilaterally, no focal motor deficits and no sensory deficits noted Sensorium / Orientation: awake and alert Speech: speech normal Psych affect normal Assessment & Plan Assessment/Plan (1) Opiate withdrawal: PLAN: Plan 1. Acute opiate withdrawal-patient shows no serious symptoms of withdrawal at this time, continue Subutex and symptomatic medication as needed. #2 hepatitis C-patient will be following up with a physician as an outpatient for possible treatment Charges/Coding Visit Charges Inpatient E&M: 25116 [facility] Hosp L2
[2021-10-14 21:33] VITALS: BP 120/70; PULSE 88; RESP 18; TEMP 36.4; O2SAT 97
[2021-10-14] MEDS: traZODone 100 MG Tablet PO (21:37)
[2021-10-14] MEDS: Dicyclomine 10 MG Capsule 20 MG PO (21:37)
[2021-10-15] MEDS: Buprenorphine HCl 2 MG TAB.SUBL SL ×4 (00:02→23:07)
[2021-10-15 04:17] VITALS: BP 130/77; PULSE 71; RESP 18; TEMP 36.7; O2SAT 96
[2021-10-15] MEDS: Methocarbamol 750 MG Tablet 1500 MG PO ×2 (04:22→18:18)
[2021-10-15] MEDS: hydrOXYzine PAM 25 MG Capsule 50 MG PO ×3 (04:22→20:10)
[2021-10-15] MEDS: Gabapentin 300 MG Capsule PO ×2 (08:32→20:10)
[2021-10-15] MEDS: Pantoprazole Sodium 20 MG Tablet PO (08:33)
[2021-10-15] MEDS: Dicyclomine 10 MG Capsule 20 MG PO (08:33)
[2021-10-15 08:38] VITALS: BP 152/83; PULSE 76; RESP 16; TEMP 36.8; O2SAT 96
--- NOTE | 2021-10-15 09:43 | PCM.PN.HOSP ---
Subjective Subjective Patient was seen and examined today, she is resting quietly, she has not made up her mind whether to go into an inpatient detox program when she leaves the hospital here or attend an outpatient detox program. Patient has no complaints of any muscle pain, anxiety, or nausea. Objective Data Objective Data Vital Signs: Vital Signs Temp Pulse Resp BP Pulse Ox 98.3 F 76 16 152/83 H 96 10/15/21 08:38 10/15/21 08:38 10/15/21 08:38 10/15/21 08:38 10/15/21 08:38 Oxygen Delivery Method Room Air Weight: 78 kg Body Mass Index (BMI) 31.4 Intake & Output: Intake and Output for Last 24 Hours 10/13/21 10/14/21 10/15/21 23:59 23:59 23:59 Intake Total 880 / 880 Balance 880 / 880 Lab / Micro Data Result Diagrams: 10/13/21 20:00 10/13/21 20:00 Physical Exam Const alert, oriented x3, no apparent distress and healthy appearing General Appearance: cooperative, well kempt and well developed Orientation / Consciousness: awake, oriented to person, oriented to place and oriented to time HEENT normocephalic and moist oral mucous membranes Eyes PERRL, EOMs intact bilaterally and conjunctivae normal Neck nuchal rigidity, supple, no JVD, thyroid normal and no carotid bruits General: trachea midline Resp normal respiratory effort, no retractions, no use of accessory muscles and clear to auscultation bilaterally Auscultation: Negative for rales, rhonchi or wheezes Cardio regular rate, regular rhythm, S1 normal heart sound, S2 normal heart sound, no murmurs, no rub and no gallops GI normal to inspection, nondistended, normoactive bowel sounds, soft to palpation, non-tender and non-distended Extremity normal to inspection and no clubbing, cyanosis or edema Skin no rashes or lesions noted General Skin Exam: no breakdown Neuro oriented x3, CN's II-XII intact bilaterally, no focal motor deficits and no sensory deficits noted Sensorium / Orientation: awake and alert Speech: speech normal Psych affect normal Assessment & Plan Assessment/Plan (1) Opiate withdrawal: PLAN: Plan 1. Acute opiate withdrawal-patient shows no serious symptoms of withdrawal at this time, continue Subutex and symptomatic medication as needed. Addiction social service agency director will be talking with the patient today regarding discharge planning. #2 hepatitis C-patient will be following up with a physician as an outpatient for possible treatment Charges/Coding Visit Charges Inpatient E&M: 41209 Subs Hosp L2
[2021-10-15 14:13] VITALS: BP 146/89; PULSE 76; RESP 16; TEMP 36.7; O2SAT 96
--- NOTE | 2021-10-15 14:40 | ADDICTION ---
PT plans to f/u with [facility] outpatient treatment services.. Pt reports that she did follow up with [facility] post dc last time in detox but only for a couple weeks. Pt was still very sleepy and not feeling well. This worker will talk with pt more tomorrow.
[2021-10-15] MEDS: cloNIDine HCl 0.1 MG Tablet PO (18:18)
[2021-10-15 19:57] VITALS: BP 109/65; PULSE 86; RESP 16; TEMP 37.1; O2SAT 95
[2021-10-15] MEDS: Acetaminophen 325 MG Tablet 650 MG PO (20:10)
[2021-10-15] MEDS: Loperamide 2 MG Capsule PO (20:10)
[2021-10-15] MEDS: Ibuprofen 400 MG Tablet 800 MG PO (20:12)
[2021-10-15] MEDS: traZODone 100 MG Tablet PO (21:40)
[2021-10-16 02:00] VITALS: BP 111/80; PULSE 70; RESP 13; TEMP 36.7; O2SAT 96
[2021-10-16] MEDS: Dicyclomine 10 MG Capsule 20 MG PO ×2 (02:29→09:02)
[2021-10-16] MEDS: cloNIDine HCl 0.1 MG Tablet PO ×2 (02:29→10:46)
[2021-10-16] MEDS: Ibuprofen 400 MG Tablet 800 MG PO (02:29)
[2021-10-16] MEDS: Methocarbamol 750 MG Tablet 1500 MG PO ×2 (02:30→09:02)
[2021-10-16] MEDS: Acetaminophen 325 MG Tablet 650 MG PO ×2 (04:54→11:50)
[2021-10-16] MEDS: Gabapentin 300 MG Capsule PO (04:54)
[2021-10-16] MEDS: hydrOXYzine PAM 25 MG Capsule 50 MG PO ×2 (04:54→10:46)
[2021-10-16 04:55] VITALS: BP 90/58; PULSE 75; RESP 18; TEMP 36.7; O2SAT 98
--- NOTE | 2021-10-16 06:39 | NURSING ---
MESSAGE LEFT FOR CONSULT FOR NEPHROLOGY WITH NEPHROLOGY ANSWERING SERVICE
[2021-10-16] MEDS: Pantoprazole Sodium 20 MG Tablet PO (09:02)
[2021-10-16 10:43] VITALS: BP 112/64; PULSE 77; RESP 18; TEMP 37.1; O2SAT 94
[2021-10-16] MEDS: Buprenorphine HCl 2 MG TAB.SUBL SL (11:49)
[2021-10-16] MEDS: Loperamide 2 MG Capsule PO (11:50)
--- NOTE | 2021-10-16 11:53 | DCINST_ITS ---
Discharge Instructions Diet Discharge Diet: No restrictions Activity Discharge Activity: Return to Normal Activity Weight Bearing Status: Full weight bearing Follow Up Care Test Results: Test results from this visit will be discussed in further detail at your follow- up appointment, if applicable. Discharge Plan Admission Admit Date/Time: 10/13/21 20:56 Primary Reason for Your Visit: opiate detox Attending Provider: Robin Lozada Primary Care Provider: Cat Vasquez Consulting Providers: Leonel Sepulveda Instructions Additional Instructions / Restrictions: Follow up with outpatient detox as scheduled Discharge Orders/Prescriptions Prescriptions: Continued ibuprofen [IBU] 800 MG tablet 800 mg PO TID PRN (Reason: Pain) Hold Instructions: Resume on 06/13/21. Label Comments: Take 1 tablet by mouth every 8 hours as needed for Pain. Take with food. trazodone 100 MG tablet 100 mg PO QHS omeprazole 20 MG capsule 20 mg PO DAILY acetaminophen 500 mg Tablet 650 mg PO Q6H PRN (Reason: Pain, Severe) Qty: 120 0RF Referrals / Follow Up: Cat Vasquez MD [Primary Care Provider] - Within 2 Weeks Disposition Disposition (needs filled in before D/C Order can be placed): Home, Self Care
--- NOTE | 2021-10-16 14:59 | PCM.DC.SUM ---
Providers Date of Admission: 10/13/21 Date of Discharge: 10/16/21 Primary Care Physician: Dr. Cat Vasquez MD Reason For Visit: OPIATE WITHDRAWL Diagnosis Discharge Diagnosis (1) Opiate withdrawal: Status: Acute Code(s): F11.23 - Opioid dependence with withdrawal Plan 1. Acute opiate withdrawal- #2 hepatitis C #3 chronic opioid addiction #4 rheumatoid arthritis Medications at Discharge Home Medications ibuprofen 800 mg tablet (IBU) 800 mg PO TID PRN Pain 02/01/18 omeprazole 20 mg capsule,delayed release 20 mg PO DAILY reflux 11/11/19 trazodone 100 mg tablet 100 mg PO QHS sleep 11/11/19 acetaminophen 500 mg tablet 650 mg PO Q6H PRN Pain, Severe #120 tabs 05/15/21 Hospital Course Operations None Procedures None Summary of Care Provided Minutes Spent on Discharge: 31 Hospital Course: This 55-year-old white female was seen in the emergency room at [facility] requesting services for detox from IV heroin. Patient was admitted to [place] [id number], medications were ordered using the opiate withdrawal order set up, patient was seen by addiction mental health social worker. It was the patient's choice to follow-up as an outpatient regarding further detox services rather than go to inpatient detox services. Patient had no untoward events during her hospitalization. On 10/16/2021, patient was seen and examined: On examination she appeared older than her stated age, she does not appear to be in any distress. Vital signs as documented. Skin warm and dry and without overt rashes. Neck without JVD, thyroid appears normal, trachea is midline, neck is supple. Lungs clear, normal air movement was noted. Heart exam notable for regular rhythm, normal sounds and absence of murmurs, rubs or gallops. Abdomen unremarkable and without evidence of organomegaly, masses, or abdominal aortic enlargement, bowel sounds are present in all 4 quadrants, no abdominal tenderness was noted. Extremities nonedematous, no cyanosis was noted, no clubbing was noted. Neuro: Cranial nerves II through XII are grossly intact, no focal motor deficits were noted, sensation to light touch and pinprick is intact, motor exam 5/5 throughout. Psych: Patient is alert and oriented x3, she does not appear anxious or depressed, she does not appear agitated. On 10/16/2021, patient was seen and examined and discharged home in stable condition, she was to follow-up with outpatient detox services. Weight / BMI Weight Weight: 78 kg Body Mass Index (BMI) 31.4 ABG / Lab / Microbiology Data Result Diagrams: 10/13/21 20:00 10/13/21 20:00 D/C Instructions Discharge Diet: No restrictions Weight Bearing Status: Full weight bearing Meaningful Use Info Meaningful Use Diagnoses (Choose all that apply): None applicable Discharge Plan Admission Admit Date/Time: 10/13/21 20:56 Primary Reason for Your Visit: opiate detox Attending Provider: Robin Lozada Primary Care Provider: Cat Vasquez Consulting Providers: Leonel Sepulveda Instructions Additional Instructions / Restrictions: Follow up with outpatient detox as scheduled Discharge Orders/Prescriptions Prescriptions: Continued ibuprofen [IBU] 800 MG tablet 800 mg PO TID PRN (Reason: Pain) Hold Instructions: Resume on 06/13/21. Label Comments: Take 1 tablet by mouth every 8 hours as needed for Pain. Take with food. trazodone 100 MG tablet 100 mg PO QHS omeprazole 20 MG capsule 20 mg PO DAILY acetaminophen 500 mg Tablet 650 mg PO Q6H PRN (Reason: Pain, Severe) Qty: 120 0RF Referrals / Follow Up: Cat Vasquez MD [Primary Care Provider] - Within 2 Weeks Disposition Disposition (needs filled in before D/C Order can be placed): Home, Self Care Charges/Coding Visit Charges Inpatient E&M: 18481 Disch Hosp
== END 2021-10-16 13:10 | disposition home or self-care (01) | DRG 897 ==
LOC: ED 20:28 → MS3 10-14 06:58
PROVIDERS: Emergency Provider Emergency Medicine; PCP Internal Medicine; Visit Provider Internal Medicine
DX: F11.23 Opioid dependence with withdrawal (principal); B19.20 Unspecified viral hepatitis C without hepatic coma; M06.9 Rheumatoid arthritis, unspecified; F17.210 Nicotine dependence, cigarettes, uncomplicated; G89.29 Other chronic pain; Z79.1 Long term (current) use of non-steroidal anti-inflammatories (NSAID)
CPT/HCPCS: 36415; 80048; 80307; 82077; 85025; 99283; 99406; A4216

== ENCOUNTER → 2023-08-04 | Outpatient (CLI) | payer MEDICARE, SELFPAY ==
[2023-08-04 12:05] LABS: Absolute Lymphocyte Count 1.87 X10^3/uL (0.83-4.51); Absolute Neutrophil Count 6.7 X10^3/uL (2.0-7.7); Basophil# 0.09 X10^3/uL; Basophil% 0.9 % (0-1); Eosinophils% 2.1 % (0-5); Hematocrit 43.3 % (37-47); Hemoglobin 13.8 g/dL (12.0-15.0); Lymphocyte # 1.87 X10^3/ul (0.83-4.51); Lymphocyte % 19.5 % (19-41); Mean Corp Hgb Conc 31.9 g/dL (32-36); Mean Corpuscular Hgb 28.9 pg (27.0-32.0); Mean Corpuscular Volume 90.8 fL (81-99); Mean Platelet Vol. 11.7 fl (6.2-12.0); Monocyte# 0.68 X10^3/uL; Monocyte% 7.1 % (0-10); NRBC Flagged by Analyzer 0 % (0-5); Neutrophil # 6.72 X10^3/uL (2.7-7.7); Platelet Count 322 K/mm3 (150-450); RBC Distribution Width CV 14.6 % (11.6-14.6); RBC Distribution Width SD 48.5 fl (35.1-43.9); Red Blood Count 4.77 M/mm3 (4.2-5.4); White Blood Count 9.6 K/mm3 (4.4-11.0)
[2023-08-04 12:17] LABS: Vitamin D,25 Hydroxy 27.3 ng/mL
[2023-08-04 12:26] LABS: ALB/GLOB Ratio 0.7 RATIO (0.9-2.4); AST(SGOT) 33 U/L (15-37); Alanine Aminotransfer ALT/SGPT 43 U/L (13-56); Albumin, Serum 3.3 g/dL (3.2-5.0); Alkaline Phosphatase 87 U/L (45-117); Anion Gap 1 (5-15); BUN 14 mg/dL (7-18); BUN/Creat Ratio 24.6 RATIO (10-20); Calcium,Total 9.4 mg/dL (8.5-10.1); Chloride 110 mmol/L (98-107); Cholesterol 165 mg/dL (200); Creatinine, Serum 0.57 mg/dL (0.55-1.02); EST Glomerular Filtration Rate 117 mL/min (>60); Est Glom Filt Rate - Afr Amer 142 mL/min (>60); Ferritin 72 ng/mL (8-252); Globulin 4.9 g/dL (2.2-4.2); Glucose 102 mg/dL (74-106); High Density Lipoprotein 46 mg/dL; Iron 38 ug/dL (50-170); Iron Binding Capacity,Total 395 ug/dL (250-450); PERCENT IRON SATURATION 9.6 % (15.0-55.0); Potassium 4.3 mmol/L (3.5-5.1); Protein, Total 8.2 g/dL (6.4-8.2); Sodium Level 138 mmol/L (136-145); Triglycerides 77 mg/dL; Very Low Density Lipoprotein 15 mg/dL (5-40)
[2023-08-09 22:06] LABS: HCV Quant. RNA PCR 606000 IU/mL (.); HCV log 10 5.782 (.); Hepatitis C Genotype 1a (.)
== END | disposition home or self-care (01) ==
LOC: BIMLAB 10:10
PROVIDERS: PCP Internal Medicine; Visit Provider Internal Medicine
DX: M25.569 Pain in unspecified knee (principal); M06.9 Rheumatoid arthritis, unspecified; E61.1 Iron deficiency; G89.29 Other chronic pain; B19.20 Unspecified viral hepatitis C without hepatic coma; E55.9 Vitamin D deficiency, unspecified; I67.841 Reversible cerebrovascular vasoconstriction syndrome
CPT/HCPCS: 36415; 80053; 80061; 82306; 82728; 83540; 83550; 85025; 87522; 87902

== ENCOUNTER 2023-10-03 16:31 | Emergency (ER) | payer MEDICARE, MEDICAID, SELFPAY ==
[2023-10-03] VITALS (10 sets, daily range): BP systolic 136–165; BP diastolic 60–97; PULSE 92–114; RESP 12–24; TEMP 36.3–36.8; O2SAT 92–97; BMI 34.0
--- NOTE | 2023-10-03 15:25 | RAD_ITS ---
STUDY: X-RAY CHEST REASON FOR EXAM: Female, 57 years old. Cough dyspnea TECHNIQUE: Single AP portable view of the chest. COMPARISON: None. FINDINGS: The lungs are clear and expanded. There is no demonstrated pleural abnormality. Normal size heart. Normal mediastinum and madonna. Normal visualized pulmonary arteries. Normal visualized aortic arch and descending thoracic aorta. Normal visualized thoracic spine. Normal visualized ribs, clavicles, and shoulders. There is no demonstrated abnormality of the visualized soft tissue structures of the upper abdomen. RAD/Chest 1 View (Portable) IMPRESSION: Normal x-ray examination of the chest. Electronically Signed: Vish Reed MD at 18:14 EDT ,
--- NOTE | 2023-10-03 16:53 | EKG12_ITS ---
Test Reason : Blood Pressure : / mmHG Vent. Rate : 102 BPM Atrial Rate : 102 BPM P-R Int : 140 ms QRS Dur : 080 ms QT Int : 374 ms P-R-T Axes : 086 055 069 degrees QTc Int : 487 ms Sinus tachycardia Otherwise normal ECG Confirmed by CHRISTY DIETZ, RICHAR ([id number]), editor trade journal [employer] ([id number]) on 10/04/2023 8:18:46 AM Referred By: CHOCO Confirmed By:RICHAR HARRISON MD
--- NOTE | 2023-10-03 16:55 | ED.VIS.DYS ---
HPI History of Present Illness Chief Complaint: Shortness of Breath Informant: patient and family Narrative Narrative: 57-year-old female presenting to the emergency room with dyspnea. Patient states for about a week she has had some sinus congestion and over the past several days has developed diarrhea. She notes some cough that is nonproductive dyspnea with exertion and with speaking. No definite fevers. She states that her grandson who lives with her had a sinus infection recently. She states she has a history of rheumatoid arthritis but is only on ibuprofen currently because the other medicines resulted in numerous infections. Patient states she is a smoker but has no diagnosis of COPD/emphysema/chronic bronchitis. She does not wear home oxygen. She does not have any inhalers at home. She describes these tools as brown and watery. Patient notes decreased p.o. intake [facility] Medical History Shingles History of heroin abuse Choledocholithiasis Opiate withdrawal Restless legs Substance abuse Depression Anxiety Chronic pain Rheumatoid arthritis Hepatitis Smoker DVT (deep venous thrombosis) Opiate addiction Ileus Nicotine dependence History of immunosuppression therapy Home Medications ?Medication ?Instructions ?Recorded ?Last Taken ?Type ibuprofen 800 mg tablet (IBU) 800 mg PO TID PRN Pain 02/01/18 11/11/19 08:00 History acetaminophen 500 mg tablet 650 mg (1.3 x 500 mg) PO Q6H PRN 05/15/21 Unknown Rx Pain, Severe #120 tabs duloxetine 30 mg capsule,delayed 30 mg PO DAILY #30 caps 08/04/23 Unknown Rx release (Cymbalta) albuterol sulfate 2.5 mg/3 mL 2.5 mg (3 mL) inhalation Q4H PRN 10/03/23 Unknown Rx (0.083 %) solution for nebulization #25 vials albuterol sulfate 90 mcg/actuation 2 puff inhalation Q4H PRN PRN 10/03/23 Unknown Rx aerosol inhaler (Ventolin HFA) Wheezing ##1 potassium chloride 20 mEq 40 meq (2 x 20 mEq) PO DAILY 5 10/03/23 Unknown Rx tablet,extended release days #10 tabs prednisone 20 mg tablet 60 mg (3 x 20 mg) PO DAILY #15 10/03/23 Unknown Rx TABLETS Allergy/AdvReac Type Severity Reaction Status Date / Time meloxicam AdvReac Upset Verified 10/03/23 16:34 Stomach Family History Mother Diabetes Cancer stomach Breast cancer Father Hypertension Osteoporosis Surgical History History of cholecystectomy S/P knee surgery Social History household members: family current occupational status: disabled 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 Smoking Status: Light Smoker (<10/day) Electronic Cigarette Use: not used quit status: considering quitting alcohol intake: never details: Nondrinker substance use type: former substance user Date of last use: 06/13/22 and heroin do you feel safe at home: Yes ROS ROS ED Constitutional Constitutional ED: Denies chills, fever(s) or weight loss Eyes Eyes: Denies change in vision or diplopia ENT ENT ED: Reports other Details: Dry mouth ; Denies ear pain, rhinorrhea or sore throat Cardiovascular Cardiovascular: Denies chest pain, orthopnea, palpitations or racing heartbeat Respiratory/Chest Respiratory/Chest: Reports cough, dyspnea and dyspnea on exertion; Denies orthopnea or sputum Gastrointestinal Gastrointestinal: Reports diarrhea and nausea; Denies abdominal pain or vomiting Genitourinary Genitourinary ED: Denies dysuria, hematuria or urinary frequency Musculoskeletal Musculoskeletal: Denies arthralgias or myalgias Integumentary Denies abscess or rash Neurologic Neurologic: Denies headache(s) or weakness Psychiatric Psychiatric: Denies anxiety, depression, suicidal ideation or suicidal thoughts Endocrine Endocrinology: Denies polydipsia, polyphagia or polyuria Allergic/Immunologic Allergic/Immunologic ED: Denies mouth swelling, tongue swelling or urticaria EXAM Physical Exam Const Vital Signs: 10/03/23 16:32 10/03/23 16:33 10/03/23 16:54 Temperature 97.4 F L 97.4 F L Temperature Source Temporal Temporal Pulse Rate 114 H 114 H Respiratory Rate 19 H 18 Respiratory Effort Short of Breath Labored Respiratory Depth Normal Respiratory Pattern Normal Blood Pressure 165/97 H 165/97 H Blood Pressure Mean 119 119 Pulse Ox 96 94 Oxygen Delivery Method Room Air Room Air Room Air 10/03/23 17:00 10/03/23 17:33 10/03/23 18:00 Temperature 97.3 F L 97.4 F L Temperature Source Temporal Temporal Pulse Rate 102 H 109 H 92 Respiratory Rate 24 H 18 15 Respiratory Effort Respiratory Depth Respiratory Pattern Tachypnea Blood Pressure 139/60 H 136/72 H Blood Pressure Mean 86 93 Pulse Ox 96 97 Oxygen Delivery Method Room Air Room Air 10/03/23 18:42 10/03/23 19:00 10/03/23 19:47 Temperature 97.3 F L 98.3 F Temperature Source Temporal Pulse Rate 104 H 110 H 108 H Respiratory Rate 22 H 12 17 Respiratory Effort Respiratory Depth Respiratory Pattern Tachypnea Blood Pressure 153/87 H 153/87 H Blood Pressure Mean 109 109 Pulse Ox 93 92 Oxygen Delivery Method Room Air Positive well nourished, well developed and obese General Appearance ED: well developed Nutritional Appearance: obese HEENT Reports normocephalic, head/scalp atraumatic and dry mucous membranes Mouth ED: Yes dry mucous membranes Mouth: dry mucous membranes Eyes PERRL and EOMs intact bilaterally Neck no lymphadenopathy, supple and no JVD Resp Auscultation: wheezes expiratory wheezes and lower bilaterally and diminished lung sounds Cardio regular rate, regular rhythm and no murmurs Rate: tachycardic GI normal to inspection, nondistended, normoactive bowel sounds and non-tender Palpation: soft Back/Spine no CVA tenderness and normal ROM Extremity normal to inspection General Extremety ED: Yes edema General Extremity: edema bilateral lower extremity Details: mild Neuro oriented x3 and CN's II-XII intact bilaterally Sensorium / Orientation: alert Motor Exam: strength 5/5 throughout Psych mental status grossly normal Mood & Affect: Negative for depressed or tearful Skin no rashes or lesions noted and no wounds MDM MDM MDM Narrative Medical decision making narrative: DDX includes but not limited to: Pneumonia bronchitis bronchospasm dehydration viral illness with diarrhea electrolyte abnormalities hepatitis UTI My independent interpretation of the chest x-ray is no acute process specifically no infiltrate or effusion. White count nonspecifically elevated 12.7 plate count 314 hemoglobin 13.3. BMP with potassium of 3.2 glucose 111 normal BUN/creatinine. Liver enzymes are within normal limits. Urinalysis demonstrates no overt infection specific gravity 1.005. Patient received IV fluids her heart rate came down temporarily. After several breathing treatments and some Solu-Medrol the patient began to feel improved. However she required another breathing treatment. Patient became very anxious with the thought of going home. Her family has access to a albuterol nebulizer. She did take the hose and the mask from here in the department home with her. Unguinal write albuterol aerosols as well as an MDI at home. As well as Solu-Medrol and oral potassium. Family understands return instructions. She is able to ambulate here in the department without any hypoxia. History & Record Review Discussion w/independent historian: Patient Lab Data Attestation: I reviewed the patient's lab results. Labs: Laboratory Results - last 24 hr 10/03/23 10/03/23 16:14 18:52 WBC 12.7 H RBC 4.63 Hgb 13.3 Hct 40.9 MCV 88.3 MCH 28.7 MCHC 32.5 RDW Std Deviation 45.7 H RDW Coeff of Abhay 14.4 Plt Count 314 MPV 11.1 Immature Gran % (Auto) 0.600 Neut % (Auto) 67.6 Lymph % (Auto) 22.9 [place] % (Auto) 6.4 Eos % (Auto) 2.0 Baso % (Auto) 0.5 Absolute Neuts (auto) 8.6 H Absolute Lymphs (auto) 2.91 Nucleated RBC % 0 Sodium 137 Potassium 3.2 L Chloride 109 H Carbon Dioxide 23.0 Anion Gap 5 BUN 12 Creatinine 0.72 Estim Creat Clear Calc 85.49 Est GFR (MDRD) Af Amer 108 Est GFR (MDRD) Non-Af 89 BUN/Creatinine Ratio 16.7 Glucose 111 H Calcium 9.3 Magnesium 1.9 Total Bilirubin 0.30 Direct Bilirubin 0.14 AST 27 ALT 28 Alkaline Phosphatase 96 Total Protein 8.3 H Albumin 3.4 Globulin 4.9 H Urine Color Yellow Urine Clarity Clear Urine pH 7.0 Ur Specific [place] 1.005 Urine Protein 15 H Urine Glucose (UA) Normal Urine Ketones Negative Urine Occult Blood 10 H Urine Nitrite Negative Urine Bilirubin Negative Urine Urobilinogen Normal Ur Leukocyte Esterase 100 H Urine RBC 0 SEEN Urine WBC 0-5 SEEN Ur Squamous Epith Cells 0 SEEN Urine Bacteria 0 SEEN Urine Mucus 0 SEEN Radiography Diagnostic Testing: Clinical Impression(s) from Imaging Studies Chest X-Ray 10/03/23 15:25 IMPRESSION: Normal x-ray examination of the chest. Electronically Signed: Vish Reed MD at 18:14 EDT , EKG Initial EKG: Attestation: I personally reviewed and interpreted this EKG as follows: Comments: Sinus tachycardia ventricular rate of 102 bpm. Discharge Plan Triage Chief Complaint: Shortness of Breath ED Provider: Peter Murphy Dx/Rx/DC Orders Clinical Impression: Acute hypokalemia, Acute bronchitis with bronchospasm, Acute dehydration Instructions: ED Bronchitis with Wheezing (Adult), ED Hypokalemia Prescriptions: New albuterol sulfate 2.5 mg /3 mL (0.083 %) solution for nebulization 2.5 mg inhalation Q4H PRN Qty: 25 0RF Rx Instructions: Use q4 hours and PRN for wheezing prednisone 20 mg tablet 60 mg PO DAILY Qty: 15 0RF albuterol sulfate [Ventolin HFA] 90 mcg/actuation HFA aerosol inhaler 2 puff inhalation Q4H PRN PRN (Reason: Wheezing) Qty: 1 0RF Rx Instructions: dispense with spacer potassium chloride 20 mEq tablet extended release 40 meq PO DAILY 5 Days Qty: 10 0RF No Action duloxetine [Cymbalta] 30 mg capsule,delayed release(DR/EC) 30 mg PO DAILY Qty: 30 1RF ibuprofen [IBU] 800 MG tablet 800 mg PO TID PRN (Reason: Pain) Patient Comments: Take 1 tablet by mouth every 8 hours as needed for Pain. Take with food. acetaminophen 500 mg Tablet 650 mg PO Q6H PRN (Reason: Pain, Severe) Qty: 120 0RF Primary Care Provider: Esme Mercado Referrals: Esme Mercado MD [Primary Care Provider] - 1 Week Print Language: German Disposition Disposition: Home, Self Care Discharge Date/Time: 10/03/23 19:55
[2023-10-03] MEDS: Albuterol 2.5 MG/3 ML VIAL.NEB. INHALATION ×2 (17:00→18:42)
[2023-10-03] MEDS: Ipratropium/Albuterol Sulfate 3 ML AMPUL.NEB INHALATION (17:00)
[2023-10-03] MEDS: 0.9% Normal Saline (1000mL) 1,000 ML 999 ML IV (17:14)
[2023-10-03] MEDS: MethylPREDNISolone 125 MG/2 ML Vial IV (17:15)
[2023-10-03 17:23] LABS: Absolute Lymphocyte Count 2.91 X10^3/uL (0.83-4.51); Absolute Neutrophil Count 8.6 X10^3/uL (2.0-7.7); Basophil# 0.06 X10^3/uL; Basophil% 0.5 % (0-1); Eosinophil# 0.26 X10^3/uL; Hematocrit 40.9 % (37-47); Hemoglobin 13.3 g/dL (12.0-15.0); Lymphocyte # 2.91 X10^3/ul (0.83-4.51); Lymphocyte % 22.9 % (19-41); Mean Corp Hgb Conc 32.5 g/dL (32-36); Mean Corpuscular Hgb 28.7 pg (27.0-32.0); Mean Corpuscular Volume 88.3 fL (81-99); Mean Platelet Vol. 11.1 fl (6.2-12.0); Monocyte# 0.81 X10^3/uL; Monocyte% 6.4 % (0-10); NRBC Flagged by Analyzer 0 % (0-5); Neutrophil % 67.6 % (47-70); Platelet Count 314 K/mm3 (150-450); RBC Distribution Width CV 14.4 % (11.6-14.6); RBC Distribution Width SD 45.7 fl (35.1-43.9); Red Blood Count 4.63 M/mm3 (4.2-5.4); White Blood Count 12.7 K/mm3 (4.4-11.0)
[2023-10-03 17:44] LABS: AST(SGOT) 27 U/L (15-37); Alanine Aminotransfer ALT/SGPT 28 U/L (13-56); Albumin, Serum 3.4 g/dL (3.2-5.0); Alkaline Phosphatase 96 U/L (45-117); Anion Gap 5 (5-15); BUN 12 mg/dL (7-18); BUN/Creat Ratio 16.7 RATIO (10-20); Bilirubin, Direct 0.14 mg/dL (0.00-0.30); Calcium,Total 9.3 mg/dL (8.5-10.1); Chloride 109 mmol/L (98-107); Creatinine, Serum 0.72 mg/dL (0.55-1.02); EST Glomerular Filtration Rate 89 mL/min (>60); Est Glom Filt Rate - Afr Amer 108 mL/min (>60); Estimated Creatinine Clearance 85.49 ml/min; Globulin 4.9 g/dL (2.2-4.2); Glucose 111 mg/dL (74-106); Magnesium 1.9 mg/dL (1.6-2.6); Potassium 3.2 mmol/L (3.5-5.1); Protein, Total 8.3 g/dL (6.4-8.2); Sodium Level 137 mmol/L (136-145)
[2023-10-03] MEDS: Potassium Chloride Oral Tablet 20 MEQ 40 MEQ PO (17:59)
[2023-10-03 18:58] LABS: Bacteria 0 SEEN /hpf (None Seen); Mucous, Urine 0 SEEN /hpf (<or=2+); Red Blood Cells-Urine 0 SEEN /hpf (0-5); Squamous Epithelial Cells - UA 0 SEEN /hpf (5-10)
[2023-10-03 18:59] LABS: Color, Urine Yellow (Yellow); Glucose, Dipstick Normal (Normal); Ketone-Dipstick Negative (Negative); Leukocyte Esterase-Dipstick 100 /ul (Negative); Nitrite-Dipstick Negative (Negative); Occult Blood-Urine 10 /ul (Negative); Protein-Dipstick 15 mg/dl (Negative); Specific Gravity, Urine 1.005 (1.002-1.030); Urine Bilirubin Dipstick Negative (Negative); Urine Clarity Clear (Clear); Urine Urobilinogen Normal (Normal)
[2023-10-03 19:04] LABS: White Blood Cells 0-5 SEEN /hpf (0-5)
== END 2023-10-03 19:55 | disposition home or self-care (01) ==
PROVIDERS: Emergency Provider Emergency Medicine; PCP Internal Medicine; Visit Provider Emergency Medicine
DX: J20.9 Acute bronchitis, unspecified (principal); E87.6 Hypokalemia; E86.0 Dehydration; F17.200 Nicotine dependence, unspecified, uncomplicated; E66.9 Obesity, unspecified
CPT/HCPCS: 71045; 80048; 80076; 81001; 83735; 85025; 87631; 93005; 94640; 96361; 96374; 99285; J7030; A4216

== ENCOUNTER 2025-03-31 16:37 | Inpatient (IN) | payer MEDICARE, SELFPAY ==
[2025-03-31 16:38] VITALS: TEMP 36.7; BMI 38.3
[2025-03-31 16:40] VITALS: BP 112/86; PULSE 100; RESP 18; O2SAT 98
--- NOTE | 2025-03-31 17:10 | RAD_ITS ---
PROCEDURE: KNEE 1 OR 2 VIEWS 03/31/2025 REASON FOR EXAM: PAIN, ARTHRITIS TECHNIQUE: Procedure Code: RADK Modality: DX Procedure: KNEE 1 OR 2 VIEWS COMPARISON: None FINDINGS: Irregularity of the lateral tibial plateau may reflect a small fracture. CT is definitive as deemed clinically necessary. Severe degenerative changes medially. Bone loss. Suprapatellar soft tissue swelling is nonspecific. RAD/Knee 1 or 2 Views IMPRESSION: As above. Reading [facility]
--- NOTE | 2025-03-31 17:12 | RAD_ITS ---
PROCEDURE: KNEE 1 OR 2 VIEWS 03/31/2025 REASON FOR EXAM: PAIN TECHNIQUE: Procedure Code: RADK Modality: DX Procedure: KNEE 1 OR 2 VIEWS COMPARISON: Reviewed FINDINGS: Osseous structures intact. Severe degenerative changes primarily in the medial tricompartment with subchondral sclerosis and asymmetric joint space narrowing. Suprapatellar soft tissue swelling. RAD/Knee 1 or 2 Views IMPRESSION: As above. Reading Location: [facility]
--- NOTE | 2025-03-31 17:16 | EDS_ITS ---
HPI History of Present Illness Chief Complaint: Lower Extremity Injury Narrative Narrative: Chief complaint and HPI: 59-year-old female with past medical history of RA, depression/anxiety, previous substance abuse/opiate addiction presents for evaluation of bilateral knee pain. Patient states she has chronic arthritis in her bilateral knees in which she is on ibuprofen. She states she usually ambulates with a walker. She takes a proximately 1 week ago she accidentally let go of her walker in which she fell. She states since the fall she has been having worsening bilateral knee pain. She states the pain is worse with ambulation making it difficult to ambulate at home. She states she is unable to cook or clean herself as well as take care of daily functions such as using the restroom she states she is unsafe to go home. Review of systems: See HPI Medications: As listed on the chart Allergies: As listed on the chart PFSH: Per chart Vital signs: As listed on the chart. Reviewed. Physical exam: Gen: A&O x3, NAD Head: Normocephalic, atraumatic Eyes: No sclera icterus, conjunctiva clear ENT: Moist mucous membranes Neck: Trachea midline, full range of motion CV: RRR, no murmurs Resp: Lungs CTA BL, no w/r/c GI: Abd soft, non-distended, non-tender, no r/r/g Musc: Limited range of motion of the bilateral lower extremities secondary to bilateral knee pain, knees without erythema/warmth, bilateral knees mildly tender to palpation diffusely without external signs of traum or swelling, no knee instability, knee with full extension and flexion, compartments soft, DP/PT pulses +2 bilaterally, good capillary refill, sensation intact Skin: Warm, dry Neuro: Alert, oriented, grossly intac Psych: Cooperative, appropriate mood and affect [facility] Medical History (Updated 04/01/25 @ 00:25 by Wes Douglas MD) Bilateral knee pain Shingles History of heroin abuse Choledocholithiasis Opiate withdrawal Restless legs Substance abuse Depression Anxiety Chronic pain Rheumatoid arthritis Hepatitis Smoker DVT (deep venous thrombosis) Opiate addiction Ileus Nicotine dependence History of immunosuppression therapy Home Medications ?Medication ?Instructions ?Recorded ?Last Taken ?Type ibuprofen 800 mg tablet (IBU) 800 mg PO TID PRN Pain 1 11/11/19 08:00 History acetaminophen 500 mg tablet 650 mg (1.3 x 500 mg) PO Q 6H PRN 05/15/21 Unknown Rx Pain, Severe #120 tabs potassium chloride 20 mEq 40 meq (2 x 20 mEq) PO DAILY 5 10/03/23 Unknown Rx tablet,extended release days #10 tabs albuterol sulfate 2.5 mg/3 mL 2.5 mg (3 mL) inhalation Q4H PRN 10/18/23 Unknown Rx (0.083 %) solution for nebulization #25 vials albuterol sulfate 90 mcg/actuation 2 puff inhalation Q 4H PRN PRN 10/18/23 Unknow n Rx aerosol inhaler (Ventolin HFA) Wheezing ##1 nicotine 21 mg/24 hr daily 1 patch transdermal DAILY # 28 ea 10/18/23 Unknown Rx transdermal patch buspirone 5 mg tablet 5 mg PO BID #60 TABLETS 08/16 Unknown Rx Allergy/AdvReac Type Severity Reaction Status Date / Time meloxicam AdvReac Upset Verified 03/31/25 16:42 Stomach Family History Mother Diabetes Cancer stomach Breast cancer Father Hypertension Osteoporosis Surgical History History of cholecystectomy S/P knee surgery Social History household members: family current occupational status: disabled 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 Smoking Status: Light Smoker (<10/day) Electronic Cigarette Use: not used quit status: considering quitting alcohol intake: never details: Nondrinker substance use type: former substance user Date of last use: 06/13/22 and heroin do you feel safe at home: Yes EXAM Physical Exam Const Vital Signs: 03/31/25 16:38 03/31/25 16:40 03/31/25 19:17 Temperature 98.0 F Temperature Source Oral Pulse Rate 100 96 Respiratory Rate 18 Blood Pressure 112/86 H 132/91 H Blood Pressure Mean 94 104 Pulse Ox 98 96 Oxygen Delivery Method Room Air 03/31/25 21:00 03/31/25 23:01 Temperature Temperature Source Pulse Rate 95 93 Respiratory Rate 16 16 Blood Pressure 116/76 152/84 H Blood Pressure Mean 89 106 Pulse Ox 97 96 Oxygen Delivery Method Room Air MDM MDM MDM Narrative Medical decision making narrative: 59-year-old female with past medical history of RA, depression/anxiety, previous substance abuse/opiate addiction presents for evaluation of bilateral knee pain. Patient states she has chronic arthritis in her bilateral knees in which she is on ibuprofen. She states she usually ambulates with a walker. She takes a proximately 1 week ago she accidentally let go of her walker in which she fell. She states since the fall she has been having worsening bilateral knee pain. She states the pain is worse with ambulation making it difficult to ambulate at home. She states she is unable to cook or clean herself as well as take care of daily functions such as using the restroom she states she is unsafe to go home. Given this information, social work saw the patient. Patient will need admission to be placed in a rehab. Will obtain basic labs secondary to this. Differential diagnosis includes but is not limited to contusion, sprain, arthritis, suspect less likely fracture. IV Toradol ordered. Bilateral knee x- rays ordered. CBC with mild leukocytosis of 12. No anemia. Platelets unremarkable. BMP unremarkable. X-rays of bilateral knees were personally viewed and interpreted by me, ED physician. No obvious fracture or dislocation. Arthritis present. Per radiology there is an irregularity of the lateral tibial plateau which may reflect a small fracture of the right knee. Recommend CT. This was ordered. Per radiology, left knee has severe degenerative changes primarily in the medial tricompartment with subchondral sclerosis and asymmetrical joint space narrowing. Patient has had an extended stay here in the emergency department secondary to radiology not reading imaging. Radiology was contacted multiple times for this and is made aware of the issue. Patient was updated and confirmed understanding. CT of the left lower extremity shows mild depression of the lateral tibial plateau, no displaced acute knee fractures no deon. Severe knee arthritic changes. Moderate knee joint effusion with synovial thickening. Given these findings, I did reach out to orthopedic surgery, Dr. Douglas. Per Dr. Santana send this is likely a small fracture. Knee immobilizer. Weightbearing as tolerated. Follow-up in their office. Given patient is unable to perform daily tasks of living. Patient will warrant admission for PT/OT and rehab placement. Patient updated on the results and confirmed understand the plan. Hospitalist paged. They accepted admission. Impression: 1. Right tibial plateau fracture 2. Bilateral knee arthritis 3. Inability to perform daily tasks of living Lab Data Labs: Laboratory Results - last 24 hr 03/31/25 18:10 WBC 12.0 H RBC 4.19 L Hgb 12.9 Hct 39.7 MCV 94.7 MCH 30.8 MCHC 32.5 RDW Std Deviation 69.5 H RDW Coeff of Abhay 20.8 H Plt Count 286 MPV 10.7 Immature Gran % (Auto) 0.500 Neut % (Auto) 52.6 Lymph % (Auto) 32.0 Calloway % (Auto) 5.9 Eos % (Auto) 7.8 H Baso % (Auto) 1.2 H Absolute Neuts (auto) 6.3 Absolute Lymphs (auto) 3.84 Nucleated RBC % 0 Anisocytosis 1+ Microcytosis 1+ Sodium 138 Potassium 3.5 Chloride 104 Carbon Dioxide 20.7 L Anion Gap 14 BUN 10 Creatinine 0.57 L Estim Creat Clear Calc 112.70 Est GFR (MDRD) Non-Af 106 BUN/Creatinine Ratio 18.0 Glucose 106 H Calcium 8.8 Radiography Diagnostic Testing: Clinical Impression(s) from Imaging Studies Knee X-Ray 03/31/25 17:10 IMPRESSION: As above. Reading Location: [facility] Knee X-Ray 03/31/25 17:12 IMPRESSION: As above. Reading Location: [facility] Lower Extremity CT 03/31/25 20:00 IMPRESSION: 1. Mild depression of the lateral tibial plateau is seen otherwise, no displaced acute knee fractures noted. Recommend clinical correlation. 2. Severe knee arthritic changes. 3. Moderate knee joint effusion with synovial thickening. Reading Location: [place] [id number] Discharge Plan Triage Chief Complaint: Lower Extremity Injury ED Provider: Sotero Sagastume Dx/Rx/DC Orders Prescriptions: No Action albuterol sulfate 2.5 mg /3 mL (0.083 %) solution for nebulization 2.5 mg inhalation Q4H PRN Qty: 25 0RF Rx Instructions: Use q4 hours and PRN for wheezing albuterol sulfate [Ventolin HFA] 90 mcg/actuation HFA aerosol inhaler 2 puff inhalation Q4H PRN PRN (Reason: Wheezing) Qty: 1 0RF Rx Instructions: dispense with spacer nicotine 21 mg/24 hr patch 24 hour 1 patch transdermal DAILY Qty: 28 0RF ibuprofen [IBU] 800 MG tablet 800 mg PO TID PRN (Reason: Pain) Patient Comments: Take 1 tablet by mouth every 8 hours as needed for Pain. Take with food. acetaminophen 500 mg Tablet 650 mg PO Q6H PRN (Reason: Pain, Severe) Qty: 120 0RF potassium chloride 20 mEq tablet extended release 40 meq PO DAILY 5 Days Qty: 10 0RF buspirone 5 mg tablet 5 mg PO BID Qty: 60 0RF Primary Care Provider: Esme Mercado Referrals: Esme Mercado MD [Primary Care Provider, Internal Medicine] Print Language: Kiswahili
--- OUTSIDE RECORDS SUMMARY | 2025-03-31 17:33 | XMS RPT_ITS | CCD ---
Author Organization [facility] Care Team Providers Care Employment And Claims Aide Name Role Phone Dr. Cat Vasquez Primary Care Provider Dr. Arnoldo Lopez Emergency Provider Dr. Leonel Sepulveda Attending Provider Dr. Leonel Sepulveda Admit Provider Dr. Leonel Sepulveda Other Provider Dr. Robin Lozada Attending Provider Dr. Robin Lozada Other Provider Cat Vasquez MD Primary Care Provider Cat Vasquez MD Primary Care Provider Dr. Cat Vasquez Primary Care Provider Dr. Cat Vasquez Referring Provider Dr. Melyssa Mercado Attending Provider Cat Vasquez MD Primary Care Provider [place], Melyssa Attending Unavailable Jess, Melyssa Primary Care Unavailable [place], Melyssa Primary Care Unavailable Peter Murphy Attending Unavailable Jess, Melyssa Referring Unavailable Jess, Melyssa Primary Care Unavailable Jess, Melyssa Attending Unavailable En Mercadoia Attending Unavailable [place], Melyssa Referring Unavailable [place], Melyssa Primary Care Unavailable Jess, Melyssa Attending Unavailable Cat Vasquez Primary Care Unavailable Cat Vasquez Referring Unavailable Melyssa Mercado MD Primary Care Provider VISH MCCLOUD Attending Unavailable MELYSSA MERCADO Primary Care Unavailable OLGA LIDIA MANDUJANO Referring Unavailable MELYSSA MERCADO Primary Care Unavailable Allergies Allergy Classification Reported Allergen(s) Allergy Type Date of Onset Reaction(s) Facility (13 sources) meloxicam; Translations: [MELOXICAM] Drug Allergy 11-29-[address] [facility] (1 source) meloxicam Drug Allergy 10-18-2023 [facility] Repository Medications Current Medications Medication Drug Class(es) Dates Sig (Normalized) Sig (Original) acetaminophen 500 mg oral tablet (3 sources) Start: 05-15-2021 take 650 mg by mouth every six hours Acetaminophen Active 650 MG PO EVERY 6 HOURS 120 May 15, 2021 1:00am DULoxetine 30 mg delayed release oral capsule (11 sources) Serotonin and Norepinephrine Reuptake Inhibitor Start: 11-11-2019 take 1 capsule by mouth once daily DULoxetine (CYMBALTA) 30 mg capsule Indications: Rheumatoid arthritis involving multiple sites with positive rheumatoid factor (HCC) , Insomnia, unspecified type , Anxiety and depression Take 1 capsule by mouth once daily. 30 capsule 12/22/2020 Active Comment on above: Take 1 capsule by mo uth once daily. ergocalciferol 1.25 mg oral capsule (9 sources) Provitamin D2 Compound Start: 01-02-2021 take 1 capsule by mouth every week ergocalciferol 50,000 unit capsule (VITAMIN D2, DRISDOL) Take 1 capsule by mouth one time a week. 12 capsule 01/02/2021 Active Comment on above: Take 1 capsule by mo uth one time a week. ferrous sulfate 325 mg oral tablet (9 sources) Start: 01-02-2021 take 1 tablet by mouth once daily at breakfast ferrous sulfate 325 mg (65 mg iron) tablet Take 1 tablet by mouth daily with breakfast. 60 tablet 2 01/02/2021 Active Comment on above: Take 1 tablet by avelina th daily with breakfast. ibuprofen 400 mg oral tablet (13 sources) Nonsteroidal Anti-inflammatory Drug Start: 05-15-2021 take 400 mg by mouth every four hours Ibuprofen Active 400 MG PO Q4H 180 May 15, 2021 1:00am Start: 12-22-2020 take 1 tablet by avelina th every eight hours as needed for pain ibuprofen (MOTRIN) 800 mg tablet Indications: Rheumatoid arthritis involving multiple sites with positive rheumatoid factor (HCC) , Rheumatoid arthritis involving multiple sites, unspecified whether rheumatoid factor present (HCC) Take 1 tablet by mouth every 8 hours as needed for pain. Take with food. 60 tablet 12/22/2020 Active Start: 02-01-2018 take 1 tablet by avelina th three times daily Ibuprofen (Ibu) 800 MG tablet Active 800 MG PO THREE TIMES A DAY February 01, 2018 12:00am Comment on above: Take 1 tablet by avelina th every 8 hours as needed for pain. Take with food. omeprazole 20 mg delayed release oral tablet (12 sources) Proton Pump Inhibitor Start: 1 take 1 tablet by mouth once daily before breakfast Omeprazole Magnesium (PRILOSEC OTC) 20 mg tablet Indications: GERD with esophagitis Take 1 tablet by mouth daily before breakfast. 1/2 hr before meal. 30 tablet 12/22/2020 Active Start: 11-11-2019 End: 08-04-2023 take 20 mg by mouth once daily Omeprazole Discontinued 20 MG PO DAILY November 11, 2019 12:00am August 04, 2023 9:01am Comment on above: Take 1 tablet by avelina th daily before breakfast. 1/2 hr before meal. traZODone hydrochloride 50 mg oral tablet (12 sources) Serotonin Reuptake Inhibitor Start: take 1 tablet by mouth once daily at bedtime traZODone (DESYREL) 50 mg tablet Indications: Insomnia, unspecified type Take 1 tablet by mouth daily at bedtime. 90 tablet 01/02/2021 Active Start: 11-11-2019 End: 08-04-2023 take 100 mg by mouth at bedtime Trazodone Discontinued 100 MG PO AT BEDTIME November 11, 2019 12:00am August 04, 2023 9:02am Comment on above: Take 1 tablet by avelina th daily at bedtime. Problems Active Problems Problem Classification Problem Date Documented Da te Episodic/Chronic Abdominal pain (3 sources) Abdominal pain; Translations: [Unspecified abdominal pain] 05-23-2021 Episodic Acute bronchitis (3 sources) Acute bronchitis; Translations: [Acute bronchitis, unspecified] 08-03-2023 Episodic Administrative/social admission (1 source) Persons encountering health services in other specified circumstances; Translations: [Other reasons for seeking consultation] 08-04-2023 Episodic Anxiety disorders (13 sources) Mixed anxiety and depressive disorder; Translations: [Anxiety disorder, unspecified] Onset: 2 08-12-2011 Chronic Biliary tract disease (3 sources) Biliary stricture; Translations: [Obstruction of bile duct] 05-23-2021 Chronic Biliary tract disease (3 sources) Biliary calculus; Translations: [Calculus of gallbladder with chronic cholecystitis without obstruction] 05-23-2021 Episodic Cardiac dysrhythmias (3 sources) ECG: sinus tachycardia; Translations: [Tachycardia, unspecified] 11-29-2019 Episodic Esophageal disorders (12 sources) Gastroesophageal reflux disease; Translations: [Gastro-esophageal reflux disease without esophagitis] Onset: 8 03-01-2018 Chronic Fluid and electrolyte disorders (3 sources) Hyponatremia; Translations: [Hypo-osmolality and hyponatremia] 08-03-2023 Episodic Genitourinary symptoms and ill-defined conditions (2 sources) Retention of urine, unspecified; Translations: [Retention of urine, unspecified] Onset: Episodic Hepatitis (2 sources) Unspecified viral hepatitis C without hepatic coma; Translations: [Unspecified viral hepatitis C without hepatic coma] Onset: 4 08-04-2023 Episodic Intestinal obstruction without hernia (3 sources) Intestinal obstruction co-occurrent and due to decreased peristalsis; Translations: [Ileus, unspecified] 08-03-2023 Episodic Menopausal disorders (3 sources) Perimenopausal state; Translations: [Menopausal and female climacteric states] 11-11-2019 Chronic Nausea and vomiting (3 sources) Nausea and vomiting; Translations: [Nausea with vomiting, unspecified] 08-03-2023 Episodic Nutritional deficiencies (2 sources) Vitamin D deficiency, unspecified; Translations: [Unspecified vitamin D deficiency] Onset: 4 08-04-2023 Chronic Nutritional deficiencies (2 sources) Iron deficiency; Translations: [Iron deficiency anemia, unspecified] Onset: 4 08-04-2023 Episodic Osteoarthritis (1 source) Osteoarthritis of knee; Translations: [Other bilateral secondary osteoarthritis of knee] 03-05-2024 Chronic Other and ill-defined cerebrovascular disease (3 sources) Spasm of cerebral arteries; 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] 05-13-2021 Chronic Other and ill-defined cerebrovascular disease (1 source) Reversible cerebrovascular vasoconstriction syndrome; 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] Onset: 4 Chronic Other connective tissue disease (2 sources) H/O: rheumatoid arthritis; Translations: [Personal history of other diseases of the musculoskeletal system and connective tissue] Episodic Other connective tissue disease (2 sources) Personal history of other diseases of the musculoskeletal system and connective tissue; Translations: [Personal history of arthritis] Episodic Other diseases of bladder and urethra (1 source) Overactive bladder; Translations: [Hypertonicity of bladder] 08-04-2023 Chronic Other diseases of veins and lymphatics (3 sources) Lymphedema; Translations: [Lymphedema, not elsewhere classified] 11-29-2019 Chronic Other gastrointestinal disorders (3 sources) Constipation; Translations: [Constipation, unspecified] 08-04-2023 Episodic Other lower respiratory disease (3 sources) Other forms of dyspnea; Translations: [Chronic dyspnea] 11-29-2019 Episodic Other lower respiratory disease (2 sources) Shortness of breath; Translations: [Shortness of breath] Onset: 4 Episodic Other nervous system disorders (1 source) Other chronic pain; Translations: [Other chronic pain] Onset: 4 Chronic Other non-traumatic joint disorders (2 sources) Pain in unspecified knee; Translations: [Pain in joint, lower leg] Onset: 4 08-04-2023 Episodic Other non-traumatic joint disorders (2 sources) Pain in right knee; Translations: [Pain in joint, lower leg] 11-24-2023 Episodic Other screening for suspected conditions (not mental disorders or infectious disease) (8 sources) D-dimer above reference range; Translations: [Other specified abnormal findings of blood chemistry] Onset: 4 Episodic Other upper respiratory infections (3 sources) Upper respiratory infection; Translations: [Acute upper respiratory infection, unspecified] 02-03-2018 Episodic Phlebitis; thrombophlebitis and thromboembolism (18 sources) Thromboembolism of vein; Translations: [Acute embolism and thrombosis of unspecified deep veins of unspecified lower extremity] Onset: 2 02-14-2012 Episodic Residual codes; unclassified (2 sources) Pain; Translations: [Pain, unspecified] 09-20-2023 Episodic Residual codes; unclassified (1 source) Pain, unspecified; Translations: [Pain] Onset: 4 Episodic Rheumatoid arthritis and related disease (20 sources) Rheumatoid arthritis; Translations: [Rheumatoid arthritis, unspecified] Onset: 2 05-17-2011 Chronic Substance-related disorders (19 sources) Opioid withdrawal; Translations: [Opioid dependence with withdrawal] Chronic Substance-related disorders (1 source) Opioid withdrawal; Translations: [Opioid use, unspecified with withdrawal] 10-24-2021 Episodic Unclassified (4 sources) Readiness finding; Translations: [Desire for detoxification] Past or Other Problems Problem Classification Problem Date Documented Date Episodic/Chronic Immunizations and screening for infectious disease (9 sources) Hepatitis C antibody test positive; Translations: [Other specified abnormal immunological findings in serum] Onset: 09-28-2019 09-28-2019 Episodic Other connective tissue disease (9 sources) Spasm; Translations: [Other muscle spasm] Onset: 11-23-2013 11-23-2013 Episodic Other nutritional; endocrine; and metabolic disorders (7 sources) Morbid obesity; Translations: [Morbid (severe) obesity due to excess calories] Resolved: 03-01-2018 03-01-2018 Chronic Residual codes; unclassified (9 sources) Edema; Translations: [Edema, unspecified] Onset: 05-17-2011 05-17-2011 Episodic Sprains and strains (9 sources) Neck sprain; Translations: [Sprain of joints and ligaments of unspecified parts of neck, initial encounter] Onset: 11-23-2013 11-23-2013 Episodic Results Test Name Value Interpretation Reference Range Facility [facility] 03-05-2024 CNOV Office Visit (ZENIA ) LAUREN HUNG ([id number]) 1965 [facility] Date Time Provider Department 03/05/24 1:30 PM VISH MCCLOUD During your visit today, we recorded the following information about you: Vish Mccloud MD 03/12/2024 8:21 AM Signed AMB ROOMING INTAKE FLOWSHEET DATA Risk Screening Do you have concerns about personal safety or safety in the home?: No Pain Pain Level: 7 Pain Location: Knee-Left (bilateral) Description: Aching Duration Amount of Time: 15 Duration Units: Years Frequency: Continuous Intervention/Comfort measure: Medication, Heat (takes ibuprofen and tylenol) Vish Mccloud MD Department of Orthopaedics [facility] [address] [facility] [address] Dept: [phone] Dept March 05, 2024 CHIEF COMPLAINT: Bilateral knee pain. HPI Patient has been having ongoing problems with bilateral knees. She is having difficult time even getting around at this point. She has a history of rheumatoid arthritis though has not been with rheumatology in quite some time. She did have some social and substance abuse issues. 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 We certainly need to get her into some simple range of motion physical therapy before any surgical discussions are had. However, with the complexity of her issue, I will get her in with one of our adult reconstruction specialists. FOLLOW UP INSTRUCTIONS: As above OBJECTIVE: Ms. Lauren Hung is a pleasant 58 year old in no apparent distress. Gen:LMP 04/08/2015 nl development, obese, no deformities ENT: Normocephalic, normal hearing, moist mucosa CV: Pulses:DP/PT= 2+ and symmetric, capillary refill < 2 secs, no peripheral edema/varicosities Skin: no rash, bruising or lesions. Good turgor. Psych: cooperative and appropriate, alert and oriented x 3, good mood and affect. Musculoskeletal: Patient arrives in wheelchair. She has some dependent edema bilaterally. She has soft tissue swelling of both knees but no significant effusions. She has markedly limited motion and in the left knee its only about 20 degrees of flexion contracture and only 20 degrees of functional motion. The right knee is a little bit better with maybe 15 degrees of flexion contracture and 80 degrees of flexion. IMAGING: IMPRESSION: No acute fracture. Worsening degenerative disease of bilateral knees. Laundry Pricing Clerk: DELONTE Transcribe Date/Time: Mar 09 2024 5:13P Dictated by : REYNA KESSLER MD This examination was interpreted and the report reviewed and electronically signed by: REYNA KESSLER MD on Mar 09 2024 5:14PM EST Results-Findings * * *Final Report* * * DATE OF EXAM: Mar 05 2024 2:05PM WRX [id number] - XR KNEE 4V AP/PA/LAT/MERCH ZAC / PROCEDURE REASON: Pain * * * * Physician Interpretation * * * * EXAMINATION: XR KNEE 4V AP/PA/LAT/MERCH ZAC CLINICAL HISTORY: Bilateral knee pain Technique: XR KNEE 4V AP/PA/LAT/MERCH ZAC -- BILATERAL with 4 views on 7 images Comparison: X-ray bilateral knees 09/25/2019 RESULT: Right knee: Generalized osteopenia. No acute fracture or dislocation. Worsening tricompartment joint space narrowing with subchondral sclerosis and marginal osteophytes. Left knee: Generalized osteopenia. No acute fracture or dislocation. Worsening tricompartment joint space narrowing with subchondral sclerosis and marginal osteophytes. Supporting Subjective Information Below: Past Medical History: PAST MEDICAL HISTORY Diagnosis Date Anxiety 08/12/2011 Edema Heroin use active, recent ED visit [facility] 09/11/20 History of DVT of lower extremity right Rheumatoid arthritis(714.0) 04/25/[address] Kraus, [facility] Tobacco use disorder Past Surgical History: PAST SURGICAL HISTORY Procedure Laterality Date KNEE ARTHROSCOPY/SURGERY 2010 left Family History: FAMILY HISTORY Problem Relation Age of Onset Breast Cancer Mother Diabetes Mother Thyroid Mother other (Stomach cancer) Mother Osteoporosis Father Arthritis Maternal Aunt Rheumatoid Thyroid Daughter Social History: Social History Tobacco Use Smoking status: Every Day Current packs/day: 0.50 Average packs/day: 0.5 packs/day for 23.0 years (11.5 ttl pk-yrs) Types: Cigarettes Smokeless tobacco: Never Tobacco comments: started smoking 22yo Substance Use Topics Alcohol use: No Drug use: No Medications: Current Outpatient Medications Medication Sig ferrous sulfate 325 mg (65 mg iron) tablet Take 1 tablet by mouth daily with breakfast. traZODone (DESYREL) 50 mg tablet Take 1 tablet by mouth daily at bedtime. ergocalciferol 50,000 unit capsule (VITAMIN D2, DRISDOL) Take 1 capsule (more content not included)... Normal [facility] XR KNEE 4V AP/PA/LAT/MERCH B NEon 03-05-2024 XR KNEE 4V AP/PA/LAT/MERCH ZAC * * *Final Report* * * DATE OF EXAM: Mar 05 2024 2:05PM RON [id number] - XR KNEE 4V AP/PA/LAT/MERCH ZAC / PROCEDURE REASON: Pain * * * * Physician Interpretation * * * * EXAMINATION: XR KNEE 4V AP/PA/LAT/MERCH ZAC CLINICAL HISTORY: Bilateral knee pain Technique: XR KNEE 4V AP/PA/LAT/MERCH ZAC -- BILATERAL with 4 views on 7 images Comparison: X-ray bilateral knees 09/25/2019 RESULT: Right knee: Generalized osteopenia. No acute fracture or dislocation. Worsening tricompartment joint space narrowing with subchondral sclerosis and marginal osteophytes. Left knee: Generalized osteopenia. No acute fracture or dislocation. Worsening tricompartment joint space narrowing with subchondral sclerosis and marginal osteophytes. IMPRESSION: No acute fracture. Worsening degenerative disease of bilateral knees. Laundry Pricing Clerk: DELONTE Transcribe Date/Time: Mar 09 2024 5:13P Dictated by : REYNA KESSLER MD This examination was interpreted and the report reviewed and electronically signed by: REYNA KESSLER MD on Mar 09 2024 5:14PM EST [id number] Normal [facility] Nicolas 11-24-2023 ALEXN Telephone (VAMSHI) LAUREN HUNG ([id number]) 1965 F [facility] Date Time Provider Department 11/24/23 OLGA LIDIA MANDUJANO During your visit today, we recorded the following information about you: Luana Aguiar LPN 11/24/2023 3:24 PM Signed Called and left detailed message regarding XR's prior to orthopedic appointment on 11/30/2023. Allergies As of Date: 11/24/2023 Noted Allergy Reaction MELOXICAM 11/29/2017 8 - GI Upset Date Reviewed: 12/12/2019 Reviewed by: Livier Bianchi Cma - Fully Assessed Reason for Visit: Appointment [[id number]] Prescriptions as of 11/24/2023 - ferrous sulfate 325 mg (65 mg iron) tablet Take 1 tablet by mouth daily with breakfast. - traZODone (DESYREL) 50 mg tablet Take 1 tablet by mouth daily at bedtime. - ergocalciferol 50,000 unit capsule (VITAMIN D2, DRISDOL) Take 1 capsule by mouth one time a week. - ibuprofen (MOTRIN) 800 mg tablet Take 1 tablet by mouth every 8 hours as needed for pain. Take with food. - Omeprazole Magnesium (PRILOSEC OTC) 20 mg tablet Take 1 tablet by mouth daily before breakfast. 1/2 hr before meal. - DULoxetine (CYMBALTA) 30 mg capsule Take 1 capsule by mouth once daily. Problem List As Of Date 11/24/2023 Noted Resolved RA (rheumatoid arthritis) [M06.9] 05/17/2011 Edema [R60.9] 05/17/2011 Morbid obesity (HCC) [E66.01] 03/01/2018 Tobacco use disorder [F17.200] Anxiety [F41.9] 08/12/2011 Acute venous embolism and thrombosis of unspeci*02/14/2012 History of DVT of lower extremity [Z86.718] Sprain of neck [S13.9XXA] 11/23/2013 Spasm of muscle [M62.838] 11/23/2013 Gastroesophageal reflux disease with esophagiti*03/01/2018 Rheumatoid arthritis involving multiple sites w*09/28/2019 Hepatitis C antibody positive in blood [R76.8] 09/28/2019 Encounter Status:Closed by LUANA AGUIAR on 11/24/23 Normal [facility] Internal Medicine Office Vis ed 10-17-2023 Internal Medicine Office Visit [facility] [address] [place] [address] [place], [place] [id number] OFFICE VISIT Date of Service: 10/18/23 MR#: [id number] Acct: [id number] Name: LAUREN HUNG Rep #: [id number] : 1965 Provider: Dr. Melyssa kennedy MD Age/Sex: 57/F Location: [facility] Status: Signed Intake Vital Signs 10/13/21 22:40 10/03/23 16:32 10/18/23 15:21 Height 5 ft 2 in 5 ft 1 in 5 ft 2 in BP 132/72 H Blood Pressure Location Lt brachial Position Sitting Respiration 16 Pulse 107 H Pulse Source Monitor Temp 97.5 F L Temp Source Temporal Pulse Oximetry (%) 97 Oxygen Delivery Method room air Intake Visit Reasons: fu Chief Complaint: fu Pharm Tech Required: No Accompanied by: Self Is patient in pain?: No Allergies meloxicam Adverse Reaction (Verified 10/18/23 15:19) Upset Stomach Medications ???Medication ???Instructions ???Recorded ???Confirmed ???Type ibuprofen 800 mg tablet (IBU) 800 mg PO TID PRN Pain 02/01/18 10/18/23 History acetaminophen 500 mg tablet 650 mg (1.3 x 500 mg) PO Q6H PRN 05/15/21 10/18/23 Rx Pain, Severe #120 tabs potassium chloride 20 mEq 40 meq (2 x 20 mEq) PO DAILY 5 10/03/23 10/18/23 Rx tablet,extended release days #10 tabs albuterol sulfate 2.5 mg/3 mL 2.5 mg (3 mL) inhalation Q4H PRN 10/18/23 10/18/23 Rx (0.083 %) solution for nebulization #25 vials albuterol sulfate 90 mcg/actuation 2 puff inhalation Q4H PRN PRN 10/18/23 10/18/23 Rx aerosol inhaler (Ventolin HFA) Wheezing ##1 buspirone 5 mg tablet 5 mg PO BID #60 tabs 10/18/23 10/18/23 Rx nicotine 21 mg/24 hr daily 1 patch transdermal DAILY #28 ea 10/18/23 10/18/23 Rx transdermal patch PFSH Medical History Shingles History of heroin abuse Choledocholithiasis Opiate withdrawal Restless legs Substance abuse Depression Anxiety Chronic pain Rheumatoid arthritis Hepatitis Smoker DVT (deep venous thrombosis) Opiate addiction Ileus Nicotine dependence History of immunosuppression therapy Surgical History History of cholecystectomy S/P knee surgery Family History Mother Diabetes Cancer stomach Breast cancer Father Hypertension Osteoporosis Social History household members: family current occupational status: disabled 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 She is up to date on her routine blood work. She still hasn't scheduled her screening, but plans on doing so. She is going to get her shingrix next week at the pharmacy. She does continue to smoke. She reports she has cut back and would like to try patches to help her quit altogether. She doesn't take any prescription medications. She reports she is eating healthy and is limited in activity due to joint problems. The patient has a history of drug abuse. She reports that she used heroin for about 2 years. She reports she did inject for a while, and then snorted. She did complete a treatment program. She has been sober for 05/2022. She reports she has been doing well without it. She has a good support system. The patient has a history of hepatitis c which was diagnosed while she was using the heroin as above. She reports she never did any type of treatment for it. At her last office visit, she was referred to GI. She reports that she is planning on getting that scheduled after her knees are assessed. At the patient's last office visit, she complained of joint pain from her RA. She was encouraged to find out who was in network for a office systems technology instructor. She reports that she hasn't been able to find anybody in network that is local to her stating the closest she could find was 3 hours away. She also was referred back to Dr. Mccloud for chronic knee pain. She reports that she has an appointment on the 09 of November and will discuss her symptoms further. At her last office visit, she had concerns about depression and anxiety. She was started on cymbalta. She reports that she took it for about a week and a half and didn't tolerate it. She reports it caused dizziness and nausea and also made her feel 'like a zombie.' She feels that her mental health has been doing better, although she still feels that she needs something. She reports she still gets nervous with being around people and going out. The patient was (more content not included)... Normal [facility] 12 Lead EKGon 10-03-2023 12 Lead EKG [facility] Cardiovascular Services [address] [place] [address] 12 Lead EKG 10/03/23 1726 MR#: [id number] Acct: [id number] Name: LAUREN HUNG Rep #: [id number] : 1965 57 From: Jemal Suarez MD Attending Dr: Status: DEP ER Ordering Dr: Peter Murphy DO Date: 10/03/23 Location: ED Sex: F C Admitted: Test Reason : Blood Pressure : / mmHG Vent. Rate : 102 BPM Atrial Rate : 102 BPM P-R Int : 140 ms QRS Dur : 080 ms QT Int : 374 ms P-R-T Axes : 086 055 069 degrees QTc Int : 487 ms Sinus tachycardia Otherwise normal ECG Confirmed by JEMAL SUAREZ MD ([id number]), metropolitan editor INES COX ([id number]) on 10/04/2023 8:18:46 AM Referred By: CHOCO Confirmed By:JEMAL SUAREZ MD 10/04/23 0818 Date Jemal Suarez MD CC: Dr. Melyssa Mercado MD; Dr. Peter Murphy DO Signed Normal [facility] Basic Metabolic Profile (BMP )on 10-03-2023 BUN/CRE 16.7 RATIO Normal 02-11 [facility] Comment on above: Performed By: #### L 500.2500, L500.3400, L501.5200 #### [facility] [address] [place], [address] CA,Total 9.3 mg/dL Normal 8.5-10.1 [facility] Comment on above: Performed By: #### L 500.2500, L500.3400, L501.5200 #### [facility] [address] [place], [address] Chloride [Moles/Vol] 109 mmol/L High 98-107 [facility] Comment on above: Performed By: #### L 500.2500, L500.3400, L501.5200 #### [facility] [address] [place], [address] CO2 [Moles/Vol] 23.0 mmol/L Normal 21.0-32.0 [facility] Comment on above: Performed By: #### L 500.2500, L500.3400, L501.5200 #### [facility] [address] [place], [address] Creatinine [Mass/Vol] 0.72 mg/dL Normal 0.55-1.02 [facility] Comment on above: Result Comment: The validity of the calculated GFR GFRAA in patients over 70 years has not been determined. Clinical correlation is essential. Performed By: #### L 500.2500, L500.3400, L501.5200 #### [facility] [address] [place], [address] ECRCL 85.49 ml/min Normal [facility] Comment on above: Performed By: #### L 500.2500, L500.3400, L501.5200 #### [facility] [address] [place], [address] EST GFR - AA 108 mL/min Normal >60 [facility] Comment on above: Result Comment: Afri can Swiss GFR Calc Performed By: #### L 500.2500, L500.3400, L501.5200 #### [facility] [address] [place], [address] GAP 5 Normal 5-15 [facility] Comment on above: Performed By: #### L 500.2500, L500.3400, L501.5200 #### [facility] [address] [place], [address] GFR/1.73 sq M.predicted among non-blacks MDRD (S/P/Bld) [Vol rate/Area] 89 mL/min/{1.73_m2} Normal >60 [facility] Comment on above: Result Comment: Non- GFR Calc Performed By: #### L 500.2500, L500.3400, L501.5200 #### [facility] [address] [place], [address] Glucose [Mass/Vol] 111 mg/dL High 74-106 [facility] Comment on above: Result Comment: Fast ing Glucose result from 100 to 125 mg/dL suggests IMPAIRED HOMEOSTASIS per A.D.A. criteria. Performed By: #### L 500.2500, L500.3400, L501.5200 #### [facility] [address] [place], [address] Potassium [Moles/Vol] 3.2 mmol/L Low 3.5-5.1 [facility] Comment on above: Performed By: #### L 500.2500, L500.3400, L501.5200 #### [facility] [address] [place], [address] Sodium [Moles/Vol] 137 mmol/L Normal 136-145 [facility] Comment on above: Performed By: #### L 500.2500, L500.3400, L501.5200 #### [facility] [address] [place], [address] Urea nitrogen [Mass/Vol] 12 mg/dL Normal 7-18 [facility] Comment on above: Performed By: #### L 500.2500, L500.3400, L501.5200 #### [facility] [address] [place], [address] CBC W/Diff, Automatedon - 0-4 Absolute Lymph 2.91 X10 3/uL Normal 0.83-4.51 [facility] Comment on above: Performed By: #### L 100.0100 ####[facility] [address] [place], [address] Absolute Neut 8.6 X10 3/uL High 2.0-7.7 [facility] Comment on above: Performed By: #### L 100.0100 ####[facility] [address] [place], [address] Basophils/100 WBC (Bld) 0.5 % Normal 0-1 [facility] Comment on above: Performed By: #### L 100.0100 ####[facility] [address] [place], [address] Eosinophils/100 WBC (Bld) 2.0 % Normal 0-5 [facility] Comment on above: Performed By: #### L 100.0100 ####[facility] [address] [place], [address] Erythrocyte distribution width (RBC) [Ratio] 14.4 % Normal 11.6-14.6 [facility] Comment on above: Performed By: #### L 100.0100 ####[facility] [address] [place], [address] Hematocrit (Bld) [Volume fraction] 40.9 % Normal 37-47 [facility] Comment on above: Performed By: #### L 100.0100 ####[facility] [address] [place], [address] Hemoglobin (Bld) [Mass/Vol] 13.3 g/dL Normal 12.0-15.0 [facility] Comment on above: Performed By: #### L 100.0100 ####[facility] [address] [place], [address] IG% 0.600 Normal 0.0-0.9 [facility] Comment on above: Result Comment: IG% - Immature Granulocytes (promyelocytes, myelocytes and metamyelocytes) > 1% indicates that a LEFT SHIFT is Present. Performed By: #### L 100.0100 ####[facility] [address] [place], [address] Lymphocytes/100 WBC (Bld) 22.9 % Normal 19-41 [facility] Comment on above: Performed By: #### L 100.0100 ####[facility] [address] [place], [address] MCH (RBC) [Entitic mass] 28.7 pg Normal 27.0-32.0 [facility] Comment on above: Performed By: #### L 100.0100 ####[facility] [address] [place], [address] MCHC (RBC) [Mass/Vol] 32.5 g/dL Normal 32-36 [facility] Comment on above: Performed By: #### L 100.0100 ####[facility] [address] [place], [address] MCV (RBC) [Entitic vol] 88.3 fL Normal 81-99 [facility] Comment on above: Performed By: #### L 100.0100 ####[facility] [address] [place], [address] Monocytes/100 WBC (Bld) 6.4 % Normal 0-10 [facility] Comment on above: Performed By: #### L 100.0100 ####[facility] [address], [address] Neutrophils/100 WBC (Bld) 67.6 % Normal 47-70 [facility] Comment on above: Performed By: #### L 100.0100 ####[facility] [address] [place], [address] Nucleated RBC (Bld) [#/Vol] 0 10*3/uL Normal 0-5 [facility] Comment on above: Performed By: #### L 100.0100 ####[facility] [address] [place], [address] Platelet mean volume (Bld) [Entitic vol] 11.1 fL Normal 6.2-12.0 [facility] Comment on above: Performed By: #### L 100.0100 ####[facility] [address] [place], [address] Platelets (Bld) [#/Vol] 314 10*3/uL Normal 150-450 [facility] Comment on above: Performed By: #### L 100.0100 ####[facility] [address] [place], [address] RBC (Bld) [#/Vol] 4.63 10*6/uL Normal 4.2-5.[address] [facility] Comment on above: Performed By: #### L 100.0100 ####[facility] [address] [place], [address] RDW SD 45.7 fl High 35.1-43.9 [facility] Comment on above: Performed By: #### L 100.0100 ####[facility] [address] [place], [address] WBC (Bld) [#/Vol] 12.7 10*3/uL High 4.4-11.[address] [facility] Comment on above: Performed By: #### L 100.0100 ####[facility] [address] [place], [address] Chest 1 View (Portable)on Chest 1 View (Portable) [facility] Imaging Services [address] [place] [address] Chest 1 View (Portable) MR#: [id number] Acct: [id number] Name: LAUREN HUNG Rep #: [id number] : 1965 F 57 From: Vish Reed MD PCP: Dr. Melyssa Mercado MD Status: REG ER Study: Chest 1 View (Portable) Date of Exam: 10/03/23 Exam# [id number] Ordering Dr: Peter Murphy DO [id number] STUDY: X-RAY CHEST REASON FOR EXAM: Female, 57 years old. Cough dyspnea TECHNIQUE: Single AP portable view of the chest. COMPARISON: None. FINDINGS: The lungs are clear and expanded. There is no demonstrated pleural abnormality. Normal size heart. Normal mediastinum and madonna. Normal visualized pulmonary arteries. Normal visualized aortic arch and descending thoracic aorta. Normal visualized thoracic spine. Normal visualized ribs, clavicles, and shoulders. There is no demonstrated abnormality of the visualized soft tissue structures of the upper abdomen. RAD/Chest 1 View (Portable) IMPRESSION: Normal x-ray examination of the chest. Electronically Signed: Vish Reed MD at 18:14 EDT , CC: Dr. Melyssa Mercado MD; Dr. 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 Melyssa Mercado MD Status:DEP ER Location: ED HPI History of Present Illness Chief Complaint: Shortness of Breath Informant: patient and family Narrative Narrative: 57-year-old female presenting to the emergency room with dyspnea. Patient states for about a week she has had some sinus congestion and over the past several days has developed diarrhea. She notes some cough that is nonproductive dyspnea with exertion and with speaking. No definite fevers. She states that her grandson who lives with her had a sinus infection recently. She states she has a history of rheumatoid arthritis but is only on ibuprofen currently because the other medicines resulted in numerous infections. Patient states she is a smoker but has no diagnosis of COPD/emphysema/chronic bronchitis. She does not wear home oxygen. She does not have any inhalers at home. She describes these tools as brown and watery. Patient notes decreased p.o. intake PFSH [facility] Medical History Shingles History of heroin abuse Choledocholithiasis Opiate withdrawal Restless legs Substance abuse Depression Anxiety Chronic pain Rheumatoid arthritis Hepatitis Smoker DVT (deep venous thrombosis) Opiate addiction Ileus Nicotine dependence History of immunosuppression therapy Home Medications ???Medication ???Instructions ???Recorded ???Last Taken ???Type ibuprofen 800 mg tablet (IBU) 800 mg PO TID PRN Pain 02/01/18 11/11/19 08:00 History acetaminophen 500 mg tablet 650 mg (1.3 x 500 mg) PO Q6H PRN 05/15/21 Unknown Rx Pain, Severe #120 tabs duloxetine 30 mg capsule,delayed 30 mg PO DAILY #30 caps 08/04/23 Unknown Rx release (Cymbalta) albuterol sulfate 2.5 mg/3 mL 2.5 mg (3 mL) inhalation Q4H PRN 10/03/23 Unknown Rx (0.083 %) solution for nebulization #25 vials albuterol sulfate 90 mcg/actuation 2 puff inhalation Q4H PRN PRN 10/03/23 Unknown Rx aerosol inhaler (Ventolin HFA) Wheezing ##1 potassium chloride 20 mEq 40 meq (2 x 20 mEq) PO DAILY 5 10/03/23 Unknown Rx tablet,extended release days #10 tabs prednisone 20 mg tablet 60 mg (3 x 20 mg) PO DAILY #15 10/03/23 Unknown Rx TABLETS Allergy/AdvReac Type Severity Reaction Status Date / Time meloxicam AdvReac Upset Verified 10/03/23 16:34 Stomach Family History Mother Diabetes Cancer stomach Breast cancer Father Hypertension Osteoporosis Surgical History History of cholecystectomy S/P knee surgery Social History household members: family current occupational status: disabled 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 Smoking Status: Light Smoker (<10/day) Electronic Cigarette Use: not used quit status: considering quitting alcohol intake: never details: Nondrinker substance use type: former substance user Date of last use: 06/13/22 and heroin do you feel safe at home: Yes ROS ROS ED Constitutional Constitutional ED: Denies chills, fever(s) or weight loss Eyes Eyes: Denies change in vision or diplopia ENT ENT ED: Reports other Details: Dry mouth ; Denies ear pain, rhinorrhea or sore throat Cardiovascular Cardiovascular: Denies chest pain, orthopnea, palpitations or racing heartbeat Respiratory/Chest Respiratory/Chest: Reports cough, dyspnea and dyspnea on exertion; Denies orthopnea or sputum Gastrointestinal Gastrointestinal: Reports diarrhea and nausea; Denies abdominal pain or vomiting Genitourinary Genitourinary ED: Denies dysuria, hematuria or urinary frequency Musculoskeletal Musculoskeletal: Denies arthralgias or myalgias Integumentary Denies abscess or rash Neurologic Neurologic: Denies headache(s) or weakness Psychiatric Psychiatric: Denies anxiety, depression, suicidal ideation or suicidal thoughts Endocrine Endocrinology: Denies polydipsia, polyphagia or polyuria Allergic/Immunologic Allergic/Immunologic ED: Denies mouth swelling, tongue swelling or urticaria EXAM Physical Exam Const Vital Signs: 10/03/23 16:32 10/03/23 16:33 10/03/23 16:54 Temperature 97.4 F L 97.4 F L Temperature Source Temporal Temporal Pulse Rate 114 H 114 H Respiratory Rate 19 H 18 Respiratory Effort Short of Breath Labored Respiratory Depth Normal Respiratory Pattern Normal Blood Pressure 165/97 H 165/97 H Blood Pressure Mean 119 119 Pulse Ox 96 94 Oxygen Delivery Method Room Air Room Air Room Air (more content not included)... Normal [facility] Liver Profileon 10-03-2023 Albumin [Mass/Vol] 3.4 g/dL Normal 3.2-5.0 [facility] Comment on above: Performed By: #### L 500.2500, L500.3400, L501.5200 #### [facility] [address] [place], [address] ALK P 96 U/L Normal 45-117 [facility] Comment on above: Performed By: #### L 500.2500, L500.3400, L501.5200 #### [facility] [address] [place], [address] ALT [Catalytic activity/Vol] 28 U/L Normal 13-56 [facility] Comment on above: Performed By: #### L 500.2500, L500.3400, L501.5200 #### [facility] [address] [place], [address] AST [Catalytic activity/Vol] 27 U/L Normal 15-37 [facility] Comment on above: Performed By: #### L 500.2500, L500.3400, L501.5200 #### [facility] [address] [place], [address] Bilirubin [Mass/Vol] 0.30 mg/dL Normal 0.20-1.00 [facility] Comment on above: Result Comment: For patients on eltrombopag therapy, use of Dimension [place] TBIL is not recommended. Performed By: #### L 500.2500, L500.3400, L501.5200 #### [facility] [address] [place], [address] Bilirubin.direct [Mass/Vol] 0.14 mg/dL Normal 0.00-0.30 [facility] Comment on above: Performed By: #### L 500.2500, L500.3400, L501.5200 #### [facility] [address] [place], [address] Globulin (S) [Mass/Vol] 4.9 g/dL High 2.2-4.2 [facility] Comment on above: Performed By: #### L 500.2500, L500.3400, L501.5200 #### [facility] [address] [place], [address] T PROT 8.3 g/dL High 6.4-8.2 [facility] Comment on above: Performed By: #### L 500.2500, L500.3400, L501.5200 #### [facility] [address] [place], [address] M100.678on 10-03-2023 M100.678 SARS-CoV-2 (COVID 19 ) Negative INFLUENZA A Negative INFLUENZA B Negative RSV PCR Negative Normal [facility] Comment on above: Performed By: #### L 400.0001, M100.678 #### [facility] [address] [place], [address] Magnesiumon 10-03-2023 Magnesium [Mass/Vol] 1.9 mg/dL Normal 1.6-2.6 [facility] Comment on above: Performed By: #### L 500.2500, L500.3400, L501.5200 #### [facility] [address] [place], [address] Urinalysis, Completeon 10-02 WBC 0-5 SEEN Normal 0-5 [facility] Comment on above: Order Comment: COLLE CTOR TO SPECIFY Performed By: #### L 400.0001, M100.678 #### [facility] [address] [place], [address] BACTERIA 0 SEEN Normal None Seen [facility] Comment on above: Order Comment: COLLE CTOR TO SPECIFY Performed By: #### L 400.0001, M100.678 #### [facility] [address] [place], [address] EPI,SQUAMOUS 0 SEEN Normal 5-10 [facility] Comment on above: Order Comment: COLLE CTOR TO SPECIFY Performed By: #### L 400.0001, M100.678 #### [facility] [address] [place], [address] Mucus Ql (Urine sed) 0 SEEN Normal [facility] Comment on above: Order Comment: RENARD CTOR TO SPECIFY Performed By: #### L 400.0001, M100.678 #### [facility] [address] [place], [address] RBC 0 SEEN Normal 0-5 [facility] Comment on above: Order Comment: RENARD CTOR TO SPECIFY Performed By: #### L 400.0001, M100.678 #### [facility] [address] [place], [address] Hepatitis C Genotypeon 08-08 HEP C GENOTYPE 1a Normal . [facility] Comment on above: Order Comment: Test( s) 970985-Tvzwwiplg C Genotypewas developed and its performance characteristicsdetermined by [facility]. It has not been cleared or approvedby the Food and Drug Administration. Result Comment: Perf ormed at: - [address] [id number] Duct Layer Helper: Ilan Gonzalez MD, Phone: [phone] Performed By: #### L 506.1000, L500.4100, L7000.8000, L503.6030, L7000.7000, L100.0100, L503.6550, L500.4050 ####[facility] [address] [place], [address] Hepatitis C,RNA PCR Viral Lo development vice president 08-09-2023 HCV log 10 5.782 Normal . [facility] Comment on above: Order Comment: Test( s) 561589-Skkvcuqhb C Genotypewas developed and its performance characteristicsdetermined by [facility]. It has not been cleared or approvedby the Food and Drug Administration. Result Comment: Resu lt Units: log10 IU/mL Performed By: #### L 506.1000, L500.4100, L7000.8000, L503.6030, L7000.7000, L100.0100, L503.6550, L500.4050 ####[facility] [address] [place], [address] HCV QT RNA PCR 817151 IU/mL Normal . [facility] Comment on above: Order Comment: Test( s) 094044-Ububtegam C Genotypewas developed and its performance characteristicsdetermined by [facility]. It has not been cleared or approvedby the Food and Drug Administration. Performed By: #### L 506.1000, L500.4100, L7000.8000, L503.6030, L7000.7000, L100.0100, L503.6550, L500.4050 ####[facility] [address] [place], [address] TEST INFO: Comment Normal . [facility] Comment on above: Order Comment: Test( s) 717052-Wfldtlshl C Genotypewas developed and its performance characteristicsdetermined by [facility]. It has not been cleared or approvedby the Food and Drug Administration. Result Comment: The quantitative range of this assay is 15 IU/mL to 100 million IU/mL. Performed By: #### L 506.1000, L500.4100, L7000.8000, L503.6030, L7000.7000, L100.0100, L503.6550, L500.4050 ####[facility] [address] [place], [address] Absolute lymphocyte countOrd ered By: Melyssa Jess on 08-04-2023 Lymphocytes Auto (Unsp spec) [#/Vol] 1.87 10*3/uL 0.83-4.51 [facility] Automated lymphocyte count a s percentage of total leukocytesOrdered By: Melyssa Jess on 08-04-2023 Lymphocytes/100 WBC Auto (Unsp spec) 19.5 % 19-41 [facility] Basophil percentageOrdered B y: Melyssa Jess on 08-04-2023 Basophil percentage 5.[address] [facility] Comment on above: Result Units: log10 IU/mL Basophils/100 WBC (Bld) 0.9 % 0-1 [facility] Bilirubin [Mass/Vol] 0.40 mg/dL 0.20-1.00 [facility] Comment on above: For patients on eltr ombopag therapy, use of Dimension [place] TBIL is not recommended. Chloride [Moles/Vol] 110 mmol/L 98-107 [facility] Cholesterol [Mass/Vol] 165 mg/dL <200 [facility] Comment on above: <200 mg/dL Desirable 200-240 mg/dL Borderline >240 mg/dL High Risk Eosinophils/100 WBC (Bld) 2.1 % 0-5 [facility] Glucose [Mass/Vol] 102 mg/dL 74-106 [facility] Comment on above: Fasting Glucose resu lt from 100 to 125 mg/dL suggests IMPAIRED HOMEOSTASIS per A.D.A. criteria. Hemoglobin (Bld) [Mass/Vol] 13.8 g/dL 12.0-15.0 [facility] Monocytes/100 WBC (Bld) 7.1 % 0-10 [facility] Neutrophils (Bld) [#/Vol] 6.7 10*3/uL 2.0-7.7 [facility] Neutrophils/100 WBC (Bld) 70.0 % 47-70 [facility] Potassium [Moles/Vol] 4.3 mmol/L 3.5-5.1 [facility] Protein [Mass/Vol] 8.2 g/dL 6.4-8.2 [facility] Sodium [Moles/Vol] 138 mmol/L 136-145 [facility] Triglyceride [Mass/Vol] 77 mg/dL <199 [facility] Comment on above: The drugs N-Acetylcy steine and Metamizole may falsely depress this assay.Serum Triglycerides Reference Interval Normal <150 mg/dL Borderline high 150 - 199 mg/dL High 200 - 499 mg/dL Very High > or = 500 mg/dL WBC (Bld) [#/Vol] 9.6 10*3/uL 4.4-11.0 [facility] CBC W/Diff, Automatedon 07-24 Absolute Lymph 1.87 X10 3/uL Normal 0.83-4.51 [facility] Comment on above: Performed By: #### L 506.1000, L500.4100, L7000.8000, L503.6030, L7000.7000, L100.0100, L503.6550, L500.4050 #### [facility] [address] [place], [address] Absolute Neut 6.7 X10 3/uL Normal 2.0-7.7 [facility] Comment on above: Performed By: #### L 506.1000, L500.4100, L7000.8000, L503.6030, L7000.7000, L100.0100, L503.6550, L500.4050 #### [facility] [address] [place], [address] Basophils/100 WBC (Bld) 0.9 % Normal 0-1 [facility] Comment on above: Performed By: #### L 506.1000, L500.4100, L7000.8000, L503.6030, L7000.7000, L100.0100, L503.6550, L500.4050 #### [facility] [address] [place], [address] Eosinophils/100 WBC (Bld) 2.1 % Normal 0-5 [facility] Comment on above: Performed By: #### L 506.1000, L500.4100, L7000.8000, L503.6030, L7000.7000, L100.0100, L503.6550, L500.4050 #### [facility] [address] [place], [address] Erythrocyte distribution width (RBC) [Ratio] 14.6 % Normal 11.6-14.6 [facility] Comment on above: Performed By: #### L 506.1000, L500.4100, L7000.8000, L503.6030, L7000.7000, L100.0100, L503.6550, L500.4050 #### [facility] [address] [place], [address] ( Hematocrit (Bld) [Volume fraction] 43.3 % Normal 37-47 [facility] Comment on above: Performed By: #### L 506.1000, L500.4100, L7000.8000, L503.6030, L7000.7000, L100.0100, L503.6550, L500.4050 #### [facility] [address] [place], [address] Hemoglobin (Bld) [Mass/Vol] 13.8 g/dL Normal 12.0-15.0 [facility] Comment on above: Performed By: #### L 506.1000, L500.4100, L7000.8000, L503.6030, L7000.7000, L100.0100, L503.6550, L500.4050 #### [facility] [address] [place], [address] IG% 0.400 Normal 0.0-0.9 [facility] Comment on above: Result Comment: IG% - Immature Granulocytes (promyelocytes, myelocytes and metamyelocytes) > 1% indicates that a LEFT SHIFT is Present. Performed By: #### L 506.1000, L500.4100, L7000.8000, L503.6030, L7000.7000, L100.0100, L503.6550, L500.4050 #### [facility] [address] [place], [address] Lymphocytes/100 WBC (Bld) 19.5 % Normal 19-41 [facility] Comment on above: Performed By: #### L 506.1000, L500.4100, L7000.8000, L503.6030, L7000.7000, L100.0100, L503.6550, L500.4050 #### [facility] [facility] [address] [place], [address] MCH (RBC) [Entitic mass] 28.9 pg Normal 27.0-32.0 [facility] Comment on above: Performed By: #### L 506.1000, L500.4100, L7000.8000, L503.6030, L7000.7000, L100.0100, L503.6550, L500.4050 #### [facility] [address] [place], [address] MCHC (RBC) [Mass/Vol] 31.9 g/dL Low 32-36 [facility] Comment on above: Performed By: #### L 506.1000, L500.4100, L7000.8000, L503.6030, L7000.7000, L100.0100, L503.6550, L500.4050 #### [facility] [address] [place], [address] MCV (RBC) [Entitic vol] 90.8 fL Normal 81-99 [facility] Comment on above: Performed By: #### L 506.1000, L500.4100, L7000.8000, L503.6030, L7000.7000, L100.0100, L503.6550, L500.4050 #### [facility] [address] [place], [address] Monocytes/100 WBC (Bld) 7.1 % Normal 0-10 [facility] Comment on above: Performed By: #### L 506.1000, L500.4100, L7000.8000, L503.6030, L7000.7000, L100.0100, L503.6550, L500.4050 #### [facility] [address] [place], [address] Neutrophils/100 WBC (Bld) 70.0 % Normal 47-70 [facility] Comment on above: Performed By: #### L 506.1000, L500.4100, L7000.8000, L503.6030, L7000.7000, L100.0100, L503.6550, L500.4050 #### [facility] [address] [facility] [place], [address] Nucleated RBC (Bld) [#/Vol] 0 10*3/uL Normal 0-5 [facility] Comment on above: Performed By: #### L 506.1000, L500.4100, L7000.8000, L503.6030, L7000.7000, L100.0100, L503.6550, L500.4050 #### [facility] [address] [place], [address] Platelet mean volume (Bld) [Entitic vol] 11.7 fL Normal 6.2-12.0 [facility] Comment on above: Performed By: #### L 506.1000, L500.4100, L7000.8000, L503.6030, L7000.7000, L100.0100, L503.6550, L500.4050 #### [facility] [address] [facility] [place], [address] Platelets (Bld) [#/Vol] 322 10*3/uL Normal 150-450 [facility] Comment on above: Performed By: #### L 506.1000, L500.4100, L7000.8000, L503.6030, L7000.7000, L100.0100, L503.6550, L500.4050 #### [facility] [address] [place], [address] RBC (Bld) [#/Vol] 4.77 10*6/uL Normal 4.2-5.[address] [facility] Comment on above: Performed By: #### L 506.1000, L500.4100, L7000.8000, L503.6030, L7000.7000, L100.0100, L503.6550, L500.4050 #### [facility] [address] [place], [address] RDW SD 48.5 fl High 35.1-43.9 [facility] Comment on above: Performed By: #### L 506.1000, L500.4100, L7000.8000, L503.6030, L7000.7000, L100.0100, L503.6550, L500.4050 #### [facility] [address] [place], [address] WBC (Bld) [#/Vol] 9.6 10*3/uL Normal 4.4-11.0 [facility] Comment on above: Performed By: #### L 506.1000, L500.4100, L7000.8000, L503.6030, L7000.7000, L100.0100, L503.6550, L500.4050 #### [facility] [address] [place], [address] Comprehensive Metabolic Prof ilon 08-04-2023 Albumin [Mass/Vol] 3.3 g/dL Normal 3.2-5.0 [facility] Comment on above: Performed By: #### L 506.1000, L500.4100, L7000.8000, L503.6030, L7000.7000, L100.0100, L503.6550, L500.4050 ####[facility] [address] [place], [address] Albumin/Globulin [Mass ratio] 0.7 {ratio} Low 0.9-2.4 [facility] Comment on above: Performed By: #### L 506.1000, L500.4100, L7000.8000, L503.6030, L7000.7000, L100.0100, L503.6550, L500.4050 ####[facility] [address] [place], [address] ALK P 87 U/L Normal 45-117 [facility] Comment on above: Performed By: #### L 506.1000, L500.4100, L7000.8000, L503.6030, L7000.7000, L100.0100, L503.6550, L500.4050 ####[facility] [address] [place], [address] ALT [Catalytic activity/Vol] 43 U/L Normal 13-56 [facility] Comment on above: Performed By: #### L 506.1000, L500.4100, L7000.8000, L503.6030, L7000.7000, L100.0100, L503.6550, L500.4050 ####[facility] [address] [place], [address] AST [Catalytic activity/Vol] 33 U/L Normal 15-37 [facility] Comment on above: Performed By: #### L 506.1000, L500.4100, L7000.8000, L503.6030, L7000.7000, L100.0100, L503.6550, L500.4050 ####[facility] [address] [place], [address] Bilirubin [Mass/Vol] 0.40 mg/dL Normal 0.20-1.00 [facility] Comment on above: Result Comment: For patients on eltrombopag therapy, use of Dimension [place] TBIL is not recommended. Performed By: #### L 506.1000, L500.4100, L7000.8000, L503.6030, L7000.7000, L100.0100, L503.6550, L500.4050 ####[facility] [address] [place], [address] BUN/CRE 24.6 RATIO High 10-20 [facility] Comment on above: Performed By: #### L 506.1000, L500.4100, L7000.8000, L503.6030, L7000.7000, L100.0100, L503.6550, L500.4050 ####[facility] [address] [place], [address] CA,Total 9.4 mg/dL Normal 8.5-10.1 [facility] Comment on above: Performed By: #### L 506.1000, L500.4100, L7000.8000, L503.6030, L7000.7000, L100.0100, L503.6550, L500.4050 ####[facility] [address] [place], [address] Chloride [Moles/Vol] 110 mmol/L High 98-107 [facility] Comment on above: Performed By: #### L 506.1000, L500.4100, L7000.8000, L503.6030, L7000.7000, L100.0100, L503.6550, L500.4050 ####[facility] [address] [place], [address] CO2 [Moles/Vol] 27.0 mmol/L Normal 21.0-32.0 [facility] Comment on above: Performed By: #### L 506.1000, L500.4100, L7000.8000, L503.6030, L7000.7000, L100.0100, L503.6550, L500.4050 ####[facility] [address] [place], [address] Creatinine [Mass/Vol] 0.57 mg/dL Normal 0.55-1.02 [facility] Comment on above: Result Comment: The validity of the calculated GFR GFRAA in patients over 70 years has not been determined. Clinical correlation is essential. Performed By: #### L 506.1000, L500.4100, L7000.8000, L503.6030, L7000.7000, L100.0100, L503.6550, L500.4050 ####[facility] [address] [place], [place], [address] EST GFR - AA 142 mL/min Normal >60 [facility] Comment on above: Result Comment: Afri can Swiss GFR Calc Performed By: #### L 506.1000, L500.4100, L7000.8000, L503.6030, L7000.7000, L100.0100, L503.6550, L500.4050 ####[facility] [address] [place], [address] GAP 1 Low 5-15 [facility] Comment on above: Performed By: #### L 506.1000, L500.4100, L7000.8000, L503.6030, L7000.7000, L100.0100, L503.6550, L500.4050 ####[facility] [address] [place], [address] GFR/1.73 sq M.predicted among non-blacks MDRD (S/P/Bld) [Vol rate/Area] 117 mL/min/{1.73_m2} Normal >60 [facility] Comment on above: Result Comment: Non- GFR Calc Performed By: #### L 506.1000, L500.4100, L7000.8000, L503.6030, L7000.7000, L100.0100, L503.6550, L500.4050 ####[facility] [address] [place], [address] Globulin (S) [Mass/Vol] 4.9 g/dL High 2.2-4.2 [facility] Comment on above: Performed By: #### L 506.1000, L500.4100, L7000.8000, L503.6030, L7000.7000, L100.0100, L503.6550, L500.4050 ####[facility] [address] [place], [address] Glucose [Mass/Vol] 102 mg/dL Normal 74-106 [facility] Comment on above: Result Comment: Fast ing Glucose result from 100 to 125 mg/dL suggests IMPAIRED HOMEOSTASIS per A.D.A. criteria. Performed By: #### L 506.1000, L500.4100, L7000.8000, L503.6030, L7000.7000, L100.0100, L503.6550, L500.4050 ####[facility] [address] [place], [address] Potassium [Moles/Vol] 4.3 mmol/L Normal 3.5-5.1 [facility] Comment on above: Performed By: #### L 506.1000, L500.4100, L7000.8000, L503.6030, L7000.7000, L100.0100, L503.6550, L500.4050 ####[facility] [address] [place], [address] Sodium [Moles/Vol] 138 mmol/L Normal 136-145 [facility] Comment on above: Performed By: #### L 506.1000, L500.4100, L7000.8000, L503.6030, L7000.7000, L100.0100, L503.6550, L500.4050 ####[facility] [address] [place], [address] T PROT 8.2 g/dL Normal 6.4-8.2 [facility] Comment on above: Performed By: #### L 506.1000, L500.4100, L7000.8000, L503.6030, L7000.7000, L100.0100, L503.6550, L500.4050 ####[facility] [address] [place], [address] Urea nitrogen [Mass/Vol] 14 mg/dL Normal 7-18 [facility] Comment on above: Performed By: #### L 506.1000, L500.4100, L7000.8000, L503.6030, L7000.7000, L100.0100, L503.6550, L500.4050 ####[facility] [address] [place], [address] Determination of erythrocyte mean corpuscular volume (MCV)Ordered By: Melyssa Mercado on 08-04-2023 MCV (RBC) [Entitic vol] 90.8 fL 81-99 [facility] Erythrocyte distribution wid th ratioOrdered By: Melyssa Mercado on 08-04-2023 Erythrocyte distribution width (RBC) [Ratio] 14.6 % 11.6-14.6 [facility] Erythrocyte distribution wid th standard deviationOrdered By: Melyssa Mercado on 08-04-2023 Erythrocyte distribution width (RBC) [Entitic vol] 48.5 fL 35.1-43.9 [facility] Ferritinon 08-04-2023 Ferritin [Mass/Vol] 72 ng/mL Normal 8-[address] [facility] Comment on above: Performed By: #### L 506.1000, L500.4100, L7000.8000, L503.6030, L7000.7000, L100.0100, L503.6550, L500.4050 ####[facility] [address] [place], [address] Hematocrit Auto (Bld) [Volum e fraction]Ordered By: Melyssa Mercado on 08-04-2023 Hematocrit (Bld) [Volume fraction] 43.3 % 37-47 [facility] Immature granulocytes/100 WB C Auto (Bld)Ordered By: Melyssa Mercado on 08-04-2023 Immature granulocytes/100 WBC (Bld) 0.400 % 0.0-0.9 [facility] Comment on above: IG% - Immature Granu locytes (promyelocytes, myelocytes and metamyelocytes) > 1% indicates that a LEFT SHIFT is Present. Internal Medicine Office Vis iton 08-04-2023 Internal Medicine Office Visit [facility] [address] [place] [address] OFFICE VISIT Date of Service: 08/04/23 MR#: [id number] Acct: [id number] Name: LAUREN HUNG Rep #: [id number] : 1965 Provider: Dr. 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 States she has recently had alot of anxiety PFSH Medical History (Updated 08/04/23 @ 09:[address] Melyssa Mercado MD) Anxiety Choledocholithiasis Chronic pain Depression DVT (deep venous thrombosis) Hepatitis History of heroin abuse History of immunosuppression therapy Ileus Nicotine dependence Opiate addiction Opiate withdrawal Restless legs Rheumatoid arthritis Shingles Smoker Substance abuse Surgical History History of cholecystectomy S/P knee surgery Family History (Updated 08/04/23 @ 09:[address] Melyssa Mercado MD) Mother Diabetes Cancer stomach Breast cancer Father Hypertension Osteoporosis Social History (Updated 08/04/23 @ 09:[address] 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 She was seeing Dr. Vasquez and last saw them about 2 years ago. She is due for some routine blood work and screening. She does want her shingles vaccine and will get that at the pharmacy. She doesn't want any COVID shots. She does smoke and doesn't want to quit at this time. She doesn't take any prescription medications. She reports she is eating healthy and is limited in activity due to joint problems. The patient has a history of drug abuse. She reports that she used heroin for about 2 years. She reports she did inject for a while, and then snorted. She did complete a treatment program. She has been sober for 05/2022. She reports she has been doing well without it. She has a good support system. The patient has a history of hepatitis c which was diagnosed while she was using the heroin as above. She reports she never did any type of treatment for it, but is interested in doing so, if able. She reports a history of rheumatoid arthritis. She was diagnosed in her late 30s. She reports she has tried multiple other medications including orencia, and humira, but reports she was getting recurrent infections. She previously saw a office systems technology instructor, but can't find somebody who takes her insurance. The patient has been having problems with both of her knees. She was seeing Dr. Mccloud a few years ago. She states she was told she was too young for surgery at that time and never followed up. She is interested in getting established with him again. She has done steroid injections in the past and reports that helped. The patient currently alternates ibuprofen and tylenol. She reports it does help to a point. Due to her history, she doesn't want any type of pain medications. She rates her pain 7/10 today. The patient has concerns about her mental health. The patient reports she gets very nervous and overwhelmed with things and feels that she needs to resume medications. She reports she will cry often. She reports she has had problems with it for a few years. She was previously on cymbalta, and thought it was helpful, but doesn't know if it was a strong enough dose. It also appears she was on lexapro years ago, but she doesn't think that helped much. She doesn't see a therapist or counselor and denies any thoughts of suicide. ROS Const Constitutional: No body ache, chills, excessive sweating, fatigue, fev (more content not included)... Normal [facility] Iron measurement (mass/mass) Ordered By: Melyssa Mercado on 08-04-2023 Iron (Unsp spec) [Mass/Mass] 38 ug/dL 50-170 [facility] Iron+Iron Binding Capacityon 08-04-2023 Iron [Mass/Vol] 38 ug/dL Low 50-170 [facility] Comment on above: Performed By: #### L 506.1000, L500.4100, L7000.8000, L503.6030, L7000.7000, L100.0100, L503.6550, L500.4050 ####[facility] [address] [place], [address] IRON SATURATION 9.6 Low 15.0-55.0 [facility] Comment on above: Performed By: #### L 506.1000, L500.4100, L7000.8000, L503.6030, L7000.7000, L100.0100, L503.6550, L500.4050 ####[facility] [address] [place], [address] TIBC 395 ug/dL Normal 250-450 [facility] Comment on above: Performed By: #### L 506.1000, L500.4100, L7000.8000, L503.6030, L7000.7000, L100.0100, L503.6550, L500.4050 ####[facility] [address] [place], [address] Laboratory - Chemistry and C hemistry - challengeOrdered By: Melyssa Mercado on 08-04-2023 Albumin/Globulin [Mass ratio] 0.7 {ratio} 0.9-2.4 [facility] ALP [Catalytic activity/Vol] 87 U/L 45-117 [facility] ALT [Catalytic activity/Vol] 43 U/L 13-56 [facility] Cholesterol in HDL [Mass/Vol] 46 mg/dL >40 [facility] Comment on above: The drugs N-Acetylcy steine and Metamizole may falsely depress this assay. Reference Range HDL <40 mg/dL Low HDL Cholesterol HDL >or= 60 mg/dL High HDL Cholesterol Cholesterol in LDL [Mass/Vol] 104 mg/dL 0-130 [facility] CO2 [Moles/Vol] 27.0 mmol/L 21.0-32.0 [facility] Ferritin [Mass/Vol] 72 ng/mL 8-[address] [facility] Globulin (S) [Mass/Vol] 4.9 g/dL 2.2-4.2 [facility] Urea nitrogen/Creatinine [Mass ratio] 24.6 mg/mg 10-20 [facility] Laboratory - Hematology and Cell countsOrdered By: Melyssa Mercado on 08-04-2023 MCH (RBC) [Entitic mass] 28.9 pg 27.0-32.0 [facility] MCHC (RBC) [Mass/Vol] 31.9 g/dL 32-36 [facility] Nucleated RBC/100 WBC (Bld) [Ratio] 0 % 0-5 [facility] Platelet mean volume (Bld) [Entitic vol] 11.7 fL 6.2-12.0 [facility] Platelets (Bld) [#/Vol] 322 10*3/uL 150-450 [facility] Lipid Profileon 08-04-2023 Cholesterol [Mass/Vol] 165 mg/dL Normal 200 [facility] Comment on above: Result Comment: <200 mg/dL Desirable 200-240 mg/dL Borderline >240 mg/dL High Risk Performed By: #### L 506.1000, L500.4100, L7000.8000, L503.6030, L7000.7000, L100.0100, L503.6550, L500.4050 ####[facility] [address] [place], [address] Cholesterol in HDL [Mass/Vol] 46 mg/dL Normal [facility] Comment on above: Result Comment: The drugs N-Acetylcysteine and Metamizole may falsely depress this assay. Reference Range HDL <40 mg/dL Low HDL Cholesterol HDL >or= 60 mg/dL High HDL Cholesterol Performed By: #### L 506.1000, L500.4100, L7000.8000, L503.6030, L7000.7000, L100.0100, L503.6550, L500.4050 ####[facility] [address] [place], [address] Cholesterol in LDL [Mass/Vol] 104 mg/dL Normal 0-130 [facility] Comment on above: Performed By: #### L 506.1000, L500.4100, L7000.8000, L503.6030, L7000.7000, L100.0100, L503.6550, L500.4050 ####[facility] [address] [place], [address] Cholesterol in VLDL [Mass/Vol] 15 mg/dL Normal 5-40 [facility] Comment on above: Performed By: #### L 506.1000, L500.4100, L7000.8000, L503.6030, L7000.7000, L100.0100, L503.6550, L500.4050 ####[facility] [address] [place], [address] Triglyceride [Mass/Vol] 77 mg/dL Normal [facility] Comment on above: Result Comment: The drugs N-Acetylcysteine and Metamizole may falsely depress this assay. Serum Triglycerides Reference Interval Normal <150 mg/dL Borderline high 150 - 199 mg/dL High 200 - 499 mg/dL Very High > or = 500 mg/dL Performed By: #### L 506.1000, L500.4100, L7000.8000, L503.6030, L7000.7000, L100.0100, L503.6550, L500.4050 ####[facility] [address] [place], [address] No Panel InformationOrdered By: Melyssa Mercado on 08-04-2023 Addendum Document Comment . [facility] Comment on above: The quantitative ran ge of this assay is 15 IU/mL to 100million IU/mL. Estimated GFR (MDRD) Amer 142 mL/min >60 [facility] Comment on above: GFR Calc Estimated GFR (MDRD) Non-Af Amer 117 mL/min >60 [facility] Comment on above: Non- GFR Calc Hepatitis C Genotype 1a . [facility] Comment on above: Performed at: - [address] [id number] Director: Ilan Gonzalez MD, Phone: [phone] Total Iron Binding Capacity 395 ug/dL 250-450 [facility] Vitamin D 25-Hydroxy 27.3 ng/mL [facility] Comment on above: Vitamin D 25(OH) Sta tus Range Deficiency <20 ng/mL (50nmol/L) Insufficiency 20 - 30 ng/mL (50 - 75 nmol/L) Sufficiency 30 - 100 ng/mL (75 - 250 nmol/L) Toxicity >100 ng/mL (>250 nmol/L) VLDL Cholesterol 15 mg/dL 5-40 [facility] RBC Auto (Bld) [#/Vol]Ordere d By: Melyssa Mercado on 08-04-2023 RBC (Bld) [#/Vol] 4.77 10*6/uL 4.2-5.[address] [facility] Serum or plasma calcium shiela urement (mass/volume)Ordered By: Melyssa Mercado on 08-04-2023 Calcium [Mass/Vol] 9.4 mg/dL 8.5-10.1 [facility] Serum or plasma creatinine m easurement (mass/volume)Ordered By: Melyssa Mercado on 08-04-2023 Creatinine [Mass/Vol] 0.57 mg/dL 0.55-1.02 [facility] Comment on above: The validity of the calculated GFR & GFRAA in patients over 70 years has not been determined. Clinical correlation is essential. Serum or plasma hepatitis C virus RNA measurement by probe and target amplification mOrdered By: Melyssa Mercado on 08-04-2023 HCV RNA KARIN+probe Qn [id number] IU/mL . [facility] Serum or plasma iron saturat ion measurement (mass fraction)Ordered By: Melyssa Mercado on 08-04-2023 Iron saturation [Mass fraction] 9.6 % 15.0-55.0 [facility] Serum or plasma urea nitroge n measurement (mass/volume)Ordered By: Melyssa Mercado on 08-04-2023 Urea nitrogen [Mass/Vol] 14 mg/dL 7-18 [facility] Thin prep Papanicolaou smear with manual screeningOrdered By: Melyssa Mercado on 08-04-2023 Thin prep Papanicolaou smear with manual screening 3.3 g/dL 3.2-5.0 [facility] Thin prep Papanicolaou smear with manual screening 33 U/L 15-37 [facility] Thin prep Papanicolaou smear with manual screening 1 5-15 [facility] Vitamin D,25 Hydroxyon 08-03 Vitamin D 25-OH 27.3 ng/mL Normal [facility] Comment on above: Result Comment: Adriana min D 25(OH) Status Range Deficiency <20 ng/mL (50nmol/L) Insufficiency 20 - 30 ng/mL (50 - 75 nmol/L) Sufficiency 30 - 100 ng/mL (75 - 250 nmol/L) Toxicity >100 ng/mL (>250 nmol/L) Performed By: #### L 506.1000, L500.4100, L7000.8000, L503.6030, L7000.7000, L100.0100, L503.6550, L500.4050 ####[facility] [address] [place], [address] Absolute lymphocyte counton 10-13-2021 Lymphocytes Auto (Unsp spec) [#/Vol] 3.64 10*3/uL 0.83-4.51 [facility] Work Phone: Basophil percentageon 2021 Basophils/100 WBC (Bld) 1.0 % 0-1 [facility] Work Phone: Chloride [Moles/Vol] 106 mmol/L 98-107 [facility] Work Phone: [phone] Eosinophils/100 WBC (Bld) 5.1 % 0-5 [facility] Work Phone: Glucose [Mass/Vol] 109 mg/dL 74-106 [facility] Work Phone: Comment on above: Fasting Glucose resu lt from 100 to 125 mg/dL suggests IMPAIRED HOMEOSTASIS per A.D.A. criteria. Neutrophils (Bld) [#/Vol] 6.6 10*3/uL 2.0-7.7 [facility] Work Phone: Neutrophils/100 WBC (Bld) 54.3 % 47-70 [facility] Work Phone: Potassium [Moles/Vol] 4.3 mmol/L 3.5-5.1 [facility] Work Phone: Sodium [Moles/Vol] 136 mmol/L 136-145 [facility] Work Phone: WBC (Bld) [#/Vol] 12.2 10*3/uL 4.4-11.[address] [facility] Work Phone: Blood erythrocytes count (nu mber/volume)on 10-13-2021 RBC (Bld) [#/Vol] 5.55 10*6/uL 4.2-5.[address] [facility] Work Phone: Blood hemoglobin measurement (mass/volume)on 10-13-2021 Hemoglobin (Bld) [Mass/Vol] 15.1 g/dL 12.0-15.0 [facility] Work Phone: Blood lymphocytes/100 leukoc yteson 10-13-2021 Lymphocytes/100 WBC (Bld) 29.9 % 19-41 [facility] Work Phone: Blood monocytes/100 leukocyt eson 10-13-2021 Monocytes/100 WBC (Bld) 9.5 % 0-10 [facility] Work Phone: Blood platelet mean volumeon 10-13-2021 Platelet mean volume (Bld) [Entitic vol] 10.8 fL 6.2-12.0 [facility] Work Phone: Determination of erythrocyte mean corpuscular volume (MCV)on 10-13-2021 MCV (RBC) [Entitic vol] 84.3 fL 81-99 [facility] Work Phone: Hematocrit Auto (Bld) [Volum e fraction]on 10-13-2021 Hematocrit (Bld) [Volume fraction] 46.8 % 37-47 [facility] Work Phone: Laboratory - Chemistry and C hemistry - challengeon 10-13-2021 CO2 [Moles/Vol] 23.0 mmol/L 21.0-32.0 [facility] Work Phone: Urea nitrogen/Creatinine [Mass ratio] 24.6 mg/mg 10-20 [facility] Work Phone: Laboratory - Drug toxicology on 10-13-2021 Amphetamines Ql (U) Negative <1000 ng/mL [facility] Work Phone: Benzodiazepines Ql (U) Negative < 200 ng/mL [facility] Work Phone: Cannabinoids Screen Ql (U) Negative < 50 ng/mL [facility] Work Phone: Cocaine Ql (U) Negative < 300 ng/mL [facility] Work Phone: Opiates Ql (U) Negative < 300 ng/mL [facility] Work Phone: Laboratory - Hematology and Cell countson 10-13-2021 Erythrocyte distribution width (RBC) [Entitic vol] 53.1 fL 35.1-43.9 [facility] Work Phone: Erythrocyte distribution width (RBC) [Ratio] 17.3 % 11.6-14.6 [facility] Work Phone: Immature granulocytes/100 WBC (Bld) 0.200 % 0.0-0.9 [facility] Work Phone: Comment on above: IG% - Immature Granu locytes (promyelocytes, myelocytes and metamyelocytes) > 1% indicates that a LEFT SHIFT is Present. MCH (RBC) [Entitic mass] 27.2 pg 27.0-32.0 [facility] Work Phone: Nucleated RBC/100 WBC (Bld) [Ratio] 0 % 0-5 [facility] Work Phone: MCHC Auto (RBC) [Mass/Vol]on 10-13-2021 MCHC (RBC) [Mass/Vol] 32.3 g/dL 32-36 [facility] Work Phone: No Panel Informationon 10-13 Ethyl Alcohol Level < 3.0 mg/dL [facility] Work Phone: Comment on above: The serum:whole bloo d ethanol ratio is approximately 1.14and varies slightly with hematocrit. Medical Alcohol reference interval and critical value innon-tolerant individuals; 50 - 100 Impairment 100 Intoxication 100 - 250 Severe Poisoning 250 - 400 Deep/possible fatal coma Estimated Creatinine Clearance Calc 84.36 ml/min [facility] Work Phone: Estimated GFR (MDRD) Amer 132 mL/min >60 [facility] Work Phone: Comment on above: GFR Calc Estimated GFR (MDRD) Non-Af Amer 109 mL/min >60 [facility] Work Phone: Comment on above: Non- GFR Calc MDMA (Ecstasy) Screen Negative < 500 ng/mL [facility] Work Phone: Urine Barbiturates Screen Negative < 200 ng/mL [facility] Work Phone: Urine Drug Screen Comment [facility] Work Phone: Comment on above: CONFIRMATORY TESTING FOR ALL POSITIVE URINE DRUG SCREENRESULTS WILL ONLY BE SENT OUT UPON PHYSICIAN ORDER. VISTA Urine Drug Screen methods provide only preliminaryanalytical test results. A more specific alternate chemicalmethod must be used in order to obtain a confirmedanalytical result. Gas chromatography/mass spectrometery(GC/MS) is the preferred confirmatory method. Clinicalconsideration and professional judgement should be appliedto any drug of abuse test result, particularly whenpreliminary positive results are used. URINE TCA TESTING MUST BE ORDERED SEPARATELY. USE TESTMNEMONIC: UTCA Urine Methadone Screen Negative < 300 ng/mL [facility] Work Phone: Platelets bldon 10-13-2021 Platelets (Bld) [#/Vol] 389 10*3/uL 150-450 [facility] Work Phone: Serum or plasma calcium shiela urement (mass/volume)on 10-13-2021 Calcium [Mass/Vol] 9.1 mg/dL 8.5-10.1 [facility] Work Phone: Serum or plasma creatinine m easurement (mass/volume)on 10-13-2021 Creatinine [Mass/Vol] 0.61 mg/dL 0.55-1.02 Isabel ster [facility] Work Phone: Comment on above: The validity of the calculated GFR & GFRAA in patients over 70 years has not been determined. Clinical correlation is essential. Serum or plasma urea nitroge n measurement (mass/volume)on 10-13-2021 Urea nitrogen [Mass/Vol] 15 mg/dL 7-18 [facility] Work Phone: Thin prep Papanicolaou smear with manual screeningon 10-13-2021 Thin prep Papanicolaou smear with manual screening 7 5-15 [facility] Work Phone: Urine phencyclidine (PCP) de tectionon 10-13-2021 Phencyclidine Ql (U) Negative < 25 ng/mL [facility] Work Phone: PROGRESSon 02-25-2020 PROGRESS HNO ID: [id number] Author: Scarlet Rios Service: ? Author Type: Physician Type: Progress Notes Filed: 02/25/2020 8:35 AM Note Text: The patient did not show for this appointment. Scarlet Rios MD [facility] 02-22-2020 CNPN Telephone (RHBATH) LAUREN HUNG ([id number]) 1965 F [facility] Date Time Provider Department 02/22/20 SCARLET RIOS During your visit today, we recorded the following information about you: Emelyn Luis 02/22/2020 10:05 AM Signed No Show Documentation Lauren Hung no showed for an appointment on 02/21 with Scarlet Rios MD at [place]. She was scheduled for 9:20a. I called and spoke with the patient regarding her missed appointment. Lauren stated the reason that she missed her appointment was because na. Resources discussed/offered to patient: LM No show determined to be fault of patient: Yes This is the patients first no show in the last 12 months. Patient was rescheduled for not yet. Letter mailed : Yes Is this the Third or Fourth No Show? No Emelyn Smith February 22, 2020 10:03 AM Allergies As of Date: 02/22/2020 Noted Allergy Reaction MELOXICAM 11/29/2017 8 - GI Upset Date Reviewed: 12/12/2019 Reviewed by: Livier Bianchi Cma - Fully Assessed Reason for Visit: No Show [1558] Prescriptions as of 02/22/2020 Sig: IBUPROFEN 800 MG TABLET Take 1 tablet by mouth every * DULOXETINE 30 MG CAPSULE,LEXY* Take 1 capsule by mouth once * FUROSEMIDE 40 MG TABLET Take 1 tablet by mouth once d* PERFLUTREN LIPID MICROSPHERES* Inject 1.3 mL intravenously a* FERROUS SULFATE 325 MG (65 MG* Take 1 tablet by mouth daily * ERGOCALCIFEROL (VITAMIN D2) 1* Take 1 capsule by mouth one t* IBUPROFEN 800 MG TABLET Take 1 tablet by mouth every * TRAZODONE 50 MG TABLET Take 1 tablet by mouth daily * PRILOSEC OTC 20 MG TABLET,DEL* Take 1 tablet by mouth daily * Problem List As Of Date 02/22/2020 Noted Resolved RA (rheumatoid arthritis) [M06.9] 05/17/2011 Edema [R60.9] 05/17/2011 Morbid obesity (HCC) [E66.01] 03/01/2018 Tobacco use disorder [F17.200] Anxiety [F41.9] 08/12/2011 Acute venous embolism and thrombosis of unspeci*02/14/2012 History of DVT of lower extremity [Z86.718] More... Sprain of neck [S13.9XXA] 11/23/2013 Spasm of muscle [M62.838] 11/23/2013 Gastroesophageal reflux disease with esophagiti*03/01/2018 Rheumatoid arthritis involving multiple sites w*09/28/2019 Hepatitis C antibody positive in blood [R76.8] 09/28/2019 Encounter Status:Closed by EMELYN SMITH on 02/22/20 [facility] Nicolas 2019 ALEXN Telephone (RHBBURKE) LAUREN HUNG ([id number]) 1965 F [place] Date Time Provider Department 11/06/19 SCARLET RIOS During your visit today, we recorded the following information about you: Yaima Pierre CMA 2019 4:06 PM [facility] received a positive Hep C test for patient. They need to know if patient has gotten a RNA test for positive Hep C. Also is this new dx for patient and if she is seeing treatment. Also if patient is aware of these results. Okay to leave detailed VM with Rebecca at [phone] x [phone].If RNA was done okay to fax to [phone]. Please advise, RICHMOND Finney MD 2019 4:29 PM Signed Please see last note. Test was ordered. Referred to GI and patient knows Abelardo Stokes CMA 11/07/2019 11:51 AM Signed Left message letting Rebecca know. Call back if any additional questions. Abelardo Stokes CMA Allergies As of Date: 2019 Noted Allergy Reaction MELOXICAM 11/29/2017 8 - GI Upset Date Reviewed: 10/05/2019 Reviewed by: Dipti Ochoa Ma - Fully Assessed Reason for Visit: Follow Up Tests Results [770] Cmt: Positive Hep C. Prescriptions as of 2019 Sig: FERROUS SULFATE 325 MG (65 MG* Take 1 tablet by mouth daily * ERGOCALCIFEROL (VITAMIN D2) 1* Take 1 capsule by mouth one t* PREDNISONE 10 MG TABLET Take 2 tabs for 1 week, 1.5 t* DULOXETINE 30 MG CAPSULE,LEXY* Take 1 capsule by mouth once * IBUPROFEN 800 MG TABLET Take 1 tablet by mouth every * TRAZODONE 50 MG TABLET Take 1 tablet by mouth daily * PRILOSEC OTC 20 MG TABLET,DEL* Take 1 tablet by mouth daily * Problem List As Of Date 2019 Noted Resolved RA (rheumatoid arthritis) [M06.9] 05/17/2011 Edema [R60.9] 05/17/2011 Morbid obesity (HCC) [E66.01] 03/01/2018 Tobacco use disorder [F17.200] Anxiety [F41.9] 08/12/2011 Acute venous embolism and thrombosis of unspeci*02/14/2012 History of DVT of lower extremity [Z86.718] More... Sprain of neck [S13.9XXA] 11/23/2013 Spasm of muscle [M62.838] 11/23/2013 Gastroesophageal reflux disease with esophagiti*03/01/2018 Rheumatoid arthritis involving multiple sites w*09/28/2019 Hepatitis C antibody positive in blood [R76.8] 09/28/2019 Encounter Status:Closed by YAIMA PIERRE CMA on 11/06/19 [facility] Nicolas 09-28-2019 CNPN Telephone (RHBATH) LAUREN HUNG ([id number]) 1965 F [place] Date Time Provider Department 09/28/19 SCARLET RIOS RHBATH During your visit today, we recorded the following information about you: Emelyn Smith 09/28/2019 2:25 PM Signed Internal referral Gastroenterology conf #[id number] Emelyn Smith 10/18/2019 8:58 AM Signed LONNIE Lim @ [facility] Main virtual 10/04 @ 1pm Emelyn Smith Allergies As of Date: 09/28/2019 Noted Allergy Reaction MELOXICAM 11/29/2017 8 - GI Upset Date Reviewed: 06/22/2019 Reviewed by: Mercedez Noel MA - Fully Assessed Reason for Visit: Initial Consult [665] Prescriptions as of 09/28/2019 Sig: FERROUS SULFATE 325 MG (65 MG* Take 1 tablet by mouth daily * ERGOCALCIFEROL (VITAMIN D2) 1* Take 1 capsule by mouth one t* PREDNISONE 10 MG TABLET Take 2 tabs for 1 week, 1.5 t* DULOXETINE 30 MG CAPSULE,LEXY* Take 1 capsule by mouth once * IBUPROFEN 800 MG TABLET Take 1 tablet by mouth every * TRAZODONE 50 MG TABLET Take 1 tablet by mouth daily * PRILOSEC OTC 20 MG TABLET,DEL* Take 1 tablet by mouth daily * Problem List As Of Date 09/28/2019 Noted Resolved RA (rheumatoid arthritis) [M06.9] 05/17/2011 Edema [R60.9] 05/17/2011 Morbid obesity (HCC) [E66.01] 03/01/2018 Tobacco use disorder [F17.200] Anxiety [F41.9] 08/12/2011 Acute venous embolism and thrombosis of unspeci*02/14/2012 History of DVT of lower extremity [Z86.718] More... Sprain of neck [S13.9XXA] 11/23/2013 Spasm of muscle [M62.838] 11/23/2013 Gastroesophageal reflux disease with esophagiti*03/01/2018 Rheumatoid arthritis involving multiple sites w*09/28/2019 Hepatitis C antibody positive in blood [R76.8] 09/28/2019 Encounter Status:Closed by EMELYN SMITH on 09/28/19 [facility] PROGRESSon 09-28-2019 PROGRESS HNO ID: [id number] Author: Scarlet Rios Service: ? Author Type: Physician Type: Progress Notes Filed: 09/28/2019 3:12 PM Note Text: VIRTUAL VISIT PROGRESS NOTE - converted to telephone visit This is a virtual visit. It required patient-provider interaction for the medical decision making as documented below. Lauren Hung is a 53 year old female seen for joint pain. Patient is here to discuss results. Continues to have pain. She presented to Dr. rKaus with pain overhands, shoulders, knees, neck. Pain has worsened over the years and she has deformities and swelling. She has big bunions and uses a cane to walk. AM stiffness lasting for 3 years. Uses walker in the morning. She tried to get on disability. She tried Humira, Enbrel, Orencia infusions but had infections and was hospitalized. She thinks Wickliffe and MTX was working and gave her the best results. They stopped taking her insurance and she had to change her insurance. She was following up with pain management for neck injections and later followed up with orthopedics. She had injections in knees and aspiration. She is taking ibuprofen which is hard on her stomach. responded horribly to prednisone had infections. Rheumatoid Arthritis - 2005 (Follows with Dr Kraus, [facility]). Previous treatment include Arava, MTX. Family history of autoimmune disease- father with osteoporosis, aunts with RA Smoker HISTORY REVIEWED (electronic chart updated): PAST MEDICAL HISTORY Diagnosis Date - Anxiety 08/12/2011 - Edema - History of DVT of lower extremity right - Rheumatoid arthritis(714.0) [address] Kraus, [facility] - Tobacco use disorder PAST SURGICAL HISTORY Procedure Laterality Date - KNEE ARTHROSCOPY/SURGERY 2010 left FAMILY HISTORY Problem Relation Age of Onset - Breast Cancer Mother - Diabetes Mother - Thyroid Mother - other (Stomach cancer) Mother - Osteoporosis Father - Arthritis Maternal Aunt Rheumatoid - Thyroid Daughter Social History Tobacco Use - Smoking status: Current Every Day Smoker Packs/day: 0.50 Years: 23.00 Pack years: 11.50 Types: Cigarettes - Smokeless tobacco: Never Used - Tobacco comment: started smoking 22yo Substance Use Topics - Alcohol use: No - Drug use: No Current Outpatient Medications Medication Sig - ferrous sulfate 325 mg (65 mg iron) tablet Take 1 tablet by mouth daily with breakfast. - ergocalciferol 50,000 unit capsule (VITAMIN D2, DRISDOL) Take 1 capsule by mouth one time a week. - predniSONE (DELTASONE) 10 mg tablet Take 2 tabs for 1 week, 1.5 tabs for 1 weeks, 1 tab till next visit. - DULoxetine (CYMBALTA) 30 mg capsule Take 1 capsule by mouth once daily. - ibuprofen (MOTRIN) 800 mg tablet Take 1 tablet by mouth every 8 hours as needed for Pain. Take with food. - traZODone (DESYREL) 50 mg tablet Take 1 tablet by mouth daily at bedtime. - Omeprazole Magnesium (PRILOSEC OTC) 20 mg tablet Take 1 tablet by mouth daily before breakfast. 1/2 hr before meal. No current facility-administered medications for this visit. ALLERGIES Allergen Reactions - Meloxicam GI Upset REVIEW OF SYSTEMS: All other ROS: negative As noted in HPI PHYSICAL EXAMINATION: VIDEO EXAM: (if completed, performed via video enabled technology) GENERAL: alert and appropriate, in no distress, well-hydrated, well nourished and happy, smiling, interactive 2018 - RF 71, CRP 2.2, ESR 23,ALT 66, AST 41 IMPRESSION: Degenerative changes as detailed in report. Small amount of joint fluid bilaterally. Findings: Marked disc space narrowing L5-S1 level and L1-2 level. ?Underpenetration of the films limits evaluation of the spine to very large degree.. The vertebra are in good alignment. No gross fractures or dislocations are seen. IMPRESSION: OSTEOARTHROPATHY OF THE RIGHT SHOULDER IMPRESSION: 1. ?No gross fractures C1-C5. ?However study is quite limited as discussed . 2. ?Two metallic zeina like devices project over the lower portion of the film in the mid chest region. ?Uncertain what these represent on this study. ?This should be correlated clinically ASSESSMENT: (R76.8) Hepatitis C antibody positive in blood (primary encounter diagnosis) (M05.79) Rheumatoid arthritis involving multiple sites with positive rheumatoid factor (HCC) (E55.9) Vitamin D deficiency 53-year-old female with prior diagnosis of rheumatoid arthritis, elevated rheumatoid factor in the past and osteoarthritis would like to reestablish with rheumatology. At present she is not on any immunosuppression. His exam is limited due to virtual visit. She reports infections with Humira, Orencia, prednisone and Enbrel with recurrent infections. Patient was noted to have positive hepatitis C antibody, elevated CCP and rheumatoid factor along with high inflammatory markers. She has erosive changes on her x-rays consistent with rheumatoid arthritis. GI evaluation and further evaluation for active infection of hepatitis C. This limits our option. Would not use methotrexate or erythema. Low-dose prednisone to help with joint pain. Knee injections can be considered. I'll and vitamin D supplementation. She was advised discuss about narcotic medications with her primary care physician or pain management. PLAN: Labs and x-rays as below to restage disease. Close follow-up to discuss results. There are no Patient Instructions on file for this visit. Spent 25 min on phone Scarlet Rios MD [facility] on 09/28/19 - HCV QUANT RNA BY PCR - C3 COMPLEMENT BLD - C4 COMPLEMENT BLD - CONSULT TO GASTROENTEROLOGY Medication orders placed this encounter ergocalciferol 50,000 unit capsule (VITAMIN D2, DRISDOL) Sig: Take 1 capsule by mouth one time a week. Dispense: 12 capsule Refill: 0 ferrous sulfate 325 mg (65 mg iron) tablet Sig: Take 1 tablet by mouth daily with breakfast. Dispense: 60 tablet Refill: 2 predniSONE (DELTASONE) 10 mg tablet Sig: Take 2 tabs for 1 week, 1.5 tabs for 1 weeks, 1 tab till next visit. Dispense: 35 tablet Refill: 0 Platform used - na Normal [facility] PROGRESSon 09-07-2019 PROGRESS HNO ID: [id number] Author: Scarlet Rios Service: ? Author Type: Physician Type: Progress Notes Filed: 09/07/2019 4:46 PM Note Text: VIRTUAL VISIT PROGRESS NOTE This is a virtual visit. It required patient-provider interaction for the medical decision making as documented below. Lauren Hung is a 53 year old female seen for joint pain. She presented to Dr. Kraus with pain overhands, shoulders, knees, neck. Pain has worsened over the years and she has deformities and swelling. She has big bunions and uses a cane to walk. AM stiffness lasting for 3 years. Uses walker in the morning. She tried to get on disability. She tried Humira, Enbrel, Orencia infusions but had infections and was hospitalized. She thinks Wickliffe and MTX was working and gave her the best results. They stopped taking her insurance and she had to change her insurance. She was following up with pain management for neck injections and later followed up with orthopedics. She had injections in knees and aspiration. She is taking ibuprofen which is hard on her stomach. responded horribly to prednisone had infections. Rheumatoid Arthritis - 2005 (Follows with Dr Kraus, [facility]). Previous treatment include Arava, MTX. Family history of autoimmune disease- father with osteoporosis, aunts with RA Smoker HISTORY REVIEWED (electronic chart updated): PAST MEDICAL HISTORY Diagnosis Date - Anxiety 08/12/2011 - Edema - History of DVT of lower extremity right - Rheumatoid arthritis(714.0) [address] Kraus, [facility] - Tobacco use disorder PAST SURGICAL HISTORY Procedure Laterality Date - KNEE ARTHROSCOPY/SURGERY 2010 left FAMILY HISTORY Problem Relation Age of Onset - Breast Cancer Mother - Diabetes Mother - Thyroid Mother - other (Stomach cancer) Mother - Osteoporosis Father - Arthritis Maternal Aunt Rheumatoid - Thyroid Daughter Social History Tobacco Use - Smoking status: Current Every Day Smoker Packs/day: 0.50 Years: 23.00 Pack years: 11.50 Types: Cigarettes - Smokeless tobacco: Never Used - Tobacco comment: started smoking 22yo Substance Use Topics - Alcohol use: No - Drug use: No Current Outpatient Medications Medication Sig - DULoxetine (CYMBALTA) 30 mg capsule Take 1 capsule by mouth once daily. - ibuprofen (MOTRIN) 800 mg tablet Take 1 tablet by mouth every 8 hours as needed for Pain. Take with food. - traZODone (DESYREL) 50 mg tablet Take 1 tablet by mouth daily at bedtime. - Omeprazole Magnesium (PRILOSEC OTC) 20 mg tablet Take 1 tablet by mouth daily before breakfast. 1/2 hr before meal. No current facility-administered medications for this visit. ALLERGIES Allergen Reactions - Meloxicam GI Upset REVIEW OF SYSTEMS: All other ROS: negative As noted in HPI PHYSICAL EXAMINATION: VIDEO EXAM: (if completed, performed via video enabled technology) GENERAL: alert and appropriate, in no distress, well-hydrated, well nourished and happy, smiling, interactive 2018 - RF 71, CRP 2.2, ESR 23,ALT 66, AST 41 IMPRESSION: Degenerative changes as detailed in report. Small amount of joint fluid bilaterally. Findings: Marked disc space narrowing L5-S1 level and L1-2 level. ?Underpenetration of the films limits evaluation of the spine to very large degree.. The vertebra are in good alignment. No gross fractures or dislocations are seen. IMPRESSION: OSTEOARTHROPATHY OF THE RIGHT SHOULDER IMPRESSION: 1. ?No gross fractures C1-C5. ?However study is quite limited as discussed . 2. ?Two metallic zeina like devices project over the lower portion of the film in the mid chest region. ?Uncertain what these represent on this study. ?This should be correlated clinically ASSESSMENT: (M25.50) Pain in joint, multiple sites (primary encounter diagnosis) (R76.8) Elevated rheumatoid factor (F17.200) Current smoker 53-year-old female with prior diagnosis of rheumatoid arthritis, elevated rheumatoid factor in the past and osteoarthritis would like to reestablish with rheumatology. At present she is not on any immunosuppression. His exam is limited due to virtual visit. She reports infections with Humira, Orencia, prednisone and Enbrel with recurrent infections. PLAN: Labs and x-rays as below to restage disease. Close follow-up to discuss results. There are no Patient Instructions on file for this visit. I spent more than 40 minutes [id number] with the patient and over half the time was devoted to counseling and/or coordination of care. Scarlet Rios MD [facility] on 09/07/19 - XR FOOT GENERAL 3V AP/LAT/OBL LT - XR FOOT GENERAL 3V AP/LAT/OBL RT - XR HAND GENERAL 3V PA/LAT/OBL LT - XR HAND GENERAL 3V PA/LAT/OBL RT - XR KNEE SURVEY ARTHRITIS 1V AP BILAT - XR LUMBAR LIMITED 2V AP/LAT - XR SACROILIAC JOINTS 2V AP PELVIS/FERGUESON - XR CERV GENERAL 2V AP/LAT - HEP B SURF AG SCRN - HEP B SURF AB QUANT - HEP C AB IA BLOOD - HEP B CORE AB TOTAL - BLOOD TB SCREEN, INCUBATED - HIV 1 2 COMBO(AG/AB),WITH REFLEX TO DIFFERENTIATION - RPR SCREEN - RHEUMATOID FACTOR BL - CCP ANTIBODY IGG - CK CREATINE KINASE - CBC + DIFF - COMP METABOLIC PANEL - C-REACTIVE PROTEIN (CRP) - SED RATE WESTERGREN - FERRITIN BLD - IRON + TIBC - VITAMIN D 25 HYDROXY - VITAMIN B12 BLOOD - UA WITH CULTURE IF INDICATED - CREATININE RANDOM UR - PROTEIN RANDOM UR - TOX SCREEN ROUT UR No orders of the defined types were placed in this encounter. Platform used - Google [facility] Vital Signs Date Time Vital Sign Value Performing Clinician Alinai aby 08-04-2023 09:01-0400 Body temperature 97.4 [degF] Dr. Cat Vasquez Work Phone: [facility] 08-04-2023 09:01-0400 Diastolic blood pressure 78 mm[Hg] Dr. Cat Vasquez Work Phone: [facility] 08-04-2023 09:01-0400 Heart rate 98 /min Dr. Cat Vasquez Work Phone: [facility] 08-04-2023 09:01-0400 Respiratory rate 17 /min Dr. Cat Vasquez Work Phone: [facility] 08-04-2023 09:01-0400 SaO2% (BldA) [Mass fraction] 95 % Dr. Cat Vasquez Work Phone: [facility] 08-04-2023 09:01-0400 Systolic blood pressure 132 mm[Hg] Dr. Cat Vasquez Work Phone: [facility] 10-16-2021 10:43-0400 Body temperature 98.7 [degF] Dr. Cat Vasquez Work Phone: [facility] Work Phone: 10-16-2021 10:43-0400 Diastolic blood pressure 64 mm[Hg] Dr. Cat Vasquez Work Phone: [facility] Work Phone: 10-16-2021 10:43-0400 Heart rate 77 /min Dr. Cat Vasquez Work Phone: [facility] Work Phone: 10-16-2021 10:43-0400 Respiratory rate 18 /min Dr. Cat Vasquez Work Phone: [facility] Work Phone: 10-16-2021 10:43-0400 SaO2% (BldA) [Mass fraction] 94 % Dr. Cat Vasquez Work Phone: [facility] Work Phone: 10-16-2021 10:43-0400 Systolic blood pressure 112 mm[Hg] Dr. Cat Vasquez Work Phone: [facility] Work Phone: 10-13-2021 22:40-0400 Body height 157.[address] Cat Vasquez Work Phone: [facility] Work Phone: 10-13-2021 22:40-0400 Body mass index (BMI) [Ratio] 31.4 kg/m2 Dr. Cat Vasquez Work Phone: [facility] Work Phone: 10-13-2021 22:40-0400 Body weight [address] Cat Vasquez Work Phone: [facility] Work Phone: 10-13-2021 21:10-0400 Body temperature 98.1 [degF] Dr. Cat Vasquez Work Phone: [facility] Work Phone: 10-13-2021 21:10-0400 Diastolic blood pressure 76 mm[Hg] Dr. Cat Vasquez Work Phone: [facility] Work Phone: 10-13-2021 21:10-0400 Heart rate 84 /min Dr. Cat Vasquez Work Phone: [facility] Work Phone: 10-13-2021 21:10-0400 Respiratory rate 18 /min Dr. Cat Vasquez Work Phone: [facility] Work Phone: 10-13-2021 21:10-0400 SaO2% (BldA) [Mass fraction] 98 % Dr. Cat Vasquez Work Phone: [facility] Work Phone: 10-13-2021 21:10-0400 Systolic blood pressure 114 mm[Hg] Dr. Cat Vasquez Work Phone: [facility] Work Phone: 10-13-2021 19:02-0400 Body height 157.[address] Cat Vasquez Work Phone: [facility] Work Phone: 10-13-2021 19:02-0400 Body mass index (BMI) [Ratio] 32.9 kg/m2 Dr. Cat Vasquez Work Phone: [facility] Work Phone: 10-13-2021 19:02-0400 Body weight 81.[address] Cat Vasquez Work Phone: [facility] Work Phone: Encounters Encounter Date Encounter Type Care Provider Facility Start: 03-05-2024 End: 03-05-2024 Patient encounter procedure Vish Mccloud MD Work Phone: Orthopaedics Comment on above: Chronic pain of both knees (Primary Dx); Other secondary osteoarthritis of both knees Start: 03-05-2024 End: 03-05-2024 ambulatory VISH MCCLOUD Facility:[facility] Start: 03-05-2024 End: 03-05-2024 Subsequent hospital visit by physician [facility] Work Phone: Radiology Comment on above: Pain [R52] Start: 12-29-2023 End: 12-29-2023 [facility] Start: 12-29-2023 End: 12-29-2023 Patient encounter procedure Bonnie Marley MA [facility] Comment on above: Population Health Na vigation Outreach ([facility], AWV, Care gaps, HCC, [place] PCSA//) Start: 11-24-2023 Telephone encounter Olga Lidia lawson PA-C Work Phone: Orthopaedics Comment on above: Appointment Pain in both knees, unspecified chronicity (Primary Dx) Start: 10-28-2023 ambulatory [facility] Facility :[facility] Start: 10-18-2023 End: 10-18-2023 ambulatory [facility] Facility:[facility] Start: 10-03-2023 End: 10-03-2023 Emergency department patient visit [facility] Facility:[facility] Start: 09-20-2023 Orders Only Vish Mccloud MD Work Phone: Appointment Center Comment on above: Pain (Primary Dx) Start: 08-15-2023 ambulatory [facility] Start: 08-15-2023 Patient encounter procedure Shell Herbert [facility] Comment on above: Population Health Na vigation Outreach ([facility] HCC /[facility] [place] PCSA) Start: 08-04-2023 End: 08-04-[address] Cat Vasquez Work Phone: [facility] Work Phone: Start: 08-04-2023 End: 08-04-[address] Cat Vasquez Work Phone: [facility] [place] Start: 08-04-2023 End: 08-04-[address] Cat Vasquez Work Phone: [facility] Work Phone: Start: 08-04-2023 End: 08-04-2023 ambulatory Melyssa [place] Facility:[facility] Start: 08-04-2023 End: 08-04-2023 ambulatory Melyssa [place] Facility:[facility] Start: 07-01-2023 ambulatory Odette Watkins MA [facility] Start: 07-01-2023 Patient encounter procedure Odette Watkins MA [facility] Comment on above: Population Health Na vigation Outreach ([facility] Annual Wellness Visit ) Start: 10-21-2021 ambulatory Cat Andres Work Phone: Internal Medicine [facility] [place] Start: 10-15-2021 Non-patient / Non-visit Dr. Joanne Vasquez Work Phone: [facility] Inpatient Physicians Start: 10-14-2021 Non-patient / Non-visit Dr. Joanne Vasquez Work Phone: [facility] Start: 10-13-2021 Evaluation and manag ement of inpatient [facility] Start: 10-13-2021 Non-patient / Non-visit Dr. Joanne Vasquez Work Phone: [facility] Inpatient Physicians Start: 10-13-2021 End: 10-16-2021 Evaluation and management of inpatient Dr. Cat Vasquez Work Phone: [facility] 3 Procedures Date Procedure Procedure Detail Performing Clinician Start: 08-30-2011 Mammography Cat dai MD Work Phone: Start: 08-19-2011 Lipid 1996 panel - S johanne or Plasma Odette Watkins MA Plan of Treatment Date Care Activity Detail Author Start: 05-22-2029 Urine microalbumin profile [facility] Start: 12-25-2023 Covid-19 Vaccine ( season) Covid-19 Vaccine ( season) [facility] Start: 12-25-2023 Covid-19 Vaccine ( season) Covid-19 Vaccine ( season) [facility] Start: 12-25-2023 Influenza vaccination [facility] Start: 11-30-2023 End: 11-30-2023 Patient encounter procedure Radiology Comment on above: Bilateral knee Bilateral knee pain Start: 11-10-2023 End: 11-10-2023 Patient encounter procedure 11/10/2023 11:00 AM EDT Office Visit Orthopaedics [address] [place] [address] Vish Mccloud MD [address] [place], [place] [id number] Bilateral Knee replacement consult Orthopaedics Comment on above: Bilateral Knee repla cement consult Start: 08-04-2023 Patient referral [facility] Work Phone: Start: 04-25-2023 Behavioral Health Screening Behavioral Health Screening [facility] Start: 04-25-2023 Depression Assessment Depression Ass essment [facility] Start: 12-24-2022 Covid-19 Vaccine ( season) Covid-19 Vaccine ( season) [facility] Start: 12-24-2022 Influenza vaccination Influenza Vacc ine (#1) [facility] Start: 12-11-2022 DIABETES SCREEN DIABETES SCREEN [facility] Start: 12-11-2022 Diabetes Screening Diabetes Screenin g [facility] Start: 12-24-2021 Influenza vaccination INFLUENZ A (Season Ended) [facility] Start: 10-16-2021 [facility] Start: 10-13-2021 End: 10-13-2021 Assessment using assessment scale [facility] Work Phone: Start: 10-13-2021 End: 10-13-2021 [facility] Work Phone: Start: 10-13-2021 Assessment of risk o f venous thromboembolism [facility] Work Phone: Start: 10-13-2021 Notification of physician [facility] Work Phone: Start: 10-13-2021 Vital signs measurements [facility] Work Phone: Start: 10-13-2021 [facility] Work Phone: Start: 10-13-2021 [facility] Work Phone: Start: 11-05-2017 SHINGRIX VACCINE (1 of 2) ONEILL GRIX VACCINE (1 of 2) [facility] Start: 08-29-2016 HPV TESTING HPV TESTING [facility] Start: 08-29-2016 PAP TESTING PAP TESTING [facility] Start: 08-29-2016 Screening for malign ant neoplasm of cervix [facility] Start: 08-18-2016 Lipid panel Lipid Screening [facility] Start: 08-18-2016 LIPID SCREEN LIPID SCREEN [facility] Start: 11-05-2012 COLOGUARD (FIT-DNA) COLOGUARD (FIT-D NA) [facility] Start: 11-05-2012 Colonoscopy COLONOSCOPY [facility] Start: 11-05-2012 COLORECTAL CANCER SCREENING COLORECTAL CANCER SCREENING [facility] Start: 11-05-[address] COLONOGRAPHY [facility] Start: 11-05-2012 FECAL OCCULT BLOOD FECAL OCCULT BLOO D [facility] Start: 11-05-2012 Screening for malign ant neoplasm of colon [facility] Start: 11-05-2012 SIGMOIDOSCOPY SIGMOIDOSCOPY [facility] Start: 08-29-2012 Mammography MAMMOGRAM [facility] Start: 08-29-2012 Screening for malign ant neoplasm of breast Mammogram Screening [facility] Start: 01-24-2012 PNEUMOCOCCAL (2 - PCV) PNEUMOCOCCAL (2 - PCV) [facility] Start: 01-24-2012 Pneumococcal vaccination Pneum ococcal Vaccine (2 of 2 - PCV) [facility] Start: 11-05-1986 Hepatitis B Vaccine (1 of 3 - 19+ 3-dose series) Hepatitis B Vaccine (1 of 3 - 19+ 3-dose series) [facility] Start: 11-05-1985 Depression Screening Depression Scre ening [facility] Start: 1979 Adult depression screening assessment DEPRESSION SCREENING [facility] Start: 11-05-1972 COVID-19 VACCINE (#1) COVID-19 VACCI NE (#1) [facility] Start: 05-08-1968 Covid-19 Vaccine (#1) Covid-19 Vacci ne (#1) [facility] Start: 1967 Hepatitis B Vaccine (1 of 3 - 3-dose series) Hepatitis B Vaccine (1 of 3 - 3-dose series) [facility] MG Breast - bilatera l Screening [facility] Patient referral [facility] Work Phone: End: 11-20-2022 Screening mammography bi 2-view breast inc cad CELESTINA SCREENING Radiology Routine Encounter for screening mammogram for breast cancer 1 Occurrences starting 10/21/2021 until 11/20/2022 [facility] Work Phone: Comment on above: 1 Occurrences starti ng 10/21/2021 until 11/20/2022 Tobacco use cessatio n education [facility] End: 10-19-2024 XR Knee - bilateral 4 Views XR KNEE GENERAL 4V AP BOTH/PA BOTH/LAT/MERC BILATERAL Radiology Routine Pain 1 Occurrences starting 09/20/2023 until 10/19/2024 [facility] Work Phone: Comment on above: 1 Occurrences starti ng 09/20/2023 until 10/19/2024 End: 12-23-2024 XR Knee - bilateral 4 Views XR KNEE GENERAL 4V AP BOTH/PA BOTH/LAT/MERC BILATERAL Radiology Routine Pain in both knees, unspecified chronicity 1 Occurrences starting 11/24/2023 until 12/23/2024 [facility] Work Phone: Comment on above: 1 Occurrences starti ng 11/24/2023 until 12/23/2024 XR Knee - bilateral 4 Views XR KNEE GENERAL 4V AP BOTH/PA BOTH/LAT/MERC BILATERAL Radiology Routine Pain 03/05/2024 2:05 PM EST [facility] Work Phone: End: 12-23-2024 XR Lower extremity - bilateral AP W standing XR LEG FRONTAL HIP TO ANKLE MECHANICAL AXIS Radiology Routine Pain in both knees, unspecified chronicity 1 Occurrences starting 11/24/2023 until 12/23/[address] [facility] Comment on above: 1 Occurrences starti ng 11/24/2023 until 12/23/2024 Immunizations Immunization Date Immunization Notes Care Provider Fa paolinar 05-22-2019 tetanus toxoid, redu violetta diphtheria toxoid, and acellular pertussis vaccine, adsorbed Cat Vasquez MD Work Phone: [facility] 03-01-2018 influenza virus vacc ine, unspecified formulation Odette Watkins MA [facility] 02-11-2012 influenza virus vacc ine, unspecified formulation Cat Vasquez MD Work Phone: [facility] Work Phone: 01-23-2011 pneumococcal polysaccharide vaccine, 23 valent Cat Vasquez MD Work Phone: [facility] 01-23-[address] Afshin Vasquez Work Phone: [facility] Work Phone: 01-23-2011 pneumococcal vaccine , unspecified formulation Dr. Cat Vasquez Work Phone: [facility] Payers Date Payer Category Payer Medicaid [id number] 2023 Self-pay [id number] 2023 Medicare UHC AAR MEDICAR E [facility] MEDICARE HMO [id number] 2023-Present [phone] [address] [address] [place] [address] HMO [id number] 2023 Unknown [id number] Unknown [id number] Unknown [id number] Unknown [id number] Unknown [id number] Unknown [id number] Unknown [id number] Social History Date Type Detail Facility Start: 10-13-2021 End: 08-04-2023 Tobacco smoking status NHIS Unknown if ever smoked [facility] Start: 11-28-2019 None [facility] Start: 11-28-2019 Alone [facility] Start: 09-11-2020 Cigarettes [facility] Start: 1965 Sex Assigned At Female W [facility] Start: 08-12-2011 End: 02-11-2012 Tobacco smoking status NHIS Smokes tobacco daily [facility] History of tobacco use Cigarette Smoker C [facility] Start: 08-12-2011 End: 02-24-2024 Cigarettes smoked current (pack per day) - Reported 0.[address] [facility] Start: 08-12-2011 End: 02-11-2012 Tobacco use and exposure Smokeless tobacco non-user [facility] Start: 09-29-2020 Alcohol intake Current non-dr electrotyper apprentice of alcohol (finding) [facility] Start: 08-12-2011 Tobacco Comment started smoking 22yo [facility] Start: 1965 Sex Assigned At Not on file C [facility] Start: 09-29-2020 End: 02-24-2024 Tobacco use panel [facility] National Score (1-10 0), lower number is lower risk Not on file [facility] Medical Equipment Procedure Code Equipment Code Equipment Original Text Equipment Identifier Dates Total cholecystectomy with exploration of common bile duct TRAINING ADMINISTRATOR,CLIP 5MM LIGAMAX FDA Start: 05-13-2021 Total cholecystectomy with exploration of common bile duct TRAINING ADMINISTRATOR,CLIP 5MM LIGAMAX FDA Start: 05-13-2021 Total cholecystectomy with exploration of common bile duct TRAINING ADMINISTRATOR,CLIP 5MM LIGAMAX FDA Start: 05-13-2021 ERCP (endoscopic retrograde cholangiopancreatograph y) RX STENT/10 X 5CM FDA Start: 05-14-2021 ERCP (endoscopic retrograde cholangiopancreatograph y) RX STENT/10 X 5CM FDA Start: 05-14-2021 ERCP (endoscopic retrograde cholangiopancreatograph y) RX STENT/10 X 5CM FDA Start: 05-14-2021 ERCP (endoscopic retrograde cholangiopancreatograph y) RX STENT/10 X 5CM FDA Start: 05-14-2021 ERCP (endoscopic retrograde cholangiopancreatograph y) RX STENT/10 X 5CM FDA Start: 05-14-2021 ERCP (endoscopic retrograde cholangiopancreatograph y) RX STENT/10 X 5CM FDA Start: 05-14-2021 Goals Date Patient Goal Desired Activity /State Functional Status Date Assessment Result Facility 10-16-2021 Functional status Ambulates [facility] Work Phone: 10-15-2021 Functional status Tolerates Activity Well [facility] Work Phone: Mental Status Date Assessment Result Facility 10-16-2021 Cognitive function Appropriate;Cooperativ e [facility] Work Phone: 10-15-2021 Cognitive function Arousable To Voice/Nam e [facility] Work Phone: Clinical Notes 03-01-2018 to 03-05-2024 Vish Mccloud MD - 03/05/2024 2:39 PM Justyna Charles RT(Isidoro) - 03/05/2024 1:10 PM Bonnie Epperson MA - 12/29/2023 3:21 PM Bonnie Padilla MA - 12/29/2023 2:57 PM EDT Note Date & Type Note Facility 03-05-2024 Note HNO ID: [id number] Author: VISH MCCLOUD MD Service: ? Author Type: Physician Type: Progress Notes Filed: 03/12/2024 08:21 Note Text: AMB ROOMING INTAKE FLOWSHEET DATA Risk Screening Do you have concerns about personal safety or safety in the home?: No Pain Pain Level: 7 Pain Location: Knee-Left (bilateral) Description: Aching Duration Amount of Time: 15 Duration Units: Years Frequency: Continuous Intervention/Comfort measure: Medication, Heat (takes ibuprofen and tylenol) Vish Mccloud MD Department of Orthopaedics Orthopaedics [address] [facility] [address] Dept: [phone] Dept March 05, 2024 CHIEF COMPLAINT: Bilateral knee pain. HPI Patient has been having ongoing problems with bilateral knees. She is having difficult time even getting around at this point. She has a history of rheumatoid arthritis though has not been with rheumatology in quite some time. She did have some social and substance abuse issues. 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 We certainly need to get her into some simple range of motion physical therapy before any surgical discussions are had. However, with the complexity of her issue, I will get her in with one of our adult reconstruction specialists. FOLLOW UP INSTRUCTIONS: As above OBJECTIVE: Ms. Lauren Hung is a pleasant 58 year old in no apparent distress. Gen:LMP 04/08/2015 nl development, obese, no deformities ENT: Normocephalic, normal hearing, moist mucosa CV: Pulses:DP/PT= 2+ and symmetric, capillary refill < 2 secs, no peripheral edema/varicosities Skin: no rash, bruising or lesions. Good turgor. Psych: cooperative and appropriate, alert and oriented x 3, good mood and affect. Musculoskeletal: Patient arrives in wheelchair. She has some dependent edema bilaterally. She has soft tissue swelling of both knees but no significant effusions. She has markedly limited motion and in the left knee its only about 20 degrees of flexion contracture and only 20 degrees of functional motion. The right knee is a little bit better with maybe 15 degrees of flexion contracture and 80 degrees of flexion. IMAGING: IMPRESSION: No acute fracture. Worsening degenerative disease of bilateral knees. Laundry Pricing Clerk: DELONTE Transcribe Date/Time: Mar 09 2024 5:13P Dictated by : REYNA KESSLER MD This examination was interpreted and the report reviewed and electronically signed by: REYNA KESSLER MD on Mar 09 2024 5:14PM EST Results-Findings * * *Final Report* * * DATE OF EXAM: Mar 05 2024 2:05PM [id number] - XR KNEE 4V AP/PA/LAT/MERCH ZAC / PROCEDURE REASON: Pain * * * * Physician Interpretation * * * * EXAMINATION: XR KNEE 4V AP/PA/LAT/MERCH ZAC CLINICAL HISTORY: Bilateral knee pain Technique: XR KNEE 4V AP/PA/LAT/MERCH ZAC -- BILATERAL with 4 views on 7 images Comparison: X-ray bilateral knees 09/25/2019 RESULT: Right knee: Generalized osteopenia. No acute fracture or dislocation. Worsening tricompartment joint space narrowing with subchondral sclerosis and marginal osteophytes. Left knee: Generalized osteopenia. No acute fracture or dislocation. Worsening tricompartment joint space narrowing with subchondral sclerosis and marginal osteophytes. Supporting Subjective Information Below: Past Medical History: PAST MEDICAL HISTORY Diagnosis Date Anxiety 08/12/2011 Edema Heroin use active, recent ED visit [facility] 09/11/20 History of DVT of lower extremity right Rheumatoid arthritis(714.0) 04/25/[address] Kraus, [facility] Tobacco use disorder Past Surgical History: PAST SURGICAL HISTORY Procedure Laterality Date KNEE ARTHROSCOPY/SURGERY 2010 left Family History: FAMILY HISTORY Problem Relation Age of Onset Breast Cancer Mother Diabetes Mother Thyroid Mother other (Stomach cancer) Mother Osteoporosis Father Arthritis Maternal Aunt Rheumatoid Thyroid Daughter Social History: Social History Tobacco Use Smoking status: Every Day Current packs/day: 0.50 Average packs/day: 0.5 packs/day for 23.0 years (11.5 ttl pk-yrs) Types: Cigarettes Smokeless tobacco: Never Tobacco comments: started smoking 22yo Substance Use Topics Alcohol use: No Drug use: No Medications: Current Outpatient Medications Medication Sig ferrous sulfate 325 mg (65 mg iron) tablet Take 1 tablet by mouth daily with breakfast. traZODone (DESYREL) 50 mg tablet Take 1 tablet by mouth daily at bedtime. ergocalciferol 50,000 unit capsule (VITAMIN D2, DRISDOL) Take 1 capsule by mouth one time a week. ibuprofen (MOTRIN) 800 mg tablet Take 1 tablet by mouth every 8 hours as needed for pain. Take with food. Omeprazole Magnesium (PRILOSEC OTC) 20 mg tablet Take 1 tablet (more content not included)... [facility] 03-05-2024 History of Presen t illness Narrative AMB ROOMING INTAKE FLOWSHEET DATA Risk Screening Do you have concerns about personal safety or safety in the home?: No Pain Pain Level: 7 Pain Location: Knee-Left (bilateral) Description: Aching Duration Amount of Time: 15 Duration Units: Years Frequency: Continuous Intervention/Comfort measure: Medication, Heat (takes ibuprofen and tylenol) Vish Mccloud MD Department of Orthopaedics Orthopaedics [address] [place] [address] Dept: [phone] Dept March 05, 2024 CHIEF COMPLAINT: Bilateral knee pain. HPI Patient has been having ongoing problems with bilateral knees. She is having difficult time even getting around at this point. She has a history of rheumatoid arthritis though has not been with rheumatology in quite some time. She did have some social and substance abuse issues. 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 We certainly need to get her into some simple range of motion physical therapy before any surgical discussions are had. However, with the complexity of her issue, I will get her in with one of our adult reconstruction specialists. FOLLOW UP INSTRUCTIONS: As above OBJECTIVE: Ms. Lauren Hung is a pleasant 58 year old in no apparent distress. Gen:LMP 04/08/2015 nl development, obese, no deformities ENT: Normocephalic, normal hearing, moist mucosa CV: Pulses:DP/PT= 2+ and symmetric, capillary refill < 2 secs, no peripheral edema/varicosities Skin: no rash, bruising or lesions. Good turgor. Psych: cooperative and appropriate, alert and oriented x 3, good mood and affect. Musculoskeletal: Patient arrives in wheelchair. She has some dependent edema bilaterally. She has soft tissue swelling of both knees but no significant effusions. She has markedly limited motion and in the left knee its only about 20 degrees of flexion contracture and only 20 degrees of functional motion. The right knee is a little bit better with maybe 15 degrees of flexion contracture and 80 degrees of flexion. IMAGING: IMPRESSION: No acute fracture. Worsening degenerative disease of bilateral knees. Laundry Pricing Clerk: PSCB Transcribe Date/Time: Mar 09 2024 5:13P Dictated by : REYNA KESSLER MD This examination was interpreted and the report reviewed and electronically signed by: REYNA KESSLER MD on Mar 09 2024 5:14PM EST Results-Findings * * *Final Report* * * DATE OF EXAM: Mar 05 2024 2:05PM [id number] - XR KNEE 4V AP/PA/LAT/[facility] ZAC / PROCEDURE REASON: Pain * * * * Physician Interpretation * * * * EXAMINATION: XR KNEE 4V AP/PA/LAT/MERCH ZAC CLINICAL HISTORY: Bilateral knee pain Technique: XR KNEE 4V AP/PA/LAT/MERC ZAC -- BILATERAL with 4 views on 7 images Comparison: X-ray bilateral knees 09/25/2019 RESULT: Right knee: Generalized osteopenia. No acute fracture or dislocation. Worsening tricompartment joint space narrowing with subchondral sclerosis and marginal osteophytes. Left knee: Generalized osteopenia. No acute fracture or dislocation. Worsening tricompartment joint space narrowing with subchondral sclerosis and marginal osteophytes. Supporting Subjective Information Below: Past Medical History: PAST MEDICAL HISTORY Diagnosis Date Anxiety 08/12/2011 Edema Heroin use active, recent ED visit [facility] 09/11/20 History of DVT of lower extremity right Rheumatoid arthritis(714.0) 04/25/[address] Kraus, [facility] Tobacco use disorder Past Surgical History: PAST SURGICAL HISTORY Procedure Laterality Date KNEE ARTHROSCOPY/SURGERY 2010 left Family History: FAMILY HISTORY Problem Relation Age of Onset Breast Cancer Mother Diabetes Mother Thyroid Mother other (Stomach cancer) Mother Osteoporosis Father Arthritis Maternal Aunt Rheumatoid Thyroid Daughter Social History: Social History Tobacco Use Smoking status: Every Day Current packs/day: 0.50 Average packs/day: 0.5 packs/day for 23.0 years (11.5 ttl pk-yrs) Types: Cigarettes Smokeless tobacco: Never Tobacco comments: started smoking 22yo Substance Use Topics Alcohol use: No Drug use: No Medications: Current Outpatient Medications Medication Sig ferrous sulfate 325 mg (65 mg iron) tablet Take 1 tablet by mouth daily with breakfast. traZODone (DESYREL) 50 mg tablet Take 1 tablet by mouth daily at bedtime. ergocalciferol 50,000 unit capsule (VITAMIN D2, DRISDOL) Take 1 capsule by mouth one time a week. ibuprofen (MOTRIN) 800 mg tablet Take 1 tablet by mouth every 8 hours as needed for pain. Take with food. Omeprazole Magnesium (PRILOSEC OTC) 20 mg tablet Take 1 tablet by mouth daily before breakfast. 1/2 hr before meal. DULoxetine (CYMBALTA) 30 mg capsule Take 1 capsule by mouth once daily. No current facility-administered medications for this visit. Allergies: Meloxicam ROS: General (negative for fatigue, malaise, weight loss/gain) HEENT (negative for headache, earache, recent vision changes, sinus pain, sore throat) Respiratory (no recent shortness of breath, hemoptysis) CV (negative for chest tightness, palpitations) Musculoskeletal (see HPI) Psych (no depression, anxiety) Vish Mccloud MD documented in this encounter [facility] 03-05-2024 History of Presen t illness Narrative Radiology Service Progress Note PATIENT NAME: Lauren Hung DATE OF SERVICE: March 05, 2024 TIME: 9:14 PM PATIENT IDENTITY VERIFICATION COMPLETED USING TWO (2) IDENTIFIERS: Name and Date of confirmed by patient verbally. FALL SCREENING: Has the patient had 2 falls in the last year or 1 fall with injury or currently using an Ambulatory Assistive Device (Walker, Cane, Wheelchair, Crutches, etc.)? yes PATIENT GENDER DATA: Female. status: : No status: NO. PATIENT RELEVANT IMPLANT DATA REVIEWED: Not Applicable PATIENT PRESENTS WITH AN IMPLANTABLE OR ATTACHED NOCTURNIST PHYSICIAN: No RADIOLOGY DEPARTMENT: General X-ray: Exam(s) Completed: Lower Extremity X-Ray(s): Knee, AP / Lat / Tunne / Merchant Bilateral and Wt. Bearing PERIPHERAL IV DATA: Not applicable SIGNED BY: RT Alphonso(R) March 05, 2024 9:14 PM documented in this encounter [facility] 03-05-2024 Note HNO ID: [id number] Author: JUSTYNA PORTILLO RT(Isidoro) Service: ? Author Type: Technologist Type: Progress Notes Filed: 03/05/2024 21:15 Note Text: Radiology Service Progress Note PATIENT NAME: Lauren Hung DATE OF SERVICE: March 05, 2024 TIME: 9:14 PM PATIENT IDENTITY VERIFICATION COMPLETED USING TWO (2) IDENTIFIERS: Name and Date of confirmed by patient verbally. FALL SCREENING: Has the patient had 2 falls in the last year or 1 fall with injury or currently using an Ambulatory Assistive Device (Walker, Cane, Wheelchair, Crutches, etc.)? yes PATIENT GENDER DATA: Female. status: : No status: NO. PATIENT RELEVANT IMPLANT DATA REVIEWED: Not Applicable PATIENT PRESENTS WITH AN IMPLANTABLE OR ATTACHED NOCTURNIST PHYSICIAN: No RADIOLOGY DEPARTMENT: General X-ray: Exam(s) Completed: Lower Extremity X-Ray(s): Knee, AP / Lat / Tunne / Merchant Bilateral and Wt. Bearing PERIPHERAL IV DATA: Not applicable SIGNED BY: RT Alphonso(R) March 05, 2024 9:14 PM [facility] 12-29-2023 Note HNO ID: [id number] Author: BONNIE MARLEY MA Service: ? Author Type: Software Qa System Specialist Type: Progress Notes Filed: 12/29/2023 15:22 Note Text: POPULATION HEALTH NAVIGATION OUTREACH Action/FYI Patient returned call and states she now sees Dr. Melyssa Mercado. Updated PCP. Reason for Outreach Returned Call/MyChart Patient Contacted: Spoke to patient/parent/or legal guardian Patient identified by name and date of : Yes Returned call/MyChart actions taken: PCP field updated Navigation Signature: Bonnie Marley MA December 29, 2023 3:21 PM [facility] 12-29-2023 History of Presen t illness Narrative POPULATION HEALTH NAVIGATION OUTREACH Action/FYI Patient returned call and states she now sees Dr. Melyssa Mercado. Updated PCP. Reason for Outreach Returned Call/MyChart Patient Contacted: Spoke to patient/parent/or legal guardian Patient identified by name and date of : Yes Returned call/MyChart actions taken: PCP field updated Navigation Signature: Bonnie Marley MA December 29, 2023 3:21 PM POPULATION HEALTH NAVIGATION OUTREACH Action/FYI Called and left a message to call [phone], to discuss health maintenance items that are due. PCP appt: Wellness due for 2023 HM due: Wellness due for 2023 BREAST CANCER SCREENING COLORECTAL SCREENING Flu HCC gaps My chart. Reason for Outreach Care Gap/HCC or Scheduling Wellness Visits Care Gaps due: Medicare Annual Wellness Visit Breast Cancer Screening Colorectal Cancer Screening Flu Vaccine Patient Contacted: Unable or unnecessary to reach patient: Left message HCC related Navigation Signature: Bonnie Marley MA December 29, 2023 2:57 PM documented in this encounter [facility] 12-29-2023 Note HNO ID: [id number] Author: BONNIE MARLEY MA Service: ? Author Type: Software Qa System Specialist Type: Progress Notes Filed: 12/29/2023 14:58 Note Text: POPULATION HEALTH NAVIGATION OUTREACH Action/FYI Called and left a message to call [phone], to discuss health maintenance items that are due. PCP appt: Wellness due for 2023 HM due: Wellness due for 2023 BREAST CANCER SCREENING COLORECTAL SCREENING Flu HCC gaps My chart. Reason for Outreach Care Gap/HCC or Scheduling Wellness Visits Care Gaps due: Medicare Annual Wellness Visit Breast Cancer Screening Colorectal Cancer Screening Flu Vaccine Patient Contacted: Unable or unnecessary to reach patient: Left message HCC related Navigation Signature: Bonnie Marley MA December 29, 2023 2:57 PM [facility] 12-29-2023 Note Patient Outreach (NE TNAV) LAUREN HUNG ([id number]) 1965 [facility] Date Time Provider Department 12/29/23 BONNIE MARLEY During your visit today, we recorded the following information about you: Bonnie Marley MA 12/29/2023 2:58 PM Signed POPULATION HEALTH NAVIGATION OUTREACH Action/FYI Called and left a message to call [phone], to discuss health maintenance items that are due. PCP appt: Wellness due for 2023 HM due: Wellness due for 2023 BREAST CANCER SCREENING COLORECTAL SCREENING Flu HCC gaps My chart. Reason for Outreach Care Gap/HCC or Scheduling Wellness Visits Care Gaps due: Medicare Annual Wellness Visit Breast Cancer Screening Colorectal Cancer Screening Flu Vaccine Patient Contacted: Unable or unnecessary to reach patient: Left message HCC related Navigation Signature: Bonnie Marley MA December 29, 2023 2:57 PM Bonnie Marley MA 12/29/2023 3:22 PM Signed POPULATION HEALTH NAVIGATION OUTREACH Action/FYI Patient returned call and states she now sees Dr. Melyssa Mercado. Updated PCP. Reason for Outreach Returned Call/MyChart Patient Contacted: Spoke to patient/parent/or legal guardian Patient identified by name and date of : Yes Returned call/MyChart actions taken: PCP field updated Navigation Signature: Bonnie Marley MA December 29, 2023 3:21 PM Allergies As of Date: 12/29/2023 Noted Allergy Reaction MELOXICAM 11/29/2017 8 - GI Upset Date Reviewed: 12/12/2019 Reviewed by: Livier Bianchi Cma - Fully Assessed Reason for Visit: Population Health Navigation Outreach [3910] Cmt: C, AWV, Care gaps, HCC, [facility] PCSA Prescriptions as of 12/29/2023 - ferrous sulfate 325 mg (65 mg iron) tablet Take 1 tablet by mouth daily with breakfast. - traZODone (DESYREL) 50 mg tablet Take 1 tablet by mouth daily at bedtime. - ergocalciferol 50,000 unit capsule (VITAMIN D2, DRISDOL) Take 1 capsule by mouth one time a week. - ibuprofen (MOTRIN) 800 mg tablet Take 1 tablet by mouth every 8 hours as needed for pain. Take with food. - Omeprazole Magnesium (PRILOSEC OTC) 20 mg tablet Take 1 tablet by mouth daily before breakfast. 1/2 hr before meal. - DULoxetine (CYMBALTA) 30 mg capsule Take 1 capsule by mouth once daily. Problem List As Of Date 12/29/2023 Noted Resolved RA (rheumatoid arthritis) [M06.9] 05/17/2011 Edema [R60.9] 05/17/2011 Morbid obesity (HCC) [E66.01] 03/01/2018 Tobacco use disorder [F17.200] Anxiety [F41.9] 08/12/2011 Acute venous embolism and thrombosis of unspeci*02/14/2012 History of DVT of lower extremity [Z86.718] Sprain of neck [S13.9XXA] 11/23/2013 Spasm of muscle [M62.838] 11/23/2013 Gastroesophageal reflux disease with esophagiti*03/01/2018 Rheumatoid arthritis involving multiple sites w*09/28/2019 Hepatitis C antibody positive in blood [R76.8] 09/28/2019 Encounter Status:Closed by BONNIE MARLEY on 12/29/23 [facility] 11-24-2023 Telephone encount er Note Called and left detailed message regarding XR's prior to orthopedic appointment on 11/30/2023. [facility] 11-24-2023 Miscellaneous Notes Formattin g of this note might be different from the original. Called and left detailed message regarding XR's prior to orthopedic appointment on 11/30/2023. documented in this encounter [facility] 08-15-2023 Note HNO ID: [id number] Author: SHELL HERBERT MA Service: ? Author Type: Software Qa System Specialist Type: Progress Notes Filed: 08/15/2023 14:35 Note Text: POPULATION HEALTH NAVIGATION OUTREACH Action/FYI LVM Annual medicare wellness Colonoscopy Mammograms HCC CLOSURE Reason for Outreach Care Gap/HCC or Scheduling Wellness Visits Care Gaps due: Medicare Annual Wellness Visit Breast Cancer Screening Colorectal Cancer Screening Patient Contacted: Unable or unnecessary to reach patient: Left message Navigation Signature: Shell Herbert MA August 15, 2023 11:05 AM [facility] 08-15-2023 History of Presen t illness Narrative POPULATION HEALTH NAVIGATION OUTREACH Action/FYI LVM Annual medicare wellness Colonoscopy Mammograms HCC CLOSURE Reason for Outreach Care Gap/HCC or Scheduling Wellness Visits Care Gaps due: Medicare Annual Wellness Visit Breast Cancer Screening Colorectal Cancer Screening Patient Contacted: Unable or unnecessary to reach patient: Left message Navigation Signature: Shell Herbert MA August 15, 2023 11:05 AM documented in this encounter [facility] 08-15-2023 Note Patient Outreach (LARRY TNAV) LAUREN HUNG ([id number]) 1965 [facility] Date Time Provider Department 08/15/23 SHELL HERBERT During your visit today, we recorded the following information about you: Shell Herbert MA 08/15/2023 2:35 PM Signed POPULATION HEALTH NAVIGATION OUTREACH Action/FYI [facility] Annual medicare wellness Colonoscopy Mammograms HCC CLOSURE Reason for Outreach Care Gap/HCC or Scheduling Wellness Visits Care Gaps due: Medicare Annual Wellness Visit Breast Cancer Screening Colorectal Cancer Screening Patient Contacted: Unable or unnecessary to reach patient: Left message Navigation Signature: Shell Herbert MA August 15, 2023 11:05 AM Allergies As of Date: 08/15/2023 Noted Allergy Reaction MELOXICAM 11/29/2017 8 - GI Upset Date Reviewed: 12/12/2019 Reviewed by: Tash Hu, Livier Waggoner - Fully Assessed Reason for Visit: Population Health Navigation Outreach [3910] Cmt: [facility] HCC /CARE GAPS M[facility]DEZ PCSA Prescriptions as of 08/15/2023 - ferrous sulfate 325 mg (65 mg iron) tablet Take 1 tablet by mouth daily with breakfast. - traZODone (DESYREL) 50 mg tablet Take 1 tablet by mouth daily at bedtime. - ergocalciferol 50,000 unit capsule (VITAMIN D2, DRISDOL) Take 1 capsule by mouth one time a week. - ibuprofen (MOTRIN) 800 mg tablet Take 1 tablet by mouth every 8 hours as needed for pain. Take with food. - Omeprazole Magnesium (PRILOSEC OTC) 20 mg tablet Take 1 tablet by mouth daily before breakfast. 1/2 hr before meal. - DULoxetine (CYMBALTA) 30 mg capsule Take 1 capsule by mouth once daily. Problem List As Of Date 08/15/2023 Noted Resolved RA (rheumatoid arthritis) [M06.9] 05/17/2011 Edema [R60.9] 05/17/2011 Morbid obesity (HCC) [E66.01] 03/01/2018 Tobacco use disorder [F17.200] Anxiety [F41.9] 08/12/2011 Acute venous embolism and thrombosis of unspeci*02/14/2012 History of DVT of lower extremity [Z86.718] Sprain of neck [S13.9XXA] 11/23/2013 Spasm of muscle [M62.838] 11/23/2013 Gastroesophageal reflux disease with esophagiti*03/01/2018 Rheumatoid arthritis involving multiple sites w*09/28/2019 Hepatitis C antibody positive in blood [R76.8] 09/28/2019 Encounter Status:Closed by SHELL HERBERT on 08/15/23 [facility] 07-01-2023 Note HNO ID: [id number] Author: ODETTE HARGROVE MA Service: ? Author Type: Software Qa System Specialist Type: Progress Notes Filed: 07/01/2023 09:10 Note Text: POPULATION HEALTH NAVIGATION OUTREACH Action/FYI Last AWV 05/22/2019 Mammogram ordered 09/29/2022 No active MyChart Reason for Outreach Care Gap/HCC or Scheduling Wellness Visits Care Gaps due: Medicare Annual Wellness Visit Breast Cancer Screening Colorectal Cancer Screening Flu Vaccine Patient Contacted: Unable or unnecessary to reach patient: Left message Navigation Signature: Odette Watkins MA July 01, 2023 9:05 AM [facility] 07-01-2023 History of Presen t illness Narrative POPULATION HEALTH NAVIGATION OUTREACH Action/FYI Last AWV 05/22/2019 Mammogram ordered 09/29/2022 No active MyChart Reason for Outreach Care Gap/HCC or Scheduling Wellness Visits Care Gaps due: Medicare Annual Wellness Visit Breast Cancer Screening Colorectal Cancer Screening Flu Vaccine Patient Contacted: Unable or unnecessary to reach patient: Left message Navigation Signature: Odette Watkins MA July 01, 2023 9:05 AM documented in this encounter [facility] 07-01-2023 Note Patient Outreach (NE TNAV) LAUREN HUNG ([id number]) 1965 [facility] Date Time Provider Department 07/01/23 ODETTE HARGROVE During your visit today, we recorded the following information about you: Odette Hargrove MA 07/01/2023 9:10 AM Signed POPULATION HEALTH NAVIGATION OUTREACH Action/FYI Last AWV 05/22/2019 Mammogram ordered 09/29/2022 No active MyChart Reason for Outreach Care Gap/HCC or Scheduling Wellness Visits Care Gaps due: Medicare Annual Wellness Visit Breast Cancer Screening Colorectal Cancer Screening Flu Vaccine Patient Contacted: Unable or unnecessary to reach patient: Left message Navigation Signature: Odette Watkins MA July 01, 2023 9:05 AM Allergies As of Date: 07/01/2023 Noted Allergy Reaction MELOXICAM 11/29/2017 8 - GI Upset Date Reviewed: 12/12/2019 Reviewed by: Livier Bianchi Cma N - Fully Assessed Reason for Visit: Population Health Navigation Outreach [3910] Cmt: [facility] Annual Wellness Visit Prescriptions as of 07/01/2023 - ferrous sulfate 325 mg (65 mg iron) tablet Take 1 tablet by mouth daily with breakfast. - traZODone (DESYREL) 50 mg tablet Take 1 tablet by mouth daily at bedtime. - ergocalciferol 50,000 unit capsule (VITAMIN D2, DRISDOL) Take 1 capsule by mouth one time a week. - ibuprofen (MOTRIN) 800 mg tablet Take 1 tablet by mouth every 8 hours as needed for pain. Take with food. - Omeprazole Magnesium (PRILOSEC OTC) 20 mg tablet Take 1 tablet by mouth daily before breakfast. 1/2 hr before meal. - DULoxetine (CYMBALTA) 30 mg capsule Take 1 capsule by mouth once daily. Problem List As Of Date 07/01/2023 Noted Resolved RA (rheumatoid arthritis) [M06.9] 05/17/2011 Edema [R60.9] 05/17/2011 Morbid obesity (HCC) [E66.01] 03/01/2018 Tobacco use disorder [F17.200] Anxiety [F41.9] 08/12/2011 Acute venous embolism and thrombosis of unspeci*02/14/2012 History of DVT of lower extremity [Z86.718] Sprain of neck [S13.9XXA] 11/23/2013 Spasm of muscle [M62.838] 11/23/2013 Gastroesophageal reflux disease with esophagiti*03/01/2018 Rheumatoid arthritis involving multiple sites w*09/28/2019 Hepatitis C antibody positive in blood [R76.8] 09/28/2019 Encounter Status:Closed by ODETTE HARGROVE on 07/01/23 [facility] 03-01-2018 History of Past i llness Narrative Problem Noted Date Resolved Date Morbid obesity 03/01/2018 documented as of this encounter (statuses as of 10/26/2021) 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 History of heroin abuse acut e History of rheumatoid arthritis acute Opiate withdrawal acute [facility] Work Phone: Evaluation note* Diagnosis Encounter for screening mammogram for breast cancer documented in this encounter [facility] note* Diagnosis Onset Date Resolution Status Anxiety and depression chron ic Rheumatoid arthritis noneact uriah Establishing care with new doctor, encounter for noneactive Substance abuse noneactive Hepatitis C noneactive OAB (overactive bladder) non eactive Screening for cervical cancer noneactive Chronic knee pain noneactive Screening for breast cancer noneactive Vitamin D deficiency noneact uriah Smoker noneactive Iron deficiency noneactive [facility] Work Phone: Evaluation note* Diagnosis Pain- Primary Generalized pain documented in this encounter [facility] note* Diagnosis Pain in both knees, unspecified chronicity- Primary documented in this encounter [facility] note* Diagnosis Pain Generalized pain documented in this encounter [facility] note* Diagnosis Chronic pain of both knees- Primary Other secondary osteoarthritis of both knees 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 Location: None Selected * Orthopedics Location: None Selected [facility] Work Phone: Reason for referral (narrative)* Diagnostic Procedure Only (Routine) - Pending Review Specialty Diagnoses / Procedures Referred By Contac t Referred To Contact [facility] Diagnoses Encounter for screening mammogram for breast cancer Procedures CELESTINA SCREENING SCREENING MAMMOGRAPHY BI 2-VIEW BREAST INC CAD Cat Vasquez MD [address] [place] [address] [facility] [address] [place] [address] Referral ID Status Reason Start Date Expiration Date Visits Requested Visits Authorized [id number] Pending Review Auto-Generat ed Referral 10/21/2021 11/20/2022 1 1 [facility] for referral (narrative)* Diagnostic Procedure Only (Routine) - Pending Review Specialty Diagnoses / Procedures Referred By Contac t Referred To Contact XR IMAGING Diagnoses Pain Procedures XR KNEE GENERAL 4V AP BOTH/PA BOTH/LAT/MERC BILATERAL RADIOLOGIC EXAM KNEE COMPLETE 4/MORE VIEWS Vish Mccloud MD [address] [facility] [place] [address] [place] [address] Referral ID Status Reason Start Date Expiration Date Visits Requested Visits Authorized [id number] Pending Review Auto-Generat ed Referral 09/20/2023 10/19/2024 1 1 [facility] for referral (narrative)* Diagnostic Procedure Only (Routine) - New Request Specialty Diagnoses / Procedures Referred By Contac t Referred To Contact XR IMAGING Diagnoses Pain in both knees, unspecified chronicity Procedures XR LEG FRONTAL HIP TO ANKLE MECHANICAL AXIS BONE LENGTH STUDIES Olga Lidia Mandujano PA-C [address] [address] [place] [address] Referral ID Status Reason Start Date Expiration Date Visits Requested Visits Authorized [id number] New Request Auto-Generat ed Referral 11/24/2023 12/23/2024 1 1 * Diagnostic Procedure Only (Routine) - New Request Specialty Diagnoses / Procedures Referred By Contac t Referred To Contact XR IMAGING Diagnoses Pain in both knees, unspecified chronicity Procedures XR KNEE GENERAL 4V AP BOTH/PA BOTH/LAT/MERC BILATERAL RADIOLOGIC EXAM KNEE COMPLETE 4/MORE VIEWS Olga Lidia Mandujano PA-C [address] [address] [place] [address] Referral ID Status Reason Start Date Expiration Date Visits Requested Visits Authorized [id number] New Request Auto-Generat ed Referral 11/24/2023 12/23/2024 1 1 [facility] for visit Narrative* Diagnostic Procedure Only (Routine) - Closed Specialty Diagnoses / Procedures Referred By Contac t Referred To Contact XR IMAGING Diagnoses Pain Procedures XR KNEE GENERAL 4V AP BOTH/PA BOTH/LAT/MERC BILATERAL RADIOLOGIC EXAM KNEE COMPLETE 4/MORE VIEWS Vish Mccloud MD [address] [place] [address] [place] [address] Referral ID Status Reason Start Date Expiration Date V isits Requested Visits Authorized [id number] Closed Auto-Generate d Referral 09/20/2023 10/19/2024 [address] [facility] Summary Purpose Family History No Family History Records Found Relationship Condition Age at Onset Recorded Date/T rolan mother Diabetes mellitus Unknown Malignant neoplasm Unknown father Hypertension Unknown Relationship Condition Age at Onset Recorded Date/T rolan mother Diabetes mellitus Unknown Malignant neoplasm Unknown Malignant neoplasm of breast Unknown father Hypertension Unknown Osteoporosis Unknown Advance Directives No Advanced Directives Records Found Advance Directive Response Recorded Date/ Time Advance Directives No February 21, 2014 11:25pm Living Will No October 13, 2021 8:01pm Power of Economics Department Chair No October 13 8:01pm Advance Directive Response Recorded Date/ Time Advance Directives No February 21, 2014 11:25pm Living Will No October 13, 2021 10:49pm Power of Economics Department Chair No October 13 10:49pm Chief Complaint and Reason for Visit Chief Complaint HEROIN DETOX OPIATE WITHDRAWL Reason for Visit Desire for detoxific ation History of heroin abuse History of rheumatoid arthritis Opiate withdrawal Chief Complaint OPIATE WITHDRAWL HEROIN DETOX OPIATE WITHDRAWL OPIATE WITHDRAWL Reason for Visit Desire for detoxific ation History of heroin abuse History of rheumatoid arthritis Opiate withdrawal 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 Reason for Visit Anxiety and depressi on Rheumatoid arthritis Establishing care with new doctor, encounter for Substance abuse Hepatitis C OAB (overactive bladder) Screening for cervical cancer Chronic knee pain Screening for breast cancer Vitamin D deficiency Smoker Iron deficiency Reason for Referral Specialty Diagnoses / Procedures Referred By [facility] river Referred To Contact [facility] Diagnoses Chronic pain of both knees Other secondary osteoarthritis of both knees Procedures CONSULT TO PHYSICAL THERAPY PHYSICAL THERAPY EVALUATION HIGH COMPLEX 45 MINS Vish Mccloud MD [address] [place] [address] [facility] [place] [address] [place] [id number] Referral ID Status Reason Start Date Expiration Date Visits Requested Visits Authorized [id number] Pending Review Auto-Generat ed Referral 4 03/05/2025 1 1 Additional Source Comments INFORMATION SOURCE (unrecogn ized section and content) DATE CREATED AUTHOR 02/25/2020 [facility] DATE CREATED AUTHOR AUTHOR'S ORGANIZ ATION 10/28/2023 [facility] DATE CREATED AUTHOR AUTHOR'S ORGANIZ ATION 03/12/2024 [facility] Goals (unrecognized section and content) Goals may be documented in a n alternate sectionGoals may be documented in an alternate section Source Comments (unrecognize d section and content) In the event this informatio n is protected by the Federal Confidentiality of Alcohol and Drug Abuse Patient Records regulations: The Federal rules restrict any use of the information to criminally investigate or prosecute any alcohol or drug abuse patient.[facility] the event this information is protected by the Federal Confidentiality of Alcohol and Drug Abuse Patient Records regulations: The Federal rules restrict any use of the information to criminally investigate or prosecute any alcohol or drug abuse patient.[facility] the event this information is protected by the Federal Confidentiality of Alcohol and Drug Abuse Patient Records regulations: The Federal rules restrict any use of the information to criminally investigate or prosecute any alcohol or drug abuse patient.[facility] Hospital[facility] the event this information is protected by the Federal Confidentiality of Alcohol and Drug Abuse Patient Records regulations: The Federal rules restrict any use of the information to criminally investigate or prosecute any alcohol or drug abuse patient.[facility] HospitalIn the event this information is protected by the Federal Confidentiality of Alcohol and Drug Abuse Patient Records regulations: The Federal rules restrict any use of the information to criminally investigate or prosecute any alcohol or drug abuse patient.[facility] HospitalIn the event this information is protected by the Federal Confidentiality of Alcohol and Drug Abuse Patient Records regulations: The Federal rules restrict any use of the information to criminally investigate or prosecute any alcohol or drug abuse patient.[facility] HospitalIn the event this information is protected by the Federal Confidentiality of Alcohol and Drug Abuse Patient Records regulations: The Federal rules restrict any use of the information to criminally investigate or prosecute any alcohol or drug abuse patient.[facility] HospitalIn the event this information is protected by the Federal Confidentiality of Alcohol and Drug Abuse Patient Records regulations: The Federal rules restrict any use of the information to criminally investigate or prosecute any alcohol or drug abuse patient.[facility] HospitalIn the event this information is protected by the Federal Confidentiality of Alcohol and Drug Abuse Patient Records regulations: The Federal rules restrict any use of the information to criminally investigate or prosecute any alcohol or drug abuse patient.[facility] Care Teams (unrecognized sec tion and content) Employment And Claims Aide Relationship Specialty Start Date End Date Cat Vasquez MD [address], [place] [id number] PCP - General Internal Medicine 12/19/17 Employment And Claims Aide Relationship Specialty Start Date End Date Cat Vasquez MD [address], [place] [id number] PCP - General Internal Medicine 12/19/17 Team Status: Active Member Role Status Dates Dr. Cat Vasquez MD Family Provider Active Dr. Melyssa Mercado MD Primary Care Provider Active Team Status: Inactive Member Role Status Dates Dr. Cat Vasquez MD Primary Care Provider, Referring Provider Active Dr. Melyssa Mercado MD Attending Provider Active Team Status: Inactive Member Role Status Dates Dr. Melyssa Mercado MD Primary Care Provider, Attendi Provider Active Employment And Claims Aide Relationship Specialty Start Date End Date Cat Vasquez MD [address], [place] [id number] PCP - General Internal Medicine 12/19/17 Employment And Claims Aide Relationship Specialty Start Date End Date Cat Vasquez MD [address], [place] [id number] PCP - General Internal Medicine 12/19/17 Employment And Claims Aide Relationship Specialty Start Date End Date Cat Vasquez MD [address], [place] [id number] PCP - General Internal Medicine 12/19/17 Employment And Claims Aide Relationship Specialty Start Date End Date Cat Vasquez MD [address] [place] [address] PCP - General Internal Medicine 12/19/17 Employment And Claims Aide Relationship Specialty Start Date End Date Melyssa Mercado MD [address] [place], [place] [address] PCP - General Internal Medicine 12/29/23 Employment And Claims Aide Relationship Specialty Start Date End Date Melyssa Mercado MD [address] [place], [place] [address] PCP - General Internal Medicine 12/29/23 Reason for Visit (unrecogniz ed section and content) Reason Onset Date Comments Population Health Navigation Outreach 07/01/2023 [facility] Annual Wellness Visit Reason Onset Date Comments Population Health Navigation Outreach 08/15/2023 [facility] HCC /CARE GAPS [place] [facility]SA Reason Comments Appointment Reason Onset Date Comments Population Health Navigation Outreach 12/29/2023 [facility], AWV, Care gaps, HCC, [place] [facility] FOR RECORDS PERTAINING TO PATIENTS WHO ARE OR HAVE BEEN ENROLLED IN A CHEMICAL DEPENDENCY/SUBSTANCEABUSE PROGRAM, SOME INFORMATION MAY BE OMITTED. This clinical summary was aggregated from multiple sources. Caution should be exercised in using it in the provision of clinical care. This summary normalizes information from multiple sources, and as a consequence, information in this document may materially change the coding, format and clinical context of patient data. In addition, data may be omitted in some cases. CLINICAL DECISIONS SHOULD BE BASED ON THE PRIMARY CLINICAL RECORDS. [facility]. provides no warranty or guarantee of the accuracy or completeness of information in this document.
[2025-03-31 18:18] LABS: Hematocrit 39.7 % (37-47); Hemoglobin 12.9 g/dL (12.0-15.0); Immature Granulocytes Count 0.060 X10^3/uL (0.0-0.0); Mean Corp Hgb Conc 32.5 g/dL (32-36); Mean Corpuscular Volume 94.7 fL (81-99); Mean Platelet Vol. 10.7 fl (6.2-12.0); NRBC Flagged by Analyzer 0 % (0-5); POSITIVE MORPHOLOGY YES; Platelet Count 286 K/mm3 (150-450); RBC Distribution Width CV 20.8 % (11.6-14.6); RBC Distribution Width SD 69.5 fl (35.1-43.9); Red Blood Count 4.19 M/mm3 (4.2-5.4); White Blood Count 12.0 K/mm3 (4.4-11.0)
[2025-03-31 18:31] LABS: Differential Indicated SCAN CRITERIA MET
[2025-03-31 18:41] LABS: Anion Gap 14 (5-15); BUN 10 mg/dL (4-19); BUN/Creat Ratio 18.0 RATIO (10-20); Calcium,Total 8.8 mg/dL (7.6-11.0); Carbon Dioxide 20.7 mmol/L (21.0-32.0); Chloride 104 mmol/L (98-108); Estimated Creatinine Clearance 112.70 ml/min (50-250); Glucose 106 mg/dL (70-99); Potassium 3.5 mmol/L (3.3-5.1)
[2025-03-31 19:12] LABS: Anisocytosis 1+; Microcytosis 1+
[2025-03-31 19:17] VITALS: BP 132/91; PULSE 96; O2SAT 96
--- NOTE | 2025-03-31 19:30 | CASEMGMT ---
Care Management Face to Face with patient for initial transition planning/care coordination assessment in the ED.? This travel writer introduced self and role at [facility]. Patient alert and oriented. Patient willing to participate in assessment and is able to answer all questions appropriately.? Care providers, pharmacy, and demographics verified. Admitting Diagnosis: Not yet determined at the time this assessment was completed; only listed as lower extremity injury. Other diagnosis history: Including but not limited to: Shingles, history of heroin abuse, choledocholithiasis, opiate withdrawal, restless legs, substance abuse, depression, anxiety, chronic pain, rheumatoid arthritis, hepatitis, smoker, deep venous thrombosis, opiate addiction, Ileus, nicotine dependence, and history of immunosuppression therapy. PCP: Dr. Esme Mercado Specialists: Patient denied having any current specialists however reported she did see Dr. Nieves at one point who had discussed patient getting knee replacement however patient stated she hasn?t seen him since. Patient is requesting assistance with getting established/referrals for a production recorder, and pain management. Preferred Pharmacy: [facility] Insurance: [facility]/Medicare Advantage/[facility] and has Medicaid as secondary coverage. Prescription Benefit: Yes Living Will/HPOA: ?Patient doesn?t have and is not interested at this time. LNOK: Patient has 2 children: Hawa, of [place] and Simone of [place], both of whom patient has regular contact with. Living Arrangements: Patient had been living with her daughter Hawa for roughly the past 3 years, however has been staying with her 83-year-old father for the past month due to not being able to ambulate the steps at her daughter?s house any longer.? Patient also reported that her daughter works a lot, patient was home by herself most of the time and was not able to cook for herself. Patient stated her father is able to help her more, and is always home. Patient?s father currently resides at [facility] which is all handicap accessible. Patient stated she has one small step that she has to go up/down to get in and out of the house and has a handrail. Patient has her own first floor room and bathroom. Patient denied any environmental barriers at her father?s place of residence. Transportation: Patient?s father, daughter Hawa or sister Brittney all provide transportation for patient as needed. DME: Standard walker, wheelchair (possible transport wheelchair), BSC, shower chair, grab bars in shower and by toilet. HHC: No history of but patient interested in. Patient was originally supposed to attend PT in [place] so that she could get her knee surgery however patient stated she could never make it to [place]. Due to current conditions, patient likely to benefit from therapy from a SNF. SNF/Rehab: No history of but patient interested in. Patient stated since her recent fall, she is hardly able to ambulate and transfer, is unable to maintain hygiene or cook for self. Patient is struggling with completion of ADL?s and IADL?s and feels she needs rehab in order to regain strength and reduce risk for falls. Community Resources: Denied and denied need for any (Stopper Grinder reviewed [facility], Counseling to address anxiety and depression and patient also denied interest in an emergency response device) Behavioral Health History: Previous addiction. Patient goals: Patient does not feel safe returning home due to barriers with ambulation and identified a preference of getting rehab through either [facility] or [facility] (patient?s sister works at [facility] and would just want to make sure her insurance would cover it). Disposition Plan: Admission to acute; RN CM/SW to follow for discharge planning needs that may arise. Tiffany Gan, FOXING CUTTING MACHINE OPERATOR, SENIOR OFFICER
--- NOTE | 2025-03-31 20:00 | CT_ITS ---
PROCEDURE: EXTREMITY LOWER WITHOUT CONTRA 03/31/2025 REASON FOR EXAM: ASSESS FOR TIBIAL PLATEAU FRACTURE TECHNIQUE: Procedure Code: CTELWO Modality: CT Procedure: EXTREMITY LOWER WITHOUT CONTRA Coronal and Sagittal reconstruction series were provided. CONTRAST: None One or more dose reduction techniques were used (e.g., Automated exposure control, adjustment of the mA and/or kV according to patient size, use of iterative reconstruction technique). RADIATION DOSE SUMMARY: CTDlvol: 15.47 mGy DLP: 503.59 mGycm COMPARISON: The prior radiograph done on the same date was reveiwed. FINDINGS: Mild depression of the lateral tibial plateau is seen otherwise, no displaced acute knee fractures noted. Severe arthritic changes of the femorotibial and patellofemoral joints seen in the form of osteophytes and subarticular degenerative pseudocysts of the opposing articular surfaces and narrowing of the joint spaces. Spurring of the patellar poles and spiking of the tibial spines are seen. Moderate joint effusion is seen with associated synovial thickening. Mild soft tissue edema is seen involving the proximal leg. Few prominent popliteal reactive lymph nodes are noted. CT/Extremity Lower without Contra IMPRESSION: 1. Mild depression of the lateral tibial plateau is seen otherwise, no disp laced acute knee fractures noted. Recommend clinical correlation. 2. Severe knee arthritic changes. 3. Moderate knee joint effusion with synovial thickening. Reading Location: [place] [id number]
[2025-03-31 21:00] VITALS: BP 116/76; PULSE 95; RESP 16; O2SAT 97
[2025-03-31 23:01] VITALS: BP 152/84; PULSE 93; RESP 16; O2SAT 96
--- NOTE | 2025-04-01 00:25 | CONS.ORTHO ---
HPI Consult Data Date of Consult: 04/01/25 HPI Narrative HPI Narrative: JANEY RODRIGUEZ, is a 59 F who presents with bilateral knee pain. [facility] Medical History (Updated 04/01/25 @ 00:25 by Wes Douglas MD) Bilateral knee pain Shingles History of heroin abuse Choledocholithiasis Opiate withdrawal Restless legs Substance abuse Depression Anxiety Chronic pain Rheumatoid arthritis Hepatitis Smoker DVT (deep venous thrombosis) Opiate addiction Ileus Nicotine dependence History of immunosuppression therapy Home Medications ?Medication ?Instructions ?Recorded ?Last Taken ?Type ibuprofen 800 mg tablet (IBU) 800 mg PO TID PRN Pain 02/01/18 11/11/19 08:00 History acetaminophen 500 mg tablet 650 mg (1.3 x 500 mg) PO Q6H PRN 05/15/21 Unknown Rx Pain, Severe #120 tabs potassium chloride 20 mEq 40 meq (2 x 20 mEq) PO DAILY 5 10/03/23 Unknown Rx tablet,extended release days #10 tabs albuterol sulfate 2.5 mg/3 mL 2.5 mg (3 mL) inhalation Q4H PRN 10/18/23 Unknown Rx (0.083 %) solution for nebulization #25 vials albuterol sulfate 90 mcg/actuation 2 puff inhalation Q4H PRN PRN 10/18/23 Unknown Rx aerosol inhaler (Ventolin HFA) Wheezing ##1 nicotine 21 mg/24 hr daily 1 patch transdermal DAILY #28 ea 10/18/23 Unknown Rx transdermal patch buspirone 5 mg tablet 5 mg PO BID #60 TABLETS 12/28/23 Unknown Rx Allergy/AdvReac Type Severity Reaction Status Date / Time meloxicam AdvReac Upset Verified 03/31/25 16:42 Stomach Family History Mother Diabetes Cancer stomach Breast cancer Father Hypertension Osteoporosis Surgical History History of cholecystectomy S/P knee surgery Social History household members: family current occupational status: disabled 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 Smoking Status: Light Smoker (<10/day) Electronic Cigarette Use: not used quit status: considering quitting alcohol intake: never details: Nondrinker substance use type: former substance user Date of last use: 06/13/22 and heroin do you feel safe at home: Yes Vital Signs Vital Signs Vital Signs: 03/31/25 16:38 03/31/25 16:40 03/31/25 19:17 Temperature 98.0 F Temperature Source Oral Pulse Rate 100 96 Respiratory Rate 18 Blood Pressure 112/86 H 132/91 H Blood Pressure Mean 94 104 Pulse Ox 98 96 Oxygen Delivery Method Room Air 03/31/25 21:00 03/31/25 23:01 Temperature Temperature Source Pulse Rate 95 93 Respiratory Rate 16 16 Blood Pressure 116/76 152/84 H Blood Pressure Mean 89 106 Pulse Ox 97 96 Oxygen Delivery Method Room Air Weight Weight: 203 lb 4.259 oz Body Mass Index (BMI) 38.3 Lab / Micro Data 03/31/25 18:10 03/31/25 18:10 Labs: Laboratory Results - last 24 hr 03/31/25 18:10: WBC 12.0 H, RBC 4.19 L, Hgb 12.9, Hct 39.7, MCV 94.7, MCH 30.8, MCHC 32.5, RDW Std Deviation 69.5 H, RDW Coeff of Abhay 20.8 H, Plt Count 286, MPV 10.7, Immature Gran % (Auto) 0.500, Neut % (Auto) 52.6, Lymph % (Auto) 32.0, [place] % (Auto) 5.9, Eos % (Auto) 7.8 H, Baso % (Auto) 1.2 H, Absolute Neuts (auto) 6.3, Absolute Lymphs (auto) 3.84, Nucleated RBC % 0, Anisocytosis 1+, Microcytosis 1+, Sodium 138, Potassium 3.5, Chloride 104, Carbon Dioxide 20.7 L, Anion Gap 14, BUN 10, Creatinine 0.57 L, Estim Creat Clear Calc 112.70, Est GFR (MDRD) Non-Af 106, BUN/Creatinine Ratio 18.0, Glucose 106 H, Calcium 8.8 Imaging Radiology Impression Knee X-Ray 03/31/25 17:10 IMPRESSION: As above. Reading Location: [facility] Knee X-Ray 03/31/25 17:12 IMPRESSION: As above. Reading Location: [facility] Assessment & Plan Assessment/Plan (1) Bilateral knee pain: PLAN: 59F with RA and bilat knee pain per ED doc. no obvious frature on xr, CT results pending. suggest knee immobilizer, crutches and WBAT. OK to follow up as outpatient. No other concerns voiced from provider. Call if other concerns, otherwise will not follow if admitted. DC immobilization if no fracture on final CT read per radiologist.
[2025-04-01 01:00] VITALS: BP 150/90; PULSE 90; RESP 18; O2SAT 95
--- NOTE | 2025-04-01 01:42 | HP.PCM.HOS_ITS ---
HPI - General General Date of Admission: 04/01/25 Date of Service: 04/01/25 Chief Complaint: Fall and left knee pain HPI Narrative JANEY RODRIGUEZ, is a 59 F with chronic rheumatoid arthritis came to ED with severe left knee pain with chronic bilateral knee pain. She cannot stand up or walk and cannot take care of herself. She fell down and twisted her left knee about a week ago. Currently she complains of pain over her left knee 8/10 intensity. She has advanced degenerative arthritis in both knees and she is on ibuprofen and ambulates with a walker. Patient had CT of lower extremity in the ED which shows depression in the lateral tibial plateau. Orthopedic surgeon Dr. Harris consulted. Further admitted for acute debility. [facility] Medical History Bilateral knee pain Shingles History of heroin abuse Choledocholithiasis Opiate withdrawal Restless legs Substance abuse Depression Anxiety Chronic pain Rheumatoid arthritis Hepatitis Smoker DVT (deep venous thrombosis) Opiate addiction Ileus Nicotine dependence History of immunosuppression therapy Home Medications ?Medication ?Instructions ?Recorded ?Last Taken ?Type ibuprofen 800 mg tablet (IBU) 800 mg PO TID PRN Pain 1 11/11/19 08:00 History buspirone 5 mg tablet 5 mg PO BID #60 TABLETS 08/16 Unknown Rx Allergy/AdvReac Type Severity Reaction Status Date / Time meloxicam AdvReac Upset Verified 03/31/25 16:42 Stomach Family History Mother Diabetes Cancer stomach Breast cancer Father Hypertension Osteoporosis Surgical History History of cholecystectomy S/P knee surgery Social History household members: family current occupational status: disabled 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 No fever. HEENT: Reports systems reviewed and no addt'l complaints, except as documented Respiratory/Chest: No acute shortness of breath or respiratory distress or wheezing. CVS: No chest pain. Denies history of CAD or other chronic cardiac condition Gastrointestinal: Denies coffee ground emesis, hematemesis or vomiting Genitourinary: Denies burning urination or new urinary tract symptoms Musculoskeletal: As described in HPI Neurologic: Denies seizure-like symptoms. skin: No ulcer. No rash Endocrinology: Reports systems reviewed and no addt'l complaints, except as documented Hematologic/Lymphatic: Reports systems reviewed and no addt'l complaints, except as documented Rest 14 ROS are negative except as mentioned in HPI Vital Signs Vital Signs Vital Signs: 03/31/25 16:38 03/31/25 16:40 03/31/25 19:17 Temperature 98.0 F Temperature Source Oral Pulse Rate 100 96 Respiratory Rate 18 Blood Pressure 112/86 H 132/91 H Blood Pressure Mean 94 104 Pulse Ox 98 96 Oxygen Delivery Method Room Air 03/31/25 21:00 03/31/25 23:01 Temperature Temperature Source Pulse Rate 95 93 Respiratory Rate 16 16 Blood Pressure 116/76 152/84 H Blood Pressure Mean 89 106 Pulse Ox 97 96 Oxygen Delivery Method Room Air Weight Weight: 203 lb 4.259 oz Body Mass Index (BMI) 38.3 Physical Exam Narrative General: Alert, Oriented x3, Cooperative. BMI 38.4 kg/m?, obesity grade 2 HEENT: Atraumatic, PERRLA, EOMI, Normocephalic. Oral: No Gingival or Mucosal Lesions/ Ulcerations Neck: Supple, No JVD, Negative Carotid Bruits Chest wall/Lungs: Air entry diminished in bilateral lung bases. No crepitation/rhonchi Cardiovascular: Regular rate and rhythm, Normal S1,S2, No M/G/R Abdomen: Bowel Sounds Present, Soft, Non Tender, Non-Distended : No dysuria. No renal angle tenderness. No suprapubic tenderness. Extremities: No edema, Capillary Refill Less than 3 Seconds Skin: No rashes, No breakdown Musculoskeletal: Bilateral knee deformity. Left knee tender on touch. ROM not attempted on left knee Neurological: Cranial nerves II-XII grossly intact, DTR 2+/4. No acute focal neurological deficit. Psych/Mental Status: Flat affect Results Lab / Micro Data 03/31/25 18:10 03/31/25 18:10 Labs: Laboratory Results - last 24 hr 03/31/25 18:10: WBC 12.0 H, RBC 4.19 L, Hgb 12.9, Hct 39.7, MCV 94.7, MCH 30.8, MCHC 32.5, RDW Std Deviation 69.5 H, RDW Coeff of Abhay 20.8 H, Plt Count 286, MPV 10.7, Immature Gran % (Auto) 0.500, Neut % (Auto) 52.6, Lymph % (Auto) 32.0, [place] % (Auto) 5.9, Eos % (Auto) 7.8 H, Baso % (Auto) 1.2 H, Absolute Neuts (auto) 6.3, Absolute Lymphs (auto) 3.84, Nucleated RBC % 0, Anisocytosis 1+, Microcytosis 1+, Sodium 138, Potassium 3.5, Chloride 104, Carbon Dioxide 20.7 L, Anion Gap 14, BUN 10, Creatinine 0.57 L, Estim Creat Clear Calc 112.70, Est GFR (MDRD) Non-Af 106, BUN/Creatinine Ratio 18.0, Glucose 106 H, Calcium 8.8 Imaging Radiology Impression Knee X-Ray 03/31/25 17:10 IMPRESSION: As above. Reading Location: [facility] Knee X-Ray 03/31/25 17:12 IMPRESSION: As above. Reading Location: [facility] Lower Extremity CT 03/31/25 20:00 IMPRESSION: 1. Mild depression of the lateral tibial plateau is seen otherwise, no displaced acute knee fractures noted. Recommend clinical correlation. 2. Severe knee arthritic changes. 3. Moderate knee joint effusion with synovial thickening. Reading Location: [place] [id number] Assessment & Plan Assessment/Plan (1) Bilateral knee pain: PLAN: Plan This 59-year-old female is being admitted for acute left knee pain on chronic bilateral knee arthritis and pain. 1. Acute debility due to severe left knee pain on chronic bilateral knee degenerative arthritis: Patient is being admitted to [facility] floor. Knee x-rays were done but was inconclusive therefore lower extremity CT was done which shows mild depression of lateral tibial plateau otherwise no displaced acute knee fracture. Severe knee arthritis changes. Moderate knee joint effusion with synovial thickening. Orthopedic surgery was consulted from ER physician. Advised to left knee immobilizer. Pain control with Tylenol, IV Toradol and opioids. PT and OT ordered. 2. Chronic rheumatoid arthritis: Patient is not following any sales coach. She is not on Biologics but take ibuprofen at home. 3. Chronic anxiety and mild depression: Patient on BuSpar at home, continued 4. Chronic pain due to knee arthritis: PT and OT. 5. Past history of heroin/substance use. DVT prophylaxis: High risk. Lovenox 40 mL subcu daily ordered. Living will/advanced directive/end of life care: Patient does not have living will or advanced directive. She does not have DailyD power of attorney general for health. After discussion of benefits/risks procedures involved with full code, DNR CC arrest and DNR CC, the patient opted for full code. Patient does want artificial life support including intubation, tube feed, ventilator and/chest compression, central venous catheter, vasopressor and DC shock if needed Total time spent in [id number] encounter in discussion of advanced directive 17 minutes. Charges/Coding Visit Charges Inpatient E&M: 00028 Init Hosp L3 Procedures Hospitalists Procedures: 17764 Advncd Care Plan 30 Min
--- OUTSIDE RECORDS SUMMARY | 2025-04-01 01:48 | XMS RPT_ITS | CCD ---
Author Organization [facility] Care Team Providers Care Physical Therapy Professor Name Role Phone Dr. Cat Vasquez Primary [...] Provider Cat Vasquez MD Primary Care Provider [place], Melyssa Attending Unavailable Jess, Melyssa Primary Care Unavailable [place], Melyssa Primary Care Unavailable Peter Murphy Attending Unavailable Jess, Melyssa Referring Unavailable Jess, Melyssa Primary Care Unavailable Jess, Melyssa Attending Unavailable En Merc[place] Attending Unavailable [place], Melyssa Referring Unavailable [place], Melyssa Primary Care Unavailable Jess, Melyssa Attending [...] Translations: [MELOXICAM] Drug Allergy 11-29-2017 GI Upset [facility] (1 source) meloxicam Drug Allergy 10-18-2023 [facility] Repository Medications Current Medications Medication Drug Class(es) [...] Test Name Value Interpretation Reference Range Facility [facility] 03-05-2024 CNOV Office Visit (ZENIA ) LAUREN HUNG ([id number]) 1965 [facility] Date Time Provider Department 03/05/24 1:30 PM [...] MD Department of Orthopaedics [facility] [address] [facility] [address] Dept: [phone] Dept March 05, 2024 CHIEF COMPLAINT: Bilateral [...] fracture. Worsening degenerative disease of bilateral knees. [employer] C[employer] Machine: DELONTE Transcribe Date/Time: Mar 09 2024 5:13P [...] Edema Heroin use active, recent ED visit [facility] 09/11/20 History of DVT of lower extremity right Rheumatoid arthritis(714.0) 04/25/[address] Kraus, [facility] Tobacco use disorder Past Surgical History: PAST [...] 1 capsule (more content not included)... Normal [facility] XR KNEE 4V AP/PA/LAT/MERCH B NMon 03-05-2024 XR KNEE 4V AP/PA/LAT/MERCH ZAC * [...] fracture. Worsening degenerative disease of bilateral knees. [employer] Machine: DELONTE Transcribe Date/Time: Mar 09 2024 5:13P Dictated by : REYNA KESSLER MD This examination was interpreted and the report reviewed and electronically signed by: REYNA KESSLER MD on Mar 09 2024 5:14PM EST [id number] Normal [facility] Nicolas 11-24-2023 ALEXN Telephone (VAMSHI) LAUREN HUNG ([id number]) 1965 F HERIBERTO Date Time Provider Department [...] Status:Closed by LUANA AGUIAR on 11/24/23 Normal [facility] Internal Medicine Office Vis ed 10-17-2023 Internal Medicine Office Visit [facility] [address] [place] [address] [place], [place] [address] OFFICE VISIT Date of Service: 10/18/23 MR#: [id number] Acct: [id number] Name: LAUREN HUNG Rep #: [id number] : 1965 Provider: Dr. 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 She reports that she hasn't been able [...] patient was (more content not included)... Normal [facility] 12 Lead EKGon 10-03-2023 12 Lead EKG [facility] [address] [place] [address] 12 Lead EKG 10/03/23 1726 MR#: [id number] Acct: [id number] Name: LAUREN HUNG Rep #: [id number] : 1965 57 From: Jemal Suarez MD [...] ECG Confirmed by JEMAL SUAREZ MD ([id number]), editor at large INES COX ([id number]) on 10/04/2023 8:18:46 AM Referred By: CHOCO Confirmed By:JEMLA SUAREZ MD 10/04/23 0818 Date Jemal Suarez MD CC: Dr. Melyssa Mercado MD; Dr. Peter Murphy DO Signed Normal [facility] Basic Metabolic Profile (BMP )on 10-03-2023 BUN/CRE 16.7 RATIO Normal 02-11 [facility] Comment on above: Performed By: #### L 500.2500, L500.3400, L501.5200 #### [facility] [address] [place], [address] CA,Total 9.3 mg/dL Normal 8.5-10.1 [facility] Comment on above: Performed By: #### L 500.2500, L500.3400, L501.5200 #### [facility] [address] [place], [address] Chloride [Moles/Vol] 109 mmol/L High 98-107 [facility] Comment on above: Performed By: #### L 500.2500, L500.3400, L501.5200 #### [facility] [address] [place], [address] CO2 [Moles/Vol] 23.0 mmol/L Normal 21.0-32.0 [facility] Comment on above: Performed By: #### L 500.2500, L500.3400, L501.5200 #### [facility] [address] [place], [address] Creatinine [Mass/Vol] 0.72 mg/dL Normal 0.55-1.02 [facility] Comment on above: Result Comment: The validity of the calculated GFR GFRAA in patients over 70 years has not been determined. Clinical correlation is essential. Performed By: #### L 500.2500, L500.3400, L501.5200 #### [facility] [address] [place], [address] ECRCL 85.49 ml/min Normal [facility] Comment on above: Performed By: #### L 500.2500, L500.3400, L501.5200 #### [facility] [address] [place], [address] EST GFR - AA 108 mL/min Normal >60 [facility] Comment on above: Result Comment: Afri can Barbadian GFR Calc Performed By: #### L 500.2500, L500.3400, L501.5200 #### [facility] [address] [place], [address] GAP 5 Normal 5-15 [facility] Comment on above: Performed By: #### L 500.2500, L500.3400, L501.5200 #### [facility] [address] [place], [address] GFR/1.73 sq M.predicted among non-blacks MDRD (S/P/Bld) [Vol rate/Area] 89 mL/min/{1.73_m2} Normal >60 [facility] Comment on above: Result Comment: Non- GFR Calc Performed By: #### L 500.2500, L500.3400, L501.5200 #### [facility] [address] [place], [address] Glucose [Mass/Vol] 111 mg/dL High 74-106 [facility] Comment on above: Result Comment: Fast ing Glucose result from 100 to 125 mg/dL suggests IMPAIRED HOMEOSTASIS per A.D.A. criteria. Performed By: #### L 500.2500, L500.3400, L501.5200 #### [facility] [address] [place], [address] Potassium [Moles/Vol] 3.2 mmol/L Low 3.5-5.1 [facility] Comment on above: Performed By: #### L 500.2500, L500.3400, L501.5200 #### [facility] [address] [place], [address] Sodium [Moles/Vol] 137 mmol/L Normal 136-145 [facility] Comment on above: Performed By: #### L 500.2500, L500.3400, L501.5200 #### [facility] [address] [place], [address] Urea nitrogen [Mass/Vol] 12 mg/dL Normal 7-18 [facility] Comment on above: Performed By: #### L 500.2500, L500.3400, L501.5200 #### [facility] [address] [place], [address] CBC W/Diff, Automatedon - 0-4 Absolute Lymph 2.91 X10 3/uL Normal 0.83-4.51 [facility] Comment on above: Performed By: #### L 100.0100 ####[facility] [address] [place], [address] Absolute Neut 8.6 X10 3/uL High 2.0-7.7 [facility] Comment on above: Performed By: #### L 100.0100 ####[facility] [address] [place], [address] Basophils/100 WBC (Bld) 0.5 % Normal 0-1 [facility] Comment on above: Performed By: #### L 100.0100 ####[facility] [address] [place], [address] Eosinophils/100 WBC (Bld) 2.0 % Normal 0-5 [facility] Comment on above: Performed By: #### L 100.0100 ####[facility] [address] [place], [address] Erythrocyte distribution width (RBC) [Ratio] 14.4 % Normal 11.6-14.6 [facility] Comment on above: Performed By: #### L 100.0100 ####[facility] [address] [place], [address] Hematocrit (Bld) [Volume fraction] 40.9 % Normal 37-47 [facility] Comment on above: Performed By: #### L 100.0100 ####[facility] [address] [place], [address] Hemoglobin (Bld) [Mass/Vol] 13.3 g/dL Normal 12.0-15.0 [facility] Comment on above: Performed By: #### L 100.0100 ####[facility] [address] [place], [address] IG% 0.600 Normal 0.0-0.9 [facility] Comment on above: Result Comment: IG% - Immature Granulocytes (promyelocytes, myelocytes and metamyelocytes) > 1% indicates that a LEFT SHIFT is Present. Performed By: #### L 100.0100 ####[facility] [address] [place], [address] Lymphocytes/100 WBC (Bld) 22.9 % Normal 19-41 [facility] Comment on above: Performed By: #### L 100.0100 ####[facility] [address] [place], [address] MCH (RBC) [Entitic mass] 28.7 pg Normal 27.0-32.0 [facility] Comment on above: Performed By: #### L 100.0100 ####[facility] [address] [place], [address] MCHC (RBC) [Mass/Vol] 32.5 g/dL Normal 32-36 [facility] Comment on above: Performed By: #### L 100.0100 ####[facility] [address] [place], [address] MCV (RBC) [Entitic vol] 88.3 fL Normal 81-99 [facility] Comment on above: Performed By: #### L 100.0100 ####[facility] [address] [place], [address] Monocytes/100 WBC (Bld) 6.4 % Normal 0-10 [facility] Comment on above: Performed By: #### L 100.0100 ####[facility] [address] [place], [address] Neutrophils/100 WBC (Bld) 67.6 % Normal 47-70 [facility] Comment on above: Performed By: #### L 100.0100 ####[facility] [address] [place], [address] Nucleated RBC (Bld) [#/Vol] 0 10*3/uL Normal 0-5 [facility] Comment on above: Performed By: #### L 100.0100 ####[facility] [address] [place], [address] Platelet mean volume (Bld) [Entitic vol] 11.1 fL Normal 6.2-12.0 [facility] Comment on above: Performed By: #### L 100.0100 ####[facility] [address] [place], [address] Platelets (Bld) [#/Vol] 314 10*3/uL Normal 150-450 [facility] Comment on above: Performed By: #### L 100.0100 ####[facility] [address] [place], [address] RBC (Bld) [#/Vol] 4.63 10*6/uL Normal 4.2-5.4 [facility] Comment on above: Performed By: #### L 100.0100 ####[facility] [address] [place], [address] RDW SD 45.7 fl High 35.1-43.9 [facility] Comment on above: Performed By: #### L 100.0100 ####[facility] [address] [place], [address] WBC (Bld) [#/Vol] 12.7 10*3/uL High 4.4-11.0 [facility] Comment on above: Performed By: #### L 100.0100 ####[facility] [address] [place], [address] Chest 1 View (Portable)on Chest 1 View (Portable) [facility] Imaging Services [address] [place] [place] [address] Chest 1 View (Portable) MR#: [id number] Acct: [id number] Name: LAUREN HUNG Rep #: [id number] : 1965 F 57 From: Vish Reed MD PCP: Dr. Melyssa Mercado MD Status: REG ER Study: Chest 1 View (Portable) Date of Exam: 10/03/23 Exam# [id number] Ordering Dr: Peter Murphy DO 2:[id number] STUDY: X-RAY CHEST REASON FOR EXAM: Female, [...] Melyssa Mercado MD; Dr. Peter Murphy DO [employer] Machine: Signed Normal [facility] Emergency Department Summary on 10-03-2023 Emergency Department Summary [facility] Medical Records Department [address] [place] [address] Emergency Department Summary 10/03/23 MR#: [id number] Acct: [id number] Name: LAUREN HUNG Rep #: [id number] : 1965 57 From: Peter Murphy DO [...] watery. Patient notes decreased p.o. intake PFSH [facility] Medical History Shingles History of heroin abuse [...] Room Air (more content not included)... Normal [facility] Liver Profileon 10-03-2023 Albumin [Mass/Vol] 3.4 g/dL Normal 3.2-5.0 [facility] Comment on above: Performed By: #### L 500.2500, L500.3400, L501.5200 #### [facility] [address] [place], [address] ALK P 96 U/L Normal 45-117 [facility] Comment on above: Performed By: #### L 500.2500, L500.3400, L501.5200 #### [facility] [address] [place], [address] ALT [Catalytic activity/Vol] 28 U/L Normal 13-56 [facility] Comment on above: Performed By: #### L 500.2500, L500.3400, L501.5200 #### [facility] [address] [place], [address] AST [Catalytic activity/Vol] 27 U/L Normal 15-37 [facility] Comment on above: Performed By: #### L 500.2500, L500.3400, L501.5200 #### [facility] [address] [place], [address] Bilirubin [Mass/Vol] 0.30 mg/dL Normal 0.20-1.00 [facility] Comment on above: Result Comment: For patients on eltrombopag therapy, use of Dimension [place] TBIL is not recommended. Performed By: #### L 500.2500, L500.3400, L501.5200 #### [facility] [address] [place], [address] Bilirubin.direct [Mass/Vol] 0.14 mg/dL Normal 0.00-0.30 [facility] Comment on above: Performed By: #### L 500.2500, L500.3400, L501.5200 #### [facility] [address] [place], [address] Globulin (S) [Mass/Vol] 4.9 g/dL High 2.2-4.2 [facility] Comment on above: Performed By: #### L 500.2500, L500.3400, L501.5200 #### [facility] [address] [place], [address] T PROT 8.3 g/dL High 6.4-8.2 [facility] Comment on above: Performed By: #### L 500.2500, L500.3400, L501.5200 #### [facility] [address] [place], [address] M100.678on 10-03-2023 M100.678 SARS-CoV-2 (COVID 19 ) Negative INFLUENZA A Negative INFLUENZA B Negative RSV PCR Negative Normal [facility] Comment on above: Performed By: #### L 400.0001, M100.678 #### [facility] [address] [place], [address] Magnesiumon 10-03-2023 Magnesium [Mass/Vol] 1.9 mg/dL Normal 1.6-2.6 [facility] Comment on above: Performed By: #### L 500.2500, L500.3400, L501.5200 #### [facility] [address] [place], [address] Urinalysis, Completeon 10-02 WBC 0-5 SEEN Normal 0-5 [facility] Comment on above: Order Comment: COLLE CTOR TO SPECIFY Performed By: #### L 400.0001, M100.678 #### [facility] [address] [place], [address] BACTERIA 0 SEEN Normal None Seen [facility] Comment on above: Order Comment: COLLE CTOR TO SPECIFY Performed By: #### L 400.0001, M100.678 #### [facility] [address] [place], [address] EPI,SQUAMOUS 0 SEEN Normal 5-10 [facility] Comment on above: Order Comment: COLLE CTOR TO SPECIFY Performed By: #### L 400.0001, M100.678 #### [facility] [address] [place], [address] Mucus Ql (Urine sed) 0 SEEN Normal [facility] Comment on above: Order Comment: RENARD CTOR TO SPECIFY Performed By: #### L 400.0001, M100.678 #### [facility] [address] [place], [address] RBC 0 SEEN Normal 0-5 [facility] Comment on above: Order Comment: RENARD CTOR TO SPECIFY Performed By: #### L 400.0001, M100.678 #### [facility] [address] [place], [address] Hepatitis C Genotypeon 08-08 HEP C GENOTYPE 1a Normal . [facility] Comment on above: Order Comment: Test( s) 371441-Wxrpcagku C Genotypewas developed and its performance characteristicsdetermined by [employer]. It has not been cleared or approvedby the Food and Drug Administration. Result Comment: Perf ormed at: - [address] [id number] Music Executive: Ilan Gonzalez MD, Phone: [phone] Performed By: #### L 506.1000, L500.4100, L7000.8000, L503.6030, L7000.7000, L100.0100, L503.6550, L500.4050 ####[facility] [address] [place], [address] Hepatitis C,RNA PCR Viral Lo pan washer 08-09-2023 HCV log 10 5.782 Normal . [facility] Comment on above: Order Comment: Test( s) 835971-Gqaaukqks C Genotypewas developed and its performance characteristicsdetermined by [facility]. It has not been cleared or approvedby the Food and Drug Administration. Result Comment: Resu lt Units: log10 IU/mL Performed By: #### L 506.1000, L500.4100, L7000.8000, L503.6030, L7000.7000, L100.0100, L503.6550, L500.4050 ####[facility] [address] [place], [address] HCV QT RNA PCR 367634 IU/mL Normal . [facility] Comment on above: Order Comment: Test( s) 433972-Nkqwhsdrn C Genotypewas developed and its performance characteristicsdetermined by [employer]. It has not been cleared or approvedby the Food and Drug Administration. Performed By: #### L 506.1000, L500.4100, L7000.8000, L503.6030, L7000.7000, L100.0100, L503.6550, L500.4050 ####[facility] [address] [place], [address] TEST INFO: Comment Normal . [facility] Comment on above: Order Comment: Test( s) 648577-Epaxzxpjs C Genotypewas developed and its performance characteristicsdetermined by [employer]. It has not been cleared or approvedby the Food and Drug Administration. Result Comment: The quantitative range of this assay is 15 IU/mL to 100 million IU/mL. Performed By: #### L 506.1000, L500.4100, L7000.8000, L503.6030, L7000.7000, L100.0100, L503.6550, L500.4050 ####[facility] [address] [place], [address] Absolute lymphocyte countOrd ered By: Melyssa Jess on 08-04-2023 Lymphocytes Auto (Unsp spec) [#/Vol] 1.87 10*3/uL 0.83-4.51 [facility] Automated lymphocyte count a s percentage of total leukocytesOrdered By: Melyssa Jess on 08-04-2023 Lymphocytes/100 WBC Auto (Unsp spec) 19.5 % 19-41 [facility] Basophil percentageOrdered B y: Melyssa Jess on 08-04-2023 Basophil percentage 5.782 . [facility] Comment on above: Result Units: log10 IU/mL Basophils/100 WBC (Bld) 0.9 % 0-1 [facility] Bilirubin [Mass/Vol] 0.40 mg/dL 0.20-1.00 [facility] Comment on above: For patients on eltr ombopag therapy, use of Dimension [place] TBIL is not recommended. Chloride [Moles/Vol] 110 mmol/L 98-107 [facility] Cholesterol [Mass/Vol] 165 mg/dL <200 [facility] Comment on above: <200 mg/dL Desirable 200-240 mg/dL Borderline >240 mg/dL High Risk Eosinophils/100 WBC (Bld) 2.1 % 0-5 [facility] Glucose [Mass/Vol] 102 mg/dL 74-106 [facility] Comment on above: Fasting Glucose resu lt from 100 to 125 mg/dL suggests IMPAIRED HOMEOSTASIS per A.D.A. criteria. Hemoglobin (Bld) [Mass/Vol] 13.8 g/dL 12.0-15.0 [facility] Monocytes/100 WBC (Bld) 7.1 % 0-10 [facility] Neutrophils (Bld) [#/Vol] 6.7 10*3/uL 2.0-7.7 [facility] Neutrophils/100 WBC (Bld) 70.0 % 47-70 [facility] Potassium [Moles/Vol] 4.3 mmol/L 3.5-5.1 [facility] Protein [Mass/Vol] 8.2 g/dL 6.4-8.2 [facility] Sodium [Moles/Vol] 138 mmol/L 136-145 [facility] Triglyceride [Mass/Vol] 77 mg/dL <199 [facility] Comment on above: The drugs N-Acetylcy steine and Metamizole may falsely depress this assay.Serum Triglycerides Reference Interval Normal <150 mg/dL Borderline high 150 - 199 mg/dL High 200 - 499 mg/dL Very High > or = 500 mg/dL WBC (Bld) [#/Vol] 9.6 10*3/uL 4.4-11.0 [facility] CBC W/Diff, Automatedon 07-24 Absolute Lymph 1.87 X10 3/uL Normal 0.83-4.51 [facility] Comment on above: Performed By: #### L 506.1000, L500.4100, L7000.8000, L503.6030, L7000.7000, L100.0100, L503.6550, L500.4050 #### [facility] [address] [place], [address] Absolute Neut 6.7 X10 3/uL Normal 2.0-7.7 [facility] Comment on above: Performed By: #### L 506.1000, L500.4100, L7000.8000, L503.6030, L7000.7000, L100.0100, L503.6550, L500.4050 #### [facility] [address] [place], [address] Basophils/100 WBC (Bld) 0.9 % Normal 0-1 [facility] Comment on above: Performed By: #### L 506.1000, L500.4100, L7000.8000, L503.6030, L7000.7000, L100.0100, L503.6550, L500.4050 #### [facility] [address] [place], [address] Eosinophils/100 WBC (Bld) 2.1 % Normal 0-5 [facility] Comment on above: Performed By: #### L 506.1000, L500.4100, L7000.8000, L503.6030, L7000.7000, L100.0100, L503.6550, L500.4050 #### [facility] [address] [place], [address] Erythrocyte distribution width (RBC) [Ratio] 14.6 % Normal 11.6-14.6 [facility] Comment on above: Performed By: #### L 506.1000, L500.4100, L7000.8000, L503.6030, L7000.7000, L100.0100, L503.6550, L500.4050 #### [facility] [address] [place], [address] ( Hematocrit (Bld) [Volume fraction] 43.3 % Normal 37-47 [facility] Comment on above: Performed By: #### L 506.1000, L500.4100, L7000.8000, L503.6030, L7000.7000, L100.0100, L503.6550, L500.4050 #### [facility] [address] [place], [address] Hemoglobin (Bld) [Mass/Vol] 13.8 g/dL Normal 12.0-15.0 [facility] Comment on above: Performed By: #### L 506.1000, L500.4100, L7000.8000, L503.6030, L7000.7000, L100.0100, L503.6550, L500.4050 #### [facility] [address] [place], [address] IG% 0.400 Normal 0.0-0.9 [facility] Comment on above: Result Comment: IG% - Immature Granulocytes (promyelocytes, myelocytes and metamyelocytes) > 1% indicates that a LEFT SHIFT is Present. Performed By: #### L 506.1000, L500.4100, L7000.8000, L503.6030, L7000.7000, L100.0100, L503.6550, L500.4050 #### [facility] [address] [place], [address] Lymphocytes/100 WBC (Bld) 19.5 % Normal 19-41 [facility] Comment on above: Performed By: #### L 506.1000, L500.4100, L7000.8000, L503.6030, L7000.7000, L100.0100, L503.6550, L500.4050 #### [facility] [address] [place], [address] MCH (RBC) [Entitic mass] 28.9 pg Normal 27.0-32.0 [facility] [facility] Comment on above: Performed By: #### L 506.1000, L500.4100, L7000.8000, L503.6030, L7000.7000, L100.0100, L503.6550, L500.4050 #### [facility] [address] [place], [address] MCHC (RBC) [Mass/Vol] 31.9 g/dL Low 32-36 [facility] Comment on above: Performed By: #### L 506.1000, L500.4100, L7000.8000, L503.6030, L7000.7000, L100.0100, L503.6550, L500.4050 #### [facility] [address] [place], [address] MCV (RBC) [Entitic vol] 90.8 fL Normal 81-99 [facility] Comment on above: Performed By: #### L 506.1000, L500.4100, L7000.8000, L503.6030, L7000.7000, L100.0100, L503.6550, L500.4050 #### [facility] [address] [place], [address] Monocytes/100 WBC (Bld) 7.1 % Normal 0-10 [facility] Comment on above: Performed By: #### L 506.1000, L500.4100, L7000.8000, L503.6030, L7000.7000, L100.0100, L503.6550, L500.4050 #### [facility] [address] [place], [address] Neutrophils/100 WBC (Bld) 70.0 % Normal 47-70 [facility] Comment on above: Performed By: #### L 506.1000, L500.4100, L7000.8000, L503.6030, L7000.7000, L100.0100, L503.6550, L500.4050 #### [facility] [address] [facility] [place], [address] Nucleated RBC (Bld) [#/Vol] 0 10*3/uL Normal 0-5 [facility] Comment on above: Performed By: #### L 506.1000, L500.4100, L7000.8000, L503.6030, L7000.7000, L100.0100, L503.6550, L500.4050 #### [facility] [address] [place], [address] Platelet mean volume (Bld) [Entitic vol] 11.7 fL Normal 6.2-12.0 [facility] Comment on above: Performed By: #### L 506.1000, L500.4100, L7000.8000, L503.6030, L7000.7000, L100.0100, L503.6550, L500.4050 #### [facility] [address] [facility] [place], [address] Platelets (Bld) [#/Vol] 322 10*3/uL Normal 150-450 [facility] Comment on above: Performed By: #### L 506.1000, L500.4100, L7000.8000, L503.6030, L7000.7000, L100.0100, L503.6550, L500.4050 #### [facility] [address] [place], [address] RBC (Bld) [#/Vol] 4.77 10*6/uL Normal 4.2-5.4 [facility] Comment on above: Performed By: #### L 506.1000, L500.4100, L7000.8000, L503.6030, L7000.7000, L100.0100, L503.6550, L500.4050 #### [facility] [address] [place], [address] RDW SD 48.5 fl High 35.1-43.9 [facility] Comment on above: Performed By: #### L 506.1000, L500.4100, L7000.8000, L503.6030, L7000.7000, L100.0100, L503.6550, L500.4050 #### [facility] [address] [place], [address] WBC (Bld) [#/Vol] 9.6 10*3/uL Normal 4.4-11.0 [facility] Comment on above: Performed By: #### L 506.1000, L500.4100, L7000.8000, L503.6030, L7000.7000, L100.0100, L503.6550, L500.4050 #### [facility] [address] [place], [address] Comprehensive Metabolic Prof ilon 08-04-2023 Albumin [Mass/Vol] 3.3 g/dL Normal 3.2-5.0 [facility] Comment on above: Performed By: #### L 506.1000, L500.4100, L7000.8000, L503.6030, L7000.7000, L100.0100, L503.6550, L500.4050 ####[facility] [address] [place], [address] Albumin/Globulin [Mass ratio] 0.7 {ratio} Low 0.9-2.4 [facility] Comment on above: Performed By: #### L 506.1000, L500.4100, L7000.8000, L503.6030, L7000.7000, L100.0100, L503.6550, L500.4050 ####[facility] [address] [place], [address] ALK P 87 U/L Normal 45-117 [facility] Comment on above: Performed By: #### L 506.1000, L500.4100, L7000.8000, L503.6030, L7000.7000, L100.0100, L503.6550, L500.4050 ####[facility] [address] [place], [address] ALT [Catalytic activity/Vol] 43 U/L Normal 13-56 [facility] Comment on above: Performed By: #### L 506.1000, L500.4100, L7000.8000, L503.6030, L7000.7000, L100.0100, L503.6550, L500.4050 ####[facility] [address] [place], [address] AST [Catalytic activity/Vol] 33 U/L Normal 15-37 [facility] Comment on above: Performed By: #### L 506.1000, L500.4100, L7000.8000, L503.6030, L7000.7000, L100.0100, L503.6550, L500.4050 ####[facility] [address] [place], [address] Bilirubin [Mass/Vol] 0.40 mg/dL Normal 0.20-1.00 [facility] Comment on above: Result Comment: For patients on eltrombopag therapy, use of Dimension [place] TBIL is not recommended. Performed By: #### L 506.1000, L500.4100, L7000.8000, L503.6030, L7000.7000, L100.0100, L503.6550, L500.4050 ####[facility] [address] [place], [address] BUN/CRE 24.6 RATIO High 10-20 [facility] Comment on above: Performed By: #### L 506.1000, L500.4100, L7000.8000, L503.6030, L7000.7000, L100.0100, L503.6550, L500.4050 ####[facility] [address] [place], [address] CA,Total 9.4 mg/dL Normal 8.5-10.1 [facility] Comment on above: Performed By: #### L 506.1000, L500.4100, L7000.8000, L503.6030, L7000.7000, L100.0100, L503.6550, L500.4050 ####[facility] [address] [place], [address] Chloride [Moles/Vol] 110 mmol/L High 98-107 [facility] Comment on above: Performed By: #### L 506.1000, L500.4100, L7000.8000, L503.6030, L7000.7000, L100.0100, L503.6550, L500.4050 ####[facility] [address] [place], [address] CO2 [Moles/Vol] 27.0 mmol/L Normal 21.0-32.0 [facility] Comment on above: Performed By: #### L 506.1000, L500.4100, L7000.8000, L503.6030, L7000.7000, L100.0100, L503.6550, L500.4050 ####[facility] [address] [place], [address] Creatinine [Mass/Vol] 0.57 mg/dL Normal 0.55-1.02 [facility] Comment on above: Result Comment: The validity of the calculated GFR GFRAA in patients over 70 years has not been determined. Clinical correlation is essential. Performed By: #### L 506.1000, L500.4100, L7000.8000, L503.6030, L7000.7000, L100.0100, L503.6550, L500.4050 ####[facility] [address] [place], [place], [address] EST GFR - AA 142 mL/min Normal >60 [facility] Comment on above: Result Comment: Afri can Barbadian GFR Calc Performed By: #### L 506.1000, L500.4100, L7000.8000, L503.6030, L7000.7000, L100.0100, L503.6550, L500.4050 ####[facility] [address] [place], [address] GAP 1 Low 5-15 [facility] Comment on above: Performed By: #### L 506.1000, L500.4100, L7000.8000, L503.6030, L7000.7000, L100.0100, L503.6550, L500.4050 ####[facility] [address] [place], [address] GFR/1.73 sq M.predicted among non-blacks MDRD (S/P/Bld) [Vol rate/Area] 117 mL/min/{1.73_m2} Normal >60 [facility] Comment on above: Result Comment: Non- GFR Calc Performed By: #### L 506.1000, L500.4100, L7000.8000, L503.6030, L7000.7000, L100.0100, L503.6550, L500.4050 ####[facility] [address] [place], [address] Globulin (S) [Mass/Vol] 4.9 g/dL High 2.2-4.2 [facility] Comment on above: Performed By: #### L 506.1000, L500.4100, L7000.8000, L503.6030, L7000.7000, L100.0100, L503.6550, L500.4050 ####[facility] [address] [place], [address] Glucose [Mass/Vol] 102 mg/dL Normal 74-106 [facility] Comment on above: Result Comment: Fast ing Glucose result from 100 to 125 mg/dL suggests IMPAIRED HOMEOSTASIS per A.D.A. criteria. Performed By: #### L 506.1000, L500.4100, L7000.8000, L503.6030, L7000.7000, L100.0100, L503.6550, L500.4050 ####[facility] [address] [place], [address] Potassium [Moles/Vol] 4.3 mmol/L Normal 3.5-5.1 [facility] Comment on above: Performed By: #### L 506.1000, L500.4100, L7000.8000, L503.6030, L7000.7000, L100.0100, L503.6550, L500.4050 ####[facility] [address] [place], [address] Sodium [Moles/Vol] 138 mmol/L Normal 136-145 [facility] Comment on above: Performed By: #### L 506.1000, L500.4100, L7000.8000, L503.6030, L7000.7000, L100.0100, L503.6550, L500.4050 ####[facility] [address] [place], [address] T PROT 8.2 g/dL Normal 6.4-8.2 [facility] Comment on above: Performed By: #### L 506.1000, L500.4100, L7000.8000, L503.6030, L7000.7000, L100.0100, L503.6550, L500.4050 ####[facility] [address] [place], [address] Urea nitrogen [Mass/Vol] 14 mg/dL Normal 7-18 [facility] Comment on above: Performed By: #### L 506.1000, L500.4100, L7000.8000, L503.6030, L7000.7000, L100.0100, L503.6550, L500.4050 ####[facility] [address] [place], [address] Determination of erythrocyte mean corpuscular volume (MCV)Ordered By: eMlyssa Mercado on 08-04-2023 MCV (RBC) [Entitic vol] 90.8 fL 81-99 [facility] Erythrocyte distribution wid th ratioOrdered By: Melyssa Mercado on 08-04-2023 Erythrocyte distribution width (RBC) [Ratio] 14.6 % 11.6-14.6 [facility] Erythrocyte distribution wid th standard deviationOrdered By: Melyssa Mercado on 08-04-2023 Erythrocyte distribution width (RBC) [Entitic vol] 48.5 fL 35.1-43.9 [facility] Ferritinon 08-04-2023 Ferritin [Mass/Vol] 72 ng/mL Normal 8-252 [facility] Comment on above: Performed By: #### L 506.1000, L500.4100, L7000.8000, L503.6030, L7000.7000, L100.0100, L503.6550, L500.4050 ####[facility] [address] [place], [address] Hematocrit Auto (Bld) [Volum e fraction]Ordered By: Melyssa Mercado on 08-04-2023 Hematocrit (Bld) [Volume fraction] 43.3 % 37-47 [facility] Immature granulocytes/100 WB C Auto (Bld)Ordered By: Melyssa Mercado on 08-04-2023 Immature granulocytes/100 WBC (Bld) 0.400 % 0.0-0.9 [facility] Comment on above: IG% - Immature Granu locytes (promyelocytes, myelocytes and metamyelocytes) > 1% indicates that a LEFT SHIFT is Present. Internal Medicine Office Vis iton 08-04-2023 Internal Medicine Office Visit [facility] [address] [place] [address] OFFICE VISIT Date of Service: 08/04/23 MR#: [id number] Acct: [id number] Name: LAUREN HUNG Rep #: [id number] : 1965 Provider: Dr. 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 She previously saw a assistant director, but can't find somebody who takes her [...] fatigue, fev (more content not included)... Normal [facility] Iron measurement (mass/mass) Ordered By: Melyssa Mercado on 08-04-2023 Iron (Unsp spec) [Mass/Mass] 38 ug/dL 50-170 [facility] Iron+Iron Binding Capacityon 08-04-2023 Iron [Mass/Vol] 38 ug/dL Low 50-170 [facility] Comment on above: Performed By: #### L 506.1000, L500.4100, L7000.8000, L503.6030, L7000.7000, L100.0100, L503.6550, L500.4050 ####[facility] [address] [place], [address] IRON SATURATION 9.6 Low 15.0-55.0 [facility] Comment on above: Performed By: #### L 506.1000, L500.4100, L7000.8000, L503.6030, L7000.7000, L100.0100, L503.6550, L500.4050 ####[facility] [address] [place], [address] TIBC 395 ug/dL Normal 250-450 [facility] Comment on above: Performed By: #### L 506.1000, L500.4100, L7000.8000, L503.6030, L7000.7000, L100.0100, L503.6550, L500.4050 ####[facility] [address] [place], [address] Laboratory - Chemistry and C hemistry - challengeOrdered By: Melyssa Mercado on 08-04-2023 Albumin/Globulin [Mass ratio] 0.7 {ratio} 0.9-2.4 [facility] ALP [Catalytic activity/Vol] 87 U/L 45-117 [facility] ALT [Catalytic activity/Vol] 43 U/L 13-56 [facility] Cholesterol in HDL [Mass/Vol] 46 mg/dL >40 [facility] Comment on above: The drugs N-Acetylcy steine and Metamizole may falsely depress this assay. Reference Range HDL <40 mg/dL Low HDL Cholesterol HDL >or= 60 mg/dL High HDL Cholesterol Cholesterol in LDL [Mass/Vol] 104 mg/dL 0-130 [facility] CO2 [Moles/Vol] 27.0 mmol/L 21.0-32.0 [facility] Ferritin [Mass/Vol] 72 ng/mL 8-252 [facility] Globulin (S) [Mass/Vol] 4.9 g/dL 2.2-4.2 [facility] Urea nitrogen/Creatinine [Mass ratio] 24.6 mg/mg 10-20 [facility] - Hematology and Cell countsOrdered By: Melyssa Mercado on 08-04-2023 MCH (RBC) [Entitic mass] 28.9 pg 27.0-32.0 [facility] MCHC (RBC) [Mass/Vol] 31.9 g/dL 32-36 [facility] Nucleated RBC/100 WBC (Bld) [Ratio] 0 % 0-5 [facility] Platelet mean volume (Bld) [Entitic vol] 11.7 fL 6.2-12.0 [facility] Platelets (Bld) [#/Vol] 322 10*3/uL 150-450 [facility] Lipid Profileon 08-04-2023 Cholesterol [Mass/Vol] 165 mg/dL Normal 200 [facility] Comment on above: Result Comment: <200 mg/dL Desirable 200-240 mg/dL Borderline >240 mg/dL High Risk Performed By: #### L 506.1000, L500.4100, L7000.8000, L503.6030, L7000.7000, L100.0100, L503.6550, L500.4050 ####[facility] [address] [place], [address] Cholesterol in HDL [Mass/Vol] 46 mg/dL Normal [facility] Comment on above: Result Comment: The drugs N-Acetylcysteine and Metamizole may falsely depress this assay. Reference Range HDL <40 mg/dL Low HDL Cholesterol HDL >or= 60 mg/dL High HDL Cholesterol Performed By: #### L 506.1000, L500.4100, L7000.8000, L503.6030, L7000.7000, L100.0100, L503.6550, L500.4050 ####[facility] [address] [place], [address] Cholesterol in LDL [Mass/Vol] 104 mg/dL Normal 0-130 [facility] Comment on above: Performed By: #### L 506.1000, L500.4100, L7000.8000, L503.6030, L7000.7000, L100.0100, L503.6550, L500.4050 ####[facility] [address] [place], [address] Cholesterol in VLDL [Mass/Vol] 15 mg/dL Normal 5-40 [facility] Comment on above: Performed By: #### L 506.1000, L500.4100, L7000.8000, L503.6030, L7000.7000, L100.0100, L503.6550, L500.4050 ####[facility] [address] [place], [address] Triglyceride [Mass/Vol] 77 mg/dL Normal [facility] Comment on above: Result Comment: The drugs N-Acetylcysteine and Metamizole may falsely depress this assay. Serum Triglycerides Reference Interval Normal <150 mg/dL Borderline high 150 - 199 mg/dL High 200 - 499 mg/dL Very High > or = 500 mg/dL Performed By: #### L 506.1000, L500.4100, L7000.8000, L503.6030, L7000.7000, L100.0100, L503.6550, L500.4050 ####[facility] [address] [place], [address] No Panel InformationOrdered By: Melyssa Mercado on 08-04-2023 Addendum Document Comment . [facility] Comment on above: The quantitative ran ge of this assay is 15 IU/mL to 100million IU/mL. Estimated GFR (MDRD) Amer 142 mL/min >60 [facility] Comment on above: GFR Calc Estimated GFR (MDRD) Non-Af Amer 117 mL/min >60 [facility] Comment on above: Non- GFR Calc Hepatitis C Genotype 1a . [facility] Comment on above: Performed at: - [address] [id number] Director: Ilan Gonzalez MD, Phone: [phone] Total Iron Binding Capacity 395 ug/dL 250-450 [facility] Vitamin D 25-Hydroxy 27.3 ng/mL [facility] Comment on above: Vitamin D 25(OH) Sta tus Range Deficiency <20 ng/mL (50nmol/L) Insufficiency 20 - 30 ng/mL (50 - 75 nmol/L) Sufficiency 30 - 100 ng/mL (75 - 250 nmol/L) Toxicity >100 ng/mL (>250 nmol/L) VLDL Cholesterol 15 mg/dL 5-40 [facility] RBC Auto (Bld) [#/Vol]Ordere d By: Melyssa Mercado on 08-04-2023 RBC (Bld) [#/Vol] 4.77 10*6/uL 4.2-5.4 [facility] Serum or plasma calcium shiela urement (mass/volume)Ordered By: Melyssa Mercado on 08-04-2023 Calcium [Mass/Vol] 9.4 mg/dL 8.5-10.1 [facility] Serum or plasma creatinine m easurement (mass/volume)Ordered By: Melyssa Mercado on 08-04-2023 Creatinine [Mass/Vol] 0.57 mg/dL 0.55-1.02 [facility] Comment on above: The validity of the calculated GFR & GFRAA in patients over 70 years has not been determined. Clinical correlation is essential. Serum or plasma hepatitis C virus RNA measurement by probe and target amplification mOrdered By: Melyssa Mercado on 08-04-2023 HCV RNA KARIN+probe Qn [id number] IU/mL . [facility] Serum or plasma iron saturat ion measurement (mass fraction)Ordered By: Melyssa Mercado on 08-04-2023 Iron saturation [Mass fraction] 9.6 % 15.0-55.0 [facility] Serum or plasma urea nitroge n measurement (mass/volume)Ordered By: Melyssa Mercado on 08-04-2023 Urea nitrogen [Mass/Vol] 14 mg/dL 7-18 [facility] Thin prep Papanicolaou smear with manual screeningOrdered By: Melyssa Mercado on 08-04-2023 Thin prep Papanicolaou smear with manual screening 3.3 g/dL 3.2-5.0 [facility] Thin prep Papanicolaou smear with manual screening 33 U/L 15-37 [facility] Thin prep Papanicolaou smear with manual screening 1 5-15 [facility] Vitamin D,25 Hydroxyon 08-03 Vitamin D 25-OH 27.3 ng/mL Normal [facility] Comment on above: Result Comment: Adriana min D 25(OH) Status Range Deficiency <20 ng/mL (50nmol/L) Insufficiency 20 - 30 ng/mL (50 - 75 nmol/L) Sufficiency 30 - 100 ng/mL (75 - 250 nmol/L) Toxicity >100 ng/mL (>250 nmol/L) Performed By: #### L 506.1000, L500.4100, L7000.8000, L503.6030, L7000.7000, L100.0100, L503.6550, L500.4050 ####[facility] [address] [place], [address] Absolute lymphocyte counton 10-13-2021 Lymphocytes Auto (Unsp spec) [#/Vol] 3.64 10*3/uL 0.83-4.51 [facility] Work Phone: Basophil percentageon 2021 Basophils/100 WBC (Bld) 1.0 % 0-1 [facility] Work Phone: Chloride [Moles/Vol] 106 mmol/L 98-107 [facility] Work Phone: Eosinophils/100 WBC (Bld) 5.1 % 0-5 [facility] Work Phone: Glucose [Mass/Vol] 109 mg/dL 74-106 [facility] Work Phone: [phone] Comment on above: Fasting Glucose resu lt from 100 to 125 mg/dL suggests IMPAIRED HOMEOSTASIS per A.D.A. criteria. Neutrophils (Bld) [#/Vol] 6.6 10*3/uL 2.0-7.7 [facility] Work Phone: Neutrophils/100 WBC (Bld) 54.3 % 47-70 [facility] Work Phone: Potassium [Moles/Vol] 4.3 mmol/L 3.5-5.1 [facility] Work Phone: Sodium [Moles/Vol] 136 mmol/L 136-145 [facility] Work Phone: WBC (Bld) [#/Vol] 12.2 10*3/uL 4.4-11.0 [facility] Work Phone: Blood erythrocytes count (nu mber/volume)on 10-13-2021 RBC (Bld) [#/Vol] 5.55 10*6/uL 4.2-5.4 [facility] Work Phone: Blood hemoglobin measurement (mass/volume)on 10-13-2021 Hemoglobin (Bld) [Mass/Vol] 15.1 g/dL 12.0-15.0 [facility] Work Phone: Blood lymphocytes/100 leukoc yteson 10-13-2021 Lymphocytes/100 WBC (Bld) 29.9 % 19-41 [facility] Work Phone: Blood monocytes/100 leukocyt eson 10-13-2021 Monocytes/100 WBC (Bld) 9.5 % 0-10 [facility] Work Phone: Blood platelet mean volumeon 10-13-2021 Platelet mean volume (Bld) [Entitic vol] 10.8 fL 6.2-12.0 [facility] Work Phone: Determination of erythrocyte mean corpuscular volume (MCV)on 10-13-2021 MCV (RBC) [Entitic vol] 84.3 fL 81-99 [facility] Work Phone: Hematocrit Auto (Bld) [Volum e fraction]on 10-13-2021 Hematocrit (Bld) [Volume fraction] 46.8 % 37-47 [facility] Work Phone: Laboratory - Chemistry and C hemistry - challengeon 10-13-2021 CO2 [Moles/Vol] 23.0 mmol/L 21.0-32.0 [facility] Work Phone: Urea nitrogen/Creatinine [Mass ratio] 24.6 mg/mg 10-20 [facility] Work Phone: Laboratory - Drug toxicology on 10-13-2021 Amphetamines Ql (U) Negative <1000 ng/mL [facility] Work Phone: Benzodiazepines Ql (U) Negative < 200 ng/mL [facility] Work Phone: Cannabinoids Screen Ql (U) Negative < 50 ng/mL [facility] Work Phone: Cocaine Ql (U) Negative < 300 ng/mL [facility] Work Phone: Opiates Ql (U) Negative < 300 ng/mL [facility] Work Phone: Laboratory - Hematology and Cell countson 10-13-2021 Erythrocyte distribution width (RBC) [Entitic vol] 53.1 fL 35.1-43.9 [facility] Work Phone: Erythrocyte distribution width (RBC) [Ratio] 17.3 % 11.6-14.6 [facility] Work Phone: Immature granulocytes/100 WBC (Bld) 0.200 % 0.0-0.9 [facility] Work Phone: Comment on above: IG% - Immature Granu locytes (promyelocytes, myelocytes and metamyelocytes) > 1% indicates that a LEFT SHIFT is Present. MCH (RBC) [Entitic mass] 27.2 pg 27.0-32.0 [facility] Work Phone: Nucleated RBC/100 WBC (Bld) [Ratio] 0 % 0-5 [facility] Work Phone: MCHC Auto (RBC) [Mass/Vol]on 10-13-2021 MCHC (RBC) [Mass/Vol] 32.3 g/dL 32-36 [facility] Work Phone: No Panel Informationon 10-13 Ethyl Alcohol Level < 3.0 mg/dL [facility] Work Phone: Comment on above: The serum:whole bloo d ethanol ratio is approximately 1.14and varies slightly with hematocrit. Medical Alcohol reference interval and critical value innon-tolerant individuals; 50 - 100 Impairment 100 Intoxication 100 - 250 Severe Poisoning 250 - 400 Deep/possible fatal coma Estimated Creatinine Clearance Calc 84.36 ml/min [facility] Work Phone: Estimated GFR (MDRD) Amer 132 mL/min >60 [facility] Work Phone: Comment on above: GFR Calc Estimated GFR (MDRD) Non-Af Amer 109 mL/min >60 [facility] [facility] Work Phone: Comment on above: Non- GFR Calc MDMA (Ecstasy) Screen Negative < 500 ng/mL [facility] Work Phone: Urine Barbiturates Screen Negative < 200 ng/mL [facility] Work Phone: Urine Drug Screen Comment [facility] Work Phone: Comment on above: CONFIRMATORY TESTING [...] Urine Methadone Screen Negative < 300 ng/mL [facility] Work Phone: Platelets bldon 10-13-2021 Platelets (Bld) [#/Vol] 389 10*3/uL 150-450 [facility] Work Phone: Serum or plasma calcium shiela urement (mass/volume)on 10-13-2021 Calcium [Mass/Vol] 9.1 mg/dL 8.5-10.1 [facility] Work Phone: Serum or plasma creatinine m easurement (mass/volume)on 10-13-2021 Creatinine [Mass/Vol] 0.61 mg/dL 0.55-1.02 Isabel ster [facility] Work Phone: Comment on above: The validity of the calculated GFR & GFRAA in patients over 70 years has not been determined. Clinical correlation is essential. Serum or plasma urea nitroge n measurement (mass/volume)on 10-13-2021 Urea nitrogen [Mass/Vol] 15 mg/dL 7-18 [facility] Work Phone: Thin prep Papanicolaou smear with manual screeningon 10-13-2021 Thin prep Papanicolaou smear with manual screening 7 5-15 [facility] Work Phone: Urine phencyclidine (PCP) de tectionon 10-13-2021 Phencyclidine Ql (U) Negative < 25 ng/mL [facility] Work Phone: PROGRESSon 02-25-2020 PROGRESS HNO ID: [id number] Author: Scarlet Rios Service: ? Author Type: Physician Type: Progress Notes Filed: 02/25/2020 8:35 AM Note Text: The patient did not show for this appointment. Scarlet Rios MD [facility] 02-22-2020 CNPN Telephone (RHBATH) LAUREN HUNG ([id number]) 1965 F [facility] Date Time Provider Department 02/22/20 SCARLET RIOS During your visit today, we recorded the following information about you: Emelyn Luis 02/22/2020 10:05 AM Signed No Show Documentation Lauren Hung no showed for an appointment on 02/21 with Scarlet Rios MD at [facility]. She was scheduled for 9:20a. I called [...] Encounter Status:Closed by EMELYN SMITH on 02/22/20 [facility] Nicolas 2019 ALEXN Telephone (RHBBURKE) LAUREN HUNG ([id number]) 1965 F [facility] Date Time Provider Department 11/06/19 SCARLET RIOS During your visit today, we recorded the following information about you: Yaima Pierre CMA 2019 4:06 PM [facility] received a positive Hep C test for patient. They need to know if patient has gotten a RNA test for positive Hep C. Also is this new dx for patient and if she is seeing treatment. Also if patient is aware of these results. Okay to leave detailed VM with Rebecca at [phone] x [phone].If RNA was done okay to fax to [phone]. Please advise, RICHMOND Finney MD 2019 4:29 [...] Status:Closed by YAIMA PIERRE CMA on 11/06/19 [facility] Nicolas 09-28-2019 CNPN Telephone (RHBATH) LAUREN HUNG ([id number]) 1965 F [facility] Date Time Provider Department 09/28/19 SCARLET RIOS RHBATH During your visit today, we recorded the following information about you: Emelyn Smith 09/28/2019 2:25 PM Signed Internal referral Gastroenterology conf #[id number] Emelyn Smith 10/18/2019 8:58 AM Signed LONNIE Lim @ [facility] Main virtual 10/04 @ 1pm Emelyn [...] Encounter Status:Closed by EMELYN SMITH on 09/28/19 [facility] PROGRESSon 09-28-2019 PROGRESS HNO ID: [id number] Author: Scarlet Rios Service: ? Author Type: [...] to have pain. She presented to Dr. Kraus with [...] had infections and was hospitalized. She thinks [place] and MTX was working and gave her [...] Arthritis - 2005 (Follows with Dr Kraus, [facility]). Previous treatment include Arava, MTX. Family history of autoimmune disease- father with osteoporosis, aunts with RA Smoker HISTORY REVIEWED (electronic chart updated): PAST MEDICAL HISTORY Diagnosis Date - Anxiety 08/12/2011 - Edema - History of DVT of lower extremity right - Rheumatoid arthritis(714.0) [address] Kraus, [facility] - Tobacco use disorder PAST SURGICAL HISTORY [...] 25 min on phone Scarlet Rios MD [facility] on 09/28/19 - HCV QUANT RNA [...] Refill: 0 Platform used - na Normal [facility] PROGRESSon 09-07-2019 PROGRESS HNO ID: [id number] Author: Scarlet Rios Service: ? Author Type: [...] had infections and was hospitalized. She thinks [place] and MTX was working and gave her [...] Arthritis - 2005 (Follows with Dr Kraus, [facility]). Previous treatment include Arava, MTX. Family history of autoimmune disease- father with osteoporosis, aunts with RA Smoker HISTORY REVIEWED (electronic chart updated): PAST MEDICAL HISTORY Diagnosis Date - Anxiety 08/12/2011 - Edema - History of DVT of lower extremity right - Rheumatoid arthritis(714.0) [address] Kraus, [facility] - Tobacco use disorder PAST SURGICAL HISTORY [...] visit. I spent more than 40 minutes [id number] with the patient and over half the time was devoted to counseling and/or coordination of care. Scarlet Rios MD [facility] on 09/07/19 - XR FOOT GENERAL [...] placed in this encounter. Platform used - [employer] [facility] Vital Signs Date Time Vital Sign Value Performing Clinician Alinai aby 08-04-2023 09:01-0400 Body temperature 97.4 [degF] Dr. Cat Vasquez Work Phone: [facility] 08-04-2023 09:01-0400 Diastolic blood pressure 78 mm[Hg] Dr. Cat Vasquez Work Phone: [facility] 08-04-2023 09:01-0400 Heart rate 98 /min Dr. Cat Vasquez Work Phone: [facility] 08-04-2023 09:01-0400 Respiratory rate 17 /min Dr. Cat Vasquez Work Phone: [facility] 08-04-2023 09:01-0400 SaO2% (BldA) [Mass fraction] 95 % Dr. Cat Vasquez Work Phone: [facility] 08-04-2023 09:01-0400 Systolic blood pressure 132 mm[Hg] Dr. Cat Vasquez Work Phone: [facility] 10-16-2021 10:43-0400 Body temperature 98.7 [degF] Dr. Cat Vasquez Work Phone: [facility] Work Phone: 10-16-2021 10:43-0400 Diastolic blood pressure 64 mm[Hg] Dr. Cat Vasquez Work Phone: [facility] Work Phone: 10-16-2021 10:43-0400 Heart rate 77 /min Dr. Cat Vasquez Work Phone: [facility] Work Phone: 10-16-2021 10:43-0400 Respiratory rate 18 /min Dr. Cat Vasquez Work Phone: [facility] Work Phone: 10-16-2021 10:43-0400 SaO2% (BldA) [Mass fraction] 94 % Dr. Cat Vasquez Work Phone: [facility] Work Phone: 10-16-2021 10:43-0400 Systolic blood pressure 112 mm[Hg] Dr. Cat Vasquez Work Phone: [facility] Work Phone: 10-13-2021 22:40-0400 Body height 157.[address] Cat Vasquez Work Phone: [facility] Work Phone: 10-13-2021 22:40-0400 Body mass index (BMI) [Ratio] 31.4 kg/m2 Dr. Cat Vasquez Work Phone: [facility] Work Phone: 10-13-2021 22:40-0400 Body weight [address] Cat Vasquez Work Phone: [facility] Work Phone: 10-13-2021 21:10-0400 Body temperature 98.1 [degF] Dr. Cat Vasquez Work Phone: [facility] Work Phone: 10-13-2021 21:10-0400 Diastolic blood pressure 76 mm[Hg] Dr. Cat Vasquez Work Phone: [facility] Work Phone: 10-13-2021 21:10-0400 Heart rate 84 /min Dr. Cat Vasquez Work Phone: [facility] Work Phone: 10-13-2021 21:10-0400 Respiratory rate 18 /min Dr. Cat Vasquez Work Phone: [facility] Work Phone: 10-13-2021 21:10-0400 SaO2% (BldA) [Mass fraction] 98 % Dr. Cat Vasquez Work Phone: [facility] Work Phone: 10-13-2021 21:10-0400 Systolic blood pressure 114 mm[Hg] Dr. Cat Vasquez Work Phone: [facility] Work Phone: 10-13-2021 19:02-0400 Body height 157.[address] Cat Vasquez Work Phone: [facility] Work Phone: 10-13-2021 19:02-0400 Body mass index (BMI) [Ratio] 32.9 kg/m2 Dr. Cat Vasquez Work Phone: [facility] Work Phone: 10-13-2021 19:02-0400 Body weight 81.[address] Cat Vasquez Work Phone: [facility] Work Phone: Encounters Encounter Date Encounter Type Care Provider Facility Start: 03-05-2024 End: 03-05-2024 Patient encounter procedure Vish Mccloud MD Work Phone: Orthopaedics Comment on above: Chronic pain of both knees (Primary Dx); Other secondary osteoarthritis of both knees Start: 03-05-2024 End: 03-05-2024 ambulatory VISH MCCLOUD Facility:[facility] Start: 03-05-2024 End: 03-05-2024 Subsequent hospital visit by physician [facility] Work Phone: Radiology Comment on above: Pain [R52] Start: 12-29-2023 End: 12-29-2023 [facility] [place] Start: 12-29-2023 End: 12-29-2023 Patient encounter procedure Bonnie Marley MA [facility] [place] Comment on above: Population Health Na vigation Outreach ([facility], AWV, Care gaps, HCC, [place] PCSA//) Start: 11-24-2023 Telephone encounter Olga Lidia lawson PA-C Work Phone: Orthopaedics Comment on above: Appointment Pain in both knees, unspecified chronicity (Primary Dx) Start: 10-28-2023 [facility]ulatory [facility] Facility :[facility] Start: 10-18-2023 End: 10-18-2023 ambulatory [facility] Facility:[facility] Start: 10-03-2023 End: 10-03-2023 Emergency department patient visit [facility] Facility:[facility] Start: 09-20-2023 Orders Only Vish Mccloud MD Work Phone: Appointment Center Comment on above: Pain (Primary Dx) Start: 08-15-2023 ambulatory [facility] [place] Start: 08-15-2023 Patient encounter procedure Shell Herbert MA [facility] Comment on above: Population Health Na vigation Outreach ([facility] HCC /[facility] [place] PCSA) Start: 08-04-2023 End: 08-04-[address] Cat Vasquez Work Phone: [facility] Work Phone: Start: 08-04-2023 End: 08-04-[address] Cat Vasquez Work Phone: [facility], [place] Start: 08-04-2023 End: 08-04-[address] Cat Vasquez Work Phone: [facility] Internal Medicine Work Phone: Start: 08-04-2023 End: 08-04-2023 ambulatory Melyssa [place] Facility:[facility] Start: 08-04-2023 End: 08-04-2023 ambulatory Melyssa [place] Facility:[facility] Start: 07-01-2023 ambulatory Odette Watkins MA [facility] Start: 07-01-2023 Patient encounter procedure Odette Watkins MA [facility] [place] Comment on above: Population Health Na vigation Outreach ([facility] Annual Wellness Visit ) Start: 10-21-2021 ambulatory Cat Andres Work Phone: Internal Medicine [facility] [place] Start: 10-15-2021 Non-patient / Non-visit Dr. Joanne Vasquez Work Phone: [facility] Start: 10-14-2021 Non-patient / Non-visit Dr. Joanne Vasquez Work Phone: [facility] Start: 10-13-2021 Evaluation and manag ement of inpatient Dr. Cat Vasquez Work Phone: [facility] Start: 10-13-2021 Non-patient / Non-visit Dr. Joanne Vasquez Work Phone: [facility] Start: 10-13-2021 End: 10-16-2021 Evaluation and management of inpatient Dr. Cat Vasquez Work Phone: [facility] Procedures Date Procedure Procedure Detail Performing Clinician Start: 08-30-2011 Mammography Cat dai MD Work Phone: Start: 08-19-2011 Lipid 1996 panel - S johanne or Plasma Odette Watkins MA Plan of Treatment Date Care Activity Detail Author Start: 05-22-2029 Urine microalbumin profile [facility] Start: 12-25-2023 Covid-19 Vaccine ( season) Covid-19 Vaccine ( season) [facility] Start: 12-25-2023 Covid-19 Vaccine ( season) Covid-19 Vaccine ( season) [facility] Start: 12-25-2023 Influenza vaccination [facility] Start: 11-30-2023 End: 11-30-2023 Patient encounter procedure Radiology Comment on above: Bilateral knee Bilateral knee pain Start: 11-10-2023 End: 11-10-2023 Patient encounter procedure 11/10/2023 11:00 AM EDT Office Visit Orthopaedics [address] [place] [address] Vish Mccloud MD [address] [place], [place] [id number] Bilateral Knee replacement consult Orthopaedics Comment on above: Bilateral Knee repla cement consult Start: 08-04-2023 Patient referral [facility] Work Phone: Start: 04-25-2023 Behavioral Health Screening Behavioral Health Screening [facility] Start: 04-25-2023 Depression Assessment Depression Ass essment [facility] Start: 12-24-2022 Covid-19 Vaccine ( season) Covid-19 Vaccine ( season) [facility] Start: 12-24-2022 Influenza vaccination Influenza Vacc ine (#1) [facility] Start: 12-11-2022 DIABETES SCREEN DIABETES SCREEN [facility] Start: 12-11-2022 Diabetes Screening Diabetes Screenin g [facility] Start: 12-24-2021 Influenza vaccination INFLUENZ A (Season Ended) [facility] Start: 10-16-2021 [facility] Work Phone: Start: 10-13-2021 End: 10-13-2021 Assessment using assessment scale [facility] Work Phone: Start: 10-13-2021 End: 10-13-2021 [facility] Work Phone: Start: 10-13-2021 Assessment of risk o f venous thromboembolism [facility] Work Phone: Start: 10-13-2021 Notification of physician [facility] Work Phone: Start: 10-13-2021 Vital signs measurements [facility] Work Phone: Start: 10-13-2021 Admission procedure [facility] Work Phone: Start: 10-13-2021 [facility] Work Phone: Start: 11-05-2017 SHINGRIX VACCINE (1 of 2) ONEILL GRIX VACCINE (1 of 2) [facility] Start: 08-29-2016 HPV TESTING HPV TESTING [facility] Start: 08-29-2016 PAP TESTING PAP TESTING [facility] Start: 08-29-2016 Screening for malign ant neoplasm of cervix [facility] Start: 08-18-2016 Lipid panel Lipid Screening [facility] Start: 08-18-2016 LIPID SCREEN LIPID SCREEN [facility] Start: 11-05-2012 COLOGUARD (FIT-DNA) COLOGUARD (FIT-D NA) [facility] Start: 11-05-2012 Colonoscopy COLONOSCOPY [facility] Start: 11-05-2012 COLORECTAL CANCER SCREENING COLORECTAL CANCER SCREENING [facility] Start: 11-05-[address] COLONOGRAPHY [facility] Start: 11-05-2012 FECAL OCCULT BLOOD FECAL OCCULT BLOO D [facility] Start: 11-05-2012 Screening for malign ant neoplasm of colon [facility] Start: 11-05-2012 SIGMOIDOSCOPY SIGMOIDOSCOPY [facility] Start: 08-29-2012 Mammography MAMMOGRAM [facility] Start: 08-29-2012 Screening for malign ant neoplasm of breast Mammogram Screening [facility] Start: 01-24-2012 PNEUMOCOCCAL (2 - PCV) PNEUMOCOCCAL (2 - PCV) [facility] Start: 01-24-2012 Pneumococcal vaccination Pneum ococcal Vaccine (2 of 2 - PCV) [facility] Start: 11-05-1986 Hepatitis B Vaccine (1 of 3 - 19+ 3-dose series) Hepatitis B Vaccine (1 of 3 - 19+ 3-dose series) [facility] Start: 11-05-1985 Depression Screening Depression Scre ening [facility] Start: 1979 Adult depression screening assessment DEPRESSION SCREENING [facility] Start: 11-05-1972 COVID-19 VACCINE (#1) COVID-19 VACCI NE (#1) [facility] Start: 05-08-1968 Covid-19 Vaccine (#1) Covid-19 Vacci ne (#1) [facility] Start: 1967 Hepatitis B Vaccine (1 of 3 - 3-dose series) Hepatitis B Vaccine (1 of 3 - 3-dose series) [facility] MG Breast - bilatera l Screening [facility] Patient referral [facility] Work Phone: End: 11-20-2022 Screening mammography bi 2-view breast inc cad CELESTINA SCREENING Radiology Routine Encounter for screening mammogram for breast cancer 1 Occurrences starting 10/21/2021 until 11/20/2022 [facility] Work Phone: Comment on above: 1 Occurrences starti ng 10/21/2021 until 11/20/2022 Tobacco use cessatio n education [facility] End: 10-19-2024 XR Knee - bilateral 4 Views XR KNEE GENERAL 4V AP BOTH/PA BOTH/LAT/MERC BILATERAL Radiology Routine Pain 1 Occurrences starting 09/20/2023 until 10/19/2024 [facility] Work Phone: Comment on above: 1 Occurrences starti ng 09/20/2023 until 10/19/2024 End: 12-23-2024 XR Knee - bilateral 4 Views XR KNEE GENERAL 4V AP BOTH/PA BOTH/LAT/MERC BILATERAL Radiology Routine Pain in both knees, unspecified chronicity 1 Occurrences starting 11/24/2023 until 12/23/2024 [facility] Work Phone: Comment on above: 1 Occurrences starti ng 11/24/2023 until 12/23/2024 XR Knee - bilateral 4 Views XR KNEE GENERAL 4V AP BOTH/PA BOTH/LAT/MERC BILATERAL Radiology Routine Pain 03/05/2024 2:05 PM EST [facility] Work Phone: End: 12-23-2024 XR Lower extremity - bilateral AP W standing XR LEG FRONTAL HIP TO ANKLE MECHANICAL AXIS Radiology Routine Pain in both knees, unspecified chronicity 1 Occurrences starting 11/24/2023 until 12/23/2024 [facility] Comment on above: 1 Occurrences starti ng 11/24/2023 until 12/23/2024 Immunizations Immunization Date Immunization Notes Care Provider Fa apolinar 05-22-2019 tetanus toxoid, redu violetta diphtheria toxoid, and acellular pertussis vaccine, adsorbed Cat Vasquez MD Work Phone: [facility] 03-01-2018 influenza virus vacc ine, unspecified formulation Odette Watkins MA [facility] 02-11-2012 influenza virus vacc ine, unspecified formulation Cat Vasquez MD Work Phone: [facility] Work Phone: 01-23-2011 pneumococcal polysaccharide vaccine, 23 valent Cat Vasquez MD Work Phone: [facility] 01-23-[address] Afshin Vasquez Work Phone: [facility] Work Phone: 01-23-2011 pneumococcal vaccine , unspecified formulation Dr. Cat Vasquez Work Phone: [facility] Payers Date Payer Category Payer Medicaid [id number] 2023 Self-pay [id number] 2023 Medicare UHC AAR MEDICAR E [facility] MEDICARE HMO [id number] 2023-Present [phone] [address] [address] [place] [address] HMO [id number] 2023 Unknown [id number] Unknown [id number] Unknown [id number] Unknown [id number] Unknown [id number] Unknown [id number] Unknown [id number] Social History Date Type Detail Facility Start: 10-13-2021 End: 08-04-2023 Tobacco smoking status NHIS Unknown if ever smoked [facility] Start: 11-28-2019 None [facility] Start: 11-28-2019 Alone [facility] Start: 09-11-2020 Cigarettes [facility] Start: 1965 Sex Assigned At Female [facility] Start: 08-12-2011 End: 02-11-2012 Tobacco smoking status NHIS Smokes tobacco daily [facility] History of tobacco use Cigarette Smoker [facility] Start: 08-12-2011 End: 02-24-2024 Cigarettes smoked current (pack per day) - Reported 0.5 [facility] Start: 08-12-2011 End: 02-11-2012 Tobacco use and exposure Smokeless tobacco non-user [facility] Start: 09-29-2020 Alcohol intake 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) [facility] Start: 08-12-2011 Tobacco Comment started smoking 22yo [facility] Start: 1965 Sex Assigned At Not on file [facility] Start: 09-29-2020 End: 02-24-2024 Tobacco use panel [facility] National Score (1-10 0), lower number is lower risk Not on file [facility] Medical Equipment Procedure Code Equipment Code Equipment Original Text Equipment Identifier Dates Total cholecystectomy with exploration of common bile duct DIGITAL DIRECTOR,CLIP 5MM LIGAMAX FDA Start: 05-13-2021 Total cholecystectomy with exploration of common bile duct DIGITAL DIRECTOR,CLIP 5MM LIGAMAX FDA Start: 05-13-2021 Total cholecystectomy with exploration of common bile duct DIGITAL DIRECTOR,CLIP 5MM LIGAMAX FDA Start: 05-13-2021 ERCP (endoscopic [...] Assessment Result Facility 10-16-2021 Functional status Ambulates [facility] Work Phone: 10-15-2021 Functional status Tolerates Activity Well [facility] Work Phone: Mental Status Date Assessment Result Facility 10-16-2021 Cognitive function Appropriate;Cooperativ e [facility] Work Phone: 10-15-2021 Cognitive function Arousable To Voice/Nam e [facility] Work Phone: Clinical Notes 03-01-2018 to 03-05-2024 Vish Mccloud MD - 03/05/2024 2:39 PM Justyna Charles RT(Isidoro) - 03/05/2024 1:10 PM Bonnie Epperson MA - 12/29/2023 3:21 PM Bonnie Padilla MA - 12/29/2023 2:57 PM EDT Note Date & Type Note Facility 03-05-2024 Note HNO ID: [id number] Author: VISH MCCLOUD MD Service: ? Author [...] MD Department of Orthopaedics Orthopaedics [address] [facility] [address] Dept: [phone] Dept March 05, 2024 CHIEF COMPLAINT: Bilateral [...] fracture. Worsening degenerative disease of bilateral knees. [employer] C[employer] Machine: DELONTE Transcribe Date/Time: Mar 09 2024 5:13P [...] Edema Heroin use active, recent ED visit [facility] 09/11/20 History of DVT of lower extremity right Rheumatoid arthritis(714.0) 04/25/[address] Kraus, [facility] Tobacco use disorder Past Surgical History: PAST [...] Take 1 tablet (more content not included)... [facility] 03-05-2024 History of Presen t illness Narrative [...] of Orthopaedics Orthopaedics [address] [place] [address] Dept: [phone] Dept March 05, 2024 CHIEF COMPLAINT: Bilateral [...] fracture. Worsening degenerative disease of bilateral knees. [employer] C[employer] Machine: PSCB Transcribe Date/Time: Mar 09 2024 5:13P Dictated by : REYNA KESSLER MD This examination was interpreted and the report reviewed and electronically signed by: REYNA KESSLER MD on Mar 09 2024 5:14PM EST Results-Findings * * *Final Report* * * DATE OF EXAM: Mar 05 2024 2:05PM WRX [id number] - XR KNEE 4V AP/PA/LAT/[facility] ZAC / PROCEDURE REASON: Pain * * [...] Edema Heroin use active, recent ED visit [facility] 09/11/20 History of DVT of lower extremity right Rheumatoid arthritis(714.0) 04/25/[address] Kraus, [facility] Tobacco use disorder Past Surgical History: PAST [...] Vish Mccloud MD documented in this encounter [facility] 03-05-2024 History of Presen t illness Narrative [...] PATIENT PRESENTS WITH AN IMPLANTABLE OR ATTACHED MICROFILM OPERATOR: No RADIOLOGY DEPARTMENT: General X-ray: Exam(s) Completed: Lower Extremity X-Ray(s): Knee, AP / Lat / Tunne / Merchant Bilateral and Wt. Bearing PERIPHERAL IV DATA: Not applicable SIGNED BY: RT Alphonso(R) March 05, 2024 9:14 PM documented in this encounter [facility] 03-05-2024 Note HNO ID: [id number] Author: JUSTYNA PORTILLO RT(Isidoro) Service: ? Author [...] PATIENT PRESENTS WITH AN IMPLANTABLE OR ATTACHED MICROFILM OPERATOR: No RADIOLOGY DEPARTMENT: General X-ray: Exam(s) Completed: Lower Extremity X-Ray(s): Knee, AP / Lat / Tunne / Merchant Bilateral and Wt. Bearing PERIPHERAL IV DATA: Not applicable SIGNED BY: RT Alphonso(R) March 05, 2024 9:14 PM [facility] 12-29-2023 Note HNO ID: [id number] Author: BONNIE MARLEY MA Service: ? Author Type: Gig Tender Type: Progress Notes Filed: 12/29/2023 15:22 Note [...] Marley MA December 29, 2023 3:21 PM [facility] 12-29-2023 History of Presen t illness Narrative [...] Called and left a message to call [phone], to discuss health maintenance items that are [...] 2023 2:57 PM documented in this encounter [facility] 12-29-2023 Note HNO ID: [id number] Author: BONNIE MARLEY MA Service: ? Author Type: Gig Tender Type: Progress Notes Filed: 12/29/2023 14:58 Note Text: POPULATION HEALTH NAVIGATION OUTREACH Action/FYI Called and left a message to call [phone], to discuss health maintenance items that are [...] Marley MA December 29, 2023 2:57 PM [facility] 12-29-2023 Note Patient Outreach (NE TNAV) LAUREN HUNG ([id number]) 1965 [facility] Date Time Provider Department 12/29/23 BONNIE MARLEY During your visit today, we recorded the following information about you: Bonnie Marley MA 12/29/2023 2:58 PM Signed POPULATION HEALTH NAVIGATION OUTREACH Action/FYI Called and left a message to call [phone], to discuss health maintenance items that are [...] Encounter Status:Closed by BONNIE MARLEY on 12/29/23 [facility] 11-24-2023 Telephone encount er Note Called and left detailed message regarding XR's prior to orthopedic appointment on 11/30/2023. [facility] 11-24-2023 Miscellaneous Notes Formattin g of this note might be different from the original. Called and left detailed message regarding XR's prior to orthopedic appointment on 11/30/2023. documented in this encounter [facility] 08-15-2023 Note HNO ID: [id number] Author: SHELL HERBERT MA Service: ? Author Type: Gig Tender Type: Progress Notes Filed: 08/15/2023 14:35 Note Text: POPULATION HEALTH NAVIGATION OUTREACH Action/FYI LVM Annual medicare wellness Colonoscopy Mammograms HCC CLOSURE Reason for Outreach Care Gap/HCC or Scheduling Wellness Visits Care Gaps due: Medicare Annual Wellness Visit Breast Cancer Screening Colorectal Cancer Screening Patient Contacted: Unable or unnecessary to reach patient: Left message Navigation Signature: Shell Herbert MA August 15, 2023 11:05 AM [facility] 08-15-2023 History of Presen t illness Narrative [...] 2023 11:05 AM documented in this encounter [facility] 08-15-2023 Note Patient Outreach (LARRY TNAV) LAUREN HUNG ([id number]) 1965 [facility] Date Time Provider Department 08/15/23 SHELL HERBERT During your visit today, we recorded the following information about you: Shell Herbert MA 08/15/2023 2:35 PM Signed POPULATION HEALTH NAVIGATION OUTREACH Action/FYI [facility] Annual medicare wellness Colonoscopy Mammograms HCC CLOSURE Reason for Outreach Care Gap/HCC or Scheduling Wellness Visits Care Gaps due: Medicare Annual Wellness Visit Breast Cancer Screening Colorectal Cancer Screening Patient Contacted: Unable or unnecessary to reach patient: Left message Navigation Signature: hSell Herbert MA August 15, 2023 11:05 AM Allergies As of Date: 08/15/2023 Noted Allergy Reaction MELOXICAM 11/29/2017 8 - GI Upset Date Reviewed: 12/12/2019 Reviewed by: Tash Hu, Livier Waggoner - Fully Assessed Reason for Visit: Population Health Navigation Outreach [3910] Cmt: [facility] HCC /CARE GAPS [place] PCSA Prescriptions [...] Encounter Status:Closed by SHELL HERBERT on 08/15/23 [facility] 07-01-2023 Note HNO ID: [id number] Author: ODETTE HARGROVE MA Service: ? Author Type: Gig Tender Type: Progress Notes Filed: 07/01/2023 09:10 Note [...] Watkins MA July 01, 2023 9:05 AM [facility] 07-01-2023 History of Presen t illness Narrative [...] 2023 9:05 AM documented in this encounter [facility] 07-01-2023 Note Patient Outreach (NE TNAV) LAUREN HUNG ([id number]) 1965 [place] Date Time Provider Department [...] Visit: Population Health Navigation Outreach [3910] Cmt: [facility] Annual Wellness Visit Prescriptions as of [...] Encounter Status:Closed by ODETTE HARGROVE on 07/01/23 [facility] 03-01-2018 History of Past i llness Narrative Problem Noted Date Resolved Date Morbid obesity 03/01/2018 documented as of this encounter (statuses as of 10/26/2021) [facility]11-07[facility]2018 History of Past illness Narrative* Problem Noted Date Diagnosed Date Resolved Date Morbid obesity 03/01/2018 documented as of this encounter (statuses as of 07/01/2023) [facility] note* Diagnosis Onset Date Resolution Status Desire for detoxification ac esther History of heroin abuse acut e History of rheumatoid arthritis acute Opiate withdrawal acute [facility] Work Phone: Evaluation note* Diagnosis Encounter for screening mammogram for breast cancer documented in this encounter [facility] note* Diagnosis Onset Date Resolution Status Anxiety and depression chron ic Rheumatoid arthritis noneact uriah Establishing care with new doctor, encounter for noneactive Substance abuse noneactive Hepatitis C noneactive OAB (overactive bladder) non eactive Screening for cervical cancer noneactive Chronic knee pain noneactive Screening for breast cancer noneactive Vitamin D deficiency noneact uriah Smoker noneactive Iron deficiency noneactive [facility] Work Phone: Evaluation note* Diagnosis Pain- Primary Generalized pain documented in this encounter [facility] note* Diagnosis Pain in both knees, unspecified chronicity- Primary documented in this encounter [facility] note* Diagnosis Pain Generalized pain documented in this encounter [facility] note* Diagnosis Chronic pain of both knees- Primary Other secondary osteoarthritis of both knees [facility]: Hospital Discharge instructionsAmbulatory Orders* DIE MECHANIC Location: None Selected * Orthopedics Location: None Selected [facility] Work Phone: Reason for referral (narrative)* Diagnostic Procedure Only (Routine) - Pending Review Specialty Diagnoses / Procedures Referred By Contac t Referred To Contact BR IMAGING Diagnoses Encounter for screening mammogram for breast cancer Procedures CELESTINA SCREENING SCREENING MAMMOGRAPHY BI 2-VIEW BREAST INC CAD Cat Vasquez MD [address] [place] [address] [facility] [address] [place] [address] Referral ID Status Reason Start Date Expiration Date Visits Requested Visits Authorized [id number] Pending Review Auto-Generat ed Referral 10/21/2021 11/20/2022 1 1 [facility] for referral (narrative)* Diagnostic Procedure Only (Routine) - Pending Review Specialty Diagnoses / Procedures Referred By Contac t Referred To Contact XR IMAGING Diagnoses Pain Procedures XR KNEE GENERAL 4V AP BOTH/PA BOTH/LAT/MERC BILATERAL RADIOLOGIC EXAM KNEE COMPLETE 4/MORE VIEWS Vish Mccloud MD [address] [facility] [place] [address] [place] [address] Referral ID Status Reason Start Date Expiration Date Visits Requested Visits Authorized [id number] Pending Review Auto-Generat ed Referral 09/20/2023 10/19/2024 1 1 [facility] for referral (narrative)* Diagnostic Procedure Only (Routine) - New Request Specialty Diagnoses / Procedures Referred By Contac t Referred To Contact XR IMAGING Diagnoses Pain in both knees, unspecified chronicity Procedures XR LEG FRONTAL HIP TO ANKLE MECHANICAL AXIS BONE LENGTH STUDIES Olga Lidia Mandujano PA-C [address] [address] [place] [address] Referral ID Status Reason Start Date Expiration Date Visits Requested Visits Authorized [id number] New Request Auto-Generat ed Referral 11/24/2023 12/23/2024 1 1 * Diagnostic Procedure Only (Routine) - New Request Specialty Diagnoses / Procedures Referred By Contac t Referred To Contact XR IMAGING Diagnoses Pain in both knees, unspecified chronicity Procedures XR KNEE GENERAL 4V AP BOTH/PA BOTH/LAT/MERC BILATERAL RADIOLOGIC EXAM KNEE COMPLETE 4/MORE VIEWS Olga Lidia Mandujano PA-C [address] [address] [place] [address] Referral ID Status Reason Start Date Expiration Date Visits Requested Visits Authorized [id number] New Request Auto-Generat ed Referral 11/24/2023 12/23/2024 1 1 [facility] for visit Narrative* Diagnostic Procedure Only (Routine) - Closed Specialty Diagnoses / Procedures Referred By Contac t Referred To Contact XR IMAGING Diagnoses Pain Procedures XR KNEE GENERAL 4V AP BOTH/PA BOTH/LAT/MERC BILATERAL RADIOLOGIC EXAM KNEE COMPLETE 4/MORE VIEWS iVsh Mccloud MD [address] [place] [address] [place] [address] Referral ID Status Reason Start Date Expiration Date V isits Requested Visits Authorized [id number] Closed Auto-Generate d Referral 09/20/2023 10/19/2024 1 1 [facility] Summary Purpose Family History No Family History [...] No October 13, 2021 8:01pm Power of Neurology Professor No October 13 8:01pm Advance Directive Response Recorded Date/ Time Advance Directives No February 21, 2014 11:25pm Living Will No October 13, 2021 10:49pm Power of Neurology Professor No October 13 10:49pm Chief Complaint and Reason for Visit Chief Complaint HEROIN DETOX OPIATE WITHDRAWL Reason for Visit Desire for detoxific ation History of heroin abuse History of rheumatoid arthritis Opiate withdrawal Chief Complaint OPIATE WITHDRAWL HEROIN DETOX OPIATE WITHDRAWL OPIATE WITHDRAWL Reason for Visit Desire for detoxific ation History of heroin abuse History of rheumatoid arthritis Opiate withdrawal 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 Reason [...] MINS Vish Mccloud MD [address] [place] [address] [facility] [place] [address] [place] [address] Referral ID Status Reason Start Date Expiration Date Visits Requested Visits Authorized [id number] Pending Review Auto-Generat ed Referral 4 03/05/2025 1 1 Additional Source Comments INFORMATION SOURCE (unrecogn ized section and content) DATE CREATED AUTHOR 02/25/2020 [facility] DATE CREATED AUTHOR AUTHOR'S ORGANIZ ATION 10/28/2023 [facility] DATE CREATED AUTHOR AUTHOR'S ORGANIZ ATION 03/12/2024 [facility] Goals (unrecognized section and content) Goals may [...] or prosecute any alcohol or drug abuse patient.[facility] the event this information is protected by the Federal Confidentiality of Alcohol and Drug Abuse Patient Records regulations: The Federal rules restrict any use of the information to criminally investigate or prosecute any alcohol or drug abuse patient.[facility] the event this information is protected by the Federal Confidentiality of Alcohol and Drug Abuse Patient Records regulations: The Federal rules restrict any use of the information to criminally investigate or prosecute any alcohol or drug abuse patient.[facility] the event this information is protected by the Federal Confidentiality of Alcohol and Drug Abuse Patient Records regulations: The Federal rules restrict any use of the information to criminally investigate or prosecute any alcohol or drug abuse patient.[facility] the event this information is protected by the Federal Confidentiality of Alcohol and Drug Abuse Patient Records regulations: The Federal rules restrict any use of the information to criminally investigate or prosecute any alcohol or drug abuse patient.[facility] the event this information is protected by the Federal Confidentiality of Alcohol and Drug Abuse Patient Records regulations: The Federal rules restrict any use of the information to criminally investigate or prosecute any alcohol or drug abuse patient.[facility] the event this information is protected by the Federal Confidentiality of Alcohol and Drug Abuse Patient Records regulations: The Federal rules restrict any use of the information to criminally investigate or prosecute any alcohol or drug abuse patient.[facility] the event this information is protected by the Federal Confidentiality of Alcohol and Drug Abuse Patient Records regulations: The Federal rules restrict any use of the information to criminally investigate or prosecute any alcohol or drug abuse patient.[facility] the event this information is protected by the Federal Confidentiality of Alcohol and Drug Abuse Patient Records regulations: The Federal rules restrict any use of the information to criminally investigate or prosecute any alcohol or drug abuse patient.[facility] Care Teams (unrecognized sec tion and content) Physical Therapy Professor Relationship Specialty Start Date End Date Cat Vasquez MD [address] [place], [place] [id number] PCP - General Internal Medicine 12/19/17 Physical Therapy Professor Relationship Specialty Start Date End Date Cat Vasquez MD [address] [place], [place] [address] PCP - General Internal Medicine 12/19/17 Team [...] MD Primary Care Provider, Attendi Provider Active Physical Therapy Professor Relationship Specialty Start Date End Date Cat Vasquez MD [address] [place], [place] [address] PCP - General Internal Medicine 12/19/17 Physical Therapy Professor Relationship Specialty Start Date End Date Cat Vasquez MD [address] [place], [place] [address] PCP - General Internal Medicine 12/19/17 Physical Therapy Professor Relationship Specialty Start Date End Date Cat Vasquez MD [address] [place], [place] [address] PCP - General Internal Medicine 12/19/17 Physical Therapy Professor Relationship Specialty Start Date End Date Cat Vasquez MD [address] [place] [address] PCP - General Internal Medicine 12/19/17 Physical Therapy Professor Relationship Specialty Start Date End Date Melyssa Mercado MD [address] [place] [place], [place] [address] PCP - General Internal Medicine 12/29/23 Physical Therapy Professor Relationship Specialty Start Date End Date Melyssa Mercado MD [address] [place], [place] [address] PCP - General Internal Medicine 12/29/23 Reason for Visit (unrecogniz ed section and content) Reason Onset Date Comments Population Health Navigation Outreach 07/01/2023 [facility] Annual Wellness Visit Reason Onset Date Comments Population Health Navigation Outreach 08/15/2023 [facility] HCC /CARE GAPS [place] PCSA Reason Comments Appointment Reason Onset Date Comments Population Health Navigation Outreach 12/29/2023 [facility], AWV, Care gaps, HCC, [place] PCSA [...] BE BASED ON THE PRIMARY CLINICAL RECORDS. [facility] [employer] [facility]. provides no warranty or guarantee of the accuracy or completeness of information in this document.
[2025-04-01 02:13] VITALS: BP 152/84; PULSE 93; RESP 16; TEMP 36.6; O2SAT 96
[2025-04-01 02:26] VITALS: BMI 82.0
[2025-04-01 02:55] VITALS: BP 150/98; PULSE 92; RESP 20; TEMP 36.7; O2SAT 96
[2025-04-01] MEDS: 0.9% Saline Lock 10 ML Syringe IV ×4 (03:01→21:56)
[2025-04-01] MEDS: Lactated Ringers 1,000 ML 75 ML IV (03:01)
[2025-04-01] MEDS: Potassium Chloride Oral Tablet 20 MEQ 40 MEQ PO (03:20)
[2025-04-01 03:28] VITALS: BMI 37.1
--- NOTE | 2025-04-01 04:12 | NURSING ---
As soon as this RN entered the room, pt states just so you know I am use the immobilizer.
[2025-04-01 07:00] LABS: Hematocrit 36.8 % (37-47); Hemoglobin 12.0 g/dL (12.0-15.0); Immature Granulocytes Count 0.030 X10^3/uL (0.0-0.0); Mean Corp Hgb Conc 32.6 g/dL (32-36); Mean Corpuscular Volume 95.1 fL (81-99); Mean Platelet Vol. 10.8 fl (6.2-12.0); NRBC Flagged by Analyzer 0 % (0-5); POSITIVE MORPHOLOGY YES; Platelet Count 232 K/mm3 (150-450); RBC Distribution Width CV 20.7 % (11.6-14.6); RBC Distribution Width SD 70.4 fl (35.1-43.9); Red Blood Count 3.87 M/mm3 (4.2-5.4); White Blood Count 7.7 K/mm3 (4.4-11.0)
[2025-04-01 07:07] LABS: Differential Indicated SCAN CRITERIA MET
[2025-04-01 07:27] LABS: Anion Gap 9 (5-15); BUN 9 mg/dL (4-19); BUN/Creat Ratio 18.9 RATIO (10-20); Calcium,Total 8.7 mg/dL (7.6-11.0); Carbon Dioxide 25.0 mmol/L (21.0-32.0); Chloride 106 mmol/L (98-108); Estimated Creatinine Clearance 128.78 ml/min (50-250); Glucose 93 mg/dL (70-99); Potassium 4.4 mmol/L (3.3-5.1)
[2025-04-01 07:58] LABS: Anisocytosis 1+
--- NOTE | 2025-04-01 08:34 | PCM.PN.HOSP ---
Reason for Visit Chief Complaint: Fall and left knee pain Subjective Subjective Still bilateral knee pain. Unable to fully extend the legs for some time. Objective Data Objective Data Vital Signs: Vital Signs Temp Pulse Resp BP Pulse Ox O2 Del Method 36.7 C 92 20 H 150/98 H 96 Room Air 04/01/25 02:55 04/01/25 02:55 04/01/25 02:55 04/01/25 02:55 04/01/25 02:55 04/01/25 07:24 Oxygen Delivery Method Room Air Weight: 89.3 kg Body Mass Index (BMI) 37.1 Intake & Output: Intake and Output for Last 24 Hours 03/30/25 03/31/25 04/01/25 23:59 23:59 23:59 Intake Total 92.5 / 92.5 Output Total 150 / 150 Balance -57.5 / -57.5 Lab / Micro Data 04/01/25 06:41 04/01/25 06:41 Labs: Laboratory Results - last 24 hr 03/31/25 18:10: WBC 12.0 H, RBC 4.19 L, Hgb 12.9, Hct 39.7, MCV 94.7, MCH 30.8, MCHC 32.5, RDW Std Deviation 69.5 H, RDW Coeff of Abhay 20.8 H, Plt Count 286, MPV 10.7, Immature Gran % (Auto) 0.500, Neut % (Auto) 52.6, Lymph % (Auto) 32.0, Crook % (Auto) 5.9, Eos % (Auto) 7.8 H, Baso % (Auto) 1.2 H, Absolute Neuts (auto) 6.3, Absolute Lymphs (auto) 3.84, Nucleated RBC % 0, Anisocytosis 1+, Microcytosis 1+, Sodium 138, Potassium 3.5, Chloride 104, Carbon Dioxide 20.7 L, Anion Gap 14, BUN 10, Creatinine 0.57 L, Estim Creat Clear Calc 112.70, Est GFR (MDRD) Non-Af 106, BUN/Creatinine Ratio 18.0, Glucose 106 H, Calcium 8.8 04/01/25 06:41: WBC 7.7, RBC 3.87 L, Hgb 12.0, Hct 36.8 L, MCV 95.1, MCH 31.0, MCHC 32.6, RDW Std Deviation 70.4 H, RDW Coeff of Abhay 20.7 H, Plt Count 232, MPV 10.8, Immature Gran % (Auto) 0.400, Neut % (Auto) 55.0, Lymph % (Auto) 27.8, Crook % (Auto) 7.3, Eos % (Auto) 8.3 H, Baso % (Auto) 1.2 H, Absolute Neuts (auto) 4.3, Absolute Lymphs (auto) 2.15, Nucleated RBC % 0, Anisocytosis 1+, Sodium 139, Potassium 4.4, Chloride 106, Carbon Dioxide 25.0, Anion Gap 9, BUN 9, Creatinine 0.49 L, Estim Creat Clear Calc 128.78, Est GFR (MDRD) Non-Af 110, BUN/Creatinine Ratio 18.9, Glucose 93, Calcium 8.7 Radiography Diagnostic Testing: Radiology Impression Knee X-Ray 03/31/25 17:10 IMPRESSION: As above. Reading Location: [facility] Knee X-Ray 03/31/25 17:12 IMPRESSION: As above. Reading Location: [facility] Lower Extremity CT 03/31/25 20:00 IMPRESSION: 1. Mild depression of the lateral tibial plateau is seen otherwise, no displaced acute knee fractures noted. Recommend clinical correlation. 2. Severe knee arthritic changes. 3. Moderate knee joint effusion with synovial thickening. Reading Location: [place] [address] Physical Exam Const alert and no apparent distress Resp normal respiratory effort and no retractions Extremity Extremity Narrative: Bilateral knees tender to palpation but no effusions nor any erythema no warmth. Assessment & Plan Assessment/Plan (1) Bilateral knee pain: PLAN: Plan Acute debility due to severe left knee pain on chronic bilateral knee degenerative arthritis: [facility] Knee x-rays were done but was inconclusive therefore lower extremity CT was done which shows mild depression of lateral tibial plateau otherwise no displaced acute knee fracture. Severe knee arthritis changes. Moderate knee joint effusion with synovial thickening. Orthopedic surgery was consulted from ER physician. Advised to left knee immobilizer, WBAT. Follow up as outpt. Pain control with Tylenol, IV Toradol and opioids. PT and OT ordered. Chronic conditions: Chronic rheumatoid arthritis: Patient is not following any stripper opaquer. She is not on Biologics but take ibuprofen at home. Chronic anxiety and mild depression: Patient on BuSpar at home, continued Chronic pain due to knee arthritis: PT and OT. Past history of heroin/substance use. DVT prophylaxis: High risk. Lovenox 40 mL subcu daily ordered. Disposition: Tentative looking into a correction facility. Charges/Coding Visit Charges Inpatient E&M: 89826 Subs Hosp L1
[2025-04-01 09:00] VITALS: BP 145/99; PULSE 94; RESP 18; TEMP 36.4; O2SAT 97
--- NOTE | 2025-04-01 12:02 | CASEMGMT ---
Social Work- SW met with pt to discuss discharge planning. SW introduced self and role; pt agreeable to meet. Pt reports that her dtr is coming in around 14:30 and has questions for SW. Pt reports that she would like SNF to get stronger to have knee replacement done, as she lacks strength and endurance at this time and personal care has been lacking due to difficulty. SW will bring a SNF list at 14:30 when SW returns to meet with pt and pt dtr. LAURYN Henson
--- NOTE | 2025-04-01 12:13 | CASEMGMT ---
Discharge Planning A list of?SNF providers including quality and resource use data and consistent with the patient's preferred geographic region, medical needs, and insurance network was created in [employer] Guide.? This list was provided to the SW. Carey Eddy Discharge Planning Asst.
[2025-04-01 15:00] VITALS: BP 121/87; PULSE 97; RESP 18; TEMP 36.8; O2SAT 98
--- NOTE | 2025-04-01 15:56 | CASEMGMT ---
Social Work- SW met with pt and pt dtr to discuss d/c plans. SW introduced self and role to pt dtr. A list of SNF providers including quality and resource use data and consistent with the patient?s preferred geographic region, medical needs, and insurance network were provided via the [employer] Guide Link. SW answered questions and provided education on SNF process. Pt and pt dtr selected [facility] as [facility]. Pt to review list for additional choices if needed. SW completed referral to [facility]. [place] remains available to follow . LAURYN Henson
[2025-04-01 21:50] VITALS: BP 155/82; PULSE 98; RESP 18; TEMP 36.6; O2SAT 94
[2025-04-01] MEDS: Nicotine (PBKC) 21 MG Patch TD (21:53)
[2025-04-02 03:57] VITALS: BP 150/96; PULSE 100; RESP 18; TEMP 36.6; O2SAT 97
[2025-04-02 05:32] VITALS: BMI 37.1
[2025-04-02 08:46] VITALS: BP 170/99; PULSE 111; RESP 16; TEMP 37; O2SAT 97
--- NOTE | 2025-04-02 08:49 | PN.HOSP_ITS ---
Reason for Visit Chief Complaint: Fall and left knee pain Subjective Subjective Still with knee pain but feeling slightly better today was able to walk back and forth from the bathroom without significant difficulty. Objective Data Objective Data Vital Signs: Vital Signs Temp Pulse Resp BP Pulse Ox O2 Del Method 37.0 C 111 H 16 170/99 H 97 Room Air 04/02/25 08:46 04/02/25 08:46 04/02/25 08:46 04/02/25 08:46 04/02/25 08:46 04/02/25 08:46 Oxygen Delivery Method Room Air Weight: 89.2 kg Body Mass Index (BMI) 37.1 Intake & Output: Intake and Output for Last 24 Hours 03/31/25 04/01/25 04/02/25 23:59 23:59 23:59 Intake Total 92.5 / 92.5 100 / 100 Output Total 150 / 150 Balance -57.5 / -57.5 100 / 100 Lab / Micro Data 04/01/25 06:41 04/01/25 06:41 Physical Exam Const alert and no apparent distress Constitutional Narrative: Up in chair. Nontoxic. Afebrile Assessment & Plan Assessment/Plan (1) Bilateral knee pain: PLAN: Plan Acute debility due to severe left knee pain on chronic bilateral knee degenerative arthritis: * Patient is being admitted to [facility] floor. Knee x-rays were done but was inconclusive therefore lower extremity CT was done which shows mild depression of lateral tibial plateau otherwise no displaced acute knee fracture. Severe knee arthritis changes. Moderate knee joint effusion with synovial thickening. * Orthopedic surgery was consulted from ER physician. Advised to left knee immobilizer, WBAT. Follow up as outpt. * Pain control with Tylenol, IV Toradol and opioids. PT and OT ordered. Hypertension * Persistence. Will add as needed clonidine. Schedule 5 mg of amlodipine daily. Chronic conditions: * Chronic rheumatoid arthritis: Patient is not following any gas pipe layer. She is not on Biologics but take ibuprofen at home. * Chronic anxiety and mild depression: Patient on BuSpar at home, continued * Chronic pain due to knee arthritis: PT and OT. * Past history of heroin/substance use. DVT prophylaxis: High risk. Lovenox 40 mL subcu daily ordered. Disposition: Tentative looking into a penitentiary facility. Charges/Coding Visit Charges Inpatient E&M: 66142 [facility] Hosp L1
[2025-04-02] MEDS: Nicotine (PBKC) 21 MG Patch TD (08:52)
[2025-04-02 10:31] VITALS: BP 162/102
--- NOTE | 2025-04-02 10:43 | CASEMGMT ---
Addendum entered by Ange Ortega 04/02/25 12:56: NE followed up with pt. Pt selected [facility] as FOC and [facility] as alternate. DCA notified of referral request. LAURYN Henson Original Note: Social Work- SW updated pt that TCU declined referral. NE provided another SNF list for pt to review. SW will follow for choices. NE provided information for Ortho to follow OP. LAURYN Henson
--- NOTE | 2025-04-02 12:46 | CASEMGMT ---
Addendum entered by Carey Eddy 04/02/25 15:25: [facility] declined d/t no available beds. Original Note: Discharge Planning Referral sent via [facility]Port to [facility]. Carey Eddy DC Planning Asst.
[2025-04-02 14:00] VITALS: BP 145/98; PULSE 94; RESP 16; TEMP 36.7; O2SAT 97
--- NOTE | 2025-04-02 15:25 | CASEMGMT ---
Addendum entered by Carey Eddy 04/03/25 10:50: CC has declined. SW updated. Carey Eddy DC Planning Asst Original Note: Discharge Planning Referral sent via CarePort to [facility]. Carey Eddy DC Planning Asst.
[2025-04-02 20:00] VITALS: BP 153/104; PULSE 103; RESP 18; TEMP 36.8; O2SAT 97
[2025-04-03 02:00] VITALS: BP 156/98; PULSE 97; RESP 16; TEMP 36.9; O2SAT 96
[2025-04-03] MEDS: Senna/Docusate Sodium 1 Tablet 2 TABLET PO ×2 (02:29→21:08)
[2025-04-03 04:03] VITALS: BMI 37.0
--- NOTE | 2025-04-03 08:43 | PCM.PN.HOSP ---
Reason for Visit Chief Complaint: Fall and left knee pain Subjective Subjective Still with knee pain. Doing ok with ambulation. Objective Data Objective Data Vital Signs: Vital Signs Temp Pulse Resp BP Pulse Ox O2 Del Method 36.9 C 97 16 156/98 H 96 Room Air 04/03/25 02:00 04/03/25 02:00 04/03/25 02:00 04/03/25 02:00 04/03/25 02:00 04/03/25 08:01 Oxygen Delivery Method Room Air Weight: 89.1 kg Body Mass Index (BMI) 37.0 Intake & Output: Intake and Output for Last 24 Hours 04/01/25 04/02/25 04/03/25 23:59 23:59 23:59 Intake Total 92.5 / 92.5 100 / 100 Output Total 150 / 150 Balance -57.5 / -57.5 100 / 100 Lab / Micro Data 04/01/25 06:41 04/01/25 06:41 Physical Exam Const alert Constitutional Narrative: up in chair. no respiratory distress. HEENT head/scalp atraumatic and moist oral mucous membranes Neuro Sensorium / Orientation: awake and alert Assessment & Plan Assessment/Plan (1) Bilateral knee pain: PLAN: Plan Acute debility due to severe left knee pain on chronic bilateral knee degenerative arthritis: Patient is being admitted to [facility] floor. Knee x-rays were done but was inconclusive therefore lower extremity CT was done which shows mild depression of lateral tibial plateau otherwise no displaced acute knee fracture. Severe knee arthritis changes. Moderate knee joint effusion with synovial thickening. Orthopedic surgery was consulted from ER physician. Advised to left knee immobilizer, WBAT. Follow up as outpt. Pain control with Tylenol, IV Toradol and opioids. PT and OT ordered. Hypertension Persistence. Will add as needed clonidine. Schedule 5 mg of amlodipine daily. Chronic conditions: Chronic rheumatoid arthritis: Patient is not following any prison guard. She is not on Biologics but take ibuprofen at home. Chronic anxiety and mild depression: Patient on BuSpar at home, continued Chronic pain due to knee arthritis: PT and OT. Past history of heroin/substance use. DVT prophylaxis: High risk. Lovenox 40 mL subcu daily ordered. Disposition: Tentative looking into a alf facility. Yet to find an accepting facility. Charges/Coding Visit Charges Inpatient E&M: 31360 [facility] Hosp L1
[2025-04-03 09:36] VITALS: BP 132/95; PULSE 99; RESP 16; TEMP 36.4; O2SAT 96
[2025-04-03] MEDS: Nicotine (PBKC) 21 MG Patch TD (09:38)
--- NOTE | 2025-04-03 10:50 | CASEMGMT ---
Discharge Planning Notified pt that CC has declined. Pt requested referral be sent to both [facility] and [facility]. SW updated. Carey Eddy DC Planning Asst.
--- NOTE | 2025-04-03 10:57 | CASEMGMT ---
Addendum entered by Carey Eddy 04/03/25 15:16: FOC is [facility] and they have accepted. [facility] updated and asked to submit for precert. OP asked to cancel referral. Original Note: Discharge Planning Referral sent via CarePort to [facility] and [facility]. [facility] has accepted. Carey Eddy DC Planning Asst.
--- NOTE | 2025-04-03 13:52 | PCM.TXEXTCAR ---
Diet Diet Order/Speech Therapy: INPATIENT Hospital Diet / Speech Therapy Order(s) 04/01/25 02:46 Diet: Regular - General Food consistency:: Regular Liquid Consistency:: Regular/Thin DC O2, CPAP, BIPAP needs Home O2 Discharge instructions: No Problem/Diagnosis (1) Bilateral knee pain: Status: Acute Code(s): M25.561 - Pain in right knee; M25.562 - Pain in left knee Plan Acute debility due to severe left knee pain on chronic bilateral knee degenerative arthritis: Patient is being admitted to [facility] floor. Knee x-rays were done but was inconclusive therefore lower extremity CT was done which shows mild depression of lateral tibial plateau otherwise no displaced acute knee fracture. Severe knee arthritis changes. Moderate knee joint effusion with synovial thickening. Orthopedic surgery was consulted from ER physician. Advised to left knee immobilizer, WBAT. Follow up as outpt. Pain control with Tylenol, IV Toradol and opioids. PT and OT ordered. Hypertension Persistence. Will add as needed clonidine. Schedule 5 mg of amlodipine daily. 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 She is not on Biologics but take ibuprofen at home. Chronic anxiety and mild depression: Patient on BuSpar at home, continued Chronic pain due to knee arthritis: PT and OT. Past history of heroin/substance use. DVT prophylaxis: High risk. Lovenox 40 mL subcu daily ordered. Disposition: Tentative looking into a [facility] facility. Yet to find an accepting facility. 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 terminal 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 wt loss if pt willing - need PCP referral Discharge Plan Admission Admit Date/Time: 04/01/25 01:34 Primary Reason for Your Visit: debility Attending Provider: Leonel Sepulveda Primary Care Provider: Esme Mercado Consulting Providers: Wes Douglas; Baldemar Gómez Discharge Orders/Prescriptions Prescriptions: New acetaminophen 500 mg Tablet 1,000 mg PO Q8 Qty: 0 0RF amlodipine 5 mg Tablet 5 mg PO DAILY Qty: 0 0RF oxycodone 5 mg Tablet 5 mg PO Q4H PRN PRN (Reason: Pain Score 4-10) 3 Days Qty: 12 0RF pantoprazole 40 mg Tablet,Delayed Release (Dr/Ec) 40 mg PO DAILY Qty: 0 0RF Continued ibuprofen [IBU] 800 MG tablet 800 mg PO TID PRN (Reason: Pain) Patient Comments: Take 1 tablet by mouth every 8 hours as needed for Pain. Take with food. buspirone 5 mg tablet 5 mg PO BID Patient Comments: Does not have current prescription Referrals / Follow Up: [facility] [Outside] - Within 1 Month Esme Mercado MD [Primary Care Provider, Internal Medicine] - Within 2 Weeks Disposition Disposition (needs filled in before D/C Order can be placed): [facility] Facility
[2025-04-03 14:24] VITALS: BP 139/89; PULSE 108; RESP 16; TEMP 36.4; O2SAT 96
--- NOTE | 2025-04-03 15:27 | CASEMGMT ---
Social Work SW met with pt and informed that [facility] has accepted and [facility] is not able to accept. Pt is agreeable to go to [facility] at at [place]. SW education pt that insurance precert is needed and that insurance denies precert, pt can private pay at SNF or go home with services. Pt expresses understanding. DC assistant attorney general updated and requested precert be started at [facility] at this time. Plan: [facility], pending acceptance LAURYN Porter
[2025-04-03 20:00] VITALS: BP 155/93; PULSE 110; RESP 16; TEMP 36.9; O2SAT 97
[2025-04-03 22:00] VITALS: PULSE 100; RESP 16
[2025-04-04 02:30] VITALS: BP 155/90; PULSE 99; RESP 16; TEMP 36.9; O2SAT 95
[2025-04-04 06:00] VITALS: BMI 37.5
[2025-04-04] MEDS: 0.9% Saline Lock 10 ML Syringe IV ×2 (07:57→17:09)
[2025-04-04] MEDS: Nicotine (PBKC) 21 MG Patch TD (08:00)
--- NOTE | 2025-04-04 08:13 | PN.HOSP_ITS ---
Reason for Visit Chief Complaint: Fall and left knee pain Subjective Subjective Knees feeling better. Objective Data Objective Data Vital Signs: Vital Signs Temp Pulse Resp BP Pulse Ox O2 Del Method 36.9 C 99 16 155/90 H 95 Room Air 04/04/25 02:30 04/04/25 02:30 04/04/25 02:30 04/04/25 02:30 04/04/25 02:30 04/04/25 02:30 Oxygen Delivery Method Room Air Weight: 90.1 kg Body Mass Index (BMI) 37.5 Intake & Output: Intake and Output for Last 24 Hours 04/02/25 04/03/25 04/04/25 23:59 23:59 23:59 Intake Total 100 / 100 Balance 100 / 100 Lab / Micro Data 04/01/25 06:41 04/01/25 06:41 Physical Exam Const alert and no apparent distress Constitutional Narrative: up in chair. HEENT head/scalp atraumatic and moist oral mucous membranes Cardio regular rate, regular rhythm, S1 normal heart sound and S2 normal heart sound GI normal to inspection, nondistended, normoactive bowel sounds and soft to palpation Neuro Sensorium / Orientation: awake and alert Assessment & Plan Assessment/Plan (1) Bilateral knee pain: PLAN: Plan Acute debility due to severe left knee pain on chronic bilateral knee degenerative arthritis: * Patient is being admitted to [facility] floor. Knee x-rays were done but was inconclusive therefore lower extremity CT was done which shows mild depression of lateral tibial plateau otherwise no displaced acute knee fracture. Severe knee arthritis changes. Moderate knee joint effusion with synovial thickening. * Orthopedic surgery was consulted from ER physician. Advised to left knee immobilizer, WBAT. Follow up as outpt. * Pain control with Tylenol, IV Toradol and opioids. PT and OT ordered. Hypertension * Persistence. Will add as needed clonidine. Schedule 5 mg of amlodipine daily. Chronic conditions: * Chronic rheumatoid arthritis: Patient is not following any heater furnace. She is not on Biologics but take ibuprofen at home. * Chronic anxiety and mild depression: Patient on BuSpar at home, continued * Chronic pain due to knee arthritis: PT and OT. * Past history of heroin/substance use. DVT prophylaxis: High risk. Lovenox 40 mL subcu daily ordered. Disposition: Tentative looking into a residential facility. Awaiting on precertification. Charges/Coding Visit Charges Inpatient E&M: 07001 Subs Hosp L1
[2025-04-04 08:29] VITALS: BP 146/97; PULSE 105; RESP 16; TEMP 36.4; O2SAT 96
[2025-04-04 11:14] VITALS: BP 121/78; PULSE 95; RESP 16; TEMP 36.3; O2SAT 96
[2025-04-04 15:53] VITALS: BP 143/95; PULSE 114; RESP 16; TEMP 36.6; O2SAT 94
[2025-04-04 19:50] VITALS: RESP 16; O2SAT 97
[2025-04-04 22:00] VITALS: BP 137/88; PULSE 96; RESP 16; TEMP 36.8; O2SAT 96
[2025-04-05 02:00] VITALS: RESP 16
[2025-04-05 04:00] VITALS: BP 158/93; PULSE 103; RESP 16; TEMP 36.7; O2SAT 96
[2025-04-05 04:04] VITALS: BMI 38.2
--- NOTE | 2025-04-05 07:51 | PN.HOSP_ITS ---
Reason for Visit Chief Complaint: Fall and left knee pain Subjective Subjective Still with knee pain but overall feeling well. Objective Data Objective Data Vital Signs: Vital Signs Temp Pulse Resp BP Pulse Ox O2 Del Method 36.7 C 103 H 16 158/93 H 96 Room Air 04/05/25 04:00 04/05/25 04:00 04/05/25 04:00 04/05/25 04:00 04/05/25 04:00 04/05/25 04:00 Oxygen Delivery Method Room Air Weight: 91.8 kg Body Mass Index (BMI) 38.2 Intake & Output: Intake and Output for Last 24 Hours 04/03/25 04/04/25 04/05/25 23:59 23:59 23:59 Intake Total 1050 / 1050 Balance 1050 / 1050 Lab / Micro Data 04/01/25 06:41 04/01/25 06:41 Physical Exam Const Constitutional Narrative: Up in chair. Nontoxic. Afebrile. HEENT head/scalp atraumatic and moist oral mucous membranes Resp normal respiratory effort and no retractions Extremity Extremity Narrative: Knee pain bilaterally but no redness nor warmth appreciated Assessment & Plan Assessment/Plan (1) Bilateral knee pain: PLAN: Plan Acute debility due to severe left knee pain on chronic bilateral knee degenerative arthritis: * Patient is being admitted to [facility] floor. Knee x-rays were done but was inconclusive therefore lower extremity CT was done which shows mild depression of lateral tibial plateau otherwise no displaced acute knee fracture. Severe knee arthritis changes. Moderate knee joint effusion with synovial thickening. * Orthopedic surgery was consulted from ER physician. Advised to left knee immobilizer, WBAT. Follow up as outpt. * Pain control with Tylenol, IV Toradol and opioids. PT and OT ordered. Hypertension * Persistence. Will add as needed clonidine. Schedule 5 mg of amlodipine daily. 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 She is not on Biologics but take ibuprofen at home. * Chronic anxiety and mild depression: Patient on BuSpar at home, continued * Chronic pain due to knee arthritis: PT and OT. * Past history of heroin/substance use. DVT prophylaxis: High risk. Lovenox 40 mL subcu daily ordered. Disposition: Patient to [facility] facility in stable condition today.
[2025-04-05 08:33] VITALS: BP 131/91; PULSE 95; RESP 16; TEMP 36.6; O2SAT 95
--- NOTE | 2025-04-05 09:02 | CASEMGMT ---
[facility] has obtained auth to admit. SW updated. Carey Eddy DC Planning Asst.
[2025-04-05] MEDS: Nicotine (PBKC) 21 MG Patch TD (09:46)
[2025-04-05] MEDS: 0.9% Saline Lock 10 ML Syringe IV (09:46)
--- NOTE | 2025-04-05 10:44 | DS.PCM_ITS ---
Providers Date of Admission: 04/01/25 Primary Care Physician: Dr. Esme Mercado MD Consultations 04/01/25 02:46 Consult: Orthopedics Routine Consulting Provider: Wes Douglas Reason for Consult: left knee tibila plateau depression? EMERGENT Consult: No MD Notified: Yes Date Notified: 04/01/25 Time Notified: 01:39 Method of Notification: ED Physician Initiated Reason For Visit: LEFT KNEE PAIN Diagnosis Discharge Diagnosis (1) Bilateral knee pain: Status: Acute Code(s): M25.561 - Pain in right knee; M25.562 - Pain in left knee Plan Acute debility due to severe left knee pain on chronic bilateral knee degenerative arthritis: * [facility]. Knee x-rays were done but was inconclusive therefore lower extremity CT was done which shows mild depression of lateral tibial plateau otherwise no displaced acute knee fracture. Severe knee arthritis changes. Moderate knee joint effusion with synovial thickening. * Orthopedic surgery was consulted from ER physician. Advised to left knee immobilizer, WBAT. Follow up as outpt. * Pain control with Tylenol, IV Toradol and opioids. PT and OT ordered. Hypertension * Persistence. Will add as needed clonidine. Schedule 5 mg of amlodipine daily. Chronic conditions: * Chronic rheumatoid arthritis: Patient is not following any pediatrician active practice. She is not on Biologics but take ibuprofen at home. * Chronic anxiety and mild depression: Patient on BuSpar at home, continued * Chronic pain due to knee arthritis: PT and OT. * Past history of heroin/substance use. DVT prophylaxis: High risk. Lovenox 40 mL subcu daily ordered. Disposition: Patient to care home facility in stable condition today. Medications at Discharge Home Medications ibuprofen 800 mg tablet (IBU) 800 mg PO TID PRN Pain 02/01/18 buspirone 5 mg tablet 5 mg PO BID anxiety/depresion 04/01/25 acetaminophen 500 mg tablet 1,000 mg (2 x 500 mg) PO Q8 #0 tabs 04/03/25 amlodipine 5 mg tablet 5 mg PO DAILY #0 tabs 04/03/25 oxycodone 5 mg tablet 5 mg PO Q4H PRN PRN Pain Score 4-10 3 days #12 tabs 04/03/25 pantoprazole 40 mg tablet,delayed release 40 mg PO DAILY #0 tabs 04/03/25 Hospital Course Operations None Procedures None Summary of Care Provided Hospital Course: Patient with debility due to severe knee pain. No evidence of any infection or any acute flareup though patient does carry a diagnosis of rheumatoid arthritis. Patient did well overall but was limited due to severe pain in chronic arthritis in her knees. Patient was accepted by facility and will be discharged there in stable condition today. Weight / BMI Weight Weight: 91.8 kg Body Mass Index (BMI) 38.2 ABG / Lab / Microbiology Data 04/01/25 06:41 04/01/25 06:41 D/C Instructions DC O2, CPAP, BIPAP Needs Home O2 Discharge instructions: No Meaningful Use Info Meaningful Use Meaningful Use Diagnoses (Choose all that apply): None applicable Discharge Plan Admission Admit Date/Time: 04/01/25 01:34 Primary Reason for Your Visit: debility Attending Provider: Leonel Sepulveda Primary Care Provider: Emse Mercado Consulting Providers: Wes Douglas; Baldemar Gómez Instructions Additional Instructions / Restrictions: Follow-up with rheumatology and orthopedics at your earliest convenience. Discharge Orders/Prescriptions Prescriptions: New acetaminophen 500 mg Tablet 1,000 mg PO Q8 Qty: 0 0RF amlodipine 5 mg Tablet 5 mg PO DAILY Qty: 0 0RF oxycodone 5 mg Tablet 5 mg PO Q4H PRN PRN (Reason: Pain Score 4-10) 3 Days Qty: 12 0RF pantoprazole 40 mg Tablet,Delayed Release (Dr/Ec) 40 mg PO DAILY Qty: 0 0RF Continued ibuprofen [IBU] 800 MG tablet 800 mg PO TID PRN (Reason: Pain) Patient Comments: Take 1 tablet by mouth every 8 hours as needed for Pain. Take with food. buspirone 5 mg tablet 5 mg PO BID Patient Comments: Does not have current prescription Referrals / Follow Up: [facility] [Outside] - Within 1 Month Esme Mercado MD [Primary Care Provider, Internal Medicine] - Within 2 Weeks Disposition Disposition (needs filled in before D/C Order can be placed): [facility] Charges/Coding Visit Charges Inpatient E&M: 37814 Disch Hosp
--- NOTE | 2025-04-05 10:51 | PHA.DC.MR.R ---
Pharmacy PR Med Reconciliation Pharmacy Service has performed discharge medication reconciliation for this patient. The patient's discharge medication list was reviewed for discrepancies and discrepancies were resolved. Medications at Discharge Home Medications ibuprofen 800 mg tablet (IBU) 800 mg PO TID PRN Pain 02/01/18 buspirone 5 mg tablet 5 mg PO BID anxiety/depresion 04/01/25 acetaminophen 500 mg tablet 1,000 mg (2 x 500 mg) PO Q8 #0 tabs 04/03/25 amlodipine 5 mg tablet 5 mg PO DAILY #0 tabs 04/03/25 oxycodone 5 mg tablet 5 mg PO Q4H PRN PRN Pain Score 4-10 3 days #12 tabs 04/03/25 pantoprazole 40 mg tablet,delayed release 40 mg PO DAILY #0 tabs 04/03/25
--- NOTE | 2025-04-05 12:06 | CASEMGMT ---
Social Work Precert has been obtained for admission to [facility]. Physician updated and pt is ready for discharge today. 7000 exemption form completed in [facility]. SW met with pt and updated that pt is ready for dc to [facility] today. Pt is agreeable. DC hospital nursing assistant notified and to complete DC. Disposition: [facility], skilled level of care LAURYN Suazo
--- NOTE | 2025-04-05 12:44 | CASEMGMT ---
Discharge Planning Discharge orders, signed med list, and transport time sent via Careport to [facility]. Physicians will transport pt by wheelchair at 2p. Nursing, SW, and pt updated. Pt states that she will update her daughter (Hawa). Carey Eddy DC Planning Asst.
[2025-04-05 14:04] VITALS: BP 151/98; PULSE 100; RESP 18; TEMP 36.8; O2SAT 96
== END 2025-04-05 14:00 | disposition skilled nursing facility (03) | DRG 554 ==
LOC: ED 17:16 → MS3 04-01 01:46
PROVIDERS: Admitting Provider Internal Medicine; Emergency Provider Surgery; PCP Internal Medicine
DX: M17.0 Bilateral primary osteoarthritis of knee (principal); E66.812 Obesity, class 2; M06.9 Rheumatoid arthritis, unspecified; I10 Essential (primary) hypertension; F32.A Depression, unspecified; F17.200 Nicotine dependence, unspecified, uncomplicated; F41.9 Anxiety disorder, unspecified; Z68.38 Body mass index [BMI] 38.0-38.9, adult; G89.29 Other chronic pain; R53.81 Other malaise; Z79.899 Other long term (current) drug therapy; Z87.898 Personal history of other specified conditions
CPT/HCPCS: 36415; 73560; 73700; 80048; 85025; 97110; 97162; 97166; 97530; 97535; 97802; 99285; 99406; A4216